=== PATIENT | male | born 1970 | race Caucasian/White ===

== ENCOUNTER 2024-03-09 11:30 | Inpatient (IN) | payer BC, SELFPAY ==
--- NOTE | ~2024-03-09 | MR_ITS ---
EXAMINATION: MR FOOT WITHOUT AND WITH CONTRAST, LEFT CLINICAL INFORMATION: Left foot erythema, pain, swelling. Evaluate for osteomyelitis. COMPARISON: Left foot radiographs dated 03/09/2024. TECHNIQUE: MRI of the left foot was performed before and after the intravenous administration of 8 mL Gadavist on a high-field scanner. FINDINGS: Soft tissue ulceration along the dorsal aspect of the midfoot at the level of the cuneiforms measuring approximately 2.0 x 1.6 cm. There is associated fluid signal extending deep into the region of the extensor digitorum tendon sheaths. Adjacent skin thickening and edema with postcontrast enhancement. Peripherally enhancing fluid signal measures up to 4.8 x 2.1 x 2.0 cm, likely indicating early abscess formation. Prominent adjacent soft tissue edema extends both proximally and distally beyond the imaged [id number]. No adjacent marrow edema or periosteal reaction to suggest adjacent osteomyelitis. There is complex cystic change with erosion and mild peripheral enhancement in the sinus tarsi with cystic change in both the talus and adjacent calcaneus. Mild associated marrow edema. Findings likely represent a chronic degenerative or inflammatory process and a superimposed acute infection is thought less likely due to the minimal adjacent marrow edema. Areas of full-thickness articular cartilage loss and subchondral cystic change at the anterior aspect of the tibial plafond. Diffuse talar articular cartilage thinning with areas of full-thickness loss and subchondral cystic change laterally. No unstable osteochondral fragment. Areas of full thickness loss and subchondral cystic change at the subtalar joints, as well as at the calcaneocuboid joint. No transverse tendon tear or tendon retraction. Posterior tibialis and peroneal tendons demonstrate small amount of fluid within the tendon sheath with mild enhancement, likely representing mild tenosynovitis. No evidence of acute ligament injury. Circumferential subcutaneous edema with mild enhancement. No additional fluid collection or abscess formation. MR/MR foot LT wo/w con IMPRESSION: 1. Soft tissue ulceration along the dorsal aspect of the midfoot at the level of the cuneiforms measuring up to 2.0 x 1.6 cm. Fluid signal extending deep to the extensor digitorum tendon sheath with adjacent skin thickening and enhancement, likely indicating early abscess formation. Prominent adjacent soft tissue edema extending both proximally and distally beyond the imaged [id number]. No adjacent marrow edema or periosteal reaction to suggest osteomyelitis. 2. Complex cystic change with erosion and mild peripheral enhancement in the sinus tarsi with cystic change in the talus and calcaneus. Findings likely represent a chronic degenerative or inflammatory process and a superimposed acute infection is thought less likely due to the minimal adjacent marrow edema. 3. 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 No unstable osteochondral fragment. 4. Mild posterior tibialis and peroneal tenosynovitis. 5. Circumferential subcutaneous edema with mild enhancement, likely representing cellulitis. No additional fluid collection or abscess formation.
--- NOTE | ~2024-03-09 | US_ITS ---
EXAMINATION: US VENOUS ULTRASOUND WITH DOPPLER LOWER EXTREMITY, LEFT CLINICAL INFORMATION: Left lower extremity swelling and redness COMPARISON: None available. TECHNIQUE: Ultrasound of the deep veins is performed from the hip to the calf with compression sonography and color and pulse Doppler assessment. Spectral analysis with color-flow imaging is performed. FINDINGS: There is normal venous compression and respiratory variation. The visualized common femoral vein, superficial femoral vein, profunda femoral vein, popliteal vein, and the trifurcation region shows no evidence of deep venous thrombosis. A benign-appearing enlarged lymph node measuring 4.1 cm in length is seen in the left inguinal area. This is likely reactive in origin. US/US venous duplex LE LT IMPRESSION: No DVT demonstrated in the left lower extremity.
--- NOTE | ~2024-03-09 | XR_ITS ---
EXAMINATION: XR FOOT, LEFT CLINICAL INFORMATION: swelling, pain, retained needle? COMPARISON: None available. TECHNIQUE: AP, lateral, and oblique views of the left foot. FINDINGS: No radiopaque foreign body. No evidence of retained needle. Large bone erosions present of the talus at the dorsum of the bone and the talar neck at the subtalar joint. Erosions also of the anterior calcaneus at the subtalar joint. No soft tissue calcification. Further evaluation with MRI would be helpful. There is a spur at the anterior tibia at the ankle joint which can suggest impingement. XR/XR foot LT min 3V IMPRESSION: 1. No radiopaque foreign body. No evidence of retained needle. 2. Large bone erosions of the talus at the subtalar joint and the anterior calcaneus at the subtalar joint. Further evaluation with MRI would be helpful.
[2024-03-09 12:44] VITALS: BP 150/79; PULSE 99; RESP 16; TEMP 37.2; O2SAT 97; BMI 26.4
--- NOTE | 2024-03-09 12:46 | ED.EXTPRO ---
HPI - Extremity Problem General Chief complaint: General Medical Stated complaint: Infected L foot Time Seen by Provider: 03/09/24 18:57 Source: patient Mode of arrival: ambulatory Limitations: no limitations History of Present Illness HPI Narrative: 53 yo male with history of HTN on atenolol, chronic back pain previously on oral opiates not on IV heroin for the last 10 years who presents to the ER for evaluation of a red, swollen, hot left foot and lower leg that has been worsening for the last 3 days. He states it started as a small reddened area on the foot and has progressed to his entire foot and lower leg. Barely able to walk on it now. He admits to injecting drugs in his feet, last was about 2 weeks ago. He is not diabetic. No history of cellulitis or infection from injecting in the past. Started getting chills and subjective fevers today. MD Complaint: extremity pain and extremity swelling Onset (ago): day(s) (3) Pain Consistency: constant Location: left and lower extremity Severity scale (1-10): 10 Quality: stabbing and aching Radiation: proximal Relieving factors: immobilization and elevation Exacerbating factors: range of motion, weight bearing and palpation Associated symptoms: fever, myalgias and arthralgias Context: other (IVDA) Related Data Home Medications ?Medication ?Instructions ?Recorded ?Confirmed atenolol 50 mg tablet 100 mg PO BEDTIME 03/09/24 03/09/24 Allergies Allergy/AdvReac Type Severity Reaction Status Date / Time No Known Allergies Allergy Verified 03/09/24 12:49 Review of Systems Review of Systems: Yes all other systems are reviewed and are negative [facility] Past Medical History Medical History (Updated 03/09/24 @ 20:33 by VESNA Patterson) IV drug user Essential hypertension Social History Social History Advance Directives: No Advance Directives Information Provided: Yes Physical Exam Vital Signs: Vital Signs: Last Vital Signs Temp 99.6 F 03/09/24 20:18 Pulse 103 H 03/09/24 20:18 Resp 16 03/09/24 20:18 BP 158/84 H 03/09/24 20:18 Pulse Ox 97 03/09/24 20:18 O2 Del Method Room Air 03/09/24 20:18 BMI result Body Mass Index 26.4 Appearance: Alert. Oriented X3. No acute distress. Head: normocephalic, atraumatic. Eyes: Pupils equal, round and reactive to light. ENT: Pharynx normal. poor dentition. No tonsillar swelling or exudate. Neck: Normal inspection. Neck supple. CVS: Normal heart rate and rhythm. Pulses normal. Respiratory: No respiratory distress. Breath sounds normal. Abdomen: Soft and nontender. +BS x4 Skin: Skin warm and dry. Normal skin color. Normal skin turgor. No rashes. Extremities: left foot with severe pitting edema, tenderness, warmth. punctate area of black, necrotic tissue on the top of the proximal foot which progressed to 2cm and is now multiple blackened areas upon re-evaluation. unable to palpate DP/PD pulse. skin blanches. taught edema. able to move all digits. erythema and warmth extend to the lower leg, see photos. Neuro/psych: Oriented X 3. No motor deficit. No sensory deficit. CN II-XII intact. Normal speech and cognition. Course Course Course Narrative: This is a Rapid Medical Examination (RME) performed by David Cartagena PA-C in triage. Full HPI, ROS, assessment and treatment plan per primary provider in the Main ED. 53 y/o male with history of HTN, active smoker, active IV heroin user who presents to the ER for evaluation of worsening left foot pain, redness and swelling that started 3 days ago after injecting heroin into the foot. no history of DM. on exam foot, ankle and lower leg are erythematous, warm, swollen with possible retained needle. patient counseled on severity of infection and need for inpatient level of care. importance of staying in the hospital expressed w/ concern for possible bacteremia. Plan: labs, cultures, imaging, ADMIT Medications Administered Generic Name Dose Route Start Last Admin Trade Name Freq PRN Reason Stop Dose Admin Vancomycin HCl 2,000 mg in 500 mls @ 250 mls/hr 03/09/24 18:56 03/09/24 20:32 Vancomycin/Ns IV 03/09/24 20:55 250 mls/hr ONCE ONE Administration Discontinued Medications Generic Name Dose Route Start Last Admin Trade Name Freq PRN Reason Stop Dose Admin Hydromorphone HCl 2 mg 03/09/24 19:05 03/09/24 19:45 Hydromorphone Hcl 2 Mg/Ml Vial IVPUSH 03/09/24 19:06 2 mg ONCE ONE Administration Protocol Piperacillin Sod/Tazobactam 50 mls @ 100 mls/hr 03/09/24 18:56 03/09/24 19:46 Sod 3.375 gm/ Sodium Chloride IV 03/09/24 19:25 100 mls/hr ONCE ONE Administration Sodium Chloride 1,000 mls @ 999 mls/hr 03/09/24 19:00 03/09/24 19:44 Ns IV 03/09/24 20:00 999 mls/hr .Q1H1M MIR Administration Medical Decision Making Medical Decision Making [facility] Narrative: 53-year-old male with history of HTN and active intravenous drug use presents to the ER for evaluation of left foot pain, swelling, redness that has been worsening for the last 3 days. He injected in the area 2 weeks ago. No other injury. Unable to ambulate on the leg with the pain. Subjective fevers today. On arrival to the ER patient has mild tachycardia, heart rate 99, temp 99 degrees. His foot is significantly swollen, erythematous, tender. Punctate area of blackened tissue on the proximal foot. Labs revealing for leukocytosis, white blood cell count 12.9. CRP is almost 14. Ultrasound does not show any evidence of blood clot. X-ray shows extensive bony erosions, question possible osteomyelitis, although he reports the redness and wound have only been present for 3 days. blackened area on his foot has worsened significantly in the last 6 hours, now open and draining foul smelling liquid. IV vanco, zosyn ordered along w/ pain control, IVF. patient will require admission for further evaluation and treatment. patient agreeable with plan Differential Diagnosis Differential Diagnoses: The differential diagnosis associated with the presentation includes Cellulitis, abscess, osteomyelitis, DVT, necrotizing wound, retained foreign body from injecting drugs Admission/Observation Consideration of admission/observation: Escalation of care including admission/observation considered Consult Healthcare Provider Management of the patient was discussed with: Hospitalist Dr. Sorto accepts admission Lab Data [facility] Lab Attestation statement: I reviewed the patient's lab results. leukocytosis, anemia, significantly elevated CRP 03/09/24 15:49 03/09/24 15:49 Labs: Lab Results 03/09/24 03/09/24 Range/Units 15:49 19:51 WBC 12.9 H (4.8-10.8) X10*3/uL RBC 4.40 L (4.60-5.80) X10*6/uL Hgb 12.5 L (14.0-18.0) g/dl Hct 36.9 L (42.0-52.0) % MCV 83.9 (80.0-98.0) fL MCH 28.4 (27.0-33.0) pg MCHC 33.9 (31.0-36.0) g/dl RDW 12.9 (11.0-16.0) % Plt Count 263 (160-400) X10*3/uL MPV 9.5 (9.4-12.4) fL Immature Gran % (Auto) 0.6 H (0.0-0.4) % Neut % (Auto) 83.3 H (45-73) % Lymph % (Auto) 9.6 L (20-40) % [place] % (Auto) 5.9 (2-11) % Eos % (Auto) 0.4 (0-4) % Baso % (Auto) 0.2 (0-2) % Lymph # (Auto) 1.2 (1.2-4.9) X10*3/uL [place] # (Auto) 0.8 (0.1-1.2) X10*3/uL Eos # (Auto) 0.1 (0.0-0.4) X10*3/uL Baso # (Auto) 0.0 (0.0-0.2) X10*3/uL Abs Immat Gran (auto) 0.08 H (0.00-0.03) X10*3/uL Absolute Neuts (auto) 10.7 H (2.0-8.3) x10*3/uL Absolute Nucleated RBC 0.000 (0.0-0.012) X10*3/uL Nucleated RBC % (auto) 0.0 (0.0-0.2) /100WBC ESR 75 H (0-15) MM/HR Sodium 135 (135-145) mmol/L Potassium 3.8 (3.3-5.1) mmol/L Chloride 100 (96-108) mmol/L Carbon Dioxide 24 (22-29) mmol/L Anion Gap 15 (12-20) BUN 8 L (9-16) mg/dL Creatinine 0.82 (0.5-1.4) mg/dL Estim Creat Clear Calc 104.1 Estimated GFR > 60 Random Glucose 105 (60-115) mg/dL Lactic Acid 0.9 (0.5-2.0) mmol/L Calcium 9.4 (8.4-10.2) mg/dL Magnesium 1.6 (1.6-2.6) mg/dL Total Bilirubin 0.7 (0.0-1.0) mg/dL Direct Bilirubin 0.3 (0.0-0.5) mg/dL AST 10 (5-37) U/L ALT 10 (0-40) U/L Alkaline Phosphatase 78 (39-117) U/L Total Creatine Kinase 57 (38-174) U/L C-Reactive Protein 13.93 H (< or = 0.50) mg/dL B-Natriuretic Peptide 80 (<100) pg/mL Total Protein 8.4 H (6.5-8.0) g/dL Albumin 4.0 (3.5-5.0) g/dL Urine Color Yellow Urine Appearance Clear Urine pH 5.5 (5.0-9.0) Ur Specific [place] 1.020 (1.005-1.025) Urine Protein 30 (1+) H (Neg-Trace) mg/dL Urine Glucose (UA) Negative (Negative) mg/dL Urine Ketones Negative (Negative) mg/dL Urine Blood Negative (Negative) Urine Nitrite Negative (Negative) Ur Leukocyte Esterase Negative (Negative) Urine RBC 0-2 (0-2) /HPF Urine WBC 0-5 (0-5) /HPF Ur Squamous Epith Cells 0-2 (0-2) /HPF Urine Bacteria None Seen (None Seen) Hyaline Casts 0-2 (0-2) /LPF Urine Opiates Screen POSITIVE H (Not Detect) Ur Buprenorphine Scrn Not Detected (Not Detect) ng/mL Ur Oxycodone Screen Not Detected (Not Detect) ng/mL Urine Methadone Screen Not Detected (Not Detect) ng/mL Urine Fentanyl Screen POSITIVE H (Not Detect) Ur Barbiturates Screen Not Detected (Not Detect) Ur Phencyclidine Scrn Not Detected (Not Detect) Ur Amphetamines Screen Not Detected (Not Detect) U Benzodiazepines Scrn Not Detected (Not Detect) Urine Cocaine Screen POSITIVE H (Not Detect) U Marijuana (THC) Screen Not Detected (Not Detect) Independent Interpretation I performed an independent interpretation of an: Plain X-Ray and Ultrasound Interpretation: Bony erosions, no acute fracture No DVT apprecaited on U/S Radiology Impression Discussion of test interpretation with radiology: I have reviewed the radiologist's reading. Radiologist Impression: EXAMINATION: XR FOOT, LEFT CLINICAL INFORMATION: swelling, pain, retained needle? COMPARISON: None available. TECHNIQUE: AP, lateral, and oblique views of the left foot. FINDINGS: No radiopaque foreign body. No evidence of retained needle. Large bone erosions present of the talus at the dorsum of the bone and the talar neck at the subtalar joint. Erosions also of the anterior calcaneus at the subtalar joint. No soft tissue calcification. Further evaluation with MRI would be helpful. There is a spur at the anterior tibia at the ankle joint which can suggest impingement. XR/XR foot LT min 3V IMPRESSION: 1. No radiopaque foreign body. No evidence of retained needle. 2. Large bone erosions of the talus at the subtalar joint and the anterior calcaneus at the subtalar joint. Further evaluation with MRI would be helpful. EXAMINATION: US VENOUS ULTRASOUND WITH DOPPLER LOWER EXTREMITY, LEFT CLINICAL INFORMATION: Left lower extremity swelling and redness COMPARISON: None available. TECHNIQUE: Ultrasound of the deep veins is performed from the hip to the calf with compression sonography and color and pulse Doppler assessment. Spectral analysis with color-flow imaging is performed. FINDINGS: There is normal venous compression and respiratory variation. The visualized common femoral vein, superficial femoral vein, profunda femoral vein, popliteal vein, and the trifurcation region shows no evidence of deep venous thrombosis. A benign-appearing enlarged lymph node measuring 4.1 cm in length is seen in the left inguinal area. This is likely reactive in origin. US/US venous duplex LE LT IMPRESSION: No DVT demonstrated in the left lower extremity. Tests considered The following testing was considered but not selected: Considered CT scan of the lower leg with contrast to evaluate for possible underlying abscess versus additional bony lesions versus osteomyelitis Prescription Management I considered prescription management with: Pain Medication and Antibiotic Chronic Conditions Patient?s care impacted by: Hypertension and Other (IVDA) Social Determinants Patient?s care significantly limited by Social Determinants of Health including: Problems related to primary support group and Other Social Determinant of Health Critical Care Time Critical Care Time Critical Care Time: Yes Total Critical Care Time: 49 Attestation: I have personally provided critical care time exclusive of time spent on separately billable procedures. Time includes review of lab data, radiology results, discussion with consultants, and monitoring for potential decompensation. Intervention performed as documented. Discharge Plan Discharge Clinical Impression: Cellulitis, Sepsis Patient Disposition: Admitted As Inpatient Print Language: Serbian
--- NOTE | 2024-03-09 13:37 | PC.NURSE ---
no answer [id number] - returned to waiting room at [phone]
[2024-03-09 15:56] LABS: MANUAL DIFF FLAG NO
[2024-03-09 16:05] LABS: Basophils Percent Auto 0.2 % (0-2); Eosinophils Absolute Auto 0.1 X10*3/uL (0.0-0.4); Eosinophils Percent Auto 0.4 % (0-4); Hematocrit 36.9 % (42.0-52.0); Hemoglobin 12.5 g/dl (14.0-18.0); Imm Gran Abs Auto 0.08 X10*3/uL (0.00-0.03); Imm Gran Pct Auto 0.6 % (0.0-0.4); Lymphocytes Absolute Auto 1.2 X10*3/uL (1.2-4.9); Lymphocytes Percent Auto 9.6 % (20-40); Mean Corpuscular HGB Conc 33.9 g/dl (31.0-36.0); Mean Corpuscular Hemoglobin 28.4 pg (27.0-33.0); Mean Corpuscular Volume 83.9 fL (80.0-98.0); Mean Platelet Volume 9.5 fL (9.4-12.4); Monocytes Absolute Auto 0.8 X10*3/uL (0.1-1.2); Monocytes Percent Auto 5.9 % (2-11); Neutrophils Absolute Auto 10.7 x10*3/uL (2.0-8.3); Neutrophils Percent Auto 83.3 % (45-73); Platelet Count 263 X10*3/uL (160-400); Red Cell Distribution Width 12.9 % (11.0-16.0); White Blood Count 12.9 X10*3/uL (4.8-10.8)
[2024-03-09 16:18] LABS: Lactic Acid 0.9 mmol/L (0.5-2.0)
[2024-03-09 16:22] LABS: Alanine Aminotransferase 10 U/L (0-40); Alkaline Phosphatase 78 U/L (39-117); Anion Gap 15 (12-20); Aspartate Amino Transferase 10 U/L (5-37); Bilirubin Direct 0.3 mg/dL (0.0-0.5); Bilirubin Total 0.7 mg/dL (0.0-1.0); Blood Urea Nitrogen 8 mg/dL (9-16); C Reactive Protein 13.93 mg/dL (< or = 0.50); Calcium 9.4 mg/dL (8.4-10.2); Carbon Dioxide 24 mmol/L (22-29); Chloride 100 mmol/L (96-108); Creatinine Clr Calc Pharmacy 104.1; Estimated Glomerular Filt Rate > 60; Glucose Random 105 mg/dL (60-115); Magnesium 1.6 mg/dL (1.6-2.6); Potassium 3.8 mmol/L (3.3-5.1); Sodium 135 mmol/L (135-145); Total Protein 8.4 g/dL (6.5-8.0)
[2024-03-09 16:29] LABS: B Type Natriuretic Peptide 80 pg/mL (<100)
[2024-03-09 16:37] LABS: Erythrocyte Sedimentation Rate 75 MM/HR (0-15)
[2024-03-09] MEDS: 0.9 % Sodium Chloride 1,000 ML 999 ML IV (19:44)
[2024-03-09] MEDS: HYDROmorphone HCl 2 MG/ML VIAL IVPUSH (19:45)
[2024-03-09] MEDS: Piperacillin Sodium/Tazobactam 3.375 GM in 0.9 % Sodium Chloride 50 ML IV (19:46)
[2024-03-09 19:49] VITALS: BP 158/84; PULSE 103; RESP 16; TEMP 37.6; O2SAT 97
[2024-03-09 19:59] LABS: Appearance Urine Clear; Color Urine Yellow; Glucose Urine UA Negative (Negative); Leukocyte Esterase Urine Negative (Negative); Nitrite Urine Negative (Negative); PH 5.5 (5.0-9.0); UMIC TRIGGER UACC YES; Urine Blood Negative (Negative); Urine Ketones Negative (Negative); Urine Protein 30 (1+) mg/dL (Neg-Trace)
--- NOTE | 2024-03-09 19:59 | P.HPHOSP_ITS ---
History of Present Illness Date of Service: 03/09/24 Chief Complaint: Foot infection This is a 53-year-old male with pertinent history of IV drug use disorder, essential hypertension on beta-hailee who presents to the emergency department for concerns of foot infection. Patient does admit injecting IV heroin into his left lower extremity. He last used 2 weeks ago. He noticed 3 days prior to presentation that his left lower extremity was red, warm and swollen. The symptoms have progressed over the next 48-72 hours. Patient is complaining of increasing redness, swelling and pain over the left lower extremity. Denies history of skin infections in the past. No fever, chills, nausea, vomiting, chest discomfort, palpitations, shortness of breath, abdominal pain, changes in urinary or bowel habits. Has difficulty ambulating due to pain. No drainage from the left lower extremity In the emergency department, patient was found to be septic and initiated on empiric IV antibiotics. Review of Systems 2 Constitutional: Constitutional: Reports no additional constitutional complaints Cardiovascular: Cardiovascular: Reports no additional cardiovascular complaints Gastrointestinal: Gastrointestinal: Reports no additional gastrointestinal complaints Genitourinary: Genitourinary: Reports no additional male genitourinary complaints Musculoskeletal: Musculoskeletal: Reports arthralgias and Reports joint swelling [facility] Medical History (Updated 03/09/24 @ 20:26 by Ana Sorto MD) IV drug user Essential hypertension Pertinent family history: No family history of early CAD Social History Advance Directives: No Advance Directives Information Provided: Yes Meds Allergies Allergy/AdvReac Type Severity Reaction Status Date / Time No Known Allergies Allergy Verified 03/09/24 12:49 Active Medications: Current Medications Vancomycin HCl (Vancomycin/Ns) 2,000 mg in 500 mls @ 250 mls/hr IV ONCE ONE Stop: 03/09/24 20:55 Sodium Chloride (Ns) 1,000 mls @ 999 mls/hr IV .Q1H1M MIR Stop: 03/09/24 20:00 Last Admin: 03/09/24 19:44 Dose: 999 mls/hr Home Medications ?Medication ?Instructions ?Recorded ?Confirmed ?Last Taken ?Type atenolol 50 mg tablet 100 mg PO BEDTIME 03/09/24 03/09/24 03/08/24 History Physical Exam 2 Vital Signs and Narrative: Vital Signs: Last Vital Signs Temp 99.6 F 03/09/24 19:49 Pulse 103 H 03/09/24 19:49 Resp 16 03/09/24 19:49 BP 158/84 H 03/09/24 19:49 Pulse Ox 97 03/09/24 19:49 O2 Del Method Room Air 03/09/24 19:49 BMI result Body Mass Index 26.4 Middle-aged male lying in bed in no distress Neck supple, no JVD Regular rate and rhythm, S1-S2 heard Regular breath sounds bilaterally, no wheezing or crackles appreciated Abdomen soft nontender, no guarding, no rigidity Patient is awake, alert and oriented to self, place, time and person ; no focal motor deficit Extremity: Left lower extremity with erythema, warmth, swelling and tenderness No pedal edema Results Labs 03/09/24 15:49 03/09/24 15:49 Labs: Laboratory Results - last 24 hr 03/09/24 15:49 MCV 83.9 MCH 28.4 MCHC 33.9 RDW 12.9 Plt Count 263 MPV 9.5 Immature Gran % (Auto) 0.6 H Neut % (Auto) 83.3 H Lymph % (Auto) 9.6 L [place] % (Auto) 5.9 Eos % (Auto) 0.4 Baso % (Auto) 0.2 Lymph # (Auto) 1.2 [place] # (Auto) 0.8 Eos # (Auto) 0.1 Baso # (Auto) 0.0 Abs Immat Gran (auto) 0.08 H Absolute Neuts (auto) 10.7 H Absolute Nucleated RBC 0.000 Nucleated RBC % (auto) 0.0 ESR 75 H Anion Gap 15 Estim Creat Clear Calc 104.1 Estimated GFR > 60 Random Glucose 105 Lactic Acid 0.9 Calcium 9.4 Magnesium 1.6 Total Bilirubin 0.7 Direct Bilirubin 0.3 AST 10 ALT 10 Alkaline Phosphatase 78 Total Creatine Kinase 57 C-Reactive Protein 13.93 H B-Natriuretic Peptide 80 Total Protein 8.4 H Albumin 4.0 Imaging Radiologist's Impressions: Impressions Foot X-Ray 03/09/24 13:00 IMPRESSION: 1. No radiopaque foreign body. No evidence of retained needle. 2. Large bone erosions of the talus at the subtalar joint and the anterior calcaneus at the subtalar joint. Further evaluation with MRI would be helpful. Venous Duplex 05/07/24 13:25 IMPRESSION: No DVT demonstrated in the left lower extremity. Assessment and Plan (1) Cellulitis: Qualifiers: Laterality: left Site of cellulitis: extremity Site of cellulitis of extremity: lower extremity Qualified Code(s): L03.116 - Cellulitis of left lower limb Status: Acute Plan This is a 53-year-old male with pertinent history of IV drug use disorder, essential hypertension on beta-hailee who presents to the emergency department for concerns of foot infection. #. Sepsis due to Acute cellulitis of left lower extremity: Resuscitated with IV crystalloids. Initiating empiric IV antibiotics. Lactic acid and blood culture obtained. X-ray with bone erosions of the talus and calcaneus at subtalar joint. Obtaining MRI to further delineate the anatomy #. IV drug use disorder: UDS positive for opiates, fentanyl and cocaine. COWS q shift. Consulting Addiction Team #. Essential hypertension: On atenolol DVT prophylaxis: Lovenox Full code Admit as inpatient and will require two night minimum hospital stay for IV antibiotics (as above), which is not possible in a lesser acute setting. Quality Stroke Does the patient have a stroke diagnosis?: No VTE Prior VTE?: No VTE Risk Level:: Medical - moderate - high VTE Device Contraindication: Treatment Not Indicated VTE Drug Contraindication: N/A - Med Ordered
[2024-03-09 20:05] LABS: Bacteria Urine None Seen (None Seen); Hyaline Casts Urine 0-2 /LPF (0-2); RBC Urine 0-2 /HPF (0-2); Squamous Epithelial Cell Urine 0-2 /HPF (0-2); WBC Urine 0-5 /HPF (0-5)
[2024-03-09 20:14] LABS: Amphetamine Screen Urine Not Detected (Not Detect); Barbiturates, Urine Not Detected (Not Detect); Benzodiazepines Screen Urine Not Detected (Not Detect); Buprenorphine Scr Not Detected (Not Detect); Cannabinoid Screen Urine Not Detected (Not Detect); Cocaine Screen Urine POSITIVE (Not Detect); Fentanyl, urine POSITIVE (Not Detect); Methadone Screen, Urine Not Detected (Not Detect); Opiate Screen Urine POSITIVE (Not Detect); Oxycodone Screen Urine Not Detected (Not Detect); Phencyclidine Screen Urine Not Detected (Not Detect)
[2024-03-09 20:18] VITALS: BP 158/84; PULSE 103; RESP 16; TEMP 37.6; O2SAT 97
--- NOTE | 2024-03-09 20:21 | PHA.MEDREC ---
Pharmacy Consult ? Medication Reconciliation Pharmacy has completed the medication reconciliation. Patient reports taking atenolol 100 mg at home. Unique Kimbrough, josD
[2024-03-09] MEDS: vancomycin/NS 2,000 MG/500 ML PLAST..BAG 250 MG IV (20:32)
[2024-03-09] MEDS: atenoloL 100 MG TABLET PO (20:35)
[2024-03-09] MEDS: Morphine Sulfate Immed Release 15 MG TABLET PO (20:35)
[2024-03-09] MEDS: Enoxaparin Sodium 40 MG/0.4 ML SYRINGE SUBCUT (20:36)
[2024-03-09] MEDS: Acetaminophen 325 MG TABLET 650 MG PO (20:36)
--- NOTE | 2024-03-09 20:39 | PHA.PROG ---
Admission Date/Time: Indication:Sepsis Weight in k.2 kg Adjusted body weight in K.9 kg [place] body weight in K.7 kg Obesity Dosing Indication % IBW: 114% Serum Creatinine - Last 168 Hours 03/09/24 15:49 Creatinine 0.82 Estimated CrCl and GFR - Last 168 Hours 03/09/24 15:49 Estim Creat Clear Calc 104.1 Estimated GFR > 60 Vancomycin Loading Dose: 2000 mg Current Vancomycin Dosing Regimen: 1250 mg Q12H Date and Time for next Vancomycin Level to be drawn: 03/11 @ 0700 Pharmacist Comments on Vancomycin Plan: Patient received an adequate load dose in the ER 03/09 @ 2030 Maintenance dose vancomycin 1250 mg Q12H is scheduled to start 03/10 @ 0900. Predict AUC 553 with a trough of 17 Level will be drawn prior to 4th dose Pharmacy will monitor renal function daily Unique Kimbrough, Demarco Vancomycin dosing will take advantage of [employer] as a clinical decision support tool that uses Bayesian modeling to calculate individual patient's pharmacokinetic parameters and forecast the patient's drug concentration time course with the target goal AUC 24 range of 400 - 600 mg/L/hr.
[2024-03-09 23:30] VITALS: BP 127/76; PULSE 74; RESP 14; TEMP 36; O2SAT 97
--- NOTE | 2024-03-09 23:50 | PC.NURSE ---
this rn assumed care of pt, pt resting in stretcher in resendiz, no acute distress noted.
[2024-03-10] MEDS: Morphine Sulfate Immed Release 15 MG TABLET PO ×3 (00:56→11:27)
--- NOTE | 2024-03-10 01:05 | PC.NURSE ---
pt reporting 10/10 left foot pain at this time, pt medicated per jan, tolerated well with water.
--- NOTE | 2024-03-10 01:22 | PC.NURSE ---
pt at this time stating i am going to leave, you don't care about my pain. pt educated on time that morphine takes to work, aware.
[2024-03-10] MEDS: Piperacillin Sodium/Tazobactam 4.5 GM in 0.9 % Sodium Chloride 100 ML IV ×3 (02:29→15:03)
[2024-03-10] MEDS: Morphine Sulfate 4 MG/ML CARTRIDGE IVPUSH (02:29)
--- NOTE | 2024-03-10 02:41 | PC.NURSE ---
this rn medicated pt per jan for 10/10 pain. pt dressing on left foot noted to have come off, this RN redressed with dry dressing.
[2024-03-10 04:43] VITALS: BP 114/59; PULSE 68; RESP 18; TEMP 36.1; O2SAT 94
[2024-03-10 05:47] LABS: MANUAL DIFF FLAG NO
[2024-03-10 05:51] LABS: Basophils Percent Auto 0.2 % (0-2); Eosinophils Absolute Auto 0.2 X10*3/uL (0.0-0.4); Eosinophils Percent Auto 1.8 % (0-4); Hematocrit 34.2 % (42.0-52.0); Hemoglobin 11.2 g/dl (14.0-18.0); Imm Gran Abs Auto 0.03 X10*3/uL (0.00-0.03); Imm Gran Pct Auto 0.3 % (0.0-0.4); Lymphocytes Absolute Auto 1.5 X10*3/uL (1.2-4.9); Mean Corpuscular HGB Conc 32.7 g/dl (31.0-36.0); Mean Corpuscular Hemoglobin 27.9 pg (27.0-33.0); Mean Corpuscular Volume 85.1 fL (80.0-98.0); Mean Platelet Volume 9.7 fL (9.4-12.4); Monocytes Absolute Auto 0.5 X10*3/uL (0.1-1.2); Monocytes Percent Auto 4.9 % (2-11); Neutrophils Absolute Auto 7.6 x10*3/uL (2.0-8.3); Neutrophils Percent Auto 77.8 % (45-73); Platelet Count 256 X10*3/uL (160-400); Red Blood Count 4.02 X10*6/uL (4.60-5.80); Red Cell Distribution Width 12.9 % (11.0-16.0); White Blood Count 9.7 X10*3/uL (4.8-10.8)
[2024-03-10 06:05] LABS: Anion Gap 12 (12-20); Blood Urea Nitrogen 7 mg/dL (9-16); Calcium 8.6 mg/dL (8.4-10.2); Carbon Dioxide 24 mmol/L (22-29); Chloride 105 mmol/L (96-108); Creatinine Clr Calc Pharmacy 115.4; Estimated Glomerular Filt Rate > 60; Glucose Random 92 mg/dL (60-115); Potassium 3.4 mmol/L (3.3-5.1); Sodium 138 mmol/L (135-145)
--- NOTE | 2024-03-10 06:25 | PC.NURSE ---
pt allowed to sleep at this time, respirations even and unlabored.
[2024-03-10 07:53] VITALS: BP 120/66; PULSE 73; TEMP 36.8; O2SAT 97
[2024-03-10] MEDS: vancomycin HCL 1,250 MG in 0.9 % Sodium Chloride 250 ML 166.67 MG IV (08:48)
--- NOTE | 2024-03-10 09:29 | HE.PHANOTE ---
Re: Vanco Renal function improving. Next trough is 5/ at 0700. Dose of 1250mg is approproate.
[2024-03-10] MEDS: Morphine Sulfate 2 MG/ML CARTRIDGE IVPUSH (10:01)
[2024-03-10] MEDS: 0.9 % Sodium Chloride Flush 3 ML SYRINGE IVFLUSH (10:05)
[2024-03-10] MEDS: gadobutroL 10 ML VIAL IVPUSH (12:56)
--- NOTE | 2024-03-10 13:45 | HO.PM.IMPN ---
Subjective Subjective Date of Service: 03/10/24 Interval History: f/u on cellulitis of the leg, he is complaning of pain in the foot, iv morphine added to oral morphine Physical Exam Vital Signs: Vital Signs: Last Vital Signs Temp 98.2 F 03/10/24 07:53 Pulse 73 03/10/24 07:53 Resp 18 03/10/24 04:43 BP 120/66 03/10/24 07:53 Pulse Ox 97 03/10/24 07:53 O2 Del Method Room Air 03/10/24 07:53 BMI result Body Mass Index 26.4 Const: Other: General: AO X 3, no acute distress Resp: CTA bilateral CVS: S1,S2,RRR GI: +BS, NT, no distention Skin: Neuro: motor grossly intact Psych: appropriate affect Objective Data Active Medications Acetaminophen (Acetaminophen 325 Mg Tablet) 650 mg PO Q6H PRN PRN Reason: Pain, Mild (Pain Scale 1-3) Last Admin: 03/09/24 20:36 Dose: 650 mg Documented By: SAMANTHA Atenolol (Atenolol 100 Mg Tablet) 100 mg PO BEDTIME [facility]; Protocol Last Admin: 03/09/24 20:35 Dose: 100 mg Documented By: SAMANTHA Enoxaparin Sodium (Enoxaparin Sodium 40 Mg/0.4 Ml Syringe) 40 mg SUBCUT Q24H [facility] Last Admin: 03/09/24 20:36 Dose: 40 mg Documented By: SAMANTHA Piperacillin Sod/Tazobactam (Sod 4.5 gm/ Sodium Chloride) 100 mls @ 200 mls/hr IV Q6H [facility] Last Infusion: 03/10/24 10:41 Dose: Infused Documented By: MAT Vancomycin HCl 1,250 mg/ (Sodium Chloride) 250 mls @ 166.667 mls/hr IV Q12H [facility] Last Infusion: 03/10/24 10:41 Dose: Infused Documented By: MAT Melatonin (Melatonin 3 Mg Tablet) 6 mg PO BEDTIME PRN PRN Reason: Insomnia Morphine Sulfate (Morphine Sulfate Immed Release 15 Mg Tablet) 15 mg PO Q4H PRN PRN Reason: Pain, Severe (Pain Scale 7-10) Last Admin: 03/10/24 11:27 Dose: 15 mg Documented By: HERMILA Morphine Sulfate (Morphine Sulfate 2 Mg/Ml Cartridge) 2 mg IVPUSH Q6H PRN; Protocol PRN Reason: Pain, Severe (Pain Scale 7-10) Last Admin: 03/10/24 10:01 Dose: 2 mg Documented By: HERMILA Ondansetron HCl (Ondansetron Hcl 4 Mg/2 Ml Vial) 4 mg IVPUSH Q8H PRN PRN Reason: Nausea and Vomiting Pharmacy Consult (Consult Rx Vancomycin Dosing) 1 each MISCELLANE DAILY PRN PRN Reason: Consult order Sodium Chloride (0.9 % Sodium Chloride Flush 3 Ml Syringe) 3 ml IVFLUSH QSHIFT [facility] Last Admin: 03/10/24 10:05 Dose: 3 ml Documented By: DEE Labs 03/10/24 05:12 03/10/24 05:12 Labs: Laboratory Results - last 24 hr 03/09/24 03/09/24 03/10/24 15:49 19:51 05:12 MCV 83.9 85.1 MCH 28.4 27.9 MCHC 33.9 32.7 RDW 12.9 12.9 Plt Count 263 256 MPV 9.5 9.7 Immature Gran % (Auto) 0.6 H 0.3 Neut % (Auto) 83.3 H 77.8 H Lymph % (Auto) 9.6 L 15.0 L [place] % (Auto) 5.9 4.9 Eos % (Auto) 0.4 1.8 Baso % (Auto) 0.2 0.2 Lymph # (Auto) 1.2 1.5 [place] # (Auto) 0.8 0.5 Eos # (Auto) 0.1 0.2 Baso # (Auto) 0.0 0.0 Abs Immat Gran (auto) 0.08 H 0.03 Absolute Neuts (auto) 10.7 H 7.6 Absolute Nucleated RBC 0.000 0.000 Nucleated RBC % (auto) 0.0 0.0 ESR 75 H Anion Gap 15 12 Estim Creat Clear Calc 104.1 115.4 Estimated GFR > 60 > 60 Random Glucose 105 92 Lactic Acid 0.9 Calcium 9.4 8.6 D Magnesium 1.6 Total Bilirubin 0.7 Direct Bilirubin 0.3 AST 10 ALT 10 Alkaline Phosphatase 78 Total Creatine Kinase 57 C-Reactive Protein 13.93 H B-Natriuretic Peptide 80 Total Protein 8.4 H Albumin 4.0 Urine Color Yellow Urine Appearance Clear Urine pH 5.5 Ur Specific [place] 1.020 Urine Protein 30 (1+) H Urine Glucose (UA) Negative Urine Ketones Negative Urine Blood Negative Urine Nitrite Negative Ur Leukocyte Esterase Negative Urine RBC 0-2 Urine WBC 0-5 Ur Squamous Epith Cells 0-2 Urine Bacteria None Seen Hyaline Casts 0-2 Urine Opiates Screen POSITIVE H Ur Buprenorphine Scrn Not Detected Ur Oxycodone Screen Not Detected Urine Methadone Screen Not Detected Urine Fentanyl Screen POSITIVE H Ur Barbiturates Screen Not Detected Ur Phencyclidine Scrn Not Detected Ur Amphetamines Screen Not Detected U Benzodiazepines Scrn Not Detected Urine Cocaine Screen POSITIVE H U Marijuana (THC) Screen Not Detected Microbiology Microbiology Results: Microbiology 03/09/24 19:00 Gram Stain - Final Foot Left Routine Culture - Preliminary Culture too young to evaluate. Assessment and Plan (1) Sepsis: Status: Acute (2) IV drug user: Status: Acute (3) Essential hypertension: Status: Acute (4) Cellulitis: Status: Acute Plan a 53-year-old male with pertinent history of IV drug use disorder, essential hypertension on beta-hailee who presents to the emergency department for concerns of foot infection. Sepsis due to Acute cellulitis of left lower extremity, sepsis resolved. Cultures pending. xray show Large bone erosions of the talus at the subtalar joint and the anterior calcaneus at the subtalar joint. MRI pending. Continue Vanco and Zosyn. Morphine for pain. ID consult IV drug use disorder: UDS positive for opiates, fentanyl and cocaine. COWS q shift. Consulting Addiction Team, clonidine for withdrawal, Essential hypertension: On atenolol DVT prophylaxis: Lovenox Full code Admit as inpatient and will require two night minimum hospital stay for IV antibiotics (as above), which is not possible in a lesser acute setting. Quality Stroke Does the patient have a stroke diagnosis?: No VTE Prior VTE?: No VTE Risk Level:: Medical - moderate - high VTE Device Contraindication: Treatment Not Indicated VTE Drug Contraindication: N/A - Med Ordered
--- NOTE | 2024-03-10 14:08 | MHC.RECOVRN ---
Met with pt in [id number] to follow up. Pt reports uncontrolled foot pain, denies withdrawal symptoms. Pt reports desire to dc if pain is not managed. Nathaly Leggett APRN, aware.
--- NOTE | 2024-03-10 14:12 | MHC.CM.PN ---
pt lives with had no servies prior to admission he has a ride home declined hcp
[2024-03-10] MEDS: Nicotine 21 MG PATCH.TD24 TRANSDERMA (15:03)
--- NOTE | 2024-03-10 15:45 | PC.NURSE ---
Patient transferred to [facility] from main ED, assisted to get settled in bed. Asked patient if he needed flood/fluids patient angry stating no, I want the pain medication due at 3:30. Patient with no scheduled pain medication at 3:30pm but able to have prn po 15mg of morphine. PRN morphine and clonadine pulled from Pyxis. The RN told patient that he was due for po morphine, patient became agitated stating 'No I already told them this it doesn't work, it only works when it goes through the IV. Patient reminded that IV push morphine was PRN every 6 hours, patient still agitated stating that doesn't work either, I need a morphine drip now, I already told them this. Patient then stood up from bed, ripped IV with abt running out of left AC. Declined for pressure dressing to be applied. Picked up all personal belongings and stated he was leaving. Security called and message sent to provider. upon security [facility] came to [facility] to speak with patient however patient did not want to wait and had had left overflow. Charge nurse aware
--- NOTE | 2024-03-10 17:37 | PM.DS ---
DS: Providers Provider Date of Service: 03/10/24 Date of admission: 03/09/24 19:58 Primary care physician: Fernanda Bullock NP Consults: 03/09/24 20:04 Addiction Medicine Routine Consulting Provider: Addiction Covering Reason for consultation: heroin use disorder DS: Diagnosis Discharge Diagnosis (1) Sepsis: Status: Acute (2) IV drug user: Status: Acute (3) Essential hypertension: Status: Acute (4) Cellulitis: Status: Acute DS: Summary Hospital Course Hospital Course: Chief Complaint: Foot infection This is a 53-year-old male with pertinent history of IV drug use disorder, essential hypertension on beta-hailee who presents to the emergency department for concerns of foot infection. Patient does admit injecting IV heroin into his left lower extremity. He last used 2 weeks ago. He noticed 3 days prior to presentation that his left lower extremity was red, warm and swollen. The symptoms have progressed over the next 48-72 hours. Patient is complaining of increasing redness, swelling and pain over the left lower extremity. Denies history of skin infections in the past. No fever, chills, nausea, vomiting, chest discomfort, palpitations, shortness of breath, abdominal pain, changes in urinary or bowel habits. Has difficulty ambulating due to pain. No drainage from the left lower extremity Hospital course: Patient was admitted and being treated with IV antibiotics, I was informed to come and talk to the patient as he ripped out his IV and by the time I reached there in less than 5 minutes, I was told he ran out. Final diagnoses: Sepsis cellulitis of the foot, rule out acute osteomylitis Time Attestation Discharge Coordination Time (in mins): 25 Quality: Safe Use of Opioids Does Pt have an Active Cancer Diagnosis on the Problem List?: No Quality: Stroke Does the patient have a stroke diagnosis?: No Physical Exam Vital Signs: Vital Signs: Last Vital Signs Temp 98.2 F 03/10/24 07:53 Pulse 73 03/10/24 07:53 Resp 18 03/10/24 04:43 BP 120/66 03/10/24 07:53 Pulse Ox 97 03/10/24 07:53 O2 Del Method Room Air 03/10/24 07:53 BMI result Body Mass Index 26.4 DS: Data Data Completed and Pending Labs on day of discharge: Laboratory Results - last 24 hr 03/09/24 03/10/24 19:51 05:12 WBC 9.7 RBC 4.02 L Hgb 11.2 L Hct 34.2 L MCV 85.1 MCH 27.9 MCHC 32.7 RDW 12.9 Plt Count 256 MPV 9.7 Immature Gran % (Auto) 0.3 Neut % (Auto) 77.8 H Lymph % (Auto) 15.0 L [place] % (Auto) 4.9 Eos % (Auto) 1.8 Baso % (Auto) 0.2 Lymph # (Auto) 1.5 [place] # (Auto) 0.5 Eos # (Auto) 0.2 Baso # (Auto) 0.0 Abs Immat Gran (auto) 0.03 Absolute Neuts (auto) 7.6 Absolute Nucleated RBC 0.000 Nucleated RBC % (auto) 0.0 Sodium 138 Potassium 3.4 Chloride 105 Carbon Dioxide 24 Anion Gap 12 BUN 7 L Creatinine 0.74 Estim Creat Clear Calc 115.4 Estimated GFR > 60 Random Glucose 92 Calcium 8.6 D Urine Color Yellow Urine Appearance Clear Urine pH 5.5 Ur Specific [place] 1.020 Urine Protein 30 (1+) H Urine Glucose (UA) Negative Urine Ketones Negative Urine Blood Negative Urine Nitrite Negative Ur Leukocyte Esterase Negative Urine RBC 0-2 Urine WBC 0-5 Ur Squamous Epith Cells 0-2 Urine Bacteria None Seen Hyaline Casts 0-2 Urine Opiates Screen POSITIVE H Ur Buprenorphine Scrn Not Detected Ur Oxycodone Screen Not Detected Urine Methadone Screen Not Detected Urine Fentanyl Screen POSITIVE H Ur Barbiturates Screen Not Detected Ur Phencyclidine Scrn Not Detected Ur Amphetamines Screen Not Detected U Benzodiazepines Scrn Not Detected Urine Cocaine Screen POSITIVE H U Marijuana (THC) Screen Not Detected Preliminary micro results at discharge 03/09/24 19:00 Routine Culture - Preliminary Foot Left Culture too young to evaluate. Discharge Plan Discharge Anticipated Discharge Date/Time: 03/10/24 17:35 Patient Disposition: Left Against Medical Advice Discharge Diagnosis: Sepsis, Cellulitis of the foot, rule out acute osteomylitis Referrals: Fernanda Bullock NP [Primary Care Provider] - 1 Week Discharge Medications: No Action atenolol 50 mg tablet 100 mg PO BEDTIME Discharge Orders: Discharge Order (Routine); Ordered 03/10/24 Ordered By: Alphonse Palomino Diet: Advance to usual diet Print Language: Greenlandic Care Plan Goals: resolution of infection Health Concerns: sepsis, cellulitis of the foot, bony erosion concern for osteomylitis Plan of Treatment: Left against before I could see the patient and advise him Assessment: see above
== END 2024-03-10 18:59 | disposition left against medical advice (07) | DRG 720 ==
LOC: HO.ED 20:06 → HO.EDOVER 21:00
PROVIDERS: Physician Assistant; Admitting Provider Student in an Organized Health Care Education/Training Program; Emergency Provider Emergency Medicine; PCP Nurse Practitioner Family; Visit Provider Internal Medicine
DX: A41.9 Sepsis, unspecified organism (principal); M86.172 Other acute osteomyelitis, left ankle and foot; L03.116 Cellulitis of left lower limb; I10 Essential (primary) hypertension; F11.90 Opioid use, unspecified, uncomplicated; Z79.899 Other long term (current) drug therapy
CPT/HCPCS: 36415; 73630; 73720; 80048; 80076; 80307; 81001; 81003; 82550; 83605; 83735; 83880; 85025; 85652; 86140; 87040; 87070; 87205; 93971; 99285; A9585; J1170; J1650; J2270; J2543; J3370; J3371

== ENCOUNTER → 2024-03-09 19:57 | Outpatient (BNV) | payer BC, SELFPAY | PROVIDERS: Emergency Provider Emergency Medicine; PCP Nurse Practitioner Family; Visit Provider Student in an Organized Health Care Education/Training Program | DX: A41.9 Sepsis, unspecified organism (principal); F19.90 Other psychoactive substance use, unspecified, uncomplicated; I10 Essential (primary) hypertension; Z53.29 Procedure and treatment not carried out because of patient's decision for other reasons; L03.116 Cellulitis of left lower limb | CPT/HCPCS: 99222; 99238 ==

== ENCOUNTER 2024-10-20 13:22 | Outpatient (RCR) | payer BC, SELFPAY | END 2024-11-17 16:00 | disposition home or self-care (01) | LOC: HO.WCC 13:22 | PROVIDERS: PCP Physician Assistant; Visit Provider Surgery | DX: S81.801A Unspecified open wound, right lower leg, initial encounter (principal); I10 Essential (primary) hypertension; F17.210 Nicotine dependence, cigarettes, uncomplicated; G62.9 Polyneuropathy, unspecified; X58.XXXA Exposure to other specified factors, initial encounter; Y93.9 Activity, unspecified; Y92.9 Unspecified place or not applicable; Y99.9 Unspecified external cause status; Z79.899 Other long term (current) drug therapy | CPT/HCPCS: 11042 ==

== ENCOUNTER 2024-11-01 08:27 | Emergency (ER) | payer BC, SELFPAY ==
[2024-11-01] VITALS (14 sets, daily range): BP systolic 102–137; BP diastolic 62–90; PULSE 64–109; RESP 11–20; TEMP -17.7–37.2; O2SAT 99; BMI 25.1
--- NOTE | ~2024-11-01 | US_ITS ---
EXAMINATION: Ultrasound extremity nonvascular/left thigh. CLINICAL INDICATION: Left thigh abscess/cellulitis. History of IV drug use COMPARISON: None. TECHNIQUE: Ultrasound imaging to the left anterior and medial thighs performed. FINDINGS: There is a complex hypoechoic to isoechoic collection with echogenic mobile debris in the left anteromedial thigh suggestive of abscess. It is mildly hypervascular with abscess measuring 2.4 x 1.5 x 2.5 cm. There is thrombosed varicose vein running through the abscess. US/US extremity nonvascular vail IMPRESSION: Findings suggestive of abscess in the left anteromedial thigh where patient complains of pain. There is a thrombosed varicose vein running through the abscess and should be taken into consideration prior to drainage or aspiration. Electronically signed by: Jayjay Gamboa MD 11/01/2024 12:18 PM [facility]
--- NOTE | 2024-11-01 09:10 | PC.NURSE ---
pt a&ox3, pt states he is an active IVDU states he uses heroin but states he ends up with it tainted with xylazine, pt has healing wounds all over his legs. lt thigh area is circular black area with red around it. pt states his pain is 8/10. last use of heroin was last night, pt stated he is not here to have an extensive workup or to be admitted, he is looking for PO antibiotics only. Pt does not want help for his active addiction at this time.
--- NOTE | 2024-11-01 09:28 | ED.SKABFB ---
HPI - Skin/Abscess/Foreign Bdy General Chief complaint: Skin/Abscess/Foreign Body Stated complaint: Cyst on L Leg Time Seen by Provider: 11/01/24 09:11 Source: patient and family (son) Mode of arrival: ambulatory Limitations: no limitations History of Present Illness ED Provider: TIGIST MEHTA PA-C HPI narrative: 53 year old male with pmhx significant for intravenous heroin use and HTN presents to the ED today for evaluation of redness/swelling to his left thigh which began two days ago. He does admit to injecting heroin, last used last night, however did not inject into this site. He is concerned his heroin is laced with zylasine. He reports noticing a red bump to the inner aspect of his thigh yesterday. He then woke up this morning with the area enlarged with area of black tissue in the center, draining bloody fluid. Denies difficulty ambulating or pain to his left knee/ hip. Denies fever, chills, headache. He was initially declining detox however tells me that he was open to speaking with our addiction medicine team regarding outpatient resources. Related Data Home Medications ?Medication ?Instructions ?Recorded ?Confirmed atenolol 50 mg tablet 100 mg PO BEDTIME 03/09/24 03/09/24 Previous Rx's ?Medication ?Instructions ?Recorded cephalexin 500 mg capsule 500 mg PO Q6H 7 days #28 caps 11/01/24 doxycycline monohydrate 100 mg 100 mg PO BID 7 days #14 tabs 11/01/24 tablet Allergies Allergy/AdvReac Type Severity Reaction Status Date / Time bupropion [From Wellbutrin] Allergy Difficulty Verified 11/01/24 08:55 Breathing Review of Systems Review of Systems: Constitutional: No fever, chills, fatigue, night sweats, weight changes ENT/Mouth: No ear pain, hearing loss, nasal congestion, sinus pain, rhinorrhea, sore throat Eyes: No eye pain, swelling, redness, vision changes, discharge Cardio: No chest pain, palpitations, SAUCEDO, orthopnea, peripheral edema Pulm: No SOB, cough, sputum, wheezing, dyspnea, hemoptysis GI: No nausea, vomiting, hematemesis, abdominal pain, diarrhea, constipation, hematochezia, melena : No irregular bleeding, dysuria, frequency, urgency, hesitancy, hematuria, flank pain, urinary flow changes, urinary incontinence or retention MSK: No back pain, neck pain, joint pain, myalgias Skin: No lesions, rashes, +abscess to L thigh Neuro: No weakness, numbness, paresthesias, LOC, dizziness, headache Psych: No anxiety/panic, depression, SI/HI, AH/VH All other systems reviewed and are negative. [facility] Past Medical History Attestation statement: The following information was validated with the patient. Source: old records reviewed and nursing notes reviewed Medical History IV drug user Essential hypertension Social History Social History Alcohol intake: current Alcohol intake frequency: a few times a week Alcohol type: hard liquor Patient Tobacco Use Status: Never used Tobacco Smoked in Last 30 Days: Yes Use of substances other than those prescribed or required for medical reasons: Yes Substance Use Type: Crack/Cocaine, Heroin and Other Advance Directives: No Advance Directives Information Provided: Yes service: No Physical Exam Vital Signs: Vital Signs: Last Vital Signs Temp 98.4 F 11/01/24 08:54 Pulse 66 11/01/24 13:09 Resp 20 11/01/24 08:54 BP 132/74 11/01/24 13:09 Pulse Ox 99 11/01/24 08:54 O2 Del Method Room Air 11/01/24 08:54 BMI result Body Mass Index 25.1 hypertensive and tachycardic General: Slightly diaphoretic however in no acute distress Skin: +see photo of left thigh below. 11 cm x 10 cm area of erythema and induration noted to medial aspect of left thigh with central necrosis. Intermittently draining serosanguineous fluid. Tender to palpation. Warm. No streaking. Multiple lesions noted to bilateral upper and lower extremities consistent with skin picking. Multiple track wills. Head: Normocephalic, atraumatic. EENT: Hearing is intact b/l. Conjunctiva clear. PERRLA. EOM intact. Moist mucous membranes.? Neck: Supple without LAD. FROM. Trachea midline.? Cardiac: Chest wall symmetric. RRR Lungs: Normal respiratory effort without accessory muscle use. CTA bilaterally Back: No midline spinous or paraspinal tenderness. No step off deformity. Ext: +see photo above Neuro: AOx3. Normal speech. 2+ dp/pt pulse intact. Ambulating with steady gait. Psych: Appropriate mood and affect. Responds appropriately to questions. Course Course Course Narrative: 1055 -- I received critical lactic of 2.8. He does not have a white count or left shift. He has normocytic anemia, chronic when compared to priors. H&H around baseline and above transfusion threshold. Chemistry does not demonstrate acute electrolyte abnormality requiring intervention. No SHANNA. Liver function at baseline. CRP elevated to 7.16. Concern for sepsis at this time. > given elevated lactic acid, tachycardia, diaphoresis, and suspected infection - patient meets sepsis criteria. Patient agreeable to a dose of IV antibiotics. Zosyn and vanco ordered. 1 L of fluids ordered. Morphine given for pain control. > US at bedside 1431 -- ultrasound of left thigh showing complex hypoechoic to isoechoic collection with echogenic mobile debris within the left anteromedial thigh suggestive of abscess. It was mildly hypervascular with abscess measuring 2.4 x 1.5 x 2.5 cm. There is thrombosed varicose vein running through the abscess. > I discussed findings with general surgeon, Dr. Sheffield who is recommending admission to medicine for treatment with IV antibiotics. No surgical intervention warranted at this time. > I discussed disposition with patient. He was adamant on being discharged home with oral antibiotics. He does not wish to stay/be admitted to the hospital for treatment. I did discuss the severity of the situation with patient and informed patient that leaving the ED today can result in/ not limited to worsening infection, sepsis, disability and even . He verbalizes understanding and would like to sign out against medical advice. He was amenable to a dose of IV antibiotics. Zosyn infusion completed. He has a about 30 minutes left of his vanco infusion however would like to leave before this is completed. He also received 1 L of IV fluids. vitals have remained stable. The area of cellulitis to left thigh was marked with skin pen. Gram stain/ culture sent to lab. Anita and keflex sent to pharmacy for treatment. Patient was educated on return precautions and encouraged to return to the ED at any time. > Sherly damon from addiction med also met with patient regarding detox. Patient ultimately decided that he would like to follow up with the [facility] outpatient as a walk-in. Information provided. Patient has been provided with take-home Narcan. Medications Administered Discontinued Medications Generic Name Dose Route Start Last Admin Trade Name Samira PRN Reason Stop Dose Admin Sodium Chloride 2,313.33 mls @ 2,313.33 mls/hr 11/01/24 10:52 11/01/24 13:08 Ns 30 ml/kg infuse over 1 hr (2313.33 ml) 11/01/24 11:51 Infused IV Infusion .Q1H STA Piperacillin Sod/Tazobactam 50 mls @ 100 mls/hr 11/01/24 10:52 11/01/24 12:20 Sod 3.375 gm/ Sodium Chloride IV 11/01/24 11:21 Infused ONCE ONE Infusion Vancomycin HCl 2,000 mg in 500 mls @ 250 mls/hr 11/01/24 10:52 11/01/24 12:21 Vancomycin/Ns IV 11/01/24 12:51 250 mls/hr ONCE ONE Administration Morphine Sulfate 2 mg 11/01/24 11:19 11/01/24 11:23 Morphine Sulfate 2 Mg/Ml [place] IVPUSH 11/01/24 11:20 2 mg ONCE ONE Administration Protocol Naloxone HCl 8 mg 11/01/24 11:53 11/01/24 13:07 Naloxone Hcl Nasal Take Home 4 Mg [place] NOSTRILALT 11/01/24 11:54 8 mg ONCE ONE Administration Medical Decision Making Medical Decision Making [facility] Narrative: 53 year old male with pmhx significant for intravenous heroin use and HTN presents to the ED today for evaluation of area of redness/swelling to his left thigh which began two days ago. Patient initially hypertensive and tachycardic. He is midly diaphoretic, otherwise well appearing. Refer to physical exam portion of note for findings. Differential diagnosis includes cellulitis, abscess, osteomyelitis, IV drug use, polysubstance abuse, zylasine wound, sepsis Plan for labs, lactic, BC, ultrasound, re-evaluation, pain control Differential Diagnosis Differential Diagnoses: The differential diagnosis associated with the presentation includes as above. Admission/Observation Consideration of admission/observation: Escalation of care including admission/observation considered Admission offered to patient, declining at this time. Consult Healthcare Provider Management of the patient was discussed with: Vitreo Retinal Surgeon (Dr. Sheffield (general surgery)) Lab Data [facility] Lab Attestation statement: I reviewed the patient's lab results. as above. 11/01/24 10:06 11/01/24 10:06 Labs: Lab Results 11/01/24 Range/Units 10:06 WBC 9.4 (4.8-10.8) X10*3/uL RBC 4.53 L (4.60-5.80) X10*6/uL Hgb 13.2 L (14.0-18.0) g/dl Hct 38.7 L (42.0-52.0) % MCV 85.4 (80.0-98.0) fL MCH 29.1 (27.0-33.0) pg MCHC 34.1 (31.0-36.0) g/dl RDW 12.5 (11.0-16.0) % Plt Count 277 (160-400) X10*3/uL MPV 10.0 (9.4-12.4) fL Immature Gran % (Auto) 0.5 H (0.0-0.4) % Neut % (Auto) 74.0 H (45-73) % Lymph % (Auto) 17.9 L (20-40) % [place] % (Auto) 6.4 (2-11) % Eos % (Auto) 1.1 (0-4) % Baso % (Auto) 0.1 (0-2) % Lymph # (Auto) 1.7 (1.2-4.9) X10*3/uL [place] # (Auto) 0.6 (0.1-1.2) X10*3/uL Eos # (Auto) 0.1 (0.0-0.4) X10*3/uL Baso # (Auto) 0.0 (0.0-0.2) X10*3/uL Abs Immat Gran (auto) 0.05 H (0.00-0.03) X10*3/uL Absolute Neuts (auto) 7.0 (2.0-8.3) x10*3/uL Absolute Nucleated RBC 0.000 (0.0-0.012) X10*3/uL Nucleated RBC % (auto) 0.0 (0.0-0.2) /100WBC ESR 74 H (0-15) MM/HR Sodium 137 (135-145) mmol/L Potassium 4.2 D (3.3-5.1) mmol/L Chloride 104 (96-108) mmol/L Carbon Dioxide 22 (22-29) mmol/L Anion Gap 15 (12-20) BUN 9 (9-16) mg/dL Creatinine 0.82 (0.5-1.4) mg/dL Estim Creat Clear Calc 104.1 Estimated GFR > 60 Random Glucose 97 (60-115) mg/dL Lactic Acid 2.8 H* (0.5-2.0) mmol/L Calcium 9.1 (8.4-10.2) mg/dL Total Bilirubin 0.5 (0.0-1.0) mg/dL AST 24 (5-37) U/L ALT 19 (0-40) U/L Alkaline Phosphatase 87 (39-117) U/L C-Reactive Protein 7.16 H (< or = 0.50) mg/dL Total Protein 7.9 (6.5-8.0) g/dL Albumin 3.8 (3.5-5.0) g/dL Independent Interpretation I performed an independent interpretation of an: Ultrasound Interpretation: US LLE showing complex abscess to left thigh Radiology Impression Discussion of test interpretation with radiology: I have reviewed the radiologist's reading. Radiologist Impression: Ordering Physician: Tigist Mehta Date of Service: 11/01/24 Procedure(s): US extremity nonvascular vail Accession Number(s): [id number] cc: Sadi Beyer MD; Tigist Mehta~ EXAMINATION: Ultrasound extremity nonvascular/left thigh. CLINICAL INDICATION: Left thigh abscess/cellulitis. History of IV drug use COMPARISON: None. TECHNIQUE: Ultrasound imaging to the left anterior and medial thighs performed. FINDINGS: There is a complex hypoechoic to isoechoic collection with echogenic mobile debris in the left anteromedial thigh suggestive of abscess. It is mildly hypervascular with abscess measuring 2.4 x 1.5 x 2.5 cm. There is thrombosed varicose vein running through the abscess. US/US extremity nonvascular vail IMPRESSION: Findings suggestive of abscess in the left anteromedial thigh where patient complains of pain. There is a thrombosed varicose vein running through the abscess and should be taken into consideration prior to drainage or aspiration. Electronically signed by: Jayjay Gamboa MD 11/01/2024 12:18 PM [facility] Independent Historian Clinical information obtained from an independent historian. History obtained from or confirmed by: Other (son) External Record Review External record reviewed: Inpatient record Prescription Management I considered prescription management with: Pain Medication and Antibiotic (keflex, doxycycline) Chronic Conditions Patient?s care impacted by: Hypertension and Other (IVDU) Social Determinants Patient?s care significantly limited by Social Determinants of Health including: Inadequate housing, Alcoholism and drug addiction in family and Other Social Determinant of Health Critical Care Time Critical Care Time Critical Care Time: Yes Total Critical Care Time: 35 Attestation: Critical care time in the amount of 35 minutes has been provided to the patient in terms of direct patient care, frequent reevaluation on IV morphine, consultation with addiction medicine and general surgery, review and interpretation of medical data and results, and management of potentially life-threatening conditions. This is all outside of any medical procedures. Discharge Plan Discharge Clinical Impression: Abscess, Sepsis, Heroin abuse Patient Disposition: Left Against Medical Advice Instructions: Abscess (ED) Additional Instructions: You were evaluated in the ED today for an abscess to your left thigh. The ultrasound shows a complex abscess. You received morphine for pain control and a dose of IV antibiotics. Our recommendation was admission to the hospital for intravenous antibiotics. You were choosing to sign out against medical advice at this time. Please feel free to return to the ED at any time for further work up/ treatment. I recommend you take 600mg ibuprofen every 6 hours or Tylenol 650mg every 6 hours as needed for pain. If needed, you can alternate these medications so that you take one medication every 3 hours. For example, at noon take ibuprofen, then at 3pm take Tylenol, then at 6pm take ibuprofen. Return with new or worsening symptoms including increasing redness, specifically extending outside the pen wills, red line up your leg, fever, chills, etc. In the case of an emergency call 911. You also met with Shelry from our addiction medicine team today. You have plans to follow up as a walk-in to our [facility]. We have provided you with take-home narcan. [address] [id number] Prescriptions: New cephalexin 500 mg capsule 500 mg PO Q6H 7 Days Qty: 28 0RF doxycycline monohydrate 100 mg tablet 100 mg PO BID 7 Days Qty: 14 0RF No Action atenolol 50 mg tablet 100 mg PO BEDTIME Referrals: Sadi Beyer MD [Primary Care Provider] - Stand Alone Forms: Against Medical Advice Print Language: Hungarian
--- NOTE | 2024-11-01 09:42 | PC.NURSE ---
pt now agreeable to labs being drawn and to speak with the care team. he is aware to speak with the provider if he begins to have withdrawal symptoms so we can medicate him to help.
[2024-11-01 10:16] LABS: MANUAL DIFF FLAG NO
[2024-11-01 10:19] LABS: Basophils Percent Auto 0.1 % (0-2); Eosinophils Absolute Auto 0.1 X10*3/uL (0.0-0.4); Eosinophils Percent Auto 1.1 % (0-4); Hematocrit 38.7 % (42.0-52.0); Hemoglobin 13.2 g/dl (14.0-18.0); Imm Gran Abs Auto 0.05 X10*3/uL (0.00-0.03); Imm Gran Pct Auto 0.5 % (0.0-0.4); Lymphocytes Absolute Auto 1.7 X10*3/uL (1.2-4.9); Lymphocytes Percent Auto 17.9 % (20-40); Mean Corpuscular HGB Conc 34.1 g/dl (31.0-36.0); Mean Corpuscular Hemoglobin 29.1 pg (27.0-33.0); Mean Corpuscular Volume 85.4 fL (80.0-98.0); Monocytes Absolute Auto 0.6 X10*3/uL (0.1-1.2); Monocytes Percent Auto 6.4 % (2-11); Platelet Count 277 X10*3/uL (160-400); Red Blood Count 4.53 X10*6/uL (4.60-5.80); Red Cell Distribution Width 12.5 % (11.0-16.0); White Blood Count 9.4 X10*3/uL (4.8-10.8)
[2024-11-01 10:39] LABS: Alanine Aminotransferase 19 U/L (0-40); Albumin Level 3.8 g/dL (3.5-5.0); Alkaline Phosphatase 87 U/L (39-117); Anion Gap 15 (12-20); Aspartate Amino Transferase 24 U/L (5-37); Bilirubin Total 0.5 mg/dL (0.0-1.0); Blood Urea Nitrogen 9 mg/dL (9-16); Calcium 9.1 mg/dL (8.4-10.2); Carbon Dioxide 22 mmol/L (22-29); Chloride 104 mmol/L (96-108); Creatinine Clr Calc Pharmacy 104.1; Estimated Glomerular Filt Rate > 60; Glucose Random 97 mg/dL (60-115); Potassium 4.2 mmol/L (3.3-5.1); Sodium 137 mmol/L (135-145); Total Protein 7.9 g/dL (6.5-8.0)
[2024-11-01 10:40] LABS: C Reactive Protein 7.16 mg/dL (< or = 0.50)
--- NOTE | 2024-11-01 10:42 | PC.NURSE ---
this nurse thought the patient was having an US performed, security came into [facility] and stated that the patient was in the waiting room. pt states he was outside looking for his wallet that he dropped.
[2024-11-01 10:49] LABS: Lactic Acid 2.8 mmol/L (0.5-2.0)
--- NOTE | 2024-11-01 11:05 | PC.NURSE ---
[facility] 4 hard to get access IV due current drug use.
[2024-11-01 11:08] LABS: Erythrocyte Sedimentation Rate 74 MM/HR (0-15)
[2024-11-01] MEDS: Piperacillin Sodium/Tazobactam 3.375 GM in 0.9 % Sodium Chloride 50 ML IV (11:15)
[2024-11-01] MEDS: 0.9 % Sodium Chloride 2,313.33 ML 2313.33 ML IV (11:15)
[2024-11-01] MEDS: Morphine Sulfate 2 MG/ML CARTRIDGE IVPUSH (11:23)
--- NOTE | 2024-11-01 11:25 | PC.NURSE ---
pt difficult stick d/t ivdu, 22g inserted to rt hand area, ivf running per order, abx running per order, pt medicated for 8-9/10 lt leg pain. agricultural research director applied, plan of care ongoing
--- NOTE | 2024-11-01 12:11 | PC.NURSE ---
22 G IV placed in right wrist.
[2024-11-01 12:15] LABS: Reflex Lactate? Lactic Acid Added
[2024-11-01] MEDS: vancomycin/NS 2,000 MG/500 ML PLAST..BAG 250 MG IV (12:21)
--- NOTE | 2024-11-01 12:28 | PC.NURSE ---
IV fluids on patient still going
[2024-11-01] MEDS: Naloxone HCl Nasal TAKE HOME 4 MG SPRAY 8 MG NOSTRILALT (13:07)
--- NOTE | 2024-11-01 13:10 | MHC.EDTECH ---
Repeat lactic not needed per VESNA Escoto.
--- NOTE | 2024-11-01 14:13 | PC.NURSE ---
pt does not wish to wait for antibiotics to finish patient wants to leave.
--- NOTE | 2024-11-01 14:14 | PC.NURSE ---
PT has 37 mins left of Vancomycin left, pt would like to sign ama papers and go.
== END 2024-11-01 14:16 | disposition left against medical advice (07) ==
PROVIDERS: Physician Assistant Medical; Emergency Provider Emergency Medicine; PCP Internal Medicine Nephrology
DX: A41.9 Sepsis, unspecified organism (principal); L02.416 Cutaneous abscess of left lower limb; F11.10 Opioid abuse, uncomplicated; R22.40 Localized swelling, mass and lump, unspecified lower limb; I10 Essential (primary) hypertension; R00.0 Tachycardia, unspecified; Z53.29 Procedure and treatment not carried out because of patient's decision for other reasons; Z59.10 Inadequate housing, unspecified; Z63.72 Alcoholism and drug addiction in family
CPT/HCPCS: 36415; 76882; 80053; 83605; 85025; 85652; 86140; 87040; 87070; 87205; 96361; 96365; 96375; 99285; J2270; J2543; J3370; S9485

== ENCOUNTER → 2024-11-01 09:30 | Outpatient (BNV) | payer BC, SELFPAY | PROVIDERS: Emergency Provider Emergency Medicine; PCP Internal Medicine Nephrology; Visit Provider Radiology Diagnostic Radiology | DX: L02.416 Cutaneous abscess of left lower limb (principal) | CPT/HCPCS: 76882 ==

== ENCOUNTER → 2024-11-04 13:18 | Outpatient (BNVA) | payer BC, SELFPAY | PROVIDERS: PCP Internal Medicine Nephrology ==

== ENCOUNTER 2024-11-08 13:02 | Outpatient (AMB) | payer BC, SELFPAY ==
--- NOTE | 2024-11-08 13:29 | A.OFFVISCC_ITS ---
Intake Visit Reasons: Intake Allergies bupropion [From Wellbutrin] Allergy (Verified 11/08/24 14:59) Difficulty Breathing HPI HPI Intake: Details: Patient presents for intake and treatment of OUD and AUD Patient had been seen earlier this week by real estate administrator He states that he is using fentanyl and cocaine daily --approx a bundle daily Denies any history of overdose Reports history of MOUD with methadone and states his dose got up to 170mg --he did not find it helpful as he continue to use opiates 2 recent admissions to [facility] both of which he left in less than 24 hours He also reports daily alcohol use drinking a pint of vodka daily --last drink last night Denies any history of seizures or any other withdrawal sx Does endorse GI upset--dyspepsia Reports one admission for [facility] level of care in the [place] family history of addiction sister from overdose 3 years ago He states that he wants to start buprenorphine this evening as he is out of money. discussed challenges with this due to recent fentanyl use and risk of precipitated withdrawal Reviewed strategic for starting suboxone --patient does not feel able to commit to any Discussed admission to [facility] level of care to address withdrawal and start MOUD Patient then stated that he has aliens that follow him everywhere. States they have been following him for years, and it is bothersome He denies any auditory hallucinations and states that the aliens or aircraft that carries aliens follows him outside. He did not appear to be in any distress. No concern for patient in terms of risk to self or others secondary to this delusion. At end of visit patient showed this senior writer wound on his foot---ankle and foot appearing swollen. He is reporting pain. Rpeorts that he left ED becuase he was afraid of withdrawal sx. Advised that is he reported withdrawal sx to providers they would be addressed Review of Systems Const Reports as per HPI, Reports body aches, Reports chills, Reports difficulty sleeping, Reports lethargy and Reports malaise Psych Reports anxiety, Reports depression and Reports anhedonia Physical Exam Const General: cooperative, comfortable and anxious Nutritional Appearance: average body habitus Orientation/consciousness: patient oriented x3 Limitations: no limitations Neuro General: patient oriented x3 Psych Appearance: grossly normal and disheveled Speech and movement: Normal speech and movement present Affect: Anxious affect present Attitude: cooperative Thought process: Normal thought process present and Circumstantial thought process present Thought content: Normal thought content present (aside from alien delusion ) Insight: Fair insight present (Psych) Judgement: Fair judgement present (Psych) Results AMB 14 Panel Urine Drug Screen Urine Marijuana (THC) Negative Last Edit by Tonie Ayon RN on 11/08/24 13: 52 Urine Cocaine Positive Last Edit by Tonie Ayon RN on 11/08/24 13:52 Urine Morphine Positive Last Edit by Tonie Ayon RN on 11/08/24 13:52 Urine Methamphetamine Negative Last Edit by Tonie Ayon RN on 11/08/24 13: 52 Urine Amphetamine Negative Last Edit by Tonie Ayon RN on 11/08/24 13:52 Urine Benzodiazepine Positive Last Edit by Tonie Ayon RN on 11/08/24 13:5 2 Urine Barbiturates Negative Last Edit by Tonie Ayon RN on 11/08/24 13:52 Urine Methadone Negative Last Edit by Tonie Ayon RN on 11/08/24 13:52 Urine Buprenorphine Negative Last Edit by Tonie Ayon RN on 11/08/24 13:52 Urine Tricyclic Antidepressant Negative Last Edit by Tnoie Ayon RN on 11/08/24 13:52 Urine MDMA Negative Last Edit by Tonie Ayon RN on 11/08/24 13:52 Urine Oxycodone Negative Last Edit by Tonie Ayon RN on 11/08/24 13:52 Urine Phencyclidine Negative Last Edit by Tonie Ayon RN on 11/08/24 13:52 Urine Propoxyphene Negative Last Edit by Tonie Ayon RN on 11/08/24 13:52 Results Reviewed Results Reviewed: Laboratory Last Values POC Urine Buprenorphine Negative 11/08/24 13:19 POC Urine Morphine Positive 11/08/24 13:19 POC Urine Oxycodone Negative 11/08/24 13:19 POC Urine Methadone Negative 11/08/24 13:19 POC Urine Propoxyphene Negative 11/08/24 13:19 POC Urine Barbiturates Negative 11/08/24 13:19 POC U Tricyclic Antidpr Negative 11/08/24 13:19 POC Urine PCP Negative 11/08/24 13:19 POC Ur Amphetamines Negative 11/08/24 13:19 POC Ur Methamphetamine Negative 11/08/24 13:19 POC Urine MDMA Negative 11/08/24 13:19 POC Ur Benzodiazepine Positive 11/08/24 13:19 POC Urine Cocaine Positive 11/08/24 13:19 POC Ur Marijuana (THC) Negative 11/08/24 13:19 Assessment & Plan Assessment & Plan (1) Opioid use disorder, severe, dependence: Code(s): F11.20 - Opioid dependence, uncomplicated Category: Medical Plan: * patient considering ATS admission or presenting to ED for re-eval of his foot * risk reduction and overdose prevention discussion * agreeable to real estate administrator following up in the next day or two (2) Alcohol use disorder, severe, dependence: Code(s): F10.20 - Alcohol dependence, uncomplicated Category: Medical Plan: * risk reduction discussion [facility] Medical History (Updated 11/11/24 @ 15:46 by Nathaly Leggett CNP) Abscess of skin and subcutaneous tissue IV drug user Essential hypertension Social History Alcohol intake: current Alcohol intake frequency: a few times a week Alcohol type: hard liquor Patient Tobacco Use Status: Never used Tobacco Substance Use Type: Crack/Cocaine, Heroin and Other service: No
--- NOTE | 2024-11-08 15:28 | AM.OFFVISNUR ---
Intake Visit Reasons: Intake Allergies bupropion [From Wellbutrin] Allergy (Verified 11/08/24 14:59) Difficulty Breathing Results AMB 14 Panel Urine Drug Screen Urine Marijuana (THC) Negative Last Edit by Tonie Ayon RN on 11/08/24 13:52 Urine Cocaine Positive Last Edit by Tonie Ayon RN on 11/08/24 13:52 Urine Morphine Positive Last Edit by Tonie Ayon RN on 11/08/24 13:52 Urine Methamphetamine Negative Last Edit by Tonie Ayon RN on 11/08/24 13:52 Urine Amphetamine Negative Last Edit by Tonie Ayon RN on 11/08/24 13:52 Urine Benzodiazepine Positive Last Edit by Tonie Ayon RN on 11/08/24 13:52 Urine Barbiturates Negative Last Edit by Tonie Ayon RN on 11/08/24 13:52 Urine Methadone Negative Last Edit by Tonie Ayon RN on 11/08/24 13:52 Urine Buprenorphine Negative Last Edit by Tonie Ayon RN on 11/08/24 13:52 Urine Tricyclic Antidepressant Negative Last Edit by Tonie Ayon RN on 11/08/24 13:52 Urine MDMA Negative Last Edit by Tonie Ayon RN on 11/08/24 13:52 Urine Oxycodone Negative Last Edit by Tonie Ayon RN on 11/08/24 13:52 Urine Phencyclidine Negative Last Edit by Tonie Ayon RN on 11/08/24 13:52 Urine Propoxyphene Negative Last Edit by Tonie Ayon RN on 11/08/24 13:52 Assessment & Plan Assessment & Plan (1) IV drug user: Code(s): F19.90 - Other psychoactive substance use, unspecified, uncomplicated Category: Social Hx
== END 2024-11-08 14:10 | disposition home or self-care (01) ==
PROVIDERS: PCP Internal Medicine Nephrology; Visit Provider Nurse Practitioner Psychiatric/Mental Health
DX: F11.20 Opioid dependence, uncomplicated (principal); F10.20 Alcohol dependence, uncomplicated
CPT/HCPCS: 99204

== ENCOUNTER → 2024-11-08 13:02 | Outpatient (BNVA) | payer BC, SELFPAY | PROVIDERS: PCP Internal Medicine Nephrology; Visit Provider Nurse Practitioner Psychiatric/Mental Health ==

== ENCOUNTER 2024-11-08 14:36 | Emergency (ER) | payer BC, SELFPAY ==
[2024-11-08 14:58] VITALS: BP 109/74; PULSE 70; RESP 20; TEMP 36.4; O2SAT 97; BMI 25.1
--- NOTE | 2024-11-08 15:08 | ED_ITS ---
HPI - General Adult General Chief complaint: Skin/Abscess/Foreign Body Stated complaint: Ulcer Time Seen by Provider: 11/08/24 17:23 Source: patient, RN notes reviewed and old records reviewed Mode of arrival: ambulatory Limitations: no limitations History of Present Illness ED Provider: Jeremias HUA narrative: 53-year-old male presents for evaluation of an at process to his right mccoy. The patient was seen here last week for a similar abscess to his left thigh. It was apparently recommended that he be admitted to the hospital but he declined. He was discharged with doxycycline and cephalexin. He reports that he is using his medications as prescribed He reports that he continues to use IV drugs. He reports he plans on going to detox tomorrow at [facility]. He denies any fevers or chills He reports over last couple of days he has noticed a small bump to his right mccoy that is red and painful which prompted him to return to the ER. He is currently taking cephalexin and doxycycline Related Data Home Medications ?Medication ?Instructions ?Recorded ?Confirmed atenolol 50 mg tablet 100 mg PO BEDTIME 03/09/24 03/09/24 Previous Rx's ?Medication ?Instructions ?Recorded cephalexin 500 mg capsule 500 mg PO Q6H 7 days #28 caps 11/01/24 doxycycline monohydrate 100 mg 100 mg PO BID 7 days #14 tabs 11/01/24 tablet morphine 15 mg immediate release 15 mg PO Q4-6H PRN pain (scale 11/02/24 tablet score 4-6) #5 tabs cephalexin 500 mg capsule 500 mg PO QID #28 caps 11/08/24 doxycycline hyclate 100 mg tablet 100 mg PO BID #14 tabs 11/08/24 Allergies Allergy/AdvReac Type Severity Reaction Status Date / Time bupropion [From Wellbutrin] Allergy Difficulty Verified 11/08/24 14:59 Breathing Review of Systems 2 Constitutional: Constitutional: Denies body ache(s), Denies chills and Denies fever(s) Eyes: Eyes: Denies exophthalmos ENT: Denies sore throat Cardiovascular: Cardiovascular: Denies chest pain and Denies dyspnea Respiratory: Respiratory: Denies cough and Denies dyspnea Integumentary/Breasts: Skin/Breast: Reports lesions and Reports erythema Psychiatric: Psychiatric: Denies anxiety [facility] Past Medical History Medical History (Updated 11/08/24 @ 18:16 by Carlos Mcdowell) Abscess of skin and subcutaneous tissue IV drug user Essential hypertension Social History Social History Alcohol intake: current Alcohol intake frequency: a few times a week Alcohol type: hard liquor Patient Tobacco Use Status: Never used Tobacco Substance Use Type: Crack/Cocaine, Heroin and Other service: No Physical Exam ED Vital Signs: Vital Signs - 24 hr 11/08/24 14:58 11/08/24 18:18 11/08/24 18:26 Temperature 97.5 F 98.0 F 98.0 F Pulse Rate 70 63 63 Respiratory Rate 20 20 20 Blood Pressure 109/74 130/77 130/77 Pulse Oximetry 97 97 97 Oxygen Delivery Method Room Air Room Air Room Air BMI result Body Mass Index 25.1 Const General: healthy appearing, comfortable, no acute distress, alert and awake Nutritional Appearance: well nourished Orientation/consciousness: patient oriented x3 HENMT Head: Yes normocephalic and Yes atraumatic Eyes Eyelids: Yes eyelids normal Conjunctivae: conjunctivae normal Sclerae: sclerae normal Corneas: corneas normal Pupils: Equal, round and reactive pupils present EOM: EOMs intact bilaterally Neck Neck: Yes full ROM Resp Effort & Inspection: normal respiratory effort, able to speak in complete sentences and not labored Cardio Rate: regular rate Rhythm: regular rhythm Skin Other: Patient has a 2 x 2 cm area of induration, erythema to the right lateral mccoy approximately at the mid point of the tibia. There were no open wounds or drainage General skin exam: elasticity normal Neuro General: patient oriented x3 Cranial nerves: Yes Equal, round and reactive pupils present and Yes Bilaterally intact EOM present Cognition (Neuro): normal cognition Extrem Other: Moving all extremities well without any obvious deformities Course Course Course Narrative: RmE: 53 yold male on antibitoics for recurrent abscess presents to the ED for new abscess on right leg and for evaluation for left thigh abscess. Patient was pus to be admitted for IV antibiotics last visit but refused. Repeat labs ordered. Medications Administered Discontinued Medications Generic Name Dose Route Start Last Admin Trade Name Freq PRN Reason Stop Dose Admin Lidocaine/Epinephrine 10 ml 11/08/24 17:34 11/08/24 17:55 Lidocaine Hcl 1%/Epi 1:100,000 10 Ml Vial INFILTRATI 11/08/24 17:35 10 ml ONCE ONE Administration Medical Decision Making Medical Decision Making [facility] Narrative: 53-year-old male presents for evaluation of a wound to his right lower leg. He continues to use IV drugs. The patient's vitals are within normal limits, he is afebrile, normotensive. He has no leukocytosis, no evidence of sepsis. I did review the patient's chart from last week on 11/01/2024. He did have an ultrasound of his left thigh which showed an abscess with concern of thrombosed vein running through the abscess. I did discuss with Dr. Sheffield, surgery who was present in the ER and evaluated the patient bedside. He was able to probe the wound to the left thigh and did not feel it needed admission or incision and drainage at this time. Please see I and D procedure for the right mccoy abscess. I will add a week of antibiotics to both the cephalexin and doxycycline for a total of 2 weeks of antibiotics. The patient will be given outpatient surgery follow-up Differential Diagnosis Differential Diagnoses: The differential diagnosis associated with the presentation includes Abscess Cellulitis Ulcer Sepsis less likely Admission/Observation Consideration of admission/observation: Escalation of care including admission/observation considered Discussed with general surgery who did not feel the patient required any further inpatient management of his left thigh abscess Lab Data [facility] Lab Attestation statement: I reviewed the patient's lab results. As above 11/08/24 15:34 11/08/24 15:34 Labs: Lab Results 11/08/24 Range/Units 15:34 WBC 8.6 (4.8-10.8) X10*3/uL RBC 4.66 (4.60-5.80) X10*6/uL Hgb 13.5 L (14.0-18.0) g/dl Hct 40.0 L (42.0-52.0) % MCV 85.8 (80.0-98.0) fL MCH 29.0 (27.0-33.0) pg MCHC 33.8 (31.0-36.0) g/dl RDW 12.6 (11.0-16.0) % Plt Count 330 (160-400) X10*3/uL MPV 9.3 L (9.4-12.4) fL Immature Gran % (Auto) 0.3 (0.0-0.4) % Neut % (Auto) 70.1 (45-73) % Lymph % (Auto) 21.2 (20-40) % [place] % (Auto) 6.5 (2-11) % Eos % (Auto) 1.7 (0-4) % Baso % (Auto) 0.2 (0-2) % Lymph # (Auto) 1.8 (1.2-4.9) X10*3/uL [place] # (Auto) 0.6 (0.1-1.2) X10*3/uL Eos # (Auto) 0.2 (0.0-0.4) X10*3/uL Baso # (Auto) 0.0 (0.0-0.2) X10*3/uL Abs Immat Gran (auto) 0.03 (0.00-0.03) X10*3/uL Absolute Neuts (auto) 6.1 (2.0-8.3) x10*3/uL Absolute Nucleated RBC 0.000 (0.0-0.012) X10*3/uL Nucleated RBC % (auto) 0.0 (0.0-0.2) /100WBC ESR 76 H (0-15) MM/HR Sodium 138 (135-145) mmol/L Potassium 4.4 (3.3-5.1) mmol/L Chloride 104 (96-108) mmol/L Carbon Dioxide 26 (22-29) mmol/L Anion Gap 12 (12-20) BUN 11 (9-16) mg/dL Creatinine 0.92 (0.5-1.4) mg/dL Estim Creat Clear Calc 92.8 Estimated GFR > 60 Random Glucose 97 (60-115) mg/dL Calcium 9.8 D (8.4-10.2) mg/dL Total Bilirubin 0.5 (0.0-1.0) mg/dL AST 22 (5-37) U/L ALT 24 (0-40) U/L Alkaline Phosphatase 89 (39-117) U/L C-Reactive Protein 2.59 H (< or = 0.50) mg/dL Total Protein 9.0 H (6.5-8.0) g/dL Albumin 4.3 (3.5-5.0) g/dL Discharge Plan Discharge Clinical Impression: Abscess of right leg Patient Disposition: Home, Self-Care Instructions: Incision and Drainage (ED) Additional Instructions: You should apply warm compresses to the affected area on your right lower leg as well as your left thigh Take the antibiotics as prescribed I prescribed an additional week I recommend that you follow-up with outpatient detox as discussed Return for new or worsening symptoms You may follow-up with general surgery for the left thigh wound if it does not heal well Prescriptions: New cephalexin 500 mg capsule 500 mg PO QID Qty: 28 0RF doxycycline hyclate 100 mg tablet 100 mg PO BID Qty: 14 0RF No Action atenolol 50 mg tablet 100 mg PO BEDTIME cephalexin 500 mg capsule 500 mg PO Q6H 7 Days Qty: 28 0RF doxycycline monohydrate 100 mg tablet 100 mg PO BID 7 Days Qty: 14 0RF morphine 15 mg tablet 15 mg PO Q4-6H PRN (Reason: pain (scale score 4-6)) Qty: 5 0RF Rx Instructions: Partial Fill upon patient request. Referrals: Ronal Sheffield MD [Physician] - (left thigh abscess) Interventions: ED Discharge Assessment Last Done: 11/08/24 18:26 Discharge Date/Time: 11/08/24 18:28 Print Language: [place]
[2024-11-08 15:38] LABS: MANUAL DIFF FLAG NO
[2024-11-08 15:40] LABS: Basophils Percent Auto 0.2 % (0-2); Eosinophils Absolute Auto 0.2 X10*3/uL (0.0-0.4); Eosinophils Percent Auto 1.7 % (0-4); Hemoglobin 13.5 g/dl (14.0-18.0); Imm Gran Abs Auto 0.03 X10*3/uL (0.00-0.03); Imm Gran Pct Auto 0.3 % (0.0-0.4); Lymphocytes Absolute Auto 1.8 X10*3/uL (1.2-4.9); Lymphocytes Percent Auto 21.2 % (20-40); Mean Corpuscular HGB Conc 33.8 g/dl (31.0-36.0); Mean Corpuscular Volume 85.8 fL (80.0-98.0); Mean Platelet Volume 9.3 fL (9.4-12.4); Monocytes Absolute Auto 0.6 X10*3/uL (0.1-1.2); Monocytes Percent Auto 6.5 % (2-11); Neutrophils Absolute Auto 6.1 x10*3/uL (2.0-8.3); Neutrophils Percent Auto 70.1 % (45-73); Platelet Count 330 X10*3/uL (160-400); Red Blood Count 4.66 X10*6/uL (4.60-5.80); Red Cell Distribution Width 12.6 % (11.0-16.0); White Blood Count 8.6 X10*3/uL (4.8-10.8)
[2024-11-08 16:02] LABS: Alanine Aminotransferase 24 U/L (0-40); Albumin Level 4.3 g/dL (3.5-5.0); Anion Gap 12 (12-20); Aspartate Amino Transferase 22 U/L (5-37); Bilirubin Total 0.5 mg/dL (0.0-1.0); Blood Urea Nitrogen 11 mg/dL (9-16); C Reactive Protein 2.59 mg/dL (< or = 0.50); Calcium 9.8 mg/dL (8.4-10.2); Carbon Dioxide 26 mmol/L (22-29); Chloride 104 mmol/L (96-108); Creatinine Clr Calc Pharmacy 92.8; Estimated Glomerular Filt Rate > 60; Glucose Random 97 mg/dL (60-115); Potassium 4.4 mmol/L (3.3-5.1); Sodium 138 mmol/L (135-145)
[2024-11-08 16:04] LABS: Alkaline Phosphatase 89 U/L (39-117)
[2024-11-08 16:44] LABS: Erythrocyte Sedimentation Rate 76 MM/HR (0-15)
--- NOTE | 2024-11-08 17:35 | P.CONGS_ITS ---
History of Present Illness Consult details Consult date: 11/08/24 Narrative: 53-year-old male referred for abscess of the left thigh and right lower leg. He was actually here in the ER last 11/01/2024 for similar problems. He had some cellulitis on a thigh abscess at that time on the left. However, he had refused admission for IV antibiotics. The area of the abscess in the anterior left thigh eventually opened up and started draining. He decided to come again to the ER today to have this checked. He also has another area in the right lower leg anteriorly which has a similar swelling. He admits to doing IV drugs but denies using these 2 areas for IV access. Review of Systems 2 Constitutional: Constitutional: Denies chills and Denies fever(s) Respiratory: Respiratory: Reports no additional respiratory complaints Gastrointestinal: Gastrointestinal: Denies abdominal pain Genitourinary: Genitourinary: Denies difficulty urinating Integumentary/Breasts: Comments: Has had multiple small areas of induration and redness PMFSH Past Medical History Medical History (Updated 11/08/24 @ 17:39 by Ronal Sheffield MD) Abscess of skin and subcutaneous tissue IV drug user Essential hypertension Social History Social History Alcohol intake: current Alcohol intake frequency: a few times a week Alcohol type: hard liquor Patient Tobacco Use Status: Never used Tobacco Substance Use Type: Crack/Cocaine, Heroin and Other Advance Directives: No Advance Directives Information Provided: No service: No Meds Allergies Allergy/AdvReac Type Severity Reaction Status Date / Time bupropion [From Wellbutrin] Allergy Difficulty Verified 11/08/24 14:59 Breathing Home Medications ?Medication ?Instructions ?Recorded ?Confirmed ?Last Taken ?Type atenolol 50 mg tablet 100 mg PO BEDTIME 03/09/24 03/09/24 03/08/24 History Physical Exam 2 Vital Signs: Vital Signs: Last Vital Signs Temp 97.5 F 11/08/24 14:58 Pulse 70 11/08/24 14:58 Resp 20 11/08/24 14:58 BP 109/74 11/08/24 14:58 Pulse Ox 97 11/08/24 14:58 O2 Del Method Room Air 11/08/24 14:58 BMI result Body Mass Index 25.1 Const: General: comfortable and no acute distress Resp: Effort & Inspection: normal respiratory effort Cardio: Rate: regular rate Extrem: Other: Left anterior thigh with note of an open wound covered by dried pus, measuring what 1.3 cm in diameter, with surrounding redness of the skin Right lower leg anteriorly is note of a small area of induration about 2 cm in diameter, with what seems to be some central fluctuance, no cellulitis Results Labs 11/08/24 15:34 11/08/24 15:34 Labs: Abnormal lab results 11/08/24 Range/Units 15:34 Hgb 13.5 L (14.0-18.0) g/dl Hct 40.0 L (42.0-52.0) % MPV 9.3 L (9.4-12.4) fL ESR 76 H (0-15) MM/HR C-Reactive Protein 2.59 H (< or = 0.50) mg/dL Total Protein 9.0 H (6.5-8.0) g/dL Short CBC 11/08/24 Range/Units 15:34 WBC 8.6 (4.8-10.8) X10*3/uL Hgb 13.5 L (14.0-18.0) g/dl Hct 40.0 L (42.0-52.0) % Plt Count 330 (160-400) X10*3/uL BMP 11/08/24 15:34 Sodium 138 Potassium 4.4 Chloride 104 Carbon Dioxide 26 BUN 11 Creatinine 0.92 Calcium 9.8 D Liver Function 11/08/24 Range/Units 15:34 Total Bilirubin 0.5 (0.0-1.0) mg/dL AST 22 (5-37) U/L ALT 24 (0-40) U/L Alkaline Phosphatase 89 (39-117) U/L Albumin 4.3 (3.5-5.0) g/dL All other labs normal. Assessment and Plan (1) Abscess of skin and subcutaneous tissue: Status: Acute The area of the previous abscess on the anterior thigh he has already drained spontaneously. This is covered with dried pus and nonviable tissue. I bluntly debrided this using Q-tips. There was note of good granulation tissue of the subcutaneous fat underneath. I removed all the nonviable tissue as well as dried pus. I applied dry dressings He is to do daily dressing changes on this He has another area of what appears to be a skin abscess on the right lower leg anteriorly. This should easily be treated with an I and D via a small incision. I discussed the above with the emergency room staff. Procedures Date of Service Date of Service: 11/08/24
[2024-11-08] MEDS: Lidocaine HCl 1%/Epi 1:100,000 10 ML VIAL INFILTRATI (17:55)
[2024-11-08 18:18] VITALS: BP 130/77; PULSE 63; RESP 20; TEMP 36.7; O2SAT 97
[2024-11-08 18:26] VITALS: BP 130/77; PULSE 63; RESP 20; TEMP 36.7; O2SAT 97
== END 2024-11-08 18:28 | disposition home or self-care (01) ==
PROVIDERS: Physician Assistant; Emergency Provider Emergency Medicine; PCP Internal Medicine Nephrology
DX: L02.415 Cutaneous abscess of right lower limb (principal)
CPT/HCPCS: 10060; 36415; 80053; 85025; 85652; 86140; 99283; 99284; J2004

== ENCOUNTER → 2024-11-08 15:24 | Outpatient (BNV) | payer BC, SELFPAY | PROVIDERS: PCP Internal Medicine Nephrology; Visit Provider Surgery | DX: L02.91 Cutaneous abscess, unspecified (principal) | CPT/HCPCS: 99283 ==

== ENCOUNTER 2025-01-28 12:37 | Outpatient (REF) | payer BC, SELFPAY ==
[2025-01-28 16:14] LABS: MANUAL DIFF FLAG NO
[2025-01-28 16:19] LABS: Basophils Absolute Auto 0.1 X10*3/uL (0.0-0.2); Basophils Percent Auto 0.7 % (0-2); Eosinophils Absolute Auto 0.3 X10*3/uL (0.0-0.4); Eosinophils Percent Auto 3.2 % (0-4); Hematocrit 47.4 % (42.0-52.0); Hemoglobin 15.8 g/dl (14.0-18.0); Imm Gran Abs Auto 0.04 X10*3/uL (0.00-0.03); Imm Gran Pct Auto 0.4 % (0.0-0.4); Lymphocytes Absolute Auto 3.9 X10*3/uL (1.2-4.9); Lymphocytes Percent Auto 37.2 % (20-40); Mean Corpuscular HGB Conc 33.3 g/dl (31.0-36.0); Mean Corpuscular Hemoglobin 28.9 pg (27.0-33.0); Mean Corpuscular Volume 86.7 fL (80.0-98.0); Mean Platelet Volume 10.3 fL (9.4-12.4); Monocytes Absolute Auto 0.5 X10*3/uL (0.1-1.2); Monocytes Percent Auto 4.6 % (2-11); Neutrophils Absolute Auto 5.7 x10*3/uL (2.0-8.3); Neutrophils Percent Auto 53.9 % (45-73); Platelet Count 302 X10*3/uL (160-400); Red Blood Count 5.47 X10*6/uL (4.60-5.80); Red Cell Distribution Width 15.9 % (11.0-16.0); White Blood Count 10.5 X10*3/uL (4.8-10.8)
[2025-01-28 17:22] LABS: Alanine Aminotransferase 29 U/L (0-40); Albumin Level 4.4 g/dL (3.5-5.0); Anion Gap 13 (12-20); Aspartate Amino Transferase 32 U/L (5-37); Bilirubin Total 0.2 mg/dL (0.0-1.0); Blood Urea Nitrogen 24 mg/dL (9-16); Calcium 9.9 mg/dL (8.4-10.2); Carbon Dioxide 26 mmol/L (22-29); Chloride 103 mmol/L (96-108); Estimated Glomerular Filt Rate > 60; Glucose Random 105 mg/dL (60-115); Sodium 138 mmol/L (135-145); Total Protein 8.5 g/dL (6.5-8.0)
[2025-01-28 17:50] LABS: Alkaline Phosphatase 76 U/L (39-117)
[2025-01-29 03:45] LABS: HBc Num1 0.17 S/CO (0.00-0.79); HBsAGNum1 0.32 S/CO (0.00-0.99); HIV AB/AG Nonreactive (Nonreactive); HIV Num 1 0.07 S/CO (0.00-0.99); Hepatitis B Core Antibody Nonreactive (Nonreactive); Hepatitis B Surface Antigen Negative (Negative); ~Hepatitis B Surface Antibody NONREACTIVE (Nonreactive); ~Hepatitis C Antibody Nonreactive (Nonreactive)
[2025-01-30 12:33] LABS: RPR Rapid Plasma Reagin NON-REACTIVE (NON-REACTIVE)
[2025-01-31 19:29] LABS: TS Negative Control Passed; TS Panel A 0; TS Panel B 0; TS Positive Control Passed; TSpotTB Negative (Negative)
[2025-02-02 08:04] LABS: Hepatitis A Antibody IgG REACTIVE (Nonreactive); ~Hepatitis A Antibody IgG 12.16 S/CO (0.00-0.99)
== END 2025-01-28 12:38 | disposition home or self-care (01) ==
LOC: HO.HHCL 12:37
PROVIDERS: Visit Provider Emergency Medicine
DX: F11.20 Opioid dependence, uncomplicated (principal)
CPT/HCPCS: 36415; 80053; 85025; 86481; 86592; 86704; 86706; 86708; 86803; 87340; 87389

== ENCOUNTER 2025-04-08 11:59 | Emergency (ER) | payer BC, SELFPAY ==
--- NOTE | 2025-04-08 | ECG_ITS ---
Test Reason : cp Blood Pressure : */* mmHG Vent. Rate : 76 BPM Atrial Rate : 76 BPM P-R Int : 130 ms QRS Dur : 88 ms QT Int : 400 ms P-R-T Axes : 33 0 32 degrees QTcB Int : 450 ms Normal sinus rhythm Cannot rule out Inferior infarct , age undetermined ; Abnormal ECG No previous ECGs available Referred By: Generic ED Physician Electronically Signed By: FRANCIS CONCEPCION
--- NOTE | 2025-04-08 12:23 | ED.GENADULT ---
HPI - General Adult General Chief complaint: Chest Pain Stated complaint: Chest pain, high BP Related Data Home Medications ?Medication ?Instructions ?Recorded ?Confirmed atenolol 50 mg tablet 100 mg PO BEDTIME 03/09/24 03/09/24 Previous Rx's ?Medication ?Instructions ?Recorded cephalexin 500 mg capsule 500 mg PO Q6H 7 days #28 caps 11/01/24 doxycycline monohydrate 100 mg 100 mg PO BID 7 days #14 tabs 11/01/24 tablet morphine 15 mg immediate release 15 mg PO Q4-6H PRN pain (scale 11/02/24 tablet score 4-6) #5 tabs cephalexin 500 mg capsule 500 mg PO QID #28 caps 11/08/24 doxycycline hyclate 100 mg tablet 100 mg PO BID #14 tabs 11/08/24 Allergies Allergy/AdvReac Type Severity Reaction Status Date / Time bupropion [From Wellbutrin] Allergy Difficulty Verified 04/08/25 12:26 Breathing PMFSH Past Medical History Medical History (Updated 04/08/25 @ 14:41 by VESNA Arrington) Abscess of skin and subcutaneous tissue IV drug user Essential hypertension Social History Social History Alcohol intake: current Alcohol intake frequency: a few times a week Alcohol type: hard liquor Patient Tobacco Use Status: Never used Tobacco Substance Use Type: Crack/Cocaine, Heroin and Other Advance Directives: No Advance Directives Information Provided: No Do you have a plan to hurt others: No Plan service: No Physical Exam ED Vital Signs: Vital Signs - 24 hr 04/08/25 12:24 Temperature 96.8 F Pulse Rate 71 Respiratory Rate 18 Blood Pressure 144/103 H Pulse Oximetry 97 Oxygen Delivery Method Room Air BMI result Body Mass Index 28.7 Course Course Course Narrative: 04/08/25 1224 VESNA Arrington This is a Rapid Medical Examination (RME) performed by Frantz Mehta PA-C in triage. Full HPI, ROS, assessment and treatment plan per primary provider in the Main ED. Hx: 54 yo M here for eval of elevated BP (160/110) while at suboxone clinic this morning. reports assoc chest discomfort described as a numbness x1week. reports heart rate is off the charts . repors cocaine use, last smoked this morning. no heroin use since 11/2024 (injecting). reports compliance w/ bp meds. took this before arrival today. received suboxone dose today. PE/vitals: hypertensive 144/103. otherwise well appearing. Plan: labs, ekg Reevaluation(s) Reevaluation #1: Patient left the emergency department before myself or any of the other clinicians could review or explain physical exam findings, test results, need or lack there of for additional testing, treatment options, or a treatment plan. Discharge Plan Discharge Clinical Impression: Chest pain Patient Disposition: Left W/O Completing Treatment Prescriptions: No Action atenolol 50 mg tablet 100 mg PO BEDTIME cephalexin 500 mg capsule 500 mg PO Q6H 7 Days Qty: 28 0RF doxycycline monohydrate 100 mg tablet 100 mg PO BID 7 Days Qty: 14 0RF morphine 15 mg tablet 15 mg PO Q4-6H PRN (Reason: pain (scale score 4-6)) Qty: 5 0RF Rx Instructions: Partial Fill upon patient request. cephalexin 500 mg capsule 500 mg PO QID Qty: 28 0RF doxycycline hyclate 100 mg tablet 100 mg PO BID Qty: 14 0RF Discharge Date/Time: 04/08/25 14:41 Print Language: [place]
[2025-04-08 12:24] VITALS: BP 144/103; PULSE 71; RESP 18; TEMP 36; O2SAT 97; BMI 28.7
--- OUTSIDE RECORDS SUMMARY | 2025-04-08 13:44 | XMS_ITS | Encounter Summary ---
Author Organization [facility] [employer] Address [address] [place] [address] Care Team Providers Care Insurance Law Specialist Name Role Phone Unavailable Primary Care Provider Unavailabl e Reason for Visit * Reason Onset Date Comments Med Refill 04/04/2025 Encounter Details Date Type Department Care Team (Late Contact Info) Description 04/04/2025 Refill [facility] [address] [place] [phone] Noemi Osborn RN Uncomplicated opioid dependence (CMS/HCC) Social History Tobacco Use Types Packs/Day Years Used Date Smoking Tobacco: Every Day Cigarettes Smokeless Tobacco: Never Alcohol Use Standard Drinks/Week Comments Yes 5 (1 standard drink = 0.6 oz pur e alcohol) Alcohol Answer Date Recorded How often do you have a drink containing alcohol ? 4 01/28/2025 How many drinks containing a lcohol do you have on a typical day when you are drinking? 3 01/28/2025 How often do you have six or more drinks on one occasion? 3 01/28/2025 Depression Answer Date Recorded Patient Health Questionnaire-9 Score 19 01/28/2025 Patient Health Questionnaire-9 Score 19 01/28/2025 Last PHQ-9: Questionnaire Data Not on file 0 01/28/2025 Depression Answer Date Recorded Patient Health Questionnaire-2 Score 6 01/28/2025 Sex and Gender Information Value Date Recorded Sex Assigned at Male 12/29/2024 10:10 AM EST Legal Sex Male 8:55 AM EST Gender Identity Male 12/29/2024 10:10 AM EST Sexual Orientation Straight 12/29/2024 10 :12 AM EST documented as of this encounter Plan of Treatment Upcoming Encounters Date Type Department Care Team (Late Contact Info) Description 04/15/2025 10:15 AM EDT Office Visit [facility] [address] [place], [place] [phone] Rashawn Weiss MD [address] [place] [phone] 05/12/2025 9:30 AM EDT Office Visit [facility] [address] [place] [phone] Pradip Wilson MD [address] [place] [address] documented as of this encounter Goals Goal Patient Goal Type Associated Problems Recent Progress Patient-Stated? Author Reduce use of crystal meth General Improving( 10:29 AM EDT) Yes Noemi Osborn, RN Go to [facility] for tinnitus. General On track( 1:05 PM EDT) Yes Noemi Osborn, RN Note: 03/11 Still hasn't gone to see about tinnitus. 04/01 Has an appointment for 04/12 to start looking into tinnitus. Increase coping skills to promote long-term recovery and improve ability to perform daily activities General On track( 10:55 AM EDT) No Noemi Osborn, RN Note: He missed his last appt with [facility], and said he is making a new appt today. documented as of this encounter Visit Diagnoses Diagnosis Uncomplicated opioid dependence (CMS/HCC) documented in this encounter Additional Health Concerns Assessment Noted Time PHQ-9 Depression Total Score: 19 025 2:58 PM EDT documented as of this encounter
== END 2025-04-08 14:41 | disposition left against medical advice (07) ==
PROVIDERS: Emergency Provider Emergency Medicine
DX: R07.89 Other chest pain (principal); I10 Essential (primary) hypertension; Z79.899 Other long term (current) drug therapy
CPT/HCPCS: 93005; 99283

== ENCOUNTER → 2025-04-08 12:07 | Outpatient (BNV) | payer BC, SELFPAY | PROVIDERS: Emergency Provider Emergency Medicine; Visit Provider Internal Medicine | DX: R94.31 Abnormal electrocardiogram [ECG] [EKG] (principal); R07.9 Chest pain, unspecified | CPT/HCPCS: 93010 ==

== ENCOUNTER 2025-04-25 05:01 | Emergency (ER) | payer BC, SELFPAY ==
--- NOTE | ~2025-04-25 | CT_ITS ---
CLINICAL HISTORY: Increased dizziness CT head without contrast Comparison: None provided Findings: No intra-axial mass, midline shift, hydrocephalus, or acute hemorrhage. No significant atrophy-like change or white matter disease. Mild mucosal thickening is seen in bilateral frontal sinuses, bilateral ethmoid air cells, and bilateral maxillary sinuses. The orbits are unremarkable. No skull fracture. IMPRESSION: 1. No acute intracranial findings. This document has been electronically signed by: Jesse Campbell on 04/25/2025 06:18:14
[2025-04-25 05:04] VITALS: BP 155/98; PULSE 64; RESP 18; TEMP 36.8; O2SAT 97; BMI 29.0
[2025-04-25 05:37] LABS: Basophils Absolute Auto 0.1 X10*3/uL (0.0-0.2); Basophils Percent Auto 0.7 % (0-2); Eosinophils Absolute Auto 0.2 X10*3/uL (0.0-0.4); Eosinophils Percent Auto 2.7 % (0-4); Imm Gran Abs Auto 0.02 X10*3/uL (0.00-0.03); Imm Gran Pct Auto 0.2 % (0.0-0.4); Lymphocytes Absolute Auto 3.4 X10*3/uL (1.2-4.9); Lymphocytes Percent Auto 41.2 % (20-40); MANUAL DIFF FLAG NO; Mean Corpuscular Hemoglobin 31.9 pg (27.0-33.0); Mean Corpuscular Volume 91.1 fL (80.0-98.0); Mean Platelet Volume 9.2 fL (9.4-12.4); Monocytes Absolute Auto 0.5 X10*3/uL (0.1-1.2); Monocytes Percent Auto 5.9 % (2-11); Neutrophils Percent Auto 49.3 % (45-73); Platelet Count 243 X10*3/uL (160-400); Red Blood Count 4.39 X10*6/uL (4.60-5.80); Red Cell Distribution Width 15.3 % (11.0-16.0); White Blood Count 8.2 X10*3/uL (4.8-10.8)
[2025-04-25 05:51] LABS: Alanine Aminotransferase 44 U/L (0-40); Albumin Level 4.7 g/dL (3.5-5.0); Alkaline Phosphatase 65 U/L (39-117); Anion Gap 13 (12-20); Aspartate Amino Transferase 73 U/L (5-37); Bilirubin Total 0.3 mg/dL (0.0-1.0); Blood Urea Nitrogen 16 mg/dL (9-16); Calcium 9.4 mg/dL (8.4-10.2); Carbon Dioxide 29 mmol/L (22-29); Chloride 99 mmol/L (96-108); Creatinine Clr Calc Pharmacy 59.7; Estimated Glomerular Filt Rate 47; Glucose Random 87 mg/dL (60-115); Sodium 137 mmol/L (135-145); Total Protein 7.6 g/dL (6.5-8.0)
[2025-04-25 06:51] LABS: B Type Natriuretic Peptide 13 pg/mL (<100)
--- NOTE | 2025-04-25 06:54 | ED.DIZZY ---
HPI - Dizziness General Chief Complaint: Dizziness Stated Complaint: head ringing Time Seen by Provider: 04/25/25 05:16 Source: patient Mode of arrival: ambulatory Limitations: no limitations History of Present Illness ED Provider: HPI Narrative: Patient with tinnitus in both ears for last several months noticed vertiginous feeling off and on for last few days getting worse lately has not seen any PCP for this no head injury no other motor weakness no ataxia Related Data Home Medications ?Medication ?Instructions ?Recorded ?Confirmed atenolol 50 mg tablet 100 mg PO BEDTIME 03/09/24 03/09/24 Previous Rx's ?Medication ?Instructions ?Recorded cephalexin 500 mg capsule 500 mg PO Q6H 7 days #28 caps 11/01/24 doxycycline monohydrate 100 mg 100 mg PO BID 7 days #14 tabs 11/01/24 tablet morphine 15 mg immediate release 15 mg PO Q4-6H PRN pain (scale 11/02/24 tablet score 4-6) #5 tabs cephalexin 500 mg capsule 500 mg PO QID #28 caps 11/08/24 doxycycline hyclate 100 mg tablet 100 mg PO BID #14 tabs 11/08/24 hydrochlorothiazide 25 mg tablet 25 mg PO QAM #30 tabs 04/25/25 meclizine 25 mg tablet 25 mg PO TID PRN dizziness #20 tabs 04/25/25 Allergies Allergy/AdvReac Type Severity Reaction Status Date / Time bupropion (From Wellbutrin) Allergy Difficulty Verified 04/25/25 05:06 Breathing Review of Systems Review of Systems: Yes all other systems are reviewed and are negative [facility] Past Medical History Medical History Abscess of skin and subcutaneous tissue IV drug user Essential hypertension Social History Social History Alcohol intake: current Alcohol intake frequency: a few times a week Alcohol type: hard liquor Patient Tobacco Use Status: Never used Tobacco Substance Use Type: Crack/Cocaine, Heroin and Other Advance Directives: No Advance Directives Information Provided: No Do you have a plan to hurt others: No Plan service: No Physical Exam Vital Signs: Vital Signs: Last Vital Signs Temp 97.9 F 04/25/25 07:23 Pulse 58 04/25/25 07:23 Resp 16 04/25/25 07:23 BP 142/83 H 04/25/25 07:23 Pulse Ox 96 04/25/25 07:23 O2 Del Method Room Air 04/25/25 07:23 BMI result Body Mass Index 29.0 Appearance: Alert. Oriented X3. No acute distress. Eyes: PERRLA, No Nystagmus ENT: Pharynx normal. Oral Mucosa moist Neck: Normal inspection. Neck supple. CVS: Normal heart rate and rhythm. Pulses normal. Respiratory: No respiratory distress. Equal air entry bilateral, no wheezing/rales/rhonchi Abdomen: Soft and nontender. Bowel sounds are present, no mass palpable, no CVA tenderness Skin: Skin warm and dry. Normal skin color. Normal skin turgor. Extremities: No lower extremity edema. No calf tenderness Neuro: Oriented X 3. No motor deficit. No sensory deficit.No cerebellar signs , cranial nerves II-XII intact Medications Administered Discontinued Medications Generic Name Dose Route Start Last Admin Trade Name Freq PRN Reason Stop Dose Admin Furosemide 20 mg 04/25/25 06:56 04/25/25 07:00 Furosemide 20 Mg Tablet PO 04/25/25 06:57 20 mg ONCE ONE Administration Protocol Meclizine HCl 25 mg 04/25/25 06:09 04/25/25 07:00 Meclizine Hcl 25 Mg Tablet PO 04/25/25 06:10 25 mg ONCE ONE Administration Medical Decision Making Medical Decision Making [facility] Narrative: Patient clinically with the benign positional vertigo head CT was negative no signs of central involvement no cerebellar signs will discharge patient home on meclizine patient ambulatory in the ED Differential Diagnosis Differential Diagnoses: The differential diagnosis associated with the presentation includes CVA/BPPV Lab Data [facility] Lab Attestation statement: I reviewed the patient's lab results. 04/25/25 05:32 04/25/25 05:32 Labs: Lab Results 04/25/25 Range/Units 05:32 WBC 8.2 (4.8-10.8) X10*3/uL RBC 4.39 L (4.60-5.80) X10*6/uL Hgb 14.0 (14.0-18.0) g/dl Hct 40.0 L (42.0-52.0) % MCV 91.1 (80.0-98.0) fL MCH 31.9 (27.0-33.0) pg MCHC 35.0 (31.0-36.0) g/dl RDW 15.3 (11.0-16.0) % Plt Count 243 (160-400) X10*3/uL MPV 9.2 L (9.4-12.4) fL Immature Gran % (Auto) 0.2 (0.0-0.4) % Neut % (Auto) 49.3 (45-73) % Lymph % (Auto) 41.2 H (20-40) % Morgan % (Auto) 5.9 (2-11) % Eos % (Auto) 2.7 (0-4) % Baso % (Auto) 0.7 (0-2) % Lymph # (Auto) 3.4 (1.2-4.9) X10*3/uL Morgan # (Auto) 0.5 (0.1-1.2) X10*3/uL Eos # (Auto) 0.2 (0.0-0.4) X10*3/uL Baso # (Auto) 0.1 (0.0-0.2) X10*3/uL Abs Immat Gran (auto) 0.02 (0.00-0.03) X10*3/uL Absolute Neuts (auto) 4.0 (2.0-8.3) x10*3/uL Absolute Nucleated RBC 0.000 (0.0-0.012) X10*3/uL Nucleated RBC % (auto) 0.0 (0.0-0.2) /100WBC Sodium 137 (135-145) mmol/L Potassium 4.0 (3.3-5.1) mmol/L Chloride 99 (96-108) mmol/L Carbon Dioxide 29 (22-29) mmol/L Anion Gap 13 (12-20) BUN 16 (9-16) mg/dL Creatinine 1.56 H (0.5-1.4) mg/dL Estim Creat Clear Calc 59.7 Estimated GFR 47 Random Glucose 87 (60-115) mg/dL Calcium 9.4 (8.4-10.2) mg/dL Total Bilirubin 0.3 (0.0-1.0) mg/dL AST 73 H (5-37) U/L ALT 44 H (0-40) U/L Alkaline Phosphatase 65 (39-117) U/L B-Natriuretic Peptide 13 (<100) pg/mL Total Protein 7.6 (6.5-8.0) g/dL Albumin 4.7 (3.5-5.0) g/dL Radiology Impression Discussion of test interpretation with radiology: I have reviewed the radiologist's reading. Radiologist Impression: No acute Discharge Plan Discharge Clinical Impression: Benign paroxysmal positional vertigo, Leg edema Patient Disposition: Home, Self-Care Instructions: Benign Paroxysmal Positional Vertigo (ED), Edema (ED) Additional Instructions: Care and cautions as advised Drink plenty of fluids Meclizine 1 tablet 3 times a day as needed for dizziness Water pill as prescribed Prescriptions: New hydrochlorothiazide 25 mg tablet 25 mg PO QAM Qty: 30 0RF meclizine 25 mg tablet 25 mg PO TID PRN (Reason: dizziness) Qty: 20 0RF No Action atenolol 50 mg tablet 100 mg PO BEDTIME cephalexin 500 mg capsule 500 mg PO Q6H 7 Days Qty: 28 0RF doxycycline monohydrate 100 mg tablet 100 mg PO BID 7 Days Qty: 14 0RF morphine 15 mg tablet 15 mg PO Q4-6H PRN (Reason: pain (scale score 4-6)) Qty: 5 0RF Rx Instructions: Partial Fill upon patient request. cephalexin 500 mg capsule 500 mg PO QID Qty: 28 0RF doxycycline hyclate 100 mg tablet 100 mg PO BID Qty: 14 0RF Interventions: ED Discharge Assessment Last Done: 04/25/25 07:23 Discharge Date/Time: 04/25/25 07:24 Print Language: Kyrgyz
[2025-04-25 07:00] VITALS: BP 140/90
[2025-04-25] MEDS: Furosemide 20 MG TABLET PO (07:00)
[2025-04-25] MEDS: Meclizine HCl 25 MG TABLET PO (07:00)
[2025-04-25 07:04] VITALS: BP 142/83; PULSE 58; RESP 16; TEMP 36.6; O2SAT 96
[2025-04-25 07:23] VITALS: BP 142/83; PULSE 58; RESP 16; TEMP 36.6; O2SAT 96
== END 2025-04-25 07:24 | disposition home or self-care (01) ==
PROVIDERS: Emergency Provider Internal Medicine
DX: H81.13 Benign paroxysmal vertigo, bilateral (principal); H93.13 Tinnitus, bilateral; R60.0 Localized edema; Z79.899 Other long term (current) drug therapy
CPT/HCPCS: 36415; 70450; 80053; 83880; 85025; 99283; 99284

== ENCOUNTER → 2025-04-25 05:14 | Outpatient (BNV) | payer BC, SELFPAY | PROVIDERS: Emergency Provider Internal Medicine; Visit Provider Radiology Vascular & Interventional Radiology | DX: R42 Dizziness and giddiness (principal) | CPT/HCPCS: 70450 ==

== ENCOUNTER 2025-05-11 11:52 | Emergency (ER) | payer BC, SELFPAY ==
--- NOTE | ~2025-05-11 | XR_ITS ---
EXAMINATION: XR CHEST 2 VIEWS HISTORY: CP COMPARISON: There are no prior studies available for comparison. FINDINGS: PA and lateral views of the chest are submitted. The lungs are expanded and clear. There is no pleural effusion, pneumothorax, or pulmonary vascular congestion. The heart is normal in size. The bones are intact. XR/XR chest 2V IMPRESSION: Clear lungs. Electronically signed by: Jim Benton MD 05/11/2025 12:52 PM EDT
--- NOTE | ~2025-05-11 | CT_ITS ---
EXAMINATION: CT HEAD WITHOUT IV CONTRAST HISTORY: tinnitus 1 month. TECHNIQUE: Unenhanced helical CT of the head was performed per standard departmental protocol. Coronal and sagittal reformats of the head were also evaluated. One or more of the following techniques was used for dose reduction: Automated exposure control, adjustment of the mA and/or kV according to patient size, use of iterative reconstruction technique. DLP: 733 mGy-cm COMPARISON: Comparison is made with the prior examination dated 04/25/2025. FINDINGS: BRAIN: The brain parenchyma is unremarkable. There is normal phoenix/white differentiation. The ventricular system is normal in size and configuration. There is no mass effect or midline shift. No intra- or extra-axial fluid collections are identified. SINUSES: There is partial opacification of the ethmoid air cells. There is mild mucosal thickening in the bilateral maxillary sinuses. The mastoid air cells and middle ear cavities are well pneumatized. ORBITS: The visualized orbits are unremarkable. BONES/SOFT TISSUES: The extracranial soft tissues are unremarkable. The calvarium is intact. No suspicious lytic or sclerotic lesions. CT/CT head/brain wo IV con IMPRESSION: No acute intracranial abnormality. Electronically signed by: Jim Benton MD 05/11/2025 03:27 PM EDT
--- NOTE | 2025-05-11 11:52 | ECG_ITS ---
Test Reason : chest pain Blood Pressure : */* mmHG Vent. Rate : 75 BPM Atrial Rate : 75 BPM P-R Int : 130 ms QRS Dur : 90 ms QT Int : 344 ms P-R-T Axes : 50 -13 7 degrees QTcB Int : 384 ms Normal sinus rhythm Inferior infarct (cited on or before 08-Apr-2025) Abnormal ECG When compared with ECG of 08-Apr-2025 12:07, Nonspecific T wave abnormality now evident in Lateral leads QT has shortened Referred By: Generic ED Physician Electronically Signed By: Eulalio Degroot
[2025-05-11 12:14] VITALS: BP 105/84; PULSE 76; RESP 18; TEMP 37; O2SAT 95; BMI 29.0
--- NOTE | 2025-05-11 12:14 | ED.GENADULT ---
HPI - General Adult General Chief complaint: Chest Pain Stated complaint: Chest pain Time Seen by Provider: 05/11/25 13:50 Source: patient, RN notes reviewed and old records reviewed Mode of arrival: ambulatory Limitations: no limitations History of Present Illness ED Provider: Lon [facility] narrative: Patient is a 54-year-old male with history of HTN, IV drug use, opioid use disorder on suboxone, alcohol use disorder, smoker presenting to the emergency department with complaint of brief episodes of chest pain for the past few months. States that he gets a quick zapping sensation to his chest which lasts approximately 30 seconds. Also complains of a ringing which he describes as inside my head, then it ends in his ears. Complains of bilateral lower extremity edema, was started on HCTZ for this. Admits to cocaine use yesterday. complaint: chest pain Onset (ago): month(s) Related Data Home Medications ?Medication ?Instructions ?Recorded ?Confirmed atenolol 50 mg tablet 100 mg PO BEDTIME 03/09/24 03/09/24 Previous Rx's ?Medication ?Instructions ?Recorded cephalexin 500 mg capsule 500 mg PO Q6H 7 days #28 caps 11/01/24 doxycycline monohydrate 100 mg 100 mg PO BID 7 days #14 tabs 11/01/24 tablet morphine 15 mg immediate release 15 mg PO Q4-6H PRN pain (scale 11/02/24 tablet score 4-6) #5 tabs cephalexin 500 mg capsule 500 mg PO QID #28 caps 11/08/24 doxycycline hyclate 100 mg tablet 100 mg PO BID #14 tabs 11/08/24 hydrochlorothiazide 25 mg tablet 25 mg PO QAM #30 tabs 04/25/25 meclizine 25 mg tablet 25 mg PO TID PRN dizziness #20 tabs 04/25/25 Allergies Allergy/AdvReac Type Severity Reaction Status Date / Time bupropion (From Wellbutrin) Allergy Difficulty Verified 05/11/25 12:19 Breathing Review of Systems Review of Systems: As per HPI Yes all other systems are reviewed and are negative Constitutional: Constitutional: Reports as per HPI Neurologic: Denies Abnormal speech present [facility] Past Medical History Medical History Abscess of skin and subcutaneous tissue IV drug user Essential hypertension Social History Social History Alcohol intake: current Alcohol intake frequency: a few times a week Alcohol type: hard liquor Patient Tobacco Use Status: Never used Tobacco Smoked in Last 30 Days: Yes Use of substances other than those prescribed or required for medical reasons: Yes Substance Use Type: Crack/Cocaine Substance Use Frequency: Chronic Longstanding Last Used Substance: Days (ago) Any prior treatment program specific to substance use: Yes (recovering heroin addict x 8 mos) Advance Directives: No Advance Directives Information Provided: Yes service: No Physical Exam ED Vital Signs: Vital Signs - 24 hr 05/11/25 12:14 05/11/25 13:38 05/11/25 14:50 Temperature 98.6 F 97.8 F 98.5 F Pulse Rate 76 67 70 Respiratory Rate 18 18 10 L Blood Pressure 105/84 104/82 117/56 L Pulse Oximetry 95 99 Oxygen Delivery Method Room Air Room Air 05/11/25 16:36 Temperature 99.2 F Pulse Rate 62 Respiratory Rate 10 L Blood Pressure 130/92 H Pulse Oximetry 95 Oxygen Delivery Method Room Air BMI result Body Mass Index 29.0 Vital signs have been reviewed and appear to be correct. Blood pressure normal. Heart rate normal. Respiratory rate normal. Temperature normal. Oxygen saturation normal. Const General: cooperative, healthy appearing and no acute distress Orientation/consciousness: oriented to person, oriented to place, oriented to time and patient oriented x3 Limitations: no limitations HENMT Head: Yes normocephalic and Yes atraumatic Ears: external ears normal General nose exam: Normal external nose present Face and sinus: Yes face symmetric Mouth: oropharynx normal and moist mucous membranes Throat: Yes uvula midline Eyes Pupils: Equal, round and reactive pupils present Neck Neck: Yes normal visual inspection, Yes no meningeal signs and Yes supple Resp Effort & Inspection: normal respiratory effort and able to speak in complete sentences Auscultation: clear to auscultation bilaterally Cardio Rate: regular rate Rhythm: regular rhythm Heart sounds: S1 normal heart sound present and S2 normal heart sound present GI Palpation (GI): Soft to palpation and nontender Auscultation: normoactive bowel sounds General: Yes no CVA tenderness Back/Spine/Pelvis Back: no CVA tenderness Skin General skin exam: elasticity normal and turgor normal Neuro General: oriented to person, oriented to place, oriented to time, patient oriented x3, gait normal, tone normal, moves all extremities, Normal light touch and pain sensation, no meningeal signs, no focal motor deficits, CN's II-XI intact bilaterally and deep tendon reflexes 2+ bilaterally Cranial nerves: Yes Equal, round and reactive pupils present Cognition (Neuro): normal cognition Speech: No Abnormal speech present Motor exam (neuro): 5/5 motor strength present throughout, Normal motor muscle tone present throughout and Motor abnormalities not present Extrem General: Yes full ROM, Yes no pedal edema and Yes no calf tenderness Psych Mental Status: mental status grossly normal Affect: normal affect Thought process: Normal thought process present NIH Stroke Scale Internal: Initial- Upon Arrival Time: 14:42 Level of Consciousness: Alert Level of Consciousness Questions: Answers both questions correctly Level of Consciousness Commands: Performs both tasks correctly Best Gaze: Normal Visual: No visual loss Facial Palsy: Normal Motor Arm (Right): No drift Motor Arm (Left): No drift Motor Leg (Right): No drift Motor Leg (Left): No drift Limb Ataxia: Absent Sensory: Normal Best Language: No aphasia Dysarthia: Normal Extinction and Inattention: No abnormality Score: 0 Course Course Course Narrative: This is an RME: Additional HPI, ROS, PE not included below will be deferred to primary provider. RME assessment and note performed by: Neha Connelly PA-C This is a [id number]-male, with a hx of HTN, anxiety, depression, hx of IVDA on suboxone, who presents to the ER with complaints of intermittent midsternal/left sided chest pain x several weeks. Reporting ringing in BL ears x 1 month. Hx of cocaine use yesterday. Also reporting increased swelling to his BL legs. Plan: Labs, EKG, CXR Medications Administered Discontinued Medications Generic Name Dose Route Start Last Admin Trade Name Freq PRN Reason Stop Dose Admin Sodium Chloride 1,000 mls @ 999 mls/hr 05/11/25 14:30 05/11/25 15:16 Ns IV 05/11/25 15:30 999 mls/hr .Q1H1M MIR Administration Medical Decision Making Medical Decision Making MDM Narrative: Patient is a 54-year-old male with history of HTN, IV drug use, opioid use disorder on suboxone, alcohol use disorder, smoker presenting to the emergency department with complaint of brief episodes of chest pain for the past few months. On exam patient is awake, A+Ox3, VS WNL, afebrile, normal neurological exam without focal deficits, physical exam findings as above. Given reported symptoms and physical exam findings, initial differential includes but is not limited to cardiac arrhythmia, electrolyte abnormality, musculoskeletal pain, viral illness. Unlikely ACS, PTX, PNA. Unlikely ICH/malignancy/mass. Labs notable for no leukocytosis, no anemia, mildly elevated BUN and creatinine, elevated CK, troponin negative. Chest x-ray is without evidence of pneumonia or pneumothorax. CT head is without evidence of ICH, mass. My interpretation is in agreement with the radiologist's interpretation. Patient given IV fluids in the ED. Pedal edema minimal. Patient requesting discharge prior to full liter of fluids and recheck of CK. States he will hydrate orally. Patient is tolerating PO without difficulty, I am comfortable with this plan. Strict return precautions discussed at bedside. Patient verbalized understanding of and agreement plan. Differential Diagnosis Differential Diagnoses: The differential diagnosis associated with the presentation includes As per [facility] Admission/Observation Consideration of admission/observation: Escalation of care including admission/observation considered Patient would have been admitted to the hospital had his clinical presentation warranted hospital admission. Lab Data [facility] Lab Attestation statement: I reviewed the patient's lab results. As per [facility] 05/11/25 12:56 05/11/25 12:56 Labs: Lab Results 05/11/25 05/11/25 Range/Units 12:55 12:56 WBC 8.3 (4.8-10.8) X10*3/uL RBC 4.45 L (4.60-5.80) X10*6/uL Hgb 14.6 (14.0-18.0) g/dl Hct 40.8 L (42.0-52.0) % MCV 91.7 (80.0-98.0) fL MCH 32.8 (27.0-33.0) pg MCHC 35.8 (31.0-36.0) g/dl RDW 14.1 (11.0-16.0) % Plt Count 233 (160-400) X10*3/uL MPV 9.3 L (9.4-12.4) fL Immature Gran % (Auto) 0.5 H (0.0-0.4) % Neut % (Auto) 56.9 (45-73) % Lymph % (Auto) 33.9 (20-40) % Jay % (Auto) 5.4 (2-11) % Eos % (Auto) 2.8 (0-4) % Baso % (Auto) 0.5 (0-2) % Lymph # (Auto) 2.8 (1.2-4.9) X10*3/uL Jay # (Auto) 0.5 (0.1-1.2) X10*3/uL Eos # (Auto) 0.2 (0.0-0.4) X10*3/uL Baso # (Auto) 0.0 (0.0-0.2) X10*3/uL Abs Immat Gran (auto) 0.04 H (0.00-0.03) X10*3/uL Absolute Neuts (auto) 4.7 (2.0-8.3) x10*3/uL Absolute Nucleated RBC 0.000 (0.0-0.012) X10*3/uL Nucleated RBC % (auto) 0.0 (0.0-0.2) /100WBC Sodium 137 (135-145) mmol/L Potassium 3.8 (3.3-5.1) mmol/L Chloride 96 (96-108) mmol/L Carbon Dioxide 30 H (22-29) mmol/L Anion Gap 15 (12-20) BUN 17 H (9-16) mg/dL Creatinine 1.41 H (0.5-1.4) mg/dL Estim Creat Clear Calc 66.1 Estimated GFR 52 Random Glucose 89 (60-115) mg/dL Calcium 9.7 (8.4-10.2) mg/dL Magnesium 2.0 (1.6-2.6) mg/dL Total Bilirubin 0.4 (0.0-1.0) mg/dL Direct Bilirubin 0.1 (0.0-0.5) mg/dL AST 59 H (5-37) U/L ALT 29 (0-40) U/L Alkaline Phosphatase 66 (39-117) U/L Total Creatine Kinase 1018 H (38-174) U/L Troponin I High Sens < 2.7 (<3.5-35.0) ng/L B-Natriuretic Peptide < 10 (<100) pg/mL Total Protein 8.2 H (6.5-8.0) g/dL Albumin 5.0 (3.5-5.0) g/dL Lipase 24 (8-78) U/L Influenza Type A (PCR) NEGATIVE (Negative) Influenza Type B (PCR) NEGATIVE (Negative) RSV RNA Qual (PCR) NEGATIVE (Negative) SARS-CoV-2 RNA (RT-PCR) NEGATIVE (Negative) Independent Interpretation I performed an independent interpretation of an: EKG (Normal sinus rhythm, rate 75 beats per minute, normal VT interval and QTC), Plain X-Ray and CT Scan Interpretation: Chest x-ray is without evidence of pneumonia or pneumothorax. CT head is without evidence of ICH, mass. Radiology Impression Discussion of test interpretation with radiology: I have reviewed the radiologist's reading. Radiologist Impression: XR/XR chest 2V IMPRESSION: Clear lungs. CT/CT head/brain wo IV con IMPRESSION: No acute intracranial abnormality. External Record Review External record reviewed: Inpatient record, Office record and Outpatient record Discharge Plan Discharge Clinical Impression: Atypical chest pain Rhabdomyolysis Qualifiers: Rhabdomyolysis type: non-traumatic Qualified Code(s): M62.82 - Rhabdomyolysis Patient Disposition: Home, Self-Care Instructions: Chest Pain (DC), Rhabdomyolysis (ED) Additional Instructions: You were evaluated in the emergency department today for chest pain. Your evaluation has shown no signs of medical conditions requiring emergent intervention at this time, however we recommend that you follow-up with your primary care physician or your integrity analyst for further testing as an outpatient. Please schedule an appointment for follow-up with your primary care physician as soon as possible. Return to the emergency department if you experience worsening or uncontrolled chest pain, shortness of breath, lightheadedness, feeling faint, loss of consciousness, nausea, vomiting, or any other concerning symptoms. Prescriptions: No Action atenolol 50 mg tablet 100 mg PO BEDTIME cephalexin 500 mg capsule 500 mg PO Q6H 7 Days Qty: 28 0RF doxycycline monohydrate 100 mg tablet 100 mg PO BID 7 Days Qty: 14 0RF morphine 15 mg tablet 15 mg PO Q4-6H PRN (Reason: pain (scale score 4-6)) Qty: 5 0RF Rx Instructions: Partial Fill upon patient request. hydrochlorothiazide 25 mg tablet 25 mg PO QAM Qty: 30 0RF meclizine 25 mg tablet 25 mg PO TID PRN (Reason: dizziness) Qty: 20 0RF cephalexin 500 mg capsule 500 mg PO QID Qty: 28 0RF doxycycline hyclate 100 mg tablet 100 mg PO BID Qty: 14 0RF Print Language: Montserratian
[2025-05-11 13:00] LABS: MANUAL DIFF FLAG NO
[2025-05-11 13:01] LABS: Hematocrit 40.8 % (42.0-52.0); Hemoglobin 14.6 g/dl (14.0-18.0); Imm Gran Abs Auto 0.04 X10*3/uL (0.00-0.03); Imm Gran Pct Auto 0.5 % (0.0-0.4); Lymphocytes Absolute Auto 2.8 X10*3/uL (1.2-4.9); Mean Corpuscular HGB Conc 35.8 g/dl (31.0-36.0); Mean Corpuscular Hemoglobin 32.8 pg (27.0-33.0); Mean Corpuscular Volume 91.7 fL (80.0-98.0); NRBC Abs Auto 0.000 X10*3/uL (0.0-0.012); NRBC Pct Auto 0.0 /100WBC (0.0-0.2); Platelet Count 233 X10*3/uL (160-400); Red Blood Count 4.45 X10*6/uL (4.60-5.80); White Blood Count 8.3 X10*3/uL (4.8-10.8)
[2025-05-11 13:18] LABS: Albumin Level 5.0 g/dL (3.5-5.0); Alkaline Phosphatase 66 U/L (39-117); Anion Gap 15 (12-20); Aspartate Amino Transferase 59 U/L (5-37); Blood Urea Nitrogen 17 mg/dL (9-16); Calcium 9.7 mg/dL (8.4-10.2); Carbon Dioxide 30 mmol/L (22-29); Chloride 96 mmol/L (96-108); Creatinine Clr Calc Pharmacy 66.1; Estimated Glomerular Filt Rate 52; Lipase 24 U/L (8-78); Magnesium 2.0 mg/dL (1.6-2.6); Potassium 3.8 mmol/L (3.3-5.1); Sodium 137 mmol/L (135-145); Total Protein 8.2 g/dL (6.5-8.0)
[2025-05-11 13:23] LABS: B Type Natriuretic Peptide < 10 pg/mL (<100)
[2025-05-11 13:25] LABS: Troponin-I High Sensitivity < 2.7 ng/L (<3.5-35.0)
[2025-05-11 13:32] LABS: Alanine Aminotransferase 29 U/L (0-40)
[2025-05-11 13:37] LABS: Resp Syncy Virus RNA Qual PCR NEGATIVE (Negative); SARS COV2 PCR INHOUSE NEGATIVE (Negative)
[2025-05-11 13:38] VITALS: BP 104/82; PULSE 64; PULSE 67; RESP 18; TEMP 36.6
--- OUTSIDE RECORDS SUMMARY | 2025-05-11 14:25 | XMS_ITS | Encounter Summary ---
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 Name Role Phone Unavailable Primary Care Provider Unavailabl e Reason for Visit * Reason Onset Date Comments Med Refill 04/15/2025 Encounter Details Date Type Department Care Team (Late Contact Info) Description 04/15/2025 Refill [facility] [address] [place] [phone] Noemi Osborn, RN Social History Tobacco Use Types Packs/Day Years [...] Encounters Date Type Department Care Team (Late st Contact Info) Description 05/12/2025 9:30 AM EDT Office Visit [facility] [address] [place] [phone] Pradip Wilson MD [address] [place] [address] 05/13/2025 9:15 AM EDT Clinical Support [address] [address] Noemi Osborn, NAJMA 05/20/2025 10:15 AM EDT Clinical Support [address] [address] Noemi Osborn, RN documented as of this encounter Goals Goal Patient Goal Type Associated Problems Recent Progress Patient-Stated? Author Reduce use of crystal meth General Improving( 10:29 AM EDT) Yes Noemi Osborn, NAJMA Go to [facility] for tinnitus. General On track( 1:05 PM EDT) Yes Noemi Osborn, NAJMA Note: 03/11 Still hasn't gone to see about tinnitus. 04/01 Has an appointment for 04/12 to start looking into tinnitus. Increase coping skills to promote long-term recovery and improve ability to perform daily activities General On track( 025 10:55 AM EDT) No Noemi Osborn, NAJMA Note: He missed his last appt with Dot, and said he is making a new appt today. documented as of this encounter Visit Diagnoses Not on filedocumented in this encounter Additional Health Concerns Assessment Noted Time PHQ-9 Depression Total Score: 19 025 2:58 PM EDT documented as of this encounter
[2025-05-11 14:50] VITALS: BP 117/56; PULSE 70; RESP 10; TEMP 36.9; O2SAT 99
[2025-05-11 16:36] VITALS: BP 130/92; PULSE 62; RESP 10; TEMP 37.3; O2SAT 95
[2025-05-11 17:28] VITALS: BP 130/92; PULSE 62; RESP 10; TEMP 37.3; O2SAT 95
== END 2025-05-11 17:29 | disposition home or self-care (01) ==
PROVIDERS: Physician Assistant Medical; Emergency Provider Emergency Medicine
DX: R07.89 Other chest pain (principal); M62.82 Rhabdomyolysis; R60.0 Localized edema; F14.90 Cocaine use, unspecified, uncomplicated; F11.90 Opioid use, unspecified, uncomplicated; Z03.818 Encounter for observation for suspected exposure to other biological agents ruled out; Z79.899 Other long term (current) drug therapy
CPT/HCPCS: 70450; 71046; 80048; 80076; 82550; 83690; 83735; 83880; 84484; 85025; 87637; 93005; 96360; 96361; 99285

== ENCOUNTER → 2025-05-11 11:52 | Outpatient (BNV) | payer BC, SELFPAY | PROVIDERS: Emergency Provider Emergency Medicine; Visit Provider Internal Medicine Cardiovascular Disease | DX: I25.2 Old myocardial infarction (principal) | CPT/HCPCS: 93010 ==

== ENCOUNTER → 2025-05-11 12:17 | Outpatient (BNV) | payer BC, SELFPAY | PROVIDERS: Emergency Provider Emergency Medicine; Visit Provider Radiology Diagnostic Radiology | DX: H93.19 Tinnitus, unspecified ear (principal); R07.9 Chest pain, unspecified | CPT/HCPCS: 70450; 71046 ==

== ENCOUNTER 2025-05-22 07:00 | Emergency (ER) | payer BC, SELFPAY ==
[2025-05-22 07:12] VITALS: BP 139/91; PULSE 92; RESP 16; TEMP 36.7; O2SAT 97; BMI 29.5
--- NOTE | 2025-05-22 07:35 | PC.NURSE ---
patient continues to deny si/hi. states that he has to get the car to his . patient states that he does not feel at risk and was primarily here for his headache and the tinnitus and did not think he would have to change or be here for long. explained the process to speak with care team. spoke with provider/charge, comfortable with this patient to leave. patient is not erratic and alert and oriented, ambulating with steady gait
== END 2025-05-22 07:58 | disposition left against medical advice (07) ==
LOC: HO.ED 07:55
PROVIDERS: Emergency Provider Emergency Medicine
DX: R51.9 Headache, unspecified (principal)
CPT/HCPCS: 99281; 99283

== ENCOUNTER 2025-06-07 10:57 | Outpatient (REF) | payer BC, SELFPAY ==
--- OUTSIDE RECORDS SUMMARY | 2025-06-07 11:44 | XMS_ITS | Encounter Summary ---
Author Organization [employer] Address [address] [facility] 7t [place] [address] Care Team Providers Care Contracts Director Name Role Phone Pradip Wilson MD Primary Care Provide r Reason for Visit * Reason Onset Date Comments Med Refill 04/15/2025 Encounter Details Date Type Department Care Team (Late Contact Info) Description 04/15/2025 Refill [facility] [address] [place] [phone] Noemi Osborn RN Social History Tobacco Use Types Packs/Day [...] Care Team (Late st Contact Info) Description 06/10/2025 9:15 AM EDT Office Visit [address] [address] Rashawn Weiss MD [facility] [place] [address] 06/17/2025 10:45 AM EDT Clinical Support [address] [address] Noemi Osborn, NAJMA 07/12/2025 10:30 AM EDT Office [facility] [place] [address] Pradip Wilson MD K[place], [place] [phone] documented as of this encounter Goals Goal Patient Goal Type Associated Problems Recent Progress Patient-Stated? Author Reduce use of crystal meth General Improving( 10:29 AM EDT) Yes Noemi Osborn, RN Go to [facility] for tinnitus. General On track( 11:27 AM EDT) Yes Noemi Osborn, RN Note: 03/11 Still hasn't gone to see about tinnitus. 04/01 Has an appointment for 04/12 to start looking into tinnitus. 06/03 He is still troubled by his condition, which he said is worsening. There have been no provided answers. Increase coping skills to promote long-term recovery [...] PM EDT documented as of this encounter Care Teams Contracts Director Relationship Specialty Start Date End Date Pradip Wilson MD [address] [place] [phone] PCP - General Internal Medicine 05/12/25 documented as of this encounter
--- OUTSIDE RECORDS SUMMARY | 2025-06-07 11:44 | XMS_ITS | Clinical Summary ---
Author Organization [address] Address [address] [place] [phone] Phone Care Team Providers Care Loss Prevention Lead Name Role Phone Unavailable Primary Care Provider Unavailabl e Encounters Date Type Department Care Team Description 05/28/2025 Lab Requisition [facility] - Main Lab [address] [facility] [place] [address] Roel Valero Other manager long term care (current) drug therapy from Last 3 Months Social History Tobacco Use Types Packs/Day Years Used Date Smoking Tobacco: Never Assessed Sex and Gender Information Value Date Recorded Sex Assigned at Not on file Legal Sex Male 4:19 AM EST Gender Identity Not on file Sexual Orientation Not on file Plan of Treatment Health Maintenance Due Date Last Done Comments DTaP,Tdap,and Td Vaccines (1 - Tdap) 1989 Hepatitis B Vaccines (1 of 3 - 19+ 3-dose series) 1989 Pneumococcal Vaccine: 50+ Ye ars (1 of 1 - PCV) 2020 Zoster Vaccines (1 of 2) 2020 COVID-19 Vaccine (1 - 2023-2 5 season) 2024 Depression Screening 11/03/2024 Colorectal Cancer Screening: Colonoscopy 05/28/2025 HIV Screening 05/28/2025 Hepatitis C Screening 05/28/2025 Social Influencers of Health Screening 05/28/2025 Influenza Vaccine (#1) 2025 Cholesterol Screening (Lipid Panel) 05/28/2030 05/28/2025 HIB Vaccines Aged Out No longer eligi ble based on patient's age to complete this topic HPV Vaccines Aged Out No longer eligi ble based on patient's age to complete this topic Hepatitis A Vaccines Aged Out No long er eligible based on patient's age to complete this topic IPV Vaccines Aged Out No longer eligi ble based on patient's age to complete this topic MMR Vaccines Aged Out No longer eligi ble based on patient's age to complete this topic Meningococcal ACWY Vaccine Aged Out N o longer eligible based on patient's age to complete this topic Meningococcal B Vaccine Aged Out No l onger eligible based on patient's age to complete this topic RSV Immunization Patients Un nithya 20 months Aged Out No longer eligible b ased on patient's age to complete this topic Varicella Vaccines Aged Out No longer eligible based on patient's age to complete this topic Procedures Procedure Name Priority Date/Time Associated Diagnosis Comments LIPID PANEL WITH REFLEX TO DIRECT LDL Routine 05/28/2025 7:00 AM EDT Other manager long term care (current) drug therapy GLUCOSE, RANDOM Routine 05/28/2025 7:00 AM EDT Other manager long term care (current) drug therapy HEMOGLOBIN A1C Routine 05/28/2025 7:00 AM EDT Other manager long term care (current) drug therapy from Last 3 Months Results * (ABNORMAL) Lipid panel with reflex to direct LDL (05/28/2025 7:00 AM EDT) Cholesterol 322(H) 0 - 200 mg/dL LAB CHEMISTRY METHOD 05/28/2025 11:33 AM [facility] Triglycerides 342(H) 0 - 150 mg/dL LAB CHEMISTRY METHOD 05/28/2025 11:33 AM [facility] LAB HDL 46 >=40 mg/dL LAB CHEMISTRY METHOD 05/28/2025 11:33 AM [facility] LDL Calculated 208(H) 0 - 100 mg/dL LAB CHEMISTRY METHOD 05/28/2025 11:33 AM [facility] LAB VLDL Cholesterol Win 68.4 mg/dL LAB CHEMISTRY METHOD 05/28/2025 11:33 AM [facility] LAB Non HDL Chol. (LDL+VLDL) 276(H) <145 mg/dL LAB CHEMISTRY METHOD 05/28/2025 11:33 AM [facility] LAB Chol/HDL Ratio 7.0(H) 0.0 - 4.4 LAB CHEMISTRY METHOD 05/28/2025 11:33 AM EDT [facility] LAB Blood Venous blood specimen / Unknown Venipuncture / Unknown 05/28/2025 7:00 AM EDT 05/28/2025 10:36 AM EDT Roel Valero LAB BLOOD ORDERABLES Final Resu lt Performing Organization Address [facility]/ZIP Co de Phone Number [facility] [address] [place] [address], [place] [phone] * Hemoglobin A1c (05/28/2025 7:00 AM EDT) Hemoglobin A1C 5.8 <6.5 % LAB CHEMISTRY METHOD 05/29/2025 12:33 PM EDT [facility] Mean Bld Glu Estim. 120 mg/dL LAB CHEMISTRY METHOD 05/29/2025 12:33 PM EDT [facility] Blood Venous blood specimen / Unknown Venipuncture / Unknown 05/28/2025 7:00 AM EDT 05/28/2025 10:36 AM EDT Roel Valero LAB BLOOD ORDERABLES Final Resu lt Performing Organization Address [facility]/ZIP Co de Phone Number [facility] [address] [place] [address], [place] [phone] * Glucose, random (05/28/2025 7:00 AM EDT) Glucose 95 70 - 100 mg/dL LAB CHEMISTRY METHOD 05/28/2025 11:33 AM EDT [facility] Blood Venous blood specimen / Unknown Venipuncture / Unknown 05/28/2025 7:00 AM EDT 05/28/2025 10:36 AM EDT Roel Valero LAB BLOOD ORDERABLES Final Resu lt [facility] ([facility] [address] [place] [address], from Last 3 Months
[2025-06-07 13:16] LABS: Appearance Urine Turbid; Glucose Urine UA Negative (Negative); PH 5.0 (5.0-9.0); Specific Gravity - Urine 1.025 (1.005-1.025)
[2025-06-07 13:28] LABS: MANUAL DIFF FLAG NO
[2025-06-07 13:32] LABS: MANUAL DIFF FLAG NO
[2025-06-07 13:48] LABS: Hematocrit 39.5 % (42.0-52.0); Hemoglobin 13.6 g/dl (14.0-18.0); Imm Gran Abs Auto 0.03 X10*3/uL (0.00-0.03); Imm Gran Pct Auto 0.4 % (0.0-0.4); Lymphocytes Absolute Auto 1.8 X10*3/uL (1.2-4.9); Mean Corpuscular HGB Conc 34.4 g/dl (31.0-36.0); Mean Corpuscular Hemoglobin 32.9 pg (27.0-33.0); Mean Corpuscular Volume 95.4 fL (80.0-98.0); NRBC Abs Auto 0.000 X10*3/uL (0.0-0.012); NRBC Pct Auto 0.0 /100WBC (0.0-0.2); Platelet Count 228 X10*3/uL (160-400); Red Blood Count 4.14 X10*6/uL (4.60-5.80); White Blood Count 7.0 X10*3/uL (4.8-10.8)
[2025-06-07 13:52] LABS: Hematocrit 39.3 % (42.0-52.0); Hemoglobin 13.5 g/dl (14.0-18.0); Imm Gran Abs Auto 0.02 X10*3/uL (0.00-0.03); Imm Gran Pct Auto 0.3 % (0.0-0.4); Lymphocytes Absolute Auto 1.9 X10*3/uL (1.2-4.9); Mean Corpuscular HGB Conc 34.4 g/dl (31.0-36.0); Mean Corpuscular Hemoglobin 32.5 pg (27.0-33.0); Mean Corpuscular Volume 94.5 fL (80.0-98.0); NRBC Abs Auto 0.000 X10*3/uL (0.0-0.012); NRBC Pct Auto 0.0 /100WBC (0.0-0.2); Platelet Count 223 X10*3/uL (160-400); Red Blood Count 4.16 X10*6/uL (4.60-5.80); White Blood Count 7.0 X10*3/uL (4.8-10.8)
[2025-06-07 14:08] LABS: Anion Gap 15 (12-20); Blood Urea Nitrogen 17 mg/dL (9-16); Calcium 9.2 mg/dL (8.4-10.2); Carbon Dioxide 24 mmol/L (22-29); Chloride 104 mmol/L (96-108); Cholesterol 279 mg/dL (<200); Estimated Glomerular Filt Rate 52; HDL Cholesterol 44 mg/dL (>40); Potassium 4.0 mmol/L (3.3-5.1); Sodium 139 mmol/L (135-145); Triglycerides 224 mg/dL (<150)
[2025-06-07 14:25] LABS: Vitamin B12 283 pg/mL (200-900)
[2025-06-07 14:27] LABS: HBS Num1 12.34 mIU/mL (0-7.99); HBc Num1 0.09 S/CO (0.00-0.79); HBsAGNum1 0.41 S/CO (0.00-0.99); HIV Num 1 0.08 S/CO (0.00-0.99); Hepatitis B Surface Antigen Negative (Negative); ~HepC Num1 0.15 S/CO (0.00-0.79); ~Hepatitis B Surface Antibody REACTIVE (Nonreactive); ~Hepatitis C Antibody Nonreactive (Nonreactive)
[2025-06-07 14:38] LABS: Folate 10.2 ng/mL (> or = 4.0); Vitamin B12 229 pg/mL (200-900)
[2025-06-07 15:21] LABS: Free T4 (Free Thyroxine) < 0.42 ng/dL (0.71-1.85)
[2025-06-08 23:48] LABS: Proteinase 3 PR3 Antibodies <1.0 AI
[2025-06-11 13:13] LABS: Anti Nuclear Antibody Pattern Nuclear, Nucleolar; Anti Nuclear Antibody Screen POSITIVE (NEGATIVE); Anti Nuclear Antibody Titer 1:320 titer
== END 2025-06-07 10:58 | disposition home or self-care (01) ==
LOC: HO.HHCL 10:57
PROVIDERS: Nurse Practitioner Primary Care; PCP Internal Medicine; Visit Provider Internal Medicine
DX: Z00.00 Encounter for general adult medical examination without abnormal findings (principal); Z11.59 Encounter for screening for other viral diseases; Z11.4 Encounter for screening for human immunodeficiency virus [HIV]; Z11.3 Encounter for screening for infections with a predominantly sexual mode of transmission; I10 Essential (primary) hypertension; L30.9 Dermatitis, unspecified; L98.9 Disorder of the skin and subcutaneous tissue, unspecified; H91.3 Deaf nonspeaking, not elsewhere classified; R20.0 Anesthesia of skin; R20.2 Paresthesia of skin; R51.9 Headache, unspecified; Z12.5 Encounter for screening for malignant neoplasm of prostate
CPT/HCPCS: 36415; 80048; 80061; 81001; 82607; 82746; 84153; 84439; 84443; 85025; 85652; 86021; 86038; 86039; 86140; 86160; 86431; 86592; 86704; 86706; 86803; 87340; 87389

== ENCOUNTER 2025-06-13 11:48 | Outpatient (REF) | payer BC, SELFPAY ==
--- OUTSIDE RECORDS SUMMARY | 2025-06-13 12:18 | XMS_ITS | Encounter Summary ---
Author Organization [employer] Address [address] [facility] 7t [place] [address] Care Team Providers Care Bias Machine Operator Helper Name Role Phone Pradip Wilson MD Primary Care Provide r Reason for Visit * Reason Onset Date Comments Med Refill 04/15/2025 Encounter Details Date Type Department Care Team (Late Contact Info) Description 04/15/2025 Refill [facility] [address] [place] [phone] Noemi Osborn RN Social History Tobacco Use [...] Care Team (Late st Contact Info) Description 06/17/2025 10:45 AM EDT Clinical Support [facility] [place] [address] Noemi Osborn RN 06/24/2025 9:45 AM EDT Clinical Support [facility] [place] [address] Noemi Osborn RN 07/12/2025 10:30 AM EDT Office Visit [facility] [place] [address] [place] [address] documented as of this encounter Goals Goal Patient Goal Type Associated Problems Recent Progress Patient-Stated? Author Reduce use of crystal meth General Improving( 10:29 AM EDT) Yes Noemi Osborn RN Go to [facility] for tinnitus. General On track( 11:27 AM EDT) Yes Noemi Osborn, NAJMA Note: 03/11 [...] track( 025 10:55 AM EDT) No Noemi Osborn RN Note: He missed his last appt with Dot, and said he is making a new appt today. documented as of this encounter Visit Diagnoses Not on filedocumented in this encounter Additional Health Concerns Assessment Noted Time PHQ-9 Depression Total Score: 19 025 2:58 PM EDT documented as of this encounter Care Teams Bias Machine Operator Helper Relationship Specialty Start Date End [place] [address] PCP - General Internal Medicine 05/12/25 documented as of this encounter
--- OUTSIDE RECORDS SUMMARY | 2025-06-13 12:18 | XMS_ITS | Clinical Summary ---
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) drug therapy from Last 3 Months [...] LDL Routine 05/28/2025 7:00 AM EDT Other ferry terminal agent (current) drug therapy GLUCOSE, RANDOM Routine 05/28/2025 7:00 AM EDT Other nursing home (current) drug therapy HEMOGLOBIN A1C Routine 05/28/2025 7:00 AM EDT Other nursing home (current) drug therapy from Last 3 Months Results * (ABNORMAL) Lipid panel with reflex to direct LDL (05/28/2025 7:00 AM EDT) Cholesterol 322(H) 0 - 200 mg/dL LAB CHEMISTRY METHOD 05/28/2025 11:33 AM [facility] Triglycerides 342(H) 0 - 150 mg/dL LAB CHEMISTRY METHOD 05/28/2025 11:33 AM [facility] LAB HDL 46 >=40 mg/dL LAB CHEMISTRY METHOD 05/28/2025 11:33 AM [facility] LDL Calculated 208(H) 0 - 100 mg/dL LAB CHEMISTRY METHOD 05/28/2025 11:33 AM [facility] LAB VLDL Cholesterol Win 68.4 mg/dL LAB CHEMISTRY METHOD 05/28/2025 11:33 AM [facility] LAB Non HDL Chol. (LDL+VLDL) 276(H) <145 mg/dL LAB CHEMISTRY METHOD 05/28/2025 11:33 AM [facility] LAB Chol/HDL Ratio 7.0(H) 0.0 - 4.4 LAB CHEMISTRY METHOD 05/28/2025 11:33 AM EDT [facility] Blood Venous blood specimen / Unknown Venipuncture / Unknown 05/28/2025 7:00 AM EDT 05/28/2025 10:36 AM EDT Roel Valero LAB BLOOD ORDERABLES Final Resu lt Performing Organization Address [facility]/ZIP Co de Phone Number [facility] [address] [place] [address], [place] [phone] * Hemoglobin A1c (05/28/2025 7:00 AM EDT) Hemoglobin A1C 5.8 <6.5 % LAB CHEMISTRY METHOD 05/29/2025 12:33 PM EDT [facility] Mean Bld Glu Estim. 120 mg/dL LAB CHEMISTRY METHOD 05/29/2025 12:33 PM EDT [facility] Blood Venous blood specimen / Unknown Venipuncture / Unknown 05/28/2025 7:00 AM EDT 05/28/2025 10:36 AM EDT Roel Valero LAB BLOOD ORDERABLES Final Resu lt Performing Organization Address [facility]/ZIP Co de Phone Number [facility] [address] [place] [address], [place] [phone] * Glucose, random (05/28/2025 7:00 AM EDT) Glucose 95 70 - 100 mg/dL LAB CHEMISTRY METHOD 05/28/2025 11:33 AM EDT [facility] Blood Venous blood specimen / Unknown Venipuncture / Unknown 05/28/2025 7:00 AM EDT 05/28/2025 10:36 AM EDT Roel Valero LAB BLOOD ORDERABLES Final Resu lt [facility] ([facility]) [facility] [address] [place] [address], from Last 3 Months
[2025-06-13 14:49] LABS: Free T4 (Free Thyroxine) < 0.42 ng/dL (0.71-1.85)
[2025-06-19 23:43] LABS: Cryoglobulin, Qual Negative (Negative)
== END 2025-06-13 11:49 | disposition home or self-care (01) ==
LOC: HO.LAB 11:48
PROVIDERS: PCP Internal Medicine; Visit Provider Internal Medicine
DX: E03.9 Hypothyroidism, unspecified (principal); L30.9 Dermatitis, unspecified; R51.9 Headache, unspecified
CPT/HCPCS: 36415; 82595; 84439; 84443; 86140; 86376

== ENCOUNTER 2025-06-23 06:45 | Emergency (ER) | payer BC, SELFPAY ==
--- NOTE | ~2025-06-23 | XR_ITS ---
EXAMINATIONS: 1. XR FOOT, LEFT 2. XR ANKLE 1-2 VIEWS LEFT CLINICAL INFORMATION: pain COMPARISON: None available. TECHNIQUE: AP, lateral, and oblique views of the left foot. AP, lateral, and mortise views of the left ankle. FINDINGS: Normal alignment. Mild degenerative changes at the ankle joint. No acute fracture. No destructive bone lesions. Ankle mortise is maintained. No radiopaque foreign body. XR/XR foot LT 2V IMPRESSION: Left foot: Mild degenerative changes at the ankle joint. Left ankle: Mild degenerative changes at the ankle joint. Electronically signed by: Lopez Pedraza MD 06/23/2025 08:36 AM EDT
--- NOTE | ~2025-06-23 | XR_ITS ---
EXAMINATIONS: 1. XR FOOT, LEFT 2. XR ANKLE 1-2 VIEWS LEFT CLINICAL INFORMATION: pain COMPARISON: None available. TECHNIQUE: AP, lateral, and oblique views of the left foot. AP, lateral, and mortise views of the left ankle. FINDINGS: Normal alignment. Mild degenerative changes at the ankle joint. No acute fracture. No destructive bone lesions. Ankle mortise is maintained. No radiopaque foreign body. XR/XR ankle LT 2V IMPRESSION: Left foot: Mild degenerative changes at the ankle joint. Left ankle: Mild degenerative changes at the ankle joint. Electronically signed by: Lopez Pedraza MD 06/23/2025 08:36 AM EDT
[2025-06-23 06:59] VITALS: BP 139/74; PULSE 73; RESP 18; TEMP 36.5; O2SAT 98; BMI 30.3
--- OUTSIDE RECORDS SUMMARY | 2025-06-23 07:27 | XMS_ITS | Clinical Summary ---
Author Organization [address] Address [address] [place] [phone] Phone Care Team Providers Care Customer Relations Consultant Name Role Phone Unavailable Primary Care Provider Unavailabl e Encounters Date Type Department Care Team Description 05/28/2025 Lab Requisition [facility] - Main Lab [address] [facility] [place] [address] Roel Valero Other long term care administrator (current) drug therapy from Last 3 Months [...] LDL Routine 05/28/2025 7:00 AM EDT Other long term care administrator (current) drug therapy GLUCOSE, RANDOM Routine 05/28/2025 7:00 AM EDT Other intermediate (current) drug therapy HEMOGLOBIN A1C Routine 05/28/2025 7:00 AM EDT Other intermediate (current) drug therapy from Last 3 Months Results * (ABNORMAL) Lipid panel with reflex to direct LDL (05/28/2025 7:00 AM EDT) Cholesterol 322(H) 0 - 200 mg/dL LAB CHEMISTRY METHOD 05/28/2025 11:33 AM [facility] LAB Triglycerides 342(H) 0 - 150 mg/dL LAB CHEMISTRY METHOD 05/28/2025 11:33 AM [facility] LAB HDL 46 >=40 mg/dL LAB CHEMISTRY METHOD 05/28/2025 11:33 AM [facility] LAB LDL Calculated 208(H) 0 - 100 mg/dL LAB CHEMISTRY METHOD 05/28/2025 11:33 AM [facility] LAB VLDL Cholesterol Win 68.4 mg/dL LAB CHEMISTRY METHOD 05/28/2025 11:33 AM [facility] LAB Non HDL Chol. (LDL+VLDL) 276(H) <145 mg/dL LAB CHEMISTRY METHOD 05/28/2025 11:33 AM [facility] LAB Chol/HDL Ratio 7.0(H) 0.0 - 4.4 LAB CHEMISTRY METHOD 05/28/2025 11:33 AM EDT [facility] Blood Venous blood specimen / Unknown Venipuncture / Unknown 05/28/2025 7:00 AM EDT 05/28/2025 10:36 AM EDT Roel Valero LAB BLOOD ORDERABLES Final Resu lt Performing Organization Address [facility]/ZIP Co de Phone Number [facility] [address] [place] [address], [place] [phone] * Hemoglobin A1c (05/28/2025 7:00 AM EDT) Hemoglobin A1C 5.8 <6.5 % LAB CHEMISTRY METHOD 05/29/2025 12:33 PM EDT [facility] Mean Bld Glu Estim. 120 mg/dL LAB CHEMISTRY METHOD 05/29/2025 12:33 PM EDT [facility] Blood Venous blood specimen / Unknown Venipuncture / Unknown 05/28/2025 7:00 AM EDT 05/28/2025 10:36 AM EDT Roel Valero LAB BLOOD ORDERABLES Final Resu lt Performing Organization Address [facility]/ZIP Co de Phone Number [facility] [address] [place] [address], [place] [phone] * Glucose, random (05/28/2025 7:00 AM EDT) Glucose 95 70 - 100 mg/dL LAB CHEMISTRY METHOD 05/28/2025 11:33 AM EDT [facility] Blood Venous blood specimen / Unknown Venipuncture / Unknown 05/28/2025 7:00 AM EDT 05/28/2025 10:36 AM EDT Roel Valero LAB BLOOD ORDERABLES Final Resu lt [facility] ([facility]) [facility] [address] [place] [address], from Last 3 Months
--- OUTSIDE RECORDS SUMMARY | 2025-06-23 07:27 | XMS_ITS | Encounter Summary ---
Author Organization [employer] Address [address] [facility] 7t [place] [address] Care Team Providers Care Chief Librarian Work With Blind Name Role Phone Pradip Wilson MD Primary Care Provide r Reason for Visit * Reason Comments Med Refill Encounter Details Date Type Department Care Team (Late st Contact Info) Description 06/19/2025 Refill [facility] [address] [place], [place] [phone] Rashawn Weiss MD [address] [place], [place] [phone] Major depressive disorder with psychotic features (CMS/HCC) Social History Tobacco Use Types Packs/Day Years Used Date Smoking Tobacco: Every Day Cigarettes Passive Smoke Exposure: Current Smokeless Tobacco: Never Alcohol Use Standard Drinks/Week [...] Answer Date Recorded Patient Health Questionnaire-9 Score 17 06/07/2025 Patient Health Questionnaire-9 Score 17 06/07/2025 Last PHQ-9: Questionnaire Data Not on file 0 06/07/2025 Housing Stability Answer Date Recorded What is your housing situation today? I have megan tejada 05/12/[address] you li ve. Do you have problems with any of the following? None of the above 05/12/2025 Food Insecurity Answer Date Recorded Within the past 12 months, y ou worried that your food would run out before you got money to buy more: Never True 05/12/2025 Within the past 12 months,th e food you bought just didn't last and you didn't have enough money to get more: Never True 08/2025 Transportation Answer Date Recorded In the past 12 months, has l ack of transportation kept you from medical appts, meetings, work or from getting things needed for daily living? No 05/12/2025 Utilities Answer Date Recorded In the past 12 months, has t he electric, gas, oil or water company threatened to shut off services in your home? No 05/12/2025 Depression Answer Date Recorded Patient Health Questionnaire-2 Score 3 06/07/2025 Internet Access Answer Date Recorded Internet Access Q1 Yes 05/12/2025 Internet Access Q2 Not on file 05/12/2025 Sex and Gender Information Value Date Recorded Sex Assigned at Male 12/29/2024 10:10 AM EST Legal Sex Male 8:55 AM EST Gender Identity Male 12/29/2024 10:10 AM EST Sexual Orientation Straight 12/29/2024 10 :12 AM EST documented as of this encounter Plan of Treatment Upcoming Encounters Date Type Department Care Team (Late st Contact Info) Description 06/24/2025 9:45 AM EDT Clinical Support [facility] [address] [place] [phone] Noemi Osborn RN 07/12/2025 10:30 AM EDT Office Visit [facility] [address] [place] [phone] Pradip Wilson MD [address] [place] [phone] documented as of this encounter Goals Goal Patient Goal Type Associated Problems Recent Progress Patient-Stated? Author Reduce use of crystal meth General No change(2024 2:51 PM EDT) Yes Noemi Osborn, RN Go to [facility] for tinnitus. General On track( 11:27 AM [...] perform daily activities General On track( 025 2:51 PM EDT) Noemi Calvin, RN Note: He missed his last appt with Dot, and said he is making a new appt today. 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
--- NOTE | 2025-06-23 07:55 | ED.GENADULT ---
HPI - General Adult General Chief complaint: General Medical Stated complaint: left foot swollen Time Seen by Provider: 06/23/25 07:18 Source: patient Mode of arrival: ambulatory Limitations: no limitations History of Present Illness ED Provider: DR. Singleton HPI narrative: A 54-year-old male with pertinent history of IV drug use disorder, essential hypertension came in for evaluation of left foot/left ankle pain x1 day. No fever, no chills, no trauma to the ankle or the foot, no shortness of breath, no orthopnea, no PND. No history of arthritis or gout however patient is scheduled by his PCP to see your farm hand for high inflammatory markers. Related Data Home Medications ?Medication ?Instructions ?Recorded ?Confirmed atenolol 50 mg tablet 100 mg PO BEDTIME 03/09/24 03/09/24 Previous Rx's ?Medication ?Instructions ?Recorded cephalexin 500 mg capsule 500 mg PO Q6H 7 days #28 caps 11/01/24 doxycycline monohydrate 100 mg 100 mg PO BID 7 days #14 tabs 11/01/24 tablet morphine 15 mg immediate release 15 mg PO Q4-6H PRN pain (scale 11/02/24 tablet score 4-6) #5 tabs cephalexin 500 mg capsule 500 mg PO QID #28 caps 11/08/24 doxycycline hyclate 100 mg tablet 100 mg PO BID #14 tabs 11/08/24 hydrochlorothiazide 25 mg tablet 25 mg PO QAM #30 tabs 04/25/25 meclizine 25 mg tablet 25 mg PO TID PRN dizziness #20 tabs 04/25/25 doxycycline hyclate 100 mg tablet 100 mg PO BID #14 tabs 06/23/25 prednisone 20 mg tablet 20 mg PO BID #10 tabs 06/23/25 Allergies Allergy/AdvReac Type Severity Reaction Status Date / Time bupropion (From Wellbutrin) Allergy Difficulty Verified 06/23/25 06:59 Breathing Review of Systems Review of Systems: All other systems are reviewed and are negative Constitutional: Reports as per HPI and Reports no additional constitutional complaints Eyes: Reports as per HPI and Reports no additional eye complaints Reports system reviewed and no additional complaints, except as documented Cardiovascular: Reports as per HPI and Reports no additional cardiovascular complaints Respiratory: Reports as per HPI and Reports no additional respiratory complaints Gastrointestinal: Reports as per HPI and Reports no additional gastrointestinal complaints Genitourinary: Reports no additional female genitourinary complaints Musculoskeletal: Reports no additional musculoskeletal complaints Skin/Breast: Reports system reviewed and no additional complaints, except as docu Psychiatric: Reports no additional psychiatric complaints Endocrine: Reports no additional endocrine complaints Hematologic/Lymphatic: Reports no additional hematologic/lymphatic complaints Allergic/Immunologic: Reports no additional allergic/immunologic complaints Reports system reviewed and no additional complaints, except as documented and Reports Abnormal speech present [facility] Past Medical History Medical History Abscess of skin and subcutaneous tissue IV drug user Essential hypertension Social History Social History Alcohol intake: current Alcohol intake frequency: a few times a week Alcohol type: hard liquor Patient Tobacco Use Status: Never used Tobacco Substance Use Type: Crack/Cocaine Advance Directives: No Advance Directives Information Provided: Yes Do you have a plan to hurt others: No Plan service: No Physical Exam ED Vital Signs: Vital Signs - 24 hr 06/23/25 06:59 06/23/25 08:31 Temperature 97.7 F Pulse Rate 73 56 Respiratory Rate 18 18 Blood Pressure 139/74 131/83 Pulse Oximetry 98 95 Oxygen Delivery Method Room Air Room Air BMI result Body Mass Index 30.3 Vital signs have been reviewed and appear to be correct. Blood pressure elevated. Heart rate normal. Respiratory rate normal. Temperature normal. Oxygen saturation normal. Appearance: Alert. Oriented X3. No acute distress. Head: Normal external exam. Normocephalic. Atraumatic. No Weaver signs noted. No raccoon eyes noted Eyes: PERRLA. EOMI. Conjunctiva and sclera normal. Eyelids normal. ENT: TM's Normal. Pharynx normal. Uvula midline. Moist mucous membranes. No trismus noted. No drooling noted. No muffled voice noted. Neck: Normal inspection. Neck supple. FROM. No adenopathy. Thyroid Normal. No meningeal signs. No neck mass noted. CVS: Normal heart rate and rhythm. Heart sound normal. No murmurs noted. Pulses normal throughout. Respiratory: No respiratory distress. Painless inspiration. Breath sounds normal. No wheezes/rales/rhonchi noted. Chest nontender. No accessory muscle usage noted or decreased air movement noted. Abdomen: Soft and nontender. Bowel sounds normal in all 4 quadrants. No distention noted. No organomegaly noted. No visible injury noted. Back: No CVA tenderness. Full range of motion noted. Skin: Skin warm and dry. Normal skin color. Normal skin turgor. No rashes/lesions/lacerations noted. Extremities: Left foot/ankle: +1 swelling to the left foot and left ankle, no focal tenderness, no deformity, mild tenderness, but low hot, no abscess or fluctuation. Neuro: Oriented X 3. Cranial nerve exam: II-XII are grossly intact No motor deficit. No sensory deficit. Reflexes normal. Course Reevaluation(s) Reevaluation #1: 54-year-old male came in with left foot pain and swelling,? Cellulitis, gout. Given patient's history of IV drug abuse will start the patient on doxycycline and the prednisone for possible early cellulitis vs. arthritis. Time: 12:07 Medications Administered Discontinued Medications Generic Name Dose Route Start Last Admin Trade Name Freq PRN Reason Stop Dose Admin Doxycycline Monohydrate 100 mg 06/23/25 08:10 06/23/25 08:34 Doxycycline Monohydrate 100 Mg Capsule PO 06/23/25 08:11 100 mg ONCE ONE Administration Ibuprofen 600 mg 06/23/25 07:36 06/23/25 07:46 Ibuprofen 600 Mg Tablet PO 06/23/25 07:37 600 mg ONCE ONE Administration Prednisone 60 mg 06/23/25 07:36 06/23/25 07:46 Prednisone 20 Mg Tablet PO 06/23/25 07:37 60 mg ONCE ONE Administration Medical Decision Making Differential Diagnosis Differential Diagnoses: The differential diagnosis associated with the presentation includes (Foot fracture, ankle fracture, cellulitis, gout, arthritis.) Admission/Observation Consideration of admission/observation: Escalation of care including admission/observation considered Lab Data MDM Lab Attestation statement: I reviewed the patient's lab results. 06/23/25 08:01 Labs: Lab Results 06/23/25 Range/Units 08:01 WBC 6.2 (4.8-10.8) X10*3/uL RBC 3.73 L (4.60-5.80) X10*6/uL Hgb 12.3 L (14.0-18.0) g/dl Hct 34.7 L (42.0-52.0) % MCV 93.0 (80.0-98.0) fL MCH 33.0 (27.0-33.0) pg MCHC 35.4 (31.0-36.0) g/dl RDW 12.8 (11.0-16.0) % Plt Count 220 (160-400) X10*3/uL MPV 9.4 (9.4-12.4) fL Immature Gran % (Auto) 0.3 (0.0-0.4) % Neut % (Auto) 51.9 (45-73) % Lymph % (Auto) 39.4 (20-40) % Bracken % (Auto) 5.9 (2-11) % Eos % (Auto) 2.2 (0-4) % Baso % (Auto) 0.3 (0-2) % Lymph # (Auto) 2.5 (1.2-4.9) X10*3/uL Bracken # (Auto) 0.4 (0.1-1.2) X10*3/uL Eos # (Auto) 0.1 (0.0-0.4) X10*3/uL Baso # (Auto) 0.0 (0.0-0.2) X10*3/uL Abs Immat Gran (auto) 0.02 (0.00-0.03) X10*3/uL Absolute Neuts (auto) 3.2 (2.0-8.3) x10*3/uL Absolute Nucleated RBC 0.000 (0.0-0.012) X10*3/uL Nucleated RBC % (auto) 0.0 (0.0-0.2) /100WBC ESR 32 H (0-15) MM/HR C-Reactive Protein 1.88 H (< or = 0.50) mg/dL Independent Interpretation I performed an independent interpretation of an: Plain X-Ray (Left ankle/foot:Left foot: Mild degenerative changes at the ankle joint. Left ankle: Mild degenerative changes at the ankle joint. ) Radiology Impression Discussion of test interpretation with radiology: I have reviewed the radiologist's reading. Discharge Plan Discharge Clinical Impression: Cellulitis Qualifiers: Site of cellulitis: extremity Site of cellulitis of extremity: lower extremity Laterality: left Qualified Code(s): L03.116 - Cellulitis of left lower limb Patient Disposition: Home, Self-Care Instructions: Cellulitis (ED), Arthritis (ED) Prescriptions: New prednisone 20 mg tablet 20 mg PO BID Qty: 10 0RF doxycycline hyclate 100 mg tablet 100 mg PO BID Qty: 14 0RF No Action atenolol 50 mg tablet 100 mg PO BEDTIME cephalexin 500 mg capsule 500 mg PO Q6H 7 Days Qty: 28 0RF doxycycline monohydrate 100 mg tablet 100 mg PO BID 7 Days Qty: 14 0RF morphine 15 mg tablet 15 mg PO Q4-6H PRN (Reason: pain (scale score 4-6)) Qty: 5 0RF Rx Instructions: Partial Fill upon patient request. hydrochlorothiazide 25 mg tablet 25 mg PO QAM Qty: 30 0RF meclizine 25 mg tablet 25 mg PO TID PRN (Reason: dizziness) Qty: 20 0RF cephalexin 500 mg capsule 500 mg PO QID Qty: 28 0RF doxycycline hyclate 100 mg tablet 100 mg PO BID Qty: 14 0RF Referrals: Pradip Maurice MD [Primary Care Provider, Medical] Print Language: [place] Island[place]
[2025-06-23 08:04] LABS: MANUAL DIFF FLAG NO
[2025-06-23 08:07] LABS: Hematocrit 34.7 % (42.0-52.0); Hemoglobin 12.3 g/dl (14.0-18.0); Imm Gran Abs Auto 0.02 X10*3/uL (0.00-0.03); Imm Gran Pct Auto 0.3 % (0.0-0.4); Lymphocytes Absolute Auto 2.5 X10*3/uL (1.2-4.9); Mean Corpuscular HGB Conc 35.4 g/dl (31.0-36.0); Mean Corpuscular Hemoglobin 33.0 pg (27.0-33.0); Mean Corpuscular Volume 93.0 fL (80.0-98.0); NRBC Abs Auto 0.000 X10*3/uL (0.0-0.012); NRBC Pct Auto 0.0 /100WBC (0.0-0.2); Platelet Count 220 X10*3/uL (160-400); Red Blood Count 3.73 X10*6/uL (4.60-5.80); White Blood Count 6.2 X10*3/uL (4.8-10.8)
[2025-06-23 08:31] VITALS: BP 131/83; PULSE 56; RESP 18; O2SAT 95
[2025-06-23 12:27] VITALS: BP 131/83; PULSE 56; RESP 18; TEMP 36.5; O2SAT 95
== END 2025-06-23 12:27 | disposition home or self-care (01) ==
PROVIDERS: Emergency Provider Emergency Medicine; PCP Internal Medicine
DX: M79.89 Other specified soft tissue disorders (principal); L03.116 Cellulitis of left lower limb; I10 Essential (primary) hypertension; Z79.899 Other long term (current) drug therapy
CPT/HCPCS: 36415; 73600; 73620; 85025; 85652; 86140; 99283; 99284

== ENCOUNTER → 2025-06-23 07:36 | Outpatient (BNV) | payer BC, SELFPAY | PROVIDERS: Emergency Provider Emergency Medicine; PCP Internal Medicine; Visit Provider Radiology Body Imaging | DX: M25.572 Pain in left ankle and joints of left foot (principal); M79.672 Pain in left foot | CPT/HCPCS: 73600; 73620 ==

== ENCOUNTER 2025-07-12 11:12 | Outpatient (REF) | payer BC, SELFPAY ==
--- OUTSIDE RECORDS SUMMARY | 2025-07-08 10:30 | XMS_ITS | Encounter Summary ---
Author Organization [employer] Address [address] [place] [address] Care Team Providers Care Bottom Steep Tender Name Role Phone Pradip Wilson MD Primary Care Provide r Reason for Visit * Reason Comments OBAT F/U Encounter Details Date Type Department Care Team (Latest Contact Info) Description 07/08/2025 10:30 AM EDT Office Visit [facility] [address], [place] [phone] Rashawn Weiss MD [address] [place] [address] Uncomplicated opioid dependence (CMS/HCC) (Primary Dx); Alcohol use disorder; Cocaine use; Tobacco use Social History Tobacco Use Types Packs/Day Years [...] AM EST documented as of this encounter Progress Notes * Rashawn Weiss MD - 07/08/2025 10:30 AM EDT Mendoza comes in for f/u for OUD and AUD and CUD. 07/01/25: Mendoza reports an unintentional overdose 2 days ago. Used heroin for the first time since November. Heused because of the continued, persist, loud ringing in his ears. He used to get a break and some sleep. He was at home with his some & . They administered multiple Narcan before EMS arrived.More Narcan was administered by EMS. Chest compression, ? CPR. Told he was out for 7 minutes. This was the first time he overdosed. Happy he was arrived. No thoughts of self harm Recently, started seeing a psych prescriber. Was referred to [facility]. Since it would take so long to be seen by ENT there, he was [place] [facility]. States he has not been seen by ENT. He did have hearing tests and said he has hearing loss. Alcohol and cocaine the same. Declines FEN test strips. As above. Unintentional overdose. Reviewed. Safe use reviewed. Dispensed # 4 narcans. Declines FEN strips-aware that anything he buys of the street can contain some or be all FEN. I told him I would inform his PCP, Dr. Webber, which I did. He is scheduled to see Lawanda Pop on 07/12. F/U with me in one week. Alcohol use disorder He did not tolerate topiramate. Review further on f/u. Cocaine use He did not tolerate topiramate. Review further on f/u. Tobacco use Review @ future visit. Today 07/08/25 BUP, CECILY, THC Doing about the same. Ringing/ear noise still constant. Cocaine daily, does not want to retry topirimate. He is ready to start slowly cutting back. Drinking ~ 1/5th of alcohol daily. No opioid cravings. Has had no thoughts of self harm. Objective Physical Exam Constitutional: Appearance: Normal appearance. Neurological: Mental Status: He is alert and oriented to person, place, and time. Psychiatric: Mood and Affect: Mood normal. Behavior: Behavior normal. Thought Content: Thought content normal. Assessment/Plan Uncomplicated opioid dependence (CMS/HCC) BUP, CECILY, THC Doing about the same. Ringing/ear noise still constant. Cocaine daily, does not want to retry topirimate. He is ready to start slowly cutting back. Drinking ~ 1/5th of alcohol daily. No opioid cravings. Has had no thoughts of self harm. As above. Remains abstinent from opioids. No real change in alcohol or cocaine use. Both affected by ongoing tinnitus States he is ready to start cutting down drinking and cocaine use. Did not tolerate topiramate. Dr. Webber, PCP, next week. F/U 2 weeks. Alcohol use disorder As above. If available, review trial of acamprosate. Cocaine use Safe use reviewed. Tobacco use Review @ future visit. Diagnoses and all orders for this visit: Uncomplicated opioid dependence (CMS/HCC) Alcohol use disorder Cocaine use Tobacco use This information has been disclosed to you from records protected by federal confidentiality rules(42 CFR Part 2). The federal rules prohibit you from making any further disclosure of information in this record that identifies a patient as having or having had a substance use disorder either directly, by reference to publicly available information, or through verification of such identificationby another person unless further disclosure is expressly permitted by the written consent of the individual whose information is being disclosed or as otherwise permitted by (see 2.3.1). The federal rules restrict any use of the information to investigate or prosecute with regard to a crime any patient with a substance use disorder, except as provided at 2.12??(5) and 2.65. documented in this encounter Plan of Treatment Upcoming Encounters Date Type Department Care Team (Late st Contact Info) Description 07/22/2025 10:15 AM EDT Clinical Support [address] [phone] Noemi Osborn RN documented as of this encounter Goals Goal Patient Goal Type Associated Problems Recent Progress Patient-Stated? Author Reduce use of crystal meth General On track( 025 11:34 AM EDT) Yes Noemi Osbron RN Note: Has not tested positive for a while. Go to [facility] for tinnitus. General On track( 11:27 AM [...] to perform daily activities General On track( 2:51 PM EDT) No Noemi Osborn, RN Note: He missed his last appt with Dot, and said he is making a new appt today. documented as of this encounter Procedures Procedure Name Priority Date/Time Associated Diagnosis Comments POCT DIVYA-14 URINE DRUG SCREEN Routine 07/08/2025 10:39 AM EDT Uncomplicated opioid dependence (CMS/HCC) documented in this encounter Results * (ABNORMAL) POCT DIVYA-14 Urine Drug Screen (07/08/2025 10:39 AM EDT) THC Positive(A) Negative Cocaine Screen, Urine Positive(A) Negative Opiate Screen, Urine Negative Negative Methamphetamine Screen Urine Negative Negative Amphetamine Screen, Urine Negative Negative Benzodiazepines Screen, Urine Negative Negative Barbiturate Screen, Urine Negative Negative Methadone Screen, Urine Negative Negative Buprenophine Screen, Urine Positive(A) Negative TCA, Urine Negative Negative MDMA Urine Negative Negative ng/mL Oxycodone Screen, Urine Negative Negative Phencyclidine (PCP), Urine Negative Negative Fentanyl, Urine Negative Negative Urine Urine specimen obtained by clean catch procedure / Unknown 07/08/2025 10:39 AM EDT Rashawn Weiss MD POINT OF CARE TEST ENTER/EDIT ORDERABLES Final Result documented in this encounter Visit Diagnoses Diagnosis Uncomplicated opioid dependence (CMS/HCC)- Primary Alcohol use disorder Cocaine use Tobacco use documented in this encounter Additional Health Concerns Assessment Noted Time PHQ-9 Depression Total Score: 17 11:54 AM EDT documented as of this encounter Care Teams Bottom Steep Tender Relationship Specialty Start Date End Date Pradip Wilson MD [address] [place] [id number] PCP - General Internal Medicine 05/12/25 documented as of this encounter
--- OUTSIDE RECORDS SUMMARY | 2025-07-12 10:30 | XMS_ITS | Encounter Summary ---
Author Organization [employer] Address [address] [facility] [facility] [address] [place] [address] Care Team Providers Care Pattern Carrier Name Role Phone Pradip Wilson MD Primary Care Provide r Reason for Visit * Reason Comments Annual Exam Encounter Details Date Type Department Care Team ([facility] st Contact Info) Description 07/12/2025 10:30 AM EDT Office Visit [facility] [address] [place], [place] [phone] Pradip Wilson MD [address] [place], [place] [phone] Hypothyroidism, unspecified type (Primary Dx); Anemia, unspecified type; Preventative health care; Tinnitus of both ears; Dermatitis of lower extremity; Positive NILDA (antinuclear antibody); Major depressive disorder with psychotic features (CMS/HCC); History of lumbar fusion Social History Tobacco Use Types Packs/Day Years [...] your housing situation today? I have megan sing 05/12/[address] you li [...] AM EST documented as of this encounter Last Filed Vital Signs Vital Sign Reading Time Taken Comments Blood Pressure 120/76 07/12/2025 10:57 AM EDT Pulse 71 07/12/2025 10:57 AM EDT Temperature 37.2 C (98.9 F) 07/12/2025 10:57 AM EDT Respiratory Rate 20 07/12/2025 10:57 AM EDT Oxygen Saturation 92% 07/12/2025 10:57 AM EDT Inhaled Oxygen Concentration - - Weight 96 kg (211 lb 9.6 oz) 07/12/2025 10:57 AM EDT Height 175.3 cm (5' 9 ) 07/12/2025 10:57 AM EDT Body Mass Index 31.25 07/12/2025 10:57 AM EDT documented in this encounter Miscellaneous Notes * Assessment & Plan Note - Pardip Riggs MD - 07/12/2025 11:10 AM EDT Associated Problem(s): History of lumbar fusion Surg hx: fusion L5-S1, L elbow cubital tunnel repair, nose operation at 17yo, L foot operation for infection/I&D a few years ago * Assessment & Plan Note - Pradip Riggs MD - 07/12/2025 11:02 AM EDT Associated Problem(s): Major depressive disorder with psychotic features (CMS/HCC) Patient with a recent inpatient psychiatric hospitalization at [facility] from 05/27/25 to 06/02/25. He stated that the admission was due to worsening auditory hallucinations, insomnia, and persistent depressive symptoms. He attributed these symptoms, in part, to ongoing bilateral ringing in his ears, which he has experienced for several months and believes is caused by aliens entering his body. During his inpatient stay, he was prescribed Olanzapine 10 mg, which he reported as helpful; however, he stated that he was not provided with a prescription refill upon discharge. At this time, Mendoza denies suicidal ideation, homicidal ideation, or self-harming behaviors. He repo rted being connected with [facility] and has a scheduled intake appointment on 06/08/25 at 3:00 PM. * Assessment & Plan Note - Pradip Riggs MD - 07/12/2025 10:55 AM EDT Associated Problem(s): Positive NILDA (antinuclear antibody) NILDA obtained as part of a vasculitis work up. It was Positive with a nucleolar pattern Pt referred to Rheumatology. Appointment pending. * Assessment & Plan Note - Pradip Riggs MD - 07/12/2025 10:52 AM EDT Associated Problem(s): Dermatitis of lower extremity Patient here for a follow up, He was seen here back in April noticed to have multiple punched out/atrophic circular depressions that he says did not start as open wounds, unclear etiology. Multiple other scabs lesions on legs but no livedo reticularis, petechiae concerning for thrombocytopenia, severe venous stasis derm. Pulses p alpable 1+ bilateral LE. Previous visit labs for vasculitis were checked and he was referred to Derm for biopsy. NILDA was positive , Rheumatology appointment pending , and Dermatology appointment pending Denies injecting into legs. * Assessment & Plan Note - Pradip Riggs MD - 07/12/2025 10:50 AM EDT Associated Problem(s): Tinnitus of both ears Patient here for a follow up Previously seen as new patient with c/o ringing in his head that won't go away. Not sure if it's inhis head or his ears. Driving him crazy. It's there 26/05. Started >1 mo ago. Non-pulsating. Patient says he had hearing test and was told he had significant hearing loss but he's not sure if that's new. The noise in his ears is constant, non-pulsatile, . Occasional dizziness. no head injury, mo tor weakness, no difficulty w/ walking or speech, no vision changes. Of note patient had a CT head without contrast 04/25/25 No intra-axial mass, midline shift, hydrocephalus, or acute hemorrhage. No significant atrophy-like change or white matter disease. Mild mucosal thickening is seen in bilateral frontal sinuses, bilateral ethmoid air cells, and bilateral maxillary sinuses. The orbits are unremarkable. No skull fracture. IMPRESSION: 1. No acute intracranial findings. Previously seen by one of our providers who ordered some labs it appears pt did not have it done Audiology report requested Previous visit patient was referred for ENT evaluation [facility] requested patient be seen by ENT first * Assessment & Plan Note - Pradip Riggs MD - 07/12/2025 10:48 AM EDT Associated Problem(s): Preventative health care PSA 06/07/2025: Normal Colonoscopy: referred Gastroenterology Pending appointment on 09/06/25 @ 11:10 AM [facility] * Assessment & Plan Note - Pradip Riggs MD - 07/12/2025 10:47 AM EDT Associated Problem(s): Anemia Unclear etiology Plan: B12, folate, Iron studies, ferritin * Assessment & Plan Note - Pradip Riggs MD - 07/12/2025 10:44 AM EDT Associated Problem(s): Hypothyroidism Newly diagnosed Lab Results Component Value Date TSH >100.00 (H) 06/13/2025 Pt started on Levothyroxine Will order Thyroid US Recheck TSH Endocrinology consult documented in this encounter Plan of Treatment Upcoming Encounters Date Type Department Care Team (Late st Contact Info) Description 07/22/2025 10:15 AM EDT Clinical Support [address] [phone] Noemi Osborn, RN documented as of this encounter Goals Goal Patient Goal Type Associated Problems Recent Progress Patient-Stated? Author Reduce use of crystal meth General On track( 025 11:34 AM EDT) Yes Noemi Osborn, RN Note: Has not tested positive for a while. Go to [facility] for tinnitus. General On track( 025 11:27 AM EDT) Yes Noemi Osborn, RN [...] as of this encounter Visit Diagnoses Diagnosis Hypothyroidism, unspecified type- Primary Anemia, unspecified type Preventative health care Routine general medical examination at a health care facility Tinnitus of both ears Unspecified tinnitus Dermatitis of lower extremity Positive NILDA (antinuclear antibody) Other and unspecified nonspecific immunological findings Major depressive disorder with psychotic features (CMS/HCC) History of lumbar fusion documented in this encounter Additional Health Concerns Assessment Noted Time PHQ-9 Depression Total Score: 17 025 11:54 AM EDT documented as of this encounter Care Teams Pattern Carrier Relationship Specialty Start Date End Date Pradip Wilson MD [address] [place] [address] PCP - General Internal Medicine 05/12/25 documented as of this encounter
--- OUTSIDE RECORDS SUMMARY | 2025-07-12 13:34 | XMS_ITS | Encounter Summary ---
Author Organization [employer] Address 75 [facility] 7t [place] [address] Care Team Providers Care Fire Protection Inspector Name Role Phone Pradip Wilson MD Primary Care Provide r Reason for Visit * Reason Onset Date Comments Med Refill 06/24/2025 Encounter Details Date Type Department Care Team (Late st Contact Info) Description 06/24/2025 Refill [facility] [address] [place] [address] Noemi Osborn RN Uncomplicated opioid dependence (CMS/HCC) [...] AM EST documented as of this encounter Miscellaneous Notes * Telephone Encounter - Rashawn Weiss MD - 07/01/2025 12:53 PM EDT Dose change documented in this encounter Plan of Treatment Upcoming Encounters Date Type Department Care Team (Late st Contact Info) Description 07/22/2025 10:15 AM EDT Clinical Support [address] [address] Noemi Osborn, RN documented as of this encounter Goals Goal Patient Goal Type Associated Problems Recent Progress Patient-Stated? Author Reduce use of crystal meth General On track( 11:34 AM EDT) Yes Noemi Osborn, RN Note: Has not tested positive for a while. Go to [facility] for tinnitus. General On track( 11:27 [...] documented as of this encounter Care Teams Fire Protection Inspector Relationship Specialty Start Date End Date Pradip Wilson MD [address] [place] [address] PCP - General Internal Medicine 05/12/25 documented as of this encounter
--- OUTSIDE RECORDS SUMMARY | 2025-07-12 13:34 | XMS_ITS | Encounter Summary ---
Author Organization [employer] Address [address] [place] [address] 7 [place] [address] Care Team Providers Care Peoplesoft Analyst Name Role Phone Pradip Wilson MD Primary Care Provide r Reason for Visit * Reason Onset Date Comments Hospital Follow-up 05/31/2025 Encounter Details Date Type Department Care Team ([facility] st Contact Info) Description 05/31/2025 Telephone [facility] [address] [place], [place] [phone] Pradip Wilson MD [address] [place] [address] Hospital Follow-up Social History Tobacco Use Types Packs/Day Years [...] Questionnaire Data Not on file 0 01/28/2025 Housing Stability Answer Date Recorded What is [...] Recorded Patient Health Questionnaire-2 Score 6 01/28/2025 Internet Access Answer Date Recorded Internet Access [...] encounter Miscellaneous Notes * Telephone Encounter - Ray Avelar - 05/31/2025 1:16 PM EDT Tc from pt requesting a HDF appt. Hospital: [facility] Date of admission: 05/27 Discharge date: 06/01 Diagnosed: Severe mood disorders with psychotic features *Send message to [facility] Care Coordinators Contact pt at [phone] documented in this encounter Plan of Treatment Upcoming Encounters Date Type Department Care Team (Late st Contact Info) Description 07/22/2025 10:15 AM EDT Clinical Support [facility] [address] [place] [address] Noemi Osborn, RN documented as of this encounter Goals Goal Patient Goal Type Associated Problems Recent Progress Patient-Stated? Author Reduce use of crystal meth General On track( 025 11:34 AM EDT) Yes Noemi Osborn, RN Note: Has not tested positive for a while. Go to [facility] for tinnitus. General On track( 11:27 [...] General On track( 025 2:51 PM EDT) No Noemi Osborn, RN Note: He missed his last appt with Dot, and said he is making a new appt today. documented as of this encounter Visit Diagnoses Not on filedocumented in this encounter Additional Health Concerns Assessment Noted Time PHQ-9 Depression Total Score: 19 025 2:58 PM EDT documented as of this encounter Care Teams Peoplesoft Analyst Relationship Specialty Start Date End Date Pradip Wilson MD [address] [place] [address] PCP - General Internal Medicine 05/12/25 documented as of this encounter
--- OUTSIDE RECORDS SUMMARY | 2025-07-12 13:34 | XMS_ITS | Encounter Summary ---
Author Organization [employer] Address [address] [facility] [address] 7t [place] [address] Care Team Providers Care Petroleum Inspector Supervisor Name Role Phone Pradip Wilson MD Primary Care Provide r Reason for Visit * Reason Comments Med Refill Encounter Details Date Type Department Care Team ([facility] st Contact Info) Description 07/05/2025 Refill [facility] 230 [place], [place] [phone] Nelia Patel, JUDY [address] [place] [address] Seasonal allergic rhinitis, unspecified trigger Social History Tobacco Use Types Packs/Day Years [...] Description 07/22/2025 10:15 AM EDT Clinical Support [address] [address] Noemi Osborn, RN documented as of this encounter Goals Goal Patient Goal Type Associated Problems Recent Progress Patient-Stated? Author Reduce use of crystal meth General On track( 11:34 AM EDT) Yes Noemi Osborn, RN Note: Has not tested positive for a while. Go to [facility] for tinnitus. General On track( 11:27 AM [...] On track( 025 2:51 PM EDT) Noemi Calvin RN Note: He missed his last appt with Dot, and said he is making a new appt today. documented as of this encounter Visit Diagnoses Diagnosis Seasonal allergic rhinitis, unspecified trigger documented in this encounter Additional Health Concerns Assessment Noted Time PHQ-9 Depression Total Score: 17 025 11:54 AM EDT documented as of this encounter Care Teams Petroleum Inspector Supervisor Relationship Specialty Start Date End Date Pradip Wilson MD [address] [place] [address] PCP - General Internal Medicine 05/12/25 documented as of this encounter
--- OUTSIDE RECORDS SUMMARY | 2025-07-12 13:34 | XMS_ITS | Clinical Summary ---
Author Organization [address] Address [address] [place] [phone] Phone Care Team Providers Care Pheresis Nurse Name Role Phone Unavailable Primary Care Provider Unavailabl e Encounters Date Type Department Care Team Description 05/28/2025 Lab Requisition [facility] - Main Lab [address] [facility] [place] [address] Roel Valero Other fpc (current) drug therapy from Last 3 Months [...] 2020 Zoster Vaccines (1 of 2) 2020 Depression Screening 11/03/2024 Colorectal Cancer Screening: Colonoscopy 05/28/2025 HIV Screening 05/28/2025 Hepatitis C Screening 05/28/2025 Social Influencers of Health Screening 05/28/2025 COVID-19 Vaccine (1 - 2023-2 5 season) 2025 Influenza Vaccine (#1) 2025 Cholesterol Screening (Lipid [...] LDL Routine 05/28/2025 7:00 AM EDT Other termite exterminator (current) drug therapy GLUCOSE, RANDOM Routine 05/28/2025 7:00 AM EDT Other termite exterminator (current) drug therapy HEMOGLOBIN A1C Routine 05/28/2025 7:00 AM EDT Other fpc (current) drug therapy from Last 3 Months Results * (ABNORMAL) Lipid panel with reflex to direct LDL (05/28/2025 7:00 AM EDT) Cholesterol 322(H) 0 - 200 mg/dL LAB CHEMISTRY METHOD 05/28/2025 11:33 AM [facility] Triglycerides 342(H) 0 - 150 mg/dL LAB CHEMISTRY METHOD 05/28/2025 11:33 AM [facility] HDL 46 >=40 mg/dL LAB CHEMISTRY METHOD 05/28/2025 11:33 AM [facility] LDL Calculated 208(H) 0 - 100 mg/dL LAB CHEMISTRY METHOD 05/28/2025 11:33 AM [facility] VLDL Cholesterol Win 68.4 mg/dL LAB CHEMISTRY METHOD 05/28/2025 11:33 AM [facility] Non HDL Chol. (LDL+VLDL) 276(H) <145 mg/dL LAB CHEMISTRY METHOD 05/28/2025 11:33 AM [facility] Chol/HDL Ratio 7.0(H) 0.0 - 4.4 LAB CHEMISTRY METHOD 05/28/2025 11:33 AM EDT [facility] Blood Venous blood specimen / Unknown Venipuncture / Unknown 05/28/2025 7:00 AM EDT 05/28/2025 10:36 AM EDT Roel Valero LAB BLOOD ORDERABLES Final Resu lt Performing Organization Address [facility]/ZIP Co de Phone Number [facility] [address] [place] [address], [place] [phone] * Hemoglobin A1c (05/28/2025 7:00 AM EDT) Hemoglobin A1C 5.8 <6.5 % LAB CHEMISTRY METHOD 05/29/2025 12:33 PM EDT [facility] Mean Bld Glu Estim. 120 mg/dL LAB CHEMISTRY METHOD 05/29/2025 12:33 PM EDT [facility] Blood Venous blood specimen / Unknown Venipuncture / Unknown 05/28/2025 7:00 AM EDT 05/28/2025 10:36 AM EDT Roel Valero LAB BLOOD ORDERABLES Final Resu lt Performing Organization Address [facility]/ZIP Co de Phone Number [facility] [address] [place] [address], [place] [phone] * Glucose, random (05/28/2025 7:00 AM EDT) Glucose 95 70 - 100 mg/dL LAB CHEMISTRY METHOD 05/28/2025 11:33 AM EDT [facility] Blood Venous blood specimen / Unknown Venipuncture / Unknown 05/28/2025 7:00 AM EDT 05/28/2025 10:36 AM EDT Roel Valero LAB BLOOD ORDERABLES Final Resu lt [facility] [address] [place] [address], from Last 3 Months
--- OUTSIDE RECORDS SUMMARY | 2025-07-12 13:34 | XMS_ITS | Encounter Summary ---
Author Organization [employer] Address 75 [facility] 7t [place] [address] Care Team Providers Care Statistics Teacher Name Role Phone Pradip Wilson MD Primary Care Provide r Reason for Visit * Reason Onset Date Comments Med Refill 05/23/2025 Encounter Details Date Type Department Care Team (Late st Contact Info) Description 05/23/2025 Refill [facility] [address] [place] [address] Noemi Osborn RN Uncomplicated opioid dependence (CMS/HCC) [...] Description 07/22/2025 10:15 [place] [address] Noemi Osborn, RN documented as of this encounter Goals Goal Patient Goal Type Associated Problems Recent Progress Patient-Stated? Author Reduce use of crystal meth General On track( 11:34 AM EDT) Yes Noemi Osborn, RN Note: Has not tested positive for a while. Go to [facility] for tinnitus. General On track( 11:27 AM [...] activities General On track( 2:51 PM EDT) Noemi Calvin, RN Note: He missed his last appt with Dot, and said he is making a new appt today. documented as of this encounter Visit Diagnoses Diagnosis Uncomplicated opioid dependence (CMS/HCC) documented in this encounter Additional Health Concerns Assessment Noted Time PHQ-9 Depression Total Score: 19 01/28/ 025 2:58 PM EDT documented as of this encounter Care Teams Statistics Teacher Relationship Specialty Start Date End Date Pradip Wilson MD [address] [place] [address] PCP - General Internal Medicine 05/12/25 documented as of this encounter
--- OUTSIDE RECORDS SUMMARY | 2025-07-12 13:34 | XMS_ITS | Encounter Summary ---
Author Organization [employer] Address [address] [facility] 7t [place] [address] Care Team Providers Care Trim Installer Name Role Phone Pradip Wilson MD Primary Care Provide r Reason for Visit * Reason Onset Date Comments Med Refill 05/27/2025 Encounter Details Date Type Department Care Team (Late st Contact Info) Description 05/27/2025 Refill [facility] [address] [place] [address] Noemi Osborn, RN Social History Tobacco Use [...] Description 07/22/2025 10:15 AM EDT Clinical Support [facility] [address] [place] [address] Noemi Osborn, RN documented as of this encounter Goals Goal Patient Goal Type Associated Problems Recent Progress Patient-Stated? Author Reduce use of crystal meth General On track( 11:34 AM EDT) Yes Noemi Osborn, RN Note: Has not tested positive for a while. Go to [facility] for tinnitus. General On track( 11:27 [...] documented as of this encounter Care Teams Trim Installer Relationship Specialty Start Date End Date Pradip Wilson MD [address] [place] [address] PCP - General Internal Medicine 05/12/25 documented as of this encounter
--- OUTSIDE RECORDS SUMMARY | 2025-07-12 13:34 | XMS_ITS | Encounter Summary ---
Author Organization [employer] Address [address] [place] [address] 7 [place] [address] Care Team Providers Care Management And Budget Analyst Name Role Phone Pradip Wilson MD Primary Care Provide r Reason for Visit * Reason Onset Date Comments Med Refill 04/15/2025 Encounter Details Date Type Department Care Team (Late st Contact Info) Description 04/15/2025 Refill [facility] [address] [place] [address] Noemi Osborn RN Social History Tobacco Use [...] Description 07/22/2025 10:15 AM EDT Clinical Support [facility] [address] [place] [address] Noemi Osborn, NAJMA documented as of this encounter Goals Goal [...] documented as of this encounter Care Teams Management And Budget Analyst Relationship Specialty Start Date End Date Pradip Wilson MD [address] [place] [address] PCP - General Internal Medicine 05/12/25 documented as of this encounter
--- OUTSIDE RECORDS SUMMARY | 2025-07-12 13:34 | XMS_ITS | Encounter Summary ---
Author Organization [facility] Address [address] [place] [address] Care Team Providers Care Try Out Person Name Role Phone Unavailable Primary Care Provider Unavailabl e Encounter Details Date Type Department Care Team (Late st Contact Info) Description 05/28/2025 Lab Requisition [facility] [address] [place] [address] Roel Valero [address] [place] [phone] Other nursing home (current) drug therapy Social History Tobacco Use Types Packs/Day Years Used Date Smoking Tobacco: Never Assessed Sex and Gender Information Value Date Recorded Sex Assigned at Not on file Legal Sex Male 4:19 AM EST Gender Identity Not on file Sexual Orientation Not on file documented as of this encounter Plan of Treatment Not on file documented as of this encounter Procedures Procedure Name Priority Date/Time Associated Diagnosis Comments LIPID PANEL WITH REFLEX TO DIRECT LDL Routine 05/28/2025 7:00 AM EDT Other nursing home (current) drug therapy HEMOGLOBIN A1C Routine 05/28/2025 7:00 AM EDT Other nursing home (current) drug therapy GLUCOSE, RANDOM Routine 05/28/2025 7:00 AM EDT Other moth exterminator (current) drug therapy documented in this encounter Results * (ABNORMAL) Lipid panel with reflex to direct LDL (05/28/2025 7:00 AM EDT) Cholesterol 322(H) 0 - 200 mg/dL LAB CHEMISTRY METHOD 05/28/2025 11:33 AM EDT [facility] Triglycerides 342(H) 0 - 150 mg/dL LAB CHEMISTRY METHOD 05/28/2025 11:33 AM EDT [facility] HDL 46 >=40 mg/dL LAB CHEMISTRY METHOD 05/28/2025 11:33 AM EDT [facility] LDL Calculated 208(H) 0 - 100 mg/dL LAB CHEMISTRY METHOD 05/28/2025 11:33 AM EDT [facility] VLDL Cholesterol Win 68.4 mg/dL LAB CHEMISTRY METHOD 05/28/2025 11:33 AM EDT [facility] Non HDL Chol. (LDL+VLDL) 276(H) <145 mg/dL LAB CHEMISTRY METHOD 05/28/2025 11:33 AM EDT [facility] Chol/HDL Ratio 7.0(H) 0.0 - 4.4 LAB CHEMISTRY METHOD 05/28/2025 11:33 AM EDT [facility] Blood Venous blood specimen / Unknown Venipuncture / Unknown 05/28/2025 7:00 AM EDT 05/28/2025 10:36 AM EDT Roel Valero LAB BLOOD ORDERABLES Final Resu lt [facility] [address] [place] [address], [place] [phone] * Glucose, random (05/28/2025 7:00 AM EDT) Glucose 95 70 - 100 mg/dL LAB CHEMISTRY METHOD 05/28/2025 11:33 AM EDT [facility] Blood Venous blood specimen / Unknown Venipuncture / Unknown 05/28/2025 7:00 AM EDT 05/28/2025 10:36 AM EDT Roel Valero LAB BLOOD ORDERABLES Final Resu lt [facility] [address] [place] [address], [place] [phone] * Hemoglobin A1c (05/28/2025 7:00 AM EDT) Hemoglobin A1C 5.8 <6.5 % LAB CHEMISTRY METHOD 05/29/2025 12:33 PM EDT [facility] Mean Bld Glu Estim. 120 mg/dL LAB CHEMISTRY METHOD 05/29/2025 12:33 PM EDT [facility] Blood Venous blood specimen / Unknown Venipuncture / Unknown 05/28/2025 7:00 AM EDT 05/28/2025 10:36 AM EDT us Roel Valero LAB BLOOD ORDERABLES Final Resu lt [facility] [address] [place] [address], documented in this encounter Visit Diagnoses Diagnosis Other moth exterminator (current) drug therapy documented in this encounter
--- OUTSIDE RECORDS SUMMARY | 2025-07-12 13:34 | XMS_ITS | Encounter Summary ---
Author Organization [employer] Address [address] [place] [address] 7 [place] [address] Care Team Providers Care Terrazzo Mechanic Name Role Phone Pradip Wilson MD Primary Care Provide r Reason for Referral * Consultation (Urgent) - Authorized Specialty Diagnoses / Procedures Referred By Contac t Referred To Contact Rheumatology Diagnoses Positive NILDA (antinuclear antibody) Pradip Wilson MD [address] [place] [address] Phone: tel: fax: [facility] [place] Rheumatology [address] Phone: tel: fax: Referral ID Status Reason Start Date Expiration Date Visits Requested Visits Authorized [id number] Authorized Specialty Services Required 07/07/2025 07/07/2026 1 1 Scheduling Instructions Please refer to a different Rheumatology office . Pt's requesting other than [facility] Encounter Details Date Type Department Care Team (Late st Contact Info) Description 07/07/2025 Orders Only [facility] [address] [place], [place] [phone] Pradip Wilson MD [address] [place], [place] [phone] Positive NILDA (antinuclear antibody) (Primary Dx) Social History Tobacco Use Types Packs/Day Years [...] Description 07/22/2025 10:15 AM EDT Clinical Support [address] [address] Noemi Osborn, RN Scheduled Referrals Name Type Priority Associated Diagnoses Order Schedule Referral to Rheumatology Outpatient Referral Urgent Positive NILDA (antinuclear antibody) Expected: 07/07/2025 (Approximate), Expires: 07/07/2026 documented as of this encounter Goals Goal Patient Goal Type Associated Problems Recent Progress Patient-Stated? Author Reduce use of crystal meth General On track( 11:34 AM EDT) Yes Noemi Osborn, RN Note: Has not tested positive for a while. Go to [facility] for tinnitus. General On track( 11:27 [...] as of this encounter Visit Diagnoses Diagnosis Positive NILDA (antinuclear antibody)- Primary Other and unspecified nonspecific immunological findings documented in this encounter Additional Health Concerns Assessment Noted Time PHQ-9 Depression Total Score: 17 11:54 AM EDT documented as of this encounter Care Teams Terrazzo Mechanic Relationship Specialty Start Date End Date Pradip Wilson MD [address] [place] [address] PCP - General Internal Medicine 05/12/25 documented as of this encounter
--- OUTSIDE RECORDS SUMMARY | 2025-07-12 13:35 | XMS_ITS | Encounter Summary ---
Author Organization [employer] Address [address] [facility] [address] 7[address] [place] [address] Care Team Providers Care Boilermaker Apprentice Name Role Phone Pradip Wilson MD Primary Care Provide r Encounter Details Date Type Department Care Team (Latest Contact Info) Description 07/12/2025 Travel Social History Tobacco Use Types Packs/Day Years [...] Description 07/22/2025 10:15 AM EDT Clinical Support [address] [address] Noemi Osborn, NAJMA documented as of this encounter Goals Goal Patient Goal Type Associated Problems Recent Progress Patient-Stated? Author Reduce use of crystal meth General On track( 11:34 AM EDT) Yes Noemi Osborn, NAJMA Note: Has not tested positive for a while. Go to [facility] for tinnitus. General On track( 11:27 AM [...] documented as of this encounter Care Teams Boilermaker Apprentice Relationship Specialty Start Date End Date Pradip Wilson MD [address] [place] [address] PCP - General Internal Medicine 05/12/25 documented as of this encounter
--- OUTSIDE RECORDS SUMMARY | 2025-07-12 13:35 | XMS_ITS | Encounter Summary ---
Author Organization [employer] Address 75 [facility] 7 [place] [address] Care Team Providers Care Financial Sales Associate Name Role Phone Pradip Wilson MD Primary Care Provide r Reason for Visit * Reason Onset Date Comments chart prep 07/11/2025 Encounter Details Date Type Department Care Team ([facility] st Contact Info) Description 07/11/2025 Telephone [facility] [address] [place], [place] [phone] Pradip Wilson MD [address] [place] [address] chart prep Social History Tobacco Use Types Packs/Day Years [...] encounter Miscellaneous Notes * Telephone Encounter - Ingrid Freeman MA - 07/11/2025 9:21 AM EDT Chart Prep Labs: done Images: done Screenings: Colonoscopy Vaccines due: Covid Due, PCV20 Due, Flu Due, and Shingles in pharmacy Due Referrals: Gastroenterology Pending appointment on 09/06/25 @ 11:10 AM [facility] , Rheumatology appointment pending , and Dermatology appointment pending Overdue care gaps: None documented in this encounter Plan of Treatment Upcoming Encounters Date Type Department Care Team (Late st Contact Info) Description 07/22/2025 10:15 AM EDT Clinical Support [facility] [address] [place] [address] Noemi Osborn, RN documented as of this encounter Goals Goal Patient Goal Type Associated Problems Recent Progress Patient-Stated? Author Reduce use of crystal meth General On track( 025 11:34 AM EDT) Yes Noemi Osborn, RN Note: Has not tested positive for a while. Go to [facility] for tinnitus. General On track( 11:27 [...] documented as of this encounter Care Teams Financial Sales Associate Relationship Specialty Start Date End Date Pradip Wilson MD [address] [place] [address] PCP - General Internal Medicine 05/12/25 documented as of this encounter
--- OUTSIDE RECORDS SUMMARY | 2025-07-12 13:35 | XMS_ITS | Encounter Summary ---
Author Organization [employer] Address [address] [place] [address] 7 [place] [address] Care Team Providers Care Recruiter Coordinator Name Role Phone Pradip Wilson MD Primary Care Provide r Reason for Visit * Reason Onset Date Comments Med Refill 03/18/2025 Encounter Details Date Type Department Care Team (Late st Contact Info) Description 03/18/2025 Refill [facility] [address] [place] [address] Noemi Osborn RN Social History Tobacco Use [...] Description 07/22/2025 10:15 AM EDT Clinical Support [facility] [address] [place] [address] Noemi Osborn, NAJMA documented as of this encounter Goals Goal Patient Goal Type Associated Problems Recent Progress Patient-Stated? Author Reduce use of crystal meth General On track( 11:34 AM EDT) Yes Noemi Osborn, RN Note: Has not tested positive for a while. Go to [facility] for tinnitus. General On track( [...] documented as of this encounter Care Teams Recruiter Coordinator Relationship Specialty Start Date End Date Pradip Wilson MD [address] [place] [address] PCP - General Internal Medicine 05/12/25 documented as of this encounter
--- OUTSIDE RECORDS SUMMARY | 2025-07-12 13:35 | XMS_ITS | Encounter Summary ---
Author Organization [employer] Address [address] [place] [address] Care Team Providers Care Gyroscopic Instrument Tester Name Role Phone Pradip Wilson MD Primary Care Provide r Encounter Details Date Type Department Care Team (Late st Contact Info) Description 06/08/2025 Orders Only [facility] [address] [place] [address] Sandoval Dobson, KavitaD Social History Tobacco Use Types Packs/Day Years [...] Description 07/22/2025 10:15 AM EDT Clinical Support [address] [address] Noemi Osborn, RN documented as of this encounter Goals Goal Patient Goal Type Associated Problems Recent Progress Patient-Stated? Author Reduce use of crystal meth General On track( 11:34 AM EDT) Yes Noemi Osborn, RN Note: Has not tested positive for a while. Go to [facility] for tinnitus. General On track( 11:27 [...] documented as of this encounter Care Teams Gyroscopic Instrument Tester Relationship Specialty Start Date End Date Pradip Wilson MD [address] [place] [address] PCP - General Internal Medicine 05/12/25 documented as of this encounter
--- OUTSIDE RECORDS SUMMARY | 2025-07-12 13:35 | XMS_ITS | Encounter Summary ---
Author Organization [employer] Address [address] [place] [address] Care Team Providers Care Auto Haulaway Driver Name Role Phone Pradip Wilson MD Primary Care Provide r Encounter Details Date Type Department Care Team (Latest Contact Info) Description 07/08/2025 Travel Social History Tobacco Use Types Packs/Day [...] Description 07/22/2025 10:15 AM EDT Clinical Support [address] [address] Noemi Osborn, NAJMA documented as of this encounter Goals Goal Patient Goal Type Associated Problems Recent Progress Patient-Stated? Author Reduce use of crystal meth General On track( 11:34 AM EDT) Yes Noemi Osborn, NAJMA Note: Has not tested positive for a while. Go to [facility] for tinnitus. General On track( 11:27 AM [...] documented as of this encounter Care Teams Auto Haulaway Driver Relationship Specialty Start Date End Date Pradip Wilson MD [address] [place] [address] PCP - General Internal Medicine 05/12/25 documented as of this encounter
--- OUTSIDE RECORDS SUMMARY | 2025-07-12 13:35 | XMS_ITS | Encounter Summary ---
Author Organization [employer] Address [address] [place] [address] [address] [place] [address] Care Team Providers Care Cable Splicer Name Role Phone Pradip Wilson MD Primary Care Provide r Reason for Visit * Reason Onset Date Comments Med Refill 03/18/2025 Encounter Details Date Type Department Care Team (Late st Contact Info) Description 03/18/2025 Refill [facility] [address] [place] [address] Noemi Osborn RN Social History Tobacco Use [...] 10:15 AM EDT Clinical Support [facility] [address] [place] [address] Noemi Osborn, NAJMA documented as of this encounter Goals Goal Patient Goal Type Associated Problems Recent Progress Patient-Stated? Author Reduce use of crystal meth General On track( 11:34 AM EDT) Yes Noemi Osborn, RN Note: Has not tested positive for a while. Go to [facility] for tinnitus. General On track( 11:27 [...] documented as of this encounter Care Teams Cable Splicer Relationship Specialty Start Date End Date Pradip Wilson MD [address] [place] [address] PCP - General Internal Medicine 05/12/25 documented as of this encounter
--- OUTSIDE RECORDS SUMMARY | 2025-07-12 13:35 | XMS_ITS | Clinical Summary ---
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 nicotine (Nicoderm CQ) 21 MG/24HR patch Place 1 patch on the skin 1 (one) time each day at the same time. 30 patch 025 Active nicotine (Nicoderm CQ) 21 MG/24HR patchIndications: Tobacco use Place 1 patch on the skin 1 (one) time each day at the same time. 42 patch 025 Active cloNIDine (Catapres) 0.1 MG tabletIndications :Severe anxiety Take 1 tablet (0.1 mg) by mouth if needed in the morning and at bedtime (Anxiety). 60 tablet 1 025 Active atenolol (Tenormin) 50 MG tablet Take 2 tablets by mouth Once per day. 025 Active hydroCHLOROthiazi de (HYDRODiuril) 25 MG tablet Take 25 mg by mouth in the morning. 025 Active meclizine (Antivert) 25 MG tablet Take 1 tablet by mouth every 8 (eight) hours if needed for dizziness. 025 Active topiramate (Topamax) 25 MG tablet All PO. 1 tablet qHS x 1 week, then 2 tablets qHS for 1 week, the 1 tablet q a.m. and 2 q HS x 1 week, then 2 tablets PO BID x 1 week. 70 tablet 025 Active levothyroxine (Synthroid) 25 MCG tabletIndications :Primary hypothyroidism Take 1 tablet (25 mcg) by mouth before breakfast. 30 tablet 3 025 2025 Active hydrOXYzine pamoate (Vistaril) 50 MG capsule TAKE 1 CAPSULE BY MOUTH EVERY 4 HOURS NEEDED FOR MODERATE TO SEVERE ANXIETY Active OLANZapine (ZyPREXA) 10 MG tablet TAKE 1 TABLET BY MOUTH AT BEDTIME AVH/PARANOIA 025 Active escitalopram (Lexapro) 5 MG tabletIndications :Major depressive disorder with psychotic features (CMS/HCC) TAKE 1 TABLET BY MOUTH EVERY MORNING 30 tablet 1 Active Buprenorphine HCl-Naloxone HCl (Suboxone) 8-2 MG SL filmIndications:U ncomplicated opioid dependence (CMS/HCC) Place 1 Film under the tongue 3 times daily for 7 days. Do not start before July 08, 2025. 21 Film 025 2024 Active fluticasone (Flonase) 50 MCG/ACT nasal sprayIndications: Seasonal allergic rhinitis, unspecified trigger INSTILL 1 TO 2 SPRAYS INTO EACH NOSTRIL EVERY DAY NEEDED FOR ALLERGIES. SHAKE SHAHEEN, PRIME BEFORE FIRST USE, CLEAN TIP AND RECAP AFTER USE. 16 g 025 Active Buprenorphine HCl-Naloxone HCl (Suboxone) 8-2 MG SL filmIndications:U ncomplicated opioid dependence (CMS/HCC) Place 1 Film under the tongue 3 times daily for 14 days. 42 Film 025 2024 Active escitalopram (Lexapro) 5 MG tabletIndications :Major depressive disorder with psychotic features (CMS/HCC) Take 1 tablet (5 mg) by mouth in the morning. 30 tablet 1 025 2024 Discontinued fluticasone (Flonase) 50 MCG/ACT nasal sprayIndications: Seasonal allergic rhinitis, unspecified trigger Administer 1-2 sprays into each nostril Once daily as needed for rhinitis or allergies. Shake gently. Before first use, prime pump. After use, clean tip and replace cap. 16 g 025 2024 Discontinued buprenorphine-nal oxone (Suboxone) 8-2 MG SL tabletIndications :Uncomplicated opioid dependence (CMS/HCC) Place 1 tablet under the tongue 2 times daily for 7 days. 14 tablet 025 2024 Discontinued(R eorder (will not trigger notification to Pharmacy)) buprenorphine-nal oxone (Suboxone) 2-0.5 MG SL tabletIndications :Uncomplicated opioid dependence (CMS/HCC) Place 1 tablet under the tongue 2 times daily for 7 days. 14 tablet 025 2024 Discontinued(R eorder (will not trigger notification to Pharmacy)) buprenorphine-nal oxone (Suboxone) 8-2 MG SL tabletIndications :Uncomplicated opioid dependence (CMS/HCC) Place 1 tablet under the tongue 2 times daily for 7 days. 14 tablet 025 2024 Discontinued(R eorder (will not trigger notification to Pharmacy)) buprenorphine-nal oxone (Suboxone) 2-0.5 MG SL tabletIndications :Uncomplicated opioid dependence (CMS/HCC) Place 1 tablet under the tongue 2 times daily for 7 days. 14 tablet 025 2024 Discontinued(R eorder (will not trigger notification to Pharmacy)) buprenorphine-nal oxone (Suboxone) 8-2 MG SL tabletIndications :Uncomplicated opioid dependence (CMS/HCC) Place 1 tablet under the tongue 2 times daily for 7 days. Do not start before June 24, 2025. 14 tablet 025 2024 Discontinued(D ose adjustment) buprenorphine-nal oxone (Suboxone) 2-0.5 MG SL tabletIndications :Uncomplicated opioid dependence (CMS/HCC) Place 1 tablet under the tongue 2 times daily for 7 days. Do not start before June 24, 2025. 14 tablet 025 2024 Discontinued(D ose adjustment) Buprenorphine HCl-Naloxone HCl (Suboxone) 8-2 MG SL filmIndications:U ncomplicated opioid dependence (CMS/HCC) Place 1 Film under the tongue 3 times daily for 7 days. 21 Film 025 2024 Discontinued(R eorder (will not trigger notification to Pharmacy)) Buprenorphine HCl-Naloxone HCl (Suboxone) 8-2 MG SL filmIndications:U ncomplicated opioid dependence (CMS/HCC) Place 1 Film under the tongue 3 times daily for 7 days. 21 Film 025 2024 Discontinued(D uplicate order (will not trigger notification to Pharmacy)) Active Problems Problem Noted Date Diagnosed Date Hypothyroidism 07/12/2025 Assessment & Plan (07/12/2025 10:44 AM EDT): Newly diagnosed Lab Results Component Value Date TSH >100.00 (H) 06/13/2025 Pt started on Levothyroxine Will order Thyroid US Recheck TSH Endocrinology consult Anemia 07/12/2025 Assessment & Plan (07/12/2025 10:47 AM EDT): Unclear etiology Plan: B12, folate, Iron studies, ferritin Positive NILDA (antinuclear antibody) 07/12/2025 Assessment & Plan (07/12/2025 10:55 AM EDT): NILDA obtained as part of a vasculitis work up. It was Positive with a nucleolar pattern Pt referred to Rheumatology. Appointment pending. Cocaine use 05/20/2025 Dermatitis of lower extremity 05/12/2025 Assessment & Plan (07/12/2025 10:52 AM EDT): Patient here for a follow up, He was seen here back in April noticed to have multiple punched out/atrophic circular depressions that he says did not start as open wounds, unclear etiology. Multiple other scabs lesions on legs but no livedo reticularis, petechiae concerning for thrombocytopenia, severe venous stasis derm. Pulses palpable 1+ bilateral LE. Previous visit labs for vasculitis were checked and he was referred to Derm for biopsy. NILDA was positive , Rheumatology appointment pending , and Dermatology appointment pending Denies injecting into legs. Assessment & Plan (05/12/2025 9:52 AM EDT): Patient here for a follow up, He was seen here back in April noticed to have multiple punched out/atrophic circular depressions that he says did not start as open wounds, unclear etiology. Multiple other scabs lesions on legs but no livedo reticularis, petechiae concerning for thrombocytopenia, severe venous stasis derm. Pulses palpable 1+ bilateral LE. Plan: Will check labs for vasculitis. Derm referral for biopsy, HIV testing. One similar but more irregular lesion on L forearm he says he thinks is old injury from injecting at that site. Denies injecting into legs. Preventative health care 05/12/2025 Assessment & Plan (07/12/2025 10:51 AM EDT): PSA 06/07/2025: Normal Colonoscopy: referred Gastroenterology Pending appointment on 09/06/25 @ 11:10 AM [facility] Assessment & Plan (05/12/2025 10:06 AM EDT): PSA ordered Colonoscopy: referred Cigarette nicotine dependence without complicati on 05/07/2025 Overview (05/07/2025): Update after visit: Pt had LDCT via [employer] program done on 09/22/24 printed from [facility]. Results sent to scan by [facility]. Essential hypertension 05/07/2025 Overview (05/07/2025): Atenolol 50mg and hctz 25mg daily, did not take one of these today. encouraged pt to take both together, as directed, write down BP for new PCP visit to review. Assessment & Plan (05/12/2025 9:41 AM EDT): Patient here for a PLUNKET NURSE visit Hx of HTN Currently on: Atenolol 50 mg po daily and hydrochlorothiazide 25 mg po daily Lab Results Component Value Date NA 138 01/28/2025 K 4.0 01/28/2025 CL 103 01/28/2025 BUN 24 (H) 01/28/2025 CREATININE 1.05 01/28/2025 BP today: Controlled Plan: Continue current regimen Tinnitus of both ears 05/07/2025 Assessment & Plan (07/12/2025 10:50 AM EDT): Patient here for a follow up Previously seen as new patient with c/o ringing in his head that won't go away. Not sure if it's in his head or his ears. Driving him crazy. It's there 26/05. Started >1 mo ago. Non-pulsating. Patient says he had hearing test and was told he had significant hearing loss but he's not sure if that's new. The noise in his ears is constant, non-pulsatile, . Occasional dizziness. no head injury, motor weakness, no difficulty w/ walking or speech, [...] requested patient be seen by ENT first Assessment & Plan (05/12/2025 9:48 AM EDT): Patient with c/o ringing in his head that won't go away. Not sure if it's in his head or his ears. Driving him crazy. It's there 26/05. Started >1 mo ago. Non- pulsating. Patient says he had hearing test and was told he had significant hearing loss but he's not sure if that's new. The noise in his ears is constant, non-pulsatile, . Occasional dizziness. no head injury, motor weakness, no difficulty w/ walking or speech, no vision changes. Of note patient had a CT head without contrast 04/25/25 Findings: No intra-axial mass, midline shift, hydrocephalus, or [...] not have it done Audiology report requested Plan: ENT and Neurology evaluation Alcohol use disorder 01/28/2025 Major depressive disorder with psychotic feature s 01/28/2025 Assessment & Plan (07/12/2025 11:02 AM EDT): Patient with a recent inpatient psychiatric hospitalization at [facility] from 05/27/25 to 06/02/25. He stated that [...] prescription refill upon discharge. At this time, Esteban denies suicidal ideation, homicidal ideation, or self-harming behaviors. He reported being connected with [facility] and has a scheduled intake appointment on 06/08/25 at 3:00 PM. Severe anxiety 01/28/2025 Opioid dependence 12/29/2024 Assessment & Plan (02/01/2025 8:16 AM EDT): PROGRESS NOTE: ID: Esteban is a 54 y.o. White straight-identified cis-male with previous documented hx of Opioid Use Disorder No previous hx of MH dx or sx No previous hx of MH services who presents for Depression, Substance Use Disorder, Anxiety, and PTSD (Post-Traumatic Stress Disorder) During [facility] Consult Esteban presenting with depressed mood, irritable mood, loss of interests/pleasure , changes in sleep difficulty falling asleep and difficulty staying asleep , psychomotor retardation, fatigue/loss of energy, worthlessness, difficulty concentrating, excessive worry/anxiety, difficulty controlling worry, anxiety/worry associated to restlessness and/or feeling keyed-up/On edge , easily fatigued , difficulty concentrating and/or mind going blank , irritability, muscle tension , and sleep disturbance difficulty falling asleep and difficulty staying asleep , Fear , and sense of dread , Altered sensory perception, Unusual thoughts, Trouble processing and with decision making, Difficulty with social interactions, and Other: delusion , and unsuccessful attempt/s to cut down/stop use, cravings and urges to use, recurrent use resulting in failure to fulfill major obligations at work/home/school , continued use, even when it causes interpersonal problems, giving up/reducing important social, occupational, or recreational activities because of use, continued use even when hazardous or dangerous , continued use despite physical or psychological problem (potentially related or made worse by use) , withdrawal sxs , in regard to Alcohol, Opioids, and Tobacco; for a period of 18+ mo, for most or all symptoms in the context of estrange relationship with sibling and mother after been sectioned. Loss employment on 09/2024, financial instability, active addiction. PLAN: (check all that apply) Behavioral Health Integration Plan Internal Follow up with [facility], Cold handoff internal psychiatric provider Patient Self Plan Comply with medication , Patient to engage in OP BH therapy , and Patient to reach out to CB as needed Assessment & Plan (12/29/2024 12:35 PM EST): - stage of change: action - early remission from OUD - Utox review: pos methamphetamine / amphetamine, pos bup, pos tca (prescribed) - Overdose risk: decreased tolerance (just out of section 35); mixed use - Continue current recovery support - Continue current recovery effort - Reviewed harm reduction and overdose prevention Tobacco use 12/29/2024 Assessment & Plan (05/12/2025 9:43 AM EDT): Smoker Smokes 1 PPD, started at 15yo, used to smoke 2 PPD until mid 30's, Had Low dose CT 09/22/2025, 1 year follow up recommended Assessment & Plan (12/29/2024 12:38 PM EST): - precontemplative stage of change History of lumbar fusion 12/29/2024 Assessment & Plan (07/12/2025 11:10 AM EDT): Surg hx: fusion L5-S1, L elbow cubital tunnel repair, nose operation at 17yo, L foot operation for infection/I&D a few years ago Assessment & Plan (05/12/2025 9:43 AM EDT): Surg hx: fusion L5-S1, L elbow cubital tunnel repair, nose operation at 17yo, L foot operation for infection/I&D a few years ago Encounters * This document contains information received from the source organization and may not represent a complete record from that organization. Date Type Department Care Team Description 07/12/2025 10:30 AM EDT Office Visit [facility] [address] [place] [phone] Pradip Wilson MD Hypothyroidism, unspecified type (Primary Dx); Anemia, unspecified type; Preventative health care; Tinnitus of both ears; Dermatitis of lower extremity; Positive NILDA (antinuclear antibody); Major depressive disorder with psychotic features (CMS/HCC); History of lumbar fusion 07/12/2025 Travel 07/11/2025 Telephone [facility] [address] [place] [id number] Pradip Wilson MD chart prep 07/08/2025 10:30 AM EDT Office Visit [address] [address] Rashawn Weiss MD Uncomplicated opioid dependence (CMS/HCC) (Primary Dx); Alcohol use disorder; Cocaine use; Tobacco use 07/08/2025 Travel 07/07/2025 Orders Only [facility] [address] [place] [phone] Pradip Wilson MD Positive NILDA (antinuclear antibody) (Primary Dx) 07/05/2025 Refill [facility] [address] [place] [address] Nelia Patel ANP Seasonal allergic rhinitis, unspecified trigger 07/05/2025 Patient Outreach [address] [address] Pradip Wilson MD Pre-visit Planning ([facility] screening was completed on 05/12/2025) 07/05/2025 Refill [facility] [address] [place] [phone] Noemi Osborn RN Uncomplicated opioid dependence (CMS/HCC) 07/01/2025 10:00 AM EDT Office Visit [address] [address] Rashawn Weiss MD Uncomplicated opioid dependence (CMS/HCC) (Primary Dx); Alcohol use disorder; Cocaine use; Tobacco use 07/01/2025 Travel 06/29/2025 Telephone [facility] [place] [address] Pradip Wilson MD Referral 06/24/2025 9:45 AM EDT Clinical Support [facility] [place] [address] Noemi Osborn RN Uncomplicated opioid dependence (CMS/HCC) (Primary Dx) 06/24/2025 Refill [facility] [address] [facility] [place] [address] Noemi Osborn RN Uncomplicated opioid dependence (CMS/HCC) 06/24/2025 Travel 06/23/2025 Orders Only GENERIC EXTERNAL DATA DEPARTMENT Provider, Generic External Data 06/20/2025 Results Follow-Up [facility] [place] [address] Nelia Patel, ANP Vitamin B12, RPR (Monitor) with Reflex to Titer, Basic Metabolic Panel, Additional followed-up results: 3 06/19/2025 Refill [facility] [place] [address] Rashawn Weiss MD Major depressive disorder with psychotic features (CMS/HCC) 06/17/2025 10:45 AM EDT Clinical Support [facility] [place] [address] Noemi Osborn RN Uncomplicated opioid dependence (CMS/HCC) 06/17/2025 Refill [facility] [place] [address] Noemi Osborn RN Uncomplicated opioid dependence (CMS/HCC) 06/17/2025 Refill [facility] [address] Noemi Osborn RN Uncomplicated opioid dependence (CMS/HCC) 06/17/2025 Travel 06/13/2025 Orders Only [facility] [place] [place] [address] Pradip Wilson MD 06/13/2025 Telephone [facility] [address] Katrina Oh, NAJMA OBAT Communication 06/10/2025 9:15 AM EDT Office Visit [facility] [place] [address] Rashawn Weiss MD Uncomplicated opioid dependence (CMS/HCC) (Primary Dx); Alcohol use disorder; Cocaine use; Tobacco use 06/10/2025 Refill [facility] [place] [address] Gwen Aj, NAJMA Uncomplicated opioid dependence (CMS/HCC) 06/10/2025 Travel 06/08/2025 Orders Only [facility] [place] [address] Sandoval Dobson, PharmD 06/08/2025 Results Follow-Up [facility] [place] [address] Pradip Wilson MD Lipid Panel, Standard, TSH with Reflex to Free T4, Vitamin B12/Folate, Serum Panel, Additional followed-up results: 14 06/08/2025 Orders Only [facility] [place] [address] Pradip Wilson MD Primary hypothyroidism (Primary Dx) 06/08/2025 Patient Outreach [facility] [place] [address] Pradip Wilson MD Transition Of Care (Tcm) (HDF unscheduled LVM ) 06/07/2025 Telephone [facility] [place] [address] Gwen Aj RN 06/03/2025 10:00 AM EDT Clinical Support [facility] [place] [place] [address] Noemi Osborn, NAJMA Uncomplicated opioid dependence (CMS/HCC) (Primary Dx) 06/03/2025 Travel 05/31/2025 Patient Outreach [facility] [place] [address] Pradip Wilson MD Transition Of Care (Tcm) (HDF unscheduled LVM ) 05/31/2025 Telephone [facility] [place] [address] Pradip Wilson MD Hospital Follow-up 05/27/2025 10:00 AM EDT Office Visit [facility] [address] [facility] [place] [address] Rashawn Weiss MD Uncomplicated opioid dependence (CMS/HCC) (Primary Dx); Alcohol use disorder; Cocaine use 05/27/2025 Refill [facility] [address] [facility] [place] [address] Noemi Osborn RN 05/27/2025 Refill [facility] [address] [facility] [place] [address] Noemi Osborn RN Uncomplicated opioid dependence (CMS/HCC) 05/27/2025 Travel 05/23/2025 Refill [facility] [address] [facility] [place] [address] Noemi Osborn RN Uncomplicated opioid dependence ([facility]/HCC) 05/20/2025 10:15 AM EDT Office Visit [facility] [address] [facility] [place] [address] Rashawn Weiss MD Uncomplicated opioid dependence (CMS/HCC) (Primary Dx); Tobacco use; Alcohol use disorder; Cocaine use 05/20/2025 Travel 05/18/2025 Telephone [facility] [place] [address] Pradip Wilson MD Referral 05/13/2025 9:15 AM EDT Clinical Support [facility] [place] [address] Gwen Aj RN Uncomplicated opioid dependence ([facility]/HCC) (Primary Dx) 05/13/2025 Travel 05/13/2025 Telephone [facility] [address] [facility] [place] [address] Pradip Wilson MD 05/12/2025 9:30 AM EDT Office Visit [facility] [place] [address] Pradip Wilson MD Essential hypertension (Primary Dx); Tobacco use; History of lumbar fusion; Tinnitus of both ears; Dermatitis of lower extremity; Major depressive disorder with psychotic features (CMS/HCC); Severe anxiety; Preventative health care 05/12/2025 Refill [facility] [address] [place] [address] Gwen Aj RN Uncomplicated opioid dependence (CMS/HCC) 05/12/2025 Travel 05/11/2025 Telephone [facility] [address] [place] [phone] Blanca Abreu MA chart prep 05/03/2025 Patient Outreach [facility] [address] [place] [address] Pradip Wilson MD Pre-visit Planning ([facility] unable to reach [facility] ) 05/02/2025 1:20 PM EDT Office Visit [facility] [address] [place] [address] Nelia Patel ANP Tinnitus of both ears (Primary Dx); Skin lesion of right leg; Numbness and tingling of both feet; Pain of scalp; Seasonal allergic rhinitis, unspecified trigger; Cigarette nicotine dependence without complication; Essential hypertension 05/02/2025 Telephone [facility] [address] [place] [address] Oumou Riggs MA Record Request 05/02/2025 Travel 04/29/2025 11:00 AM EDT Office Visit [facility] [address] [place] [phone] Rashawn Weiss MD Uncomplicated opioid dependence ([facility]/HCC) (Primary Dx); Alcohol use disorder; Tobacco use; Cocaine use; Major depressive disorder with psychotic features (CMS/HCC); Severe anxiety 04/29/2025 Refill [facility] [address] [place] [phone] Gwen Aj RN Uncomplicated opioid dependence (CMS/HCC) 04/29/2025 Travel 04/28/2025 Refill [facility] [address] [place] [phone] Gwen Aj RN Uncomplicated opioid dependence (CMS/HCC); Severe anxiety 04/22/2025 10:15 AM EDT Office Visit [facility] [address] [place] [address] Rashawn Weiss MD Uncomplicated opioid dependence (CMS/HCC) (Primary Dx); Alcohol use disorder; Cocaine use; Tobacco use 04/22/2025 Telephone [facility] [address] [place] [address] Sofia Christensen RN 04/22/2025 Travel 04/15/2025 Refill [facility] [address] [place] [address] Noemi Osborn, NAJMA 04/15/2025 Refill [facility] [address] [place] [address] Noemi Osborn, NAJMA Uncomplicated opioid dependence (CMS/HCC) from Last 3 Months Immunizations Immunization Administration Dates Next Due HepB-CpG 02/04/2025 Influenza injectable quadrivalent preservative f ree 08/12/2017 Influenza, seasonal, injectable, preservative fr ee 09/01/2014 Moderna Covid-19 Vaccine 12+ 04/03/2021 Novel [id number], nasal 09/13/2009 Pneumococcal, Unspecified 01/19/2015 TD (adult), 2 Lf tetanus tox oid, preservative free, adsorbed 09/09/2024 Td (adult), unspecified 08/15/2003 Tdap 05/25/2013 Social History Tobacco Use Types Packs/Day Years Used Date Smoking Tobacco: Every Day Cigarettes Passive Smoke Exposure: Current Smokeless Tobacco: Never Tobacco Cessation:Ready to Q uit: Not Asked; Counseling Given: Not Answered Alcohol Use Standard Drinks/Week Comments Yes 5 [...] Orientation Straight 12/29/2024 10 :12 AM EST Last Filed Vital Signs Vital Sign Reading [...] Mass Index 31.25 07/12/2025 10:57 AM EDT Plan of Treatment Upcoming Encounters Date Type Department Care Team (Late st Contact Info) Description 07/22/2025 10:15 AM EDT Clinical Support [facility] [address] [place] [address] Noemi Osborn, RN Health Maintenance Due Date Last Done Comments CT Colonography 1970 Colonoscopy 1970 Colorectal Cancer Screening 1970 FIT DNA/Cologuard 1970 FIT 1970 FOBT 1970 Sigmoidoscopy 1970 Pneumococcal Vaccine: 50+ Years (1 of 2 - PCV) 1989 01/19/2015 Zoster Vaccines (1 of 2) 2020 COVID-19 Vaccine (4 - 2024-2 6 season) 2025 04/03/2021, 03/07/2021, 02/14/2021 Influenza Vaccine (#1) 2025 7, 09/01/2014, 09/13/2009 Depression Monitoring 12/08/2025 06/07/2025 , 06/07/2025 Alcohol/Substance Use Screening 01/28/2026 01/28/2025 Disability Screening 05/12/2026 05/12/2025 SDOH Screening 05/12/2026 05/12/2025 Tobacco Screening 07/12/2026 07/12/2025 Lipid Panel 06/07/2030 06/07/2025 DTaP/Tdap/Td Vaccines (3 - T d or Tdap) 09/09/2034 09/09/2024, 05/25/2013, 08/15/2003 RSV Patients and Patients Aged 60 years or older (1 - 1-dose 75+ series) 2045 Hepatitis B Vaccines Discontinued 02/04/2025 HIV Screening Completed 06/07/2025, 01/28/2025 Hepatitis C Screening Completed 06/07/2025 , 01/28/2025 HIB Vaccines Aged Out No longer eligi [...] patient's age to complete this topic Meningococcal Vaccine Aged Out No abimael magdy eligible based on patient's age to complete this topic RSV under 20 months Aged Out No longe r eligible based on patient's age to complete this topic Rotavirus Vaccines Aged Out No longer eligible based on patient's age to complete this topic Goals Goal Patient Goal Type Associated Problems Recent Progress Patient-Stated? Author Reduce use of crystal meth General On track( 11:34 AM EDT) Yes Noemi Osborn, RN Note: Has not tested positive for a while. Go to [facility] for tinnitus. General On track( 11:27 AM [...] he is making a new appt today. Procedures Procedure Name Priority Date/Time Associated Diagnosis Comments POCT DIVYA-14 URINE DRUG SCREEN Routine 07/08/2025 10:39 AM EDT Uncomplicated opioid dependence (CMS/HCC) POCT DIVYA-14 URINE DRUG SCREEN Routine 06/24/2025 10:40 AM EDT Uncomplicated opioid dependence (CMS/HCC) XR ANKLE 2 VIEWS LEFT Routine 06/23/2025 8:05 AM EDT SED RATE BY MODIFIED WESTERGREN Routine 06/23/2025 8:01 AM EDT C-REACTIVE PROTEIN Routine 06/23/2025 8: 01 AM EDT CBC WITH AUTO DIFFERENTIAL Routine 06/23/2025 8:01 AM EDT XR FOOT 1-2 VIEWS LEFT Routine 06/23/2025 7:08 AM EDT T4, FREE Routine 06/13/2025 12:08 PM EDT TSH W/REFLEX TO FT4 Routine 06/13/2025 1 2:08 PM EDT Primary hypothyroidism THYROID PEROXIDASE ANTIBODIES Routine 06/13/2025 12:08 PM EDT Primary hypothyroidism CRYOGLOBULIN (% CRYOCRIT), SERUM Routine 06/13/2025 12:08 PM EDT Dermatitis of lower extremity C-REACTIVE PROTEIN Routine 06/13/2025 12 :08 PM EDT Pain of scalp POCT DIVYA-14 URINE DRUG SCREEN Routine 06/10/2025 9:18 AM EDT Uncomplicated opioid dependence (CMS/HCC) T4, FREE Routine 06/07/2025 11:07 AM EDT PSA, SCREEN Routine 06/07/2025 11:07 AM EDT Preventative health care HEPATITIS C AB W/REFL TO HCV RNA, QN, PCR Routine 06/07/2025 11:07 AM EDT Dermatitis of lower extremity HEPATITIS B CORE AB TOTAL Routine 06/07/2025 11:07 AM EDT Dermatitis of lower extremity HEPATITIS B SURFACE ANTIBODY, QUALITATIVE Routine 06/07/2025 11:07 AM EDT Dermatitis of lower extremity HEPATITIS B SURFACE ANTIGEN, EIA Routine 06/07/2025 11:07 AM EDT Dermatitis of lower extremity RHEUMATOID FACTOR Routine 06/07/2025 11: 07 AM EDT Dermatitis of lower extremity COMPLEMENT COMPONENT C3C Routine 06/07/2025 11:07 AM EDT Dermatitis of lower extremity COMPLEMENT COMPONENT C4C Routine 06/07/2025 11:07 AM EDT Dermatitis of lower extremity NILDA SCREEN, IFA, W/REFL TITER AND PATTERN Routine 06/07/2025 11:07 AM EDT Dermatitis of lower extremity URINALYSIS, COMPLETE, WITH REFLEX TO CULTURE Routine 06/07/2025 11:07 AM EDT Dermatitis of lower extremity SED RATE BY MODIFIED WESTERGREN Routine 06/07/2025 11:07 AM EDT Dermatitis of lower extremity HIV 1/2 ANTIGEN/ANTIBODY, FOURTH GENERATION W/RFL Routine 06/07/2025 11:07 AM EDT Dermatitis of lower extremity CBC WITH AUTO DIFFERENTIAL Routine 06/07/2025 11:07 AM EDT Dermatitis of lower extremity C-REACTIVE PROTEIN Routine 06/07/2025 11 :07 AM EDT Dermatitis of lower extremity RPR (MONITOR) W/REFL TITER Routine 06/07/2025 11:07 AM EDT Tinnitus of both ears VITAMIN B12/FOLATE, SERUM PANEL Routine 06/07/2025 11:07 AM EDT Tinnitus of both ears TSH W/REFLEX TO FT4 Routine 06/07/2025 1 1:07 AM EDT Tinnitus of both ears LIPID PANEL, STANDARD Routine 06/07/2025 11:07 AM EDT Essential hypertension ANCA VASCULITIDES Routine 06/07/2025 11: 07 AM EDT Skin lesion of right leg CBC WITH AUTO DIFFERENTIAL Routine 06/07/2025 11:07 AM EDT Pain of scalp BASIC METABOLIC PANEL Routine 06/07/2025 11:07 AM EDT Numbness and tingling of both feet RPR (MONITOR) W/REFL TITER Routine 06/07/2025 11:07 AM EDT Numbness and tingling of both feet VITAMIN B12 Routine 06/07/2025 11:07 AM EDT Numbness and tingling of both feet POCT DIVYA-14 URINE DRUG SCREEN Routine 06/03/2025 10:34 AM EDT Uncomplicated opioid dependence (CMS/HCC) POCT DIVYA-14 URINE DRUG SCREEN Routine 05/27/2025 10:08 AM EDT Uncomplicated opioid dependence (CMS/HCC) POCT DIVYA-14 URINE DRUG SCREEN Routine 05/20/2025 10:36 AM EDT Uncomplicated opioid dependence (CMS/HCC) POCT DIVYA-14 URINE DRUG SCREEN Routine 05/13/2025 10:14 AM EDT Uncomplicated opioid dependence (CMS/HCC) POCT DIVYA-14 URINE DRUG SCREEN Routine 04/29/2025 10:33 AM EDT Uncomplicated opioid dependence (CMS/HCC) POCT DIVYA-14 URINE DRUG SCREEN Routine 04/22/2025 10:31 AM EDT Uncomplicated opioid dependence (CMS/HCC) from Last 3 Months Results * (ABNORMAL) POCT DIVYA-14 Urine Drug Screen (07/08/2025 10:39 AM EDT) Only the most recent of9 resultswithin the time period is included. THC Positive(A) Negative Cocaine Screen, Urine Positive(A) [...] procedure / Unknown 07/08/2025 10:39 AM EDT us Rashawn Weiss MD POINT OF CARE TEST ENTER/EDIT ORDERABLES Final Result * XR Ankle 2 Views Left (06/23/2025 8:05 AM EDT) Anatomical Region Laterality Modality Lower Extremities, Ankle Left Radiogr aphic Imaging 06/23/2025 8:05 AM EDT Narrative 06/23/2025 8:38 AM EDT [address] [address] XRay Report Signed Patient: Esteban Chiu MR#: [id number] 428 : 1970 Acct:[id number] Age/Sex: 54 / M ADM Date: 06/23/25 Loc: HO.ED Attending Dr: Ordering Physician: James Singleton MD Date of Service: 06/23/25 Procedure(s): XR ankle LT 2V Accession Number(s): [id number] cc: James Singleton MD; Pradip Maurice MD EXAMINATIONS: 1. XR FOOT, LEFT 2. XR ANKLE 1-2 VIEWS LEFT CLINICAL INFORMATION: pain COMPARISON: None available. TECHNIQUE: AP, lateral, and oblique views of the left foot. AP, lateral, and mortise views of the left ankle. FINDINGS: Normal alignment. Mild degenerative changes at the ankle joint. No acute fracture. No destructive bone lesions. Ankle mortise is maintained. No radiopaque foreign body. XR/XR ankle LT 2V IMPRESSION: Left foot: Mild degenerative changes at the ankle joint. Left ankle: Mild degenerative changes at the ankle joint. Electronically signed by: Lopez Pedraza MD 06/23/2025 08:36 AM EDT Dictated By: Lopez Pedraza MD Signed By: <Electronically signed by Lopez Pedraza MD in OV> 06/23/25835 DD/ 08 TD/TT: 06/23/25 08 Family Psychologist: Procedure Note Donotuseinterpreter, Image - 06/23/[address] [address] XRay Report Signed Patient: Esteban Chiu [facility]#: [id number] 428 : 1970Acct:[id number] Age/Sex: 54 / MADM Date: 06/23/25 Loc: HO.ED Attending Dr: Ordering Physician: James Singleton MD Date of Service: 06/23/25 Procedure(s): XR ankle LT 2V Accession Number(s): [id number] cc: James Singleton MD; Pradip Muarice MD EXAMINATIONS: 1. XR FOOT, LEFT 2. XR ANKLE 1-2 VIEWS LEFT CLINICAL INFORMATION: pain COMPARISON: None available. TECHNIQUE: AP, lateral, and oblique views of the left foot. AP, lateral, and mortise views of the left ankle. FINDINGS: Normal alignment. Mild degenerative changes at the ankle joint. No acute fracture. No destructive bone lesions. Ankle mortise is maintained. No radiopaque foreign body. XR/XR ankle LT 2V IMPRESSION: Left foot: Mild degenerative changes at the ankle joint. Left ankle: Mild degenerative changes at the ankle joint. Electronically signed by: Lopez Pedraza MD 06/23/2025 08:36 AM EDT Dictated By: Lopez Pedraza MD Signed By: <Electronically signed by Lopez Pedraza MD in OV> 06/23/25 0836 DD/ 0805 TD/TT: 06/23/25 0815 Family Psychologist: [facility] External Provider IMG XR PROCEDURES Final Result * (ABNORMAL) CBC auto differential (06/23/2025 8:01 AM EDT) Only the most recent of3 resultswithin the time period is included. White Blood Count 6.2 4.8 - 10.8 X10*3/uL [facility] Red Blood Count 3.73(L) 4.60 - 5.80 X10*6/uL [facility] Hemoglobin 12.3(L) 14.0 - 18.0 g/dl [facility] Hematocrit 34.7(L) 42.0 - 52.0 % [facility] Mean Corpuscular Volume 93.0 80.0 - 98.0 fL [facility] Mean Corpuscular Hemoglobin 33.0 27.0 - 33.0 pg [facility] Mean Corpuscular HGB Conc 35.4 31.0 - 36.0 g/dl [facility] Red Cell Distribution Width 12.8 11.0 - 16.0 % [facility] Platelet Count 220 160 - 400 X10*3/uL [facility] Mean Platelet Volume 9.4 9.4 - 12.4 fL [facility] Neutrophils Percent Auto 51.9 45 - 73 % [facility] Imm Gran Pct Auto 0.3 0.0 - 0.4 % [facility] Lymphocytes Percent Auto 39.4 20 - 40 % [facility] Monocytes Percent Auto 5.9 2 - 11 % [facility] Eosinophils Percent Auto 2.2 0 - 4 % [facility] Basophils Percent Auto 0.3 0 - 2 % [facility] NRBC Pct Auto 0.0 0.0 - 0.2 /100WBC [facility] Neutrophils Absolute Auto 3.2 2.0 - 8.3 x10*3/uL [facility] Imm Gran Abs Auto 0.02 0.00 - 0.03 X10*3/uL [facility] Lymphocytes Absolute Auto 2.5 1.2 - 4.9 X10*3/uL [facility] Monocytes Absolute Auto 0.4 0.1 - 1.2 X10*3/uL [facility] Eosinophils Absolute Auto 0.1 0.0 - 0.4 X10*3/uL [facility] Basophils Absolute Auto 0.0 0.0 - 0.2 X10*3/uL [facility] NRBC Abs Auto 0.000 0.0 - 0.012 X10*3/uL [facility] 06/23/2025 8:01 AM EDT 06/23/2025 8:03 AM EDT us Generic External Data Provider LAB BLOOD ORDERAB LES Final Result Performing Organization Address City/State/[facility] Co de Phone Number [facility] [address] [place] [phone] * (ABNORMAL) Sed Rate by Modified Kobeergren (06/23/2025 8:01 AM EDT) Only the most recent of2 resultswithin the time period is included. Erythrocyte Sedimentation Rate 32(H) 0 - 15 MM/HR [facility] Comment:Patients with polycy themia and many hemoglobin abnormalitiesmay have depressed sed rates whereas patients with anemiamay have elevated sed rates. 06/23/2025 8:01 AM EDT 06/23/2025 8:03 AM EDT Generic External Data Provider LAB BLOOD ORDERAB LES Final Result Performing Organization Address [facility] Phone Number [facility] [address] [place] [phone] * (ABNORMAL) C-reactive Protein (06/23/2025 8:01 AM EDT) Only the most recent of3 resultswithin the time period is included. C Reactive Protein 1.88(H) < or = 0.50 mg/dL [facility] 06/23/2025 8:01 AM EDT 06/23/2025 8:03 AM EDT Generic External Data Provider LAB BLOOD ORDERAB LES Final Result Performing Organization Address [facility] de Phone Number [facility] [address] [place] [phone] * XR Foot 1-2 Views Left (06/23/2025 7:08 AM EDT) Anatomical Region Laterality Modality Lower Extremities, Foot Left Radiogra phic Imaging 06/23/2025 7:08 AM EDT Narrative 06/23/2025 8:38 AM EDT [address] [address] XRay Report Signed Patient: Esteban Chiu MR#: [id number] 428 : 1970 Acct:[id number] Age/Sex: 54 / M ADM Date: 06/23/25 Loc: HO.ED Attending Dr: Ordering Physician: James Singleton MD Date of Service: 06/23/25 Procedure(s): XR foot LT 2V Accession Number(s): [id number] cc: James Singleton MD; Pradip Maurice MD EXAMINATIONS: 1. XR FOOT, LEFT 2. XR ANKLE 1-2 VIEWS LEFT CLINICAL INFORMATION: pain COMPARISON: None available. TECHNIQUE: AP, lateral, and oblique views of the left foot. AP, lateral, and mortise views of the left ankle. FINDINGS: Normal alignment. Mild degenerative changes at the ankle joint. No acute fracture. No destructive bone lesions. Ankle mortise is maintained. No radiopaque foreign body. XR/XR foot LT 2V IMPRESSION: Left foot: Mild degenerative changes at the ankle joint. Left ankle: Mild degenerative changes at the ankle joint. Electronically signed by: Lopez Pedraza MD 06/23/2025 08:36 AM EDT RP Dictated By: Lopez Pedraza MD Signed By: <Electronically signed by Lopez Pedraza MD in OV> 06/23/25 0836 DD/ 0708 TD/TT: 06/23/25 0815 Family Psychologist: Procedure Note Donotuseinterpreter, Image - 06/23/[address] [address] XRay Report Signed Patient: Esteban Chiu MMR#: [id number] 428 : 1970Acct:[id number] Age/Sex: 54 / MADM Date: 06/23/25 Loc: .ED Attending Dr: Ordering Physician: James Singleton MD Date of Service: 06/23/25 Procedure(s): XR foot LT 2V Accession Number(s): [id number] cc: James Singleton MD; Pradip Maurice MD EXAMINATIONS: 1. XR FOOT, LEFT 2. XR ANKLE 1-2 VIEWS LEFT CLINICAL INFORMATION: pain COMPARISON: None available. TECHNIQUE: AP, lateral, and oblique views of the left foot. AP, lateral, and mortise views of the left ankle. FINDINGS: Normal alignment. Mild degenerative changes at the ankle joint. No acute fracture. No destructive bone lesions. Ankle mortise is maintained. No radiopaque foreign body. XR/XR foot LT 2V IMPRESSION: Left foot: Mild degenerative changes at the ankle joint. Left ankle: Mild degenerative changes at the ankle joint. Electronically signed by: Lopez Pedraza MD 06/23/2025 08:36 AM EDT RP Dictated By: Lopez Pedraza MD Signed By: <Electronically signed by Lopez Pedraza MD in OV> 06/23/25 0836 DD/ 0708 TD/TT: 06/23/25 0815 Family Psychologist: [facility] External Provider IMG XR PROCEDURES Final Result * (ABNORMAL) TSH with Reflex to Free T4 (06/13/2025 12:08 PM EDT) Only the most recent of2 resultswithin the time period is included. TSH reflex Free T4 >100.00(H) 0.32 - 4.0 uIU/mL [facility] Blood Venous blood specimen / Unknown 06/13/2025 12:08 PM EDT 06/13/2025 12:08 PM EDT Pradip Riggs MD LAB BLOOD ORDERABLES Final Result [facility] [address] [place] [phone] * (ABNORMAL) Thyroid Peroxidase Antibodies (06/13/2025 12:08 PM EDT) Thyroid Peroxidase Antibodies 664(A) <9 IU/mL [facility] Comment:THIS TEST WAS PERFOR MED AT:[facility] [address] [phone] NELSON MD Blood Venous blood specimen / Unknown 06/13/2025 12:08 PM EDT 06/13/2025 12:08 PM EDT Pradip Riggs MD LAB BLOOD ORDERABLES Final Result Performing Organization Address [facility]/ZIP Co de Phone Number [facility] [address] [place] [phone] * Cryoglobulin (% Cryocrit), Serum (06/13/2025 12:08 PM EDT) Cryoglobulin, Ql, Serum, Rflx Negative Negative [facility] Comment:The Cryocrit is prim arily intended for following apatient with previously defined and quantitatedcryoglobulins. The cryocrit may consist ofcryoglobulins, fibrins, complement, or mixtures ofthese.THIS TEST WAS PERFORMED AT:[facility] [place] [id number] W. MASON,MD,PHD % Cryocrit TNP [facility] Blood Venous blood specimen / Unknown 06/13/2025 12:08 PM EDT 06/13/2025 12:08 PM EDT Pradip Riggs MD LAB BLOOD ORDERABLES Final Result Performing Organization Address [facility] Co de Phone Number [facility] [address] [place] [phone] * (ABNORMAL) T4, Free (06/13/2025 12:08 PM EDT) Only the most recent of2 resultswithin the time period is included. Free T4 (Free Thyroxine) <0.42(L) 0.71 - 1.85 ng/dL [facility] 06/13/2025 12:0 8 PM EDT 06/13/2025 12:08 PM EDT Pradip Riggs MD LAB BLOOD ORDERABLES Final Result [facility] [address] [place] [phone] * ANCA Vasculitides (06/07/2025 11:07 AM EDT) Myeloperoxidase Antibody <1.0 [facility] Comment:Value Interpretation ----- <1.0 No Antibody Detected > or = 1.0 Antibody DetectedAutoantibodies to myeloperoxidase (MPO) are commonlyassociated with the following small-vesselvasculitides: microscopic polyangiitis,polyarteritis nodosa, Churg-Irena syndrome,necrotizing and crescentic glomerulonephritis andoccasionally granulomatosis with polyangiitis(GPA, Sanjuana's). The perinuclear IFA pattern,(p-ANCA) is based largely on autoantibody tomyeloperoxidase which serves as the primary antigen.These autoantibodies are present in active disease. Proteinase-3 Antibody <1.0 [facility] Comment:Value Interpretation ----- <1.0 No Antibody Detected > or = 1.0 Antibody DetectedAutoantibodies to proteinase-3 (ME-3) are accepted ascharacteristic for granulomatosis with polyangiitis(GPA, Sanjuana's), and are detectable in 95% of thehistologically proven cases. The cytoplasmic IFApattern, (c-ANCA), is based largely on autoantibody toPR-3 which serves as the primary antigen.These autoantibodies are present in active disease.THIS TEST WAS PERFORMED AT:[email or web address] [place] [id number] NELSON MD Blood 06/07/2025 11:0 7 AM EDT 06/07/2025 1:29 PM EDT us Nelia KIM LAB BLOOD ORDERABLES Final Resul t Performing Organization Address [facility] Co de Phone Number [facility] [address] [place] [phone] * PSA, Screen (06/07/2025 11:07 AM EDT) PSA, Total 0.19 <0.05 - 4.0 ng/mL [facility] Comment:PSA methodology: Anastasiia tenorio Aliotto i ChemiluminescentMicroparticle Immunoassay (CMIA) Blood Venous blood specimen / Unknown 06/07/2025 11:07 AM EDT 06/07/2025 1:29 PM EDT us Pradip Riggs MD LAB BLOOD ORDERABLES Final Result Performing Organization Address [facility] Co de Phone Number [facility] [address] [place] [phone] * Vitamin B12/Folate, Serum Panel (06/07/2025 11:07 AM EDT) Vitamin B12 229 200 - 900 pg/mL [facility] Comment:NORMAL 200-900 PG/ML INDETERMINATE 160-199 PG/ML DEFICIENT < 160 PG/ML Folate 10.2 > or = 4.0 ng/mL [facility] Comment:Reference Values:> o r = 4.0 ng/mL< 4.0 ng/mL suggests folate deficiency Methotrexate, aminopterin and folinic acid(leucovorin) are chemotherapeutic agents whose molecularstructures are similar to folate; therefore, the Architectfolate assay cannot be used for patients using these drugs. Blood Venous blood specimen / Unknown 06/07/2025 11:07 AM EDT 06/07/2025 1:29 PM EDT us Pradip Riggs MD LAB BLOOD ORDERABLES Final Result Performing Organization Address [facility] Co de Phone Number [facility] [address] [place] [phone] * Urinalysis, Complete, with Reflex to Culture (06/07/2025 11:07 AM EDT) Color Urine Yellow [facility] Appearance Urine Turbid [facility] PH 5.0 5.0 - 9.0 [facility] Glucose Urine UA Negative Negative mg/dL [facility] Urine Blood Negative Negative [facility] Specific [place] - Urine 1.025 1.005 - 1.025 [facility] Urine Protein Trace Neg-Trace mg/dL [facility] Urine Ketones Trace Negative mg/dL [facility] Nitrite Urine Negative Negative [facility] Leukocyte Esterase Urine Negative Negative [facility] RBC Urine 0-2 0 - 2 /HPF [facility] Urine WBC 0-5 0 - 5 /HPF [facility] Urine Squamous Epithelial Cell 0-2 0 - 2 /HPF [facility] CALCIUM OXALATE CRYSTAL, UR Present [facility] Urine Bacteria None Seen None Seen [facility] Hyaline Casts, Urine 0-2 0 - 2 /LPF [facility] Urine 06/07/2025 11:0 7 AM EDT 06/07/2025 1:04 PM EDT Narrative [facility] - 06/07/2025 1:52 PM EDT Urine, Clean Catch us Pradip Riggs MD LAB URINE ORDERABLES Final Result [facility] [address] [place] [phone] * Hepatitis C Antibody with Reflex to HCV, RNA, Quantitative, Real-Time PCR (06/07/2025 11:07 AM EDT) Hepatitis C Antibody Nonreactive Nonreactive [facility] Comment:Antibodies to HCV no t detected; does not exclude early acuteHCV infection. Blood Venous blood specimen / Unknown 06/07/2025 11:07 AM EDT 06/07/2025 1:29 PM EDT Pradip Riggs MD LAB BLOOD ORDERABLES Final Result Performing Organization Address [facility]/ZIP Co de Phone Number [facility] [address] [place] [phone] * Hepatitis B surface antigen, EIA (06/07/2025 11:07 AM EDT) Hepatitis B Surface Ag Negative Negative [facility] Blood Venous blood specimen / Unknown 06/07/2025 11:07 AM EDT 06/07/2025 1:29 PM EDT Pradip Riggs MD LAB BLOOD ORDERABLES Final Result Performing Organization Address [facility] Co de Phone Number [facility] [address] [place] [phone] * Hepatitis B Core Antibody, Total (06/07/2025 11:07 AM EDT) Hepatitis B Core Antibody Nonreactive Nonreactive [facility] Blood Venous blood specimen / Unknown 06/07/2025 11:07 AM EDT 06/07/2025 1:29 PM EDT Pradip Riggs MD LAB BLOOD ORDERABLES Final Result Performing Organization Address [facility] Co de Phone Number [facility] [address] [place] [phone] * RPR (Monitor) with Reflex to??Titer (06/07/2025 11:07 AM EDT) Only the most recent of2 resultswithin the time period is included. RPR (Monitor) w/Refl Titer NON-REACTI VE NON-REACT KAMINI [facility] Comment:THIS TEST WAS PERFOR MED AT:[email or web address] [place] [phone] NELSON MD Rapid Plasma Reagin Ab Titer TNP [facility] Blood Venous blood specimen / Unknown 06/07/2025 11:07 AM EDT 06/07/2025 1:29 PM EDT Pradip Riggs MD LAB BLOOD ORDERABLES Final Result Performing Organization Address [facility] Co de Phone Number [facility] [address] [place] [phone] * HIV-1/2 Antigen and Antibodies, Fourth Generation, with Reflexes (06/07/2025 11:07 AM EDT) HIV AB/AG Nonreactive Nonreactive [facility] Comment:HIV-1 p24 Ag and/or HIV-1/HIV-2 Ab not detected.A test result that is nonreactive does not exclude thepossibility of exposure to or infection with HIV-1 and/orHIV-2. Nonreactive results in this assay for individualswith prior exposure to HIV-1 and/or HIV-2 may be due toantigen and antibody levels that are below the limit ofdetection of this assay.The [employer] HIV Ag/Ab Combo assay result andsupplemental assay results should be interpreted inconjunction with the patient's clinical presentation,history and other laboratory results. If the results areinconsistent with clinical evidence, additional testing issuggested to confirm the result. Blood Venous blood specimen / Unknown 06/07/2025 11:07 AM EDT 06/07/2025 1:29 PM EDT Pradip Riggs MD LAB BLOOD ORDERABLES Final Result Performing Organization Address [facility]/ZIP Co de Phone Number [facility] [address] [place] [phone] [phone] * Hepatitis B Surface Antibody, Qualitative (06/07/2025 11:07 AM EDT) ~Hepatitis B Surface Antibody REACTIVE Nonreactive [facility] Comment:REACTIVE: > 11.99 mI U/mL Blood Venous blood specimen / Unknown 06/07/2025 11:07 AM EDT 06/07/2025 1:29 PM EDT Pradip Riggs MD LAB BLOOD ORDERABLES Final Result Performing Organization Address City/[facility]/ZIP Co de Phone Number [facility] [address] [place] [phone] * Rheumatoid Factor (06/07/2025 11:07 AM EDT) Rheumatoid Factor <13.0 <15.0 IU/mL [facility] Blood Venous blood specimen / Unknown 06/07/2025 11:07 AM EDT 06/07/2025 1:29 PM EDT Pradip Riggs MD LAB BLOOD ORDERABLES Final Result Performing Organization Address [facility] Co de Phone Number [facility] [address] [place] [phone] * Complement Component C3c (06/07/2025 11:07 AM EDT) Complement C3 148 82 - 185 mg/dL [facility] Comment:THIS TEST WAS PERFOR MED AT:[email or web address] [place] [phone] NELSON MD Blood Venous blood specimen / Unknown 06/07/2025 11:07 AM EDT 06/07/2025 1:13 PM EDT Pradip Riggs MD LAB BLOOD ORDERABLES Final Result Performing Organization Address [facility] Co de Phone Number [facility] [address] [place] [phone] * Complement Component C4c (06/07/2025 11:07 AM EDT) Complement C4 25 15 - 53 mg/dL [facility] Comment:THIS TEST WAS PERFOR MED AT:[email or web address] [place] [phone] NELSON MD Blood Venous blood specimen / Unknown 06/07/2025 11:07 AM EDT 06/07/2025 1:13 PM EDT Pradip Riggs MD LAB BLOOD ORDERABLES Final Result [facility] [address] [place] [address] [phone] * (ABNORMAL) NILDA Screen,IFA, with Reflex to Titer and Pattern (06/07/2025 11:07 AM EDT) Anti Nuclear Antibody Screen POSITIVE (A) NEGATIVE [facility] Comment:NILDA IFA is a first l ine screen for detecting thepresence of up to approximately 150 autoantibodies invarious autoimmune diseases. A positive NILDA IFA resultis suggestive of autoimmune disease and reflexes totiter and pattern. Further laboratory testing may beconsidered if clinically indicated.For additional information, please refer tohttp://education.[employer]/faq/LYO532(This link is being provided for informational/educational purposes only.) NILDA Titer 1:320(A) titer [facility] Comment:Reference Range <1:4 0 Negative 1:40-1:80 Low Antibody Level >1:80 Elevated Antibody Level NILDA Pattern Nuclear, Nucleola r(A) [facility] Comment:Nucleolar pattern is associated with systemic sclerosis(scleroderma), systemic sclerosis/polymyositis overlapand Sjogren's syndrome.AC-8,9,10: NucleolarInternational Consensus on NILDA Patterns(https://doi.org/10.1515/bhad-2526-3567) NILDA TITER 2 (REF LAB) 1:80(A) titer [facility] Comment:A low level NILDA tite r may be present in pre-clinicalautoimmune diseases and normal individuals. Reference Range <1:40 Negative 1:40-1:80 Low Antibody Level >1:80 Elevated Antibody Level NILDA Pattern 2 Nuclear, Speckled (A) [facility] Comment:Speckled pattern is associated with mixed connectivetissue disease (MCTD), systemic lupus erythematosus(SLE), Sjogren's syndrome, dermatomyositis, andsystemic sclerosis/polymyositis overlap.AC-2,4,5,29: SpeckledInternational Consensus on NILDA Patterns(https://doi.org/10.1515/hcpy-0893-0309)THIS TEST WAS PERFORMED AT:[email or web address] [place] [phone] NELSON MD NILDA TITER 3 TNP [facility] NILDA PATTERN 3 [facility] Blood Venous blood specimen / Unknown 06/07/2025 11:07 AM EDT 06/07/2025 1:29 PM EDT us Pradip Riggs MD LAB BLOOD ORDERABLES Final Result Performing Organization Address [facility]/ZIP Co de Phone Number [facility] [address] [place] [phone] * Vitamin B12 (06/07/2025 11:07 AM EDT) Pathologist [facility] Vitamin B12 283 200 - 900 pg/mL [facility] Comment:NORMAL 200-900 PG/ML INDETERMINATE 160-199 PG/ML DEFICIENT < 160 PG/ML Blood Venous blood specimen / Unknown 06/07/2025 11:07 AM EDT 06/07/2025 1:29 PM EDT us Nelia KIM LAB BLOOD ORDERABLES Final Resul t Performing Organization Address [facility]/ZIP Co de Phone Number [facility] [address] [place] [phone] * (ABNORMAL) Lipid Panel, Standard (06/07/2025 11:07 AM EDT) Triglycerides 224(H) <150 mg/dL [facility] Comment:Desirable Triglyceri de: less than 150 mg/dLBorderline High Triglyceride 150-199 mg/dLHigh Triglyceride: 200-499 mg/dLVery High Triglyceride: greater than or equal to 5OO mg/dL Cholesterol 279(H) <200 mg/dL [facility] Comment:Desirable Cholestero l: less than 200 mg/dLBorderline High Cholesterol: 200-239 mg/dLHigh Cholesterol: greater than 239 mg/dL LDL Cholesterol Calculated 191(H) <100 mg/dL [facility] Comment:Desirable LDL: less than 100 mg/dLNear Optimal/Above Optimal LDL: 110- 129 mg/dLBorderline High LDL: 130-159 mg/dLHigh LDL: 160-189 mg/dLVery High LDL: greater than or equal to 190 mg/dL HDL Cholesterol 44 >40 mg/dL [facility] Comment:Desirable HDL: great er than 40 mg/dL Note: This HDL assay may give artificially low results in patients with liver disease. Blood Venous blood specimen / Unknown 06/07/2025 11:07 AM EDT 06/07/2025 1:26 PM EDT us Pradip Riggs MD LAB BLOOD ORDERABLES Final Result [facility] [address] [place] [phone] [phone] * (ABNORMAL) Basic Metabolic Panel (06/07/2025 11:07 AM EDT) Sodium 139 135 - 145 mmol/L [facility] Potassium 4.0 3.3 - 5.1 mmol/L [facility] Chloride 104 96 - 108 mmol/L [facility] Carbon Dioxide 24 22 - 29 mmol/L [facility] Anion Gap 15 12 - 20 [facility] Urea Nitrogen (BUN) 17(H) 9 - 16 mg/dL [facility] Creatinine, Serum 1.43(H) 0.5 - 1.4 mg/dL [facility] Estimated Glomerular Filt Rate 52 [facility] Comment:Chronic Kidney Disea se: Estimated GFR < 60 mL/min/1.43q3Pvftqz Kidney Disease: Estimated GFR < 15 mL/min/1.73m2 Glucose 102 60 - 115 mg/dL [facility] Calcium 9.2 8.4 - 10.2 mg/dL [facility] Blood Venous blood specimen / Unknown 06/07/2025 11:07 AM EDT 06/07/2025 1:[address] [facility] LAB BLOOD ORDERABLES Final Resul t [facility] [address] [place] [phone] from Last 3 Months Insurance BCBS PPO Care Teams Machinist Mechanic Relationship Specialty Start Date End Date Pradip Wilson MD [address] [place] [phone] PCP - General Internal Medicine 05/12/25
[2025-07-12 15:13] LABS: Free T4 (Free Thyroxine) < 0.42 ng/dL (0.71-1.85)
[2025-07-13 12:44] LABS: Iron 78 mcg/dL (45-160); Percent Iron Saturation 24 % (15-50); Total Iron Binding Capacity 331 mcg/dL (228-428); Unsaturated Iron Binding 253 ug/dL
[2025-07-13 13:02] LABS: Ferritin 293 ng/mL (20-250)
== END 2025-07-12 11:13 | disposition home or self-care (01) ==
LOC: HO.HHCL 11:12
PROVIDERS: PCP Nurse Practitioner Primary Care; Visit Provider Nurse Practitioner Primary Care
DX: R20.0 Anesthesia of skin (principal); R20.2 Paresthesia of skin
CPT/HCPCS: 36415; 82728; 83540; 84439; 84443

== ENCOUNTER 2025-07-29 03:31 | Emergency (ER) | payer BC, SELFPAY ==
[2025-07-29 03:36] VITALS: BP 136/83; PULSE 82; RESP 20; TEMP 37; O2SAT 97; BMI 30.3
[2025-07-29 04:03] LABS: Hematocrit 36.2 % (42.0-52.0); Hemoglobin 12.7 g/dl (14.0-18.0); Imm Gran Abs Auto 0.05 X10*3/uL (0.00-0.03); Imm Gran Pct Auto 0.7 % (0.0-0.4); Lymphocytes Absolute Auto 2.5 X10*3/uL (1.2-4.9); MANUAL DIFF FLAG NO; Mean Corpuscular HGB Conc 35.1 g/dl (31.0-36.0); Mean Corpuscular Hemoglobin 32.2 pg (27.0-33.0); Mean Corpuscular Volume 91.6 fL (80.0-98.0); NRBC Abs Auto 0.000 X10*3/uL (0.0-0.012); NRBC Pct Auto 0.0 /100WBC (0.0-0.2); Platelet Count 269 X10*3/uL (160-400); Red Blood Count 3.95 X10*6/uL (4.60-5.80); White Blood Count 7.5 X10*3/uL (4.8-10.8)
--- NOTE | 2025-07-29 04:18 | ED_ITS ---
HPI - Skin/Abscess/Foreign Bdy General Chief complaint: Skin/Abscess/Foreign Body Stated complaint: foot inj/pain Time Seen by Provider: 07/29/25 04:10 Source: patient Mode of arrival: ambulatory Limitations: no limitations History of Present Illness ED Provider: Dr. Liz Ruiz HPI narrative: Patient comes to the emergency room complaining of pain and redness on the dorsum of the left foot for the last 2 days. Patient states that the redness in the dorsum of the foot has been spreading upwards. Denies fever chills. Patient states it is slightly tender. Denies history of gout. Patient denies any obvious injury. Related Data Home Medications ?Medication ?Instructions ?Recorded ?Confirmed atenolol 50 mg tablet 100 mg PO BEDTIME 03/09/24 0 03/09/24 Previous Rx's ?Medication ?Instructions ?Recorded cephalexin 500 mg capsule 500 mg PO Q6H 7 days #28 cap s 11/01/24 doxycycline monohydrate 100 mg 100 mg PO BID 7 days #1 4 tabs 11/01/24 tablet morphine 15 mg immediate release 15 mg PO Q4-6H PRN pa in (scale 11/02/24 tablet score 4-6) #5 tabs cephalexin 500 mg capsule 500 mg PO QID #28 caps 11/08 doxycycline hyclate 100 mg tablet 100 mg PO BID #14 ta bs 11/08/24 hydrochlorothiazide 25 mg tablet 25 mg PO QAM #30 tabs 04/25/25 meclizine 25 mg tablet 25 mg PO TID PRN dizziness # 20 tabs 04/25/25 doxycycline hyclate 100 mg tablet 100 mg PO BID #14 ta bs 06/23/25 prednisone 20 mg tablet 20 mg PO BID #10 tabs cephalexin 500 mg capsule 500 mg PO BID #14 caps 07/29 doxycycline hyclate 100 mg tablet 100 mg PO BID #14 ta bs 07/29/25 Allergies Allergy/AdvReac Type Severity Reaction Status Date / Time bupropion (From Wellbutrin) Allergy Difficulty Verified 07/29/25 03:37 Breathing Review of Systems 2 Review of Systems: Constitutional : No Weight loss, No Fever, No Chills, No Night Sweats, No Fatigue, No Malaise ENT/Mouth : No Hearing loss, No Ear Pain, No Nasal Congestion, No Sinus Pain, No Hoarseness, No sore throat, No Rhinorrhea, No Swallowing Difficulty Eyes: No Eye Pain, No Swelling, No Redness, No Foreign Body, No Discharge, No Vision Changes Cardiovascular : No Chest Pain, No SOB, No Dyspnea on Exertion, No Orthopnea, No Edema, No Palpitations Respiratory : No Cough, No Sputum, No Wheezing, No Smoke Exposure, No Dyspnea Gastrointestinal : No Nausea, No Vomiting, No Diarrhea, No Constipation, No abdominal Pain, No Hematochezia, No Melena Genitourinary : no irregular bleeding, No Dysuria, No Urinary Frequency, No Hematuria, No Urinary Incontinence, No Urgency, No Flank Pain, No Urinary Flow Changes, No Hesitancy Musculoskeletal : No joint pain, No Myalgias, No Joint Swelling Skin : Complaining of erythema warmth and tenderness to dorsum of the left foot Neuro : No Weakness, No Numbness, No Paresthesias, No Loss of Consciousness, No Dizziness, No Headache Psych : No Anxiety/Panic, No Depression, No SI/HI/AH/VH, No Social Issues, Heme/Lymph: No Bruising, No Bleeding,No Lymphadenopathy Endocrine : No Polyuria, No Polydipsia, No Temperature Intolerance PMFSH Past Medical History Medical History Abscess of skin and subcutaneous tissue IV drug user Essential hypertension Social History Social History Alcohol intake: current Alcohol intake frequency: 3 or more drinks per day Alcohol type: hard liquor Patient Tobacco Use Status: Never used Tobacco Smoked in Last 30 Days: Yes Use of substances other than those prescribed or required for medical reasons: No Substance Use Type: Crack/Cocaine service: No Physical Exam 2 Exam: Exam: Appearance: Alert. Oriented X3. No acute distress. Eyes: Pupils equal, round and reactive to light. ENT: Pharynx normal. Neck: Normal inspection. Neck supple. No lymph nodes noted. No crepitus CVS: Normal heart rate and rhythm. Pulses normal. Normal S1 and S2 Respiratory: No respiratory distress. Breath sounds normal. No Wheezing. No rales Abdomen: Soft and nontender. No rigidity. No distention. Skin: Skin warm and dry. Normal skin color. Normal skin turgor. On the dorsum of the left foot, there is erythema up to the midfoot. No ulcers Extremities: No lower extremity edema. No Lacerations. No Rash Neuro: Oriented X 3. No motor deficit. No sensory deficit. Moving all extremities. No slurred speech. CN 2 through 12 grossly intact Psych: calm, cooperative, normal affect Vital Signs: Vital Signs: Last Vital Signs Temp 98.6 F 07/29/25 03:36 Pulse 82 07/29/25 03:36 Resp 20 07/29/25 03:36 BP 136/83 07/29/25 03:36 Pulse Ox 97 07/29/25 03:36 O2 Del Method Room Air 07/29/25 03:36 BMI result Body Mass Index 30.3 Medical Decision Making Medical Decision Making [facility] Narrative: My interpretation of labs: Patient's hematology at baseline, normal white blood cell count, no abnormality in patient's chemistry, normal LFTs I discussed the physical exam with the patient, which is consistent with cellulitis. Patient was given the 1st dose of p.o. Keflex and doxycycline. It was discussed with the patient that if he has no improvement or if he has any worsening symptoms, he needs to return to emergency room Patient agrees with plan. Patient has no pain in the calf or leg. DVT is not suspected Differential Diagnosis Differential Diagnoses: The differential diagnosis associated with the presentation includes (Cellulitis, gout) Lab Data [facility] Lab Attestation statement: I reviewed the patient's lab results. 07/29/25 03:58 07/29/25 03:58 Labs: Lab Results 07/29/25 Range/Units 03:58 WBC 7.5 (4.8-10.8) X10*3/uL RBC 3.95 L (4.60-5.80) X10*6/uL Hgb 12.7 L (14.0-18.0) g/dl Hct 36.2 L (42.0-52.0) % MCV 91.6 (80.0-98.0) fL MCH 32.2 (27.0-33.0) pg MCHC 35.1 (31.0-36.0) g/dl RDW 12.4 (11.0-16.0) % Plt Count 269 (160-400) X10*3/uL MPV 9.0 L (9.4-12.4) fL Immature Gran % (Auto) 0.7 H (0.0-0.4) % Neut % (Auto) 55.6 (45-73) % Lymph % (Auto) 32.7 (20-40) % Hettinger % (Auto) 8.3 (2-11) % Eos % (Auto) 2.4 (0-4) % Baso % (Auto) 0.3 (0-2) % Lymph # (Auto) 2.5 (1.2-4.9) X10*3/uL Hettinger # (Auto) 0.6 (0.1-1.2) X10*3/uL Eos # (Auto) 0.2 (0.0-0.4) X10*3/uL Baso # (Auto) 0.0 (0.0-0.2) X10*3/uL Abs Immat Gran (auto) 0.05 H (0.00-0.03) X10*3/uL Absolute Neuts (auto) 4.2 (2.0-8.3) x10*3/uL Absolute Nucleated RBC 0.000 (0.0-0.012) X10*3/uL Nucleated RBC % (auto) 0.0 (0.0-0.2) /100WBC Discharge Plan Discharge Clinical Impression: Cellulitis Qualifiers: Site of cellulitis: extremity Site of cellulitis of extremity: lower extremity Laterality: left Qualified Code(s): L03.116 - Cellulitis of left lower limb Patient Disposition: Home, Self-Care Instructions: Cellulitis (ED) Additional Instructions: Please follow-up with your primary care physician tomorrow. If you have any worsening or new symptoms, please return to the emergency room or call 911 Prescriptions: New cephalexin 500 mg capsule 500 mg PO BID Qty: 14 0RF doxycycline hyclate 100 mg tablet 100 mg PO BID Qty: 14 0RF No Action atenolol 50 mg tablet 100 mg PO BEDTIME cephalexin 500 mg capsule 500 mg PO Q6H 7 Days Qty: 28 0RF doxycycline monohydrate 100 mg tablet 100 mg PO BID 7 Days Qty: 14 0RF morphine 15 mg tablet 15 mg PO Q4-6H PRN (Reason: pain (scale score 4-6)) Qty: 5 0RF Rx Instructions: Partial Fill upon patient request. hydrochlorothiazide 25 mg tablet 25 mg PO QAM Qty: 30 0RF meclizine 25 mg tablet 25 mg PO TID PRN (Reason: dizziness) Qty: 20 0RF prednisone 20 mg tablet 20 mg PO BID Qty: 10 0RF doxycycline hyclate 100 mg tablet 100 mg PO BID Qty: 14 0RF cephalexin 500 mg capsule 500 mg PO QID Qty: 28 0RF doxycycline hyclate 100 mg tablet 100 mg PO BID Qty: 14 0RF Print Language: Cape Verdean
[2025-07-29 04:19] LABS: Alanine Aminotransferase 17 U/L (0-40); Albumin Level 4.7 g/dL (3.5-5.0); Alkaline Phosphatase 88 U/L (39-117); Anion Gap 17 (12-20); Aspartate Amino Transferase 27 U/L (5-37); Blood Urea Nitrogen 15 mg/dL (9-16); Calcium 9.3 mg/dL (8.4-10.2); Carbon Dioxide 29 mmol/L (22-29); Chloride 101 mmol/L (96-108); Creatinine Clr Calc Pharmacy 70.9; Estimated Glomerular Filt Rate 56; Potassium 3.7 mmol/L (3.3-5.1); Sodium 143 mmol/L (135-145); Total Protein 7.8 g/dL (6.5-8.0)
[2025-07-29 04:30] VITALS: BP 130/79; PULSE 72; RESP 18; TEMP 36.8; O2SAT 95
[2025-07-29 04:36] VITALS: BP 130/79; PULSE 72; RESP 18; TEMP 36.8; O2SAT 95
--- OUTSIDE RECORDS SUMMARY | 2025-07-29 04:38 | XMS_ITS | Encounter Summary ---
Author Organization [employer] Address [address] [place] [address] [place] [address] Care Team Providers Care Big Data Engineer Name Role Phone Pradip Wilson MD Primary Care Provide r Reason for Visit * Reason Onset Date Comments MRI LUMBAR SPINE DENIED 07/26/2025 Encounter Details Date Type Department Care Team ([facility] st Contact Info) Description 07/26/2025 Telephone [employer] [address] [place] [address] Pradip Wilson MD [address] [place] [address] MRI LUMBAR SPINE DENIED Social History Tobacco Use Types Packs/Day Years [...] encounter Miscellaneous Notes * Telephone Encounter - Sabra Mccollum - 07/26/2025 4:07 PM EDT DENIED. Letter scanned in pts chart under media. documented in this encounter Plan of Treatment Upcoming Encounters Date Type Department Care Team (Late st Contact Info) Description 08/05/2025 10:15 AM EDT Office Visit [facility] [address] [place] [phone] Rashawn Weiss MD [address] [place] [phone] 08/30/2025 3:00 PM EDT Office Visit [facility] [address] [place] [phone] Pradip Wilson MD [address] [place] [phone] documented as of this encounter Goals Goal Patient Goal Type Associated Problems Recent Progress Patient-Stated? Author Reduce use of crystal meth General On track( 11:34 AM EDT) Yes Noemi Osborn, RN Note: Has not tested positive for a while. Go to [facility] for tinnitus. General On track( [...] to perform daily activities General On track( 1:10 PM EDT) No Noemi Osborn, RN Note: He missed his last appt with Dot, and said he is making a new appt today. documented as of this encounter Visit Diagnoses Not on filedocumented in this encounter Additional Health Concerns Assessment Noted Time PHQ-9 Depression Total Score: 17 11:54 AM EDT documented as of this encounter Care Teams Big Data Engineer Relationship Specialty Start Date End Date Pradip Wilson MD [address] [place] [phone] PCP - General Internal Medicine 05/12/25 documented as of this encounter
--- OUTSIDE RECORDS SUMMARY | 2025-07-29 04:38 | XMS_ITS | Encounter Summary ---
Author Organization [email or web address] Address [address] [facility] [address] [place] [address] Care Team Providers Care Learning Technologies Specialist Name Role Phone Pradip Wilson MD Primary Care Provide r Reason for Visit * Reason Onset Date Comments Med Refill 05/23/2025 Encounter Details Date Type Department Care Team (Late st Contact Info) Description 05/23/2025 Refill [facility] [address] [place] [address] Noemi Osborn RN Uncomplicated opioid dependence (CMS/HCC) [...] Description 08/05/2025 10:15 AM EDT Office Visit [facility] [address] [place] [phone] Rashawn Weiss MD [address] [place] [phone] 08/30/2025 3:00 PM EDT Office Visit [facility] [address] [place] [phone] Pradip Wilson MD [address] [place] [phone] documented as of this encounter Goals Goal Patient Goal Type Associated Problems Recent Progress Patient-Stated? Author Reduce use of crystal meth General On track( 11:34 AM EDT) Yes Noemi Osborn, RN Note: Has not tested positive for a while. Go to [facility] for tinnitus. General On track( 025 11:27 [...] perform daily activities General On track( 025 1:10 PM EDT) No Noemi Osborn, NAJMA Note: He missed his last appt with Dot, and said he is making a new appt today. documented as of this encounter Visit Diagnoses Diagnosis Uncomplicated opioid dependence (CMS/HCC) documented in this encounter Additional Health Concerns Assessment Noted Time PHQ-9 Depression Total Score: 19 025 2:58 PM EDT documented as of this encounter Care Teams Learning Technologies Specialist Relationship Specialty Start Date End Date Pradip Wilson MD [address] [place] [phone] PCP - General Internal Medicine 05/12/25 documented as of this encounter
--- OUTSIDE RECORDS SUMMARY | 2025-07-29 04:38 | XMS_ITS | Encounter Summary ---
Author Organization [employer] Address [address] [facility] [address] [address] [place] [address] Care Team Providers Care Crime Laboratory Analyst Name Role Phone Pradip Wilson MD Primary Care Provide r Encounter Details Date Type Department Care Team ([facility] st Contact Info) Description 07/25/2025 Telephone [facility] [address] [place] [address] Sofia Christensen, RN Social History Tobacco Use Types Packs/Day [...] encounter Miscellaneous Notes * Telephone Encounter - Sofia Christensen RN - 07/25/2025 2:39 PM EDT Noted. Pt has an follow up with PCP at the end of August and can discuss further about weight gainconcerns at the OV. Pt is to follow up with PCP as needed. * Telephone Encounter - Sofia Christensen RN - 07/25/2025 2:39 PM EDT ----- Message from Nurse Noemi Rodriguez sent at 07/22/2025 1:17 PM EDT ----- Koko, Just sending recent note as FYJamila regarding Mendoza's concern about his weight gain. There is an upcoming pcp appointment next month. documented in this encounter Plan of Treatment Upcoming Encounters Date Type Department Care Team (Late st Contact Info) Description 08/05/2025 10:15 AM EDT Office Visit [facility] [address] [place] [address] Rashawn Weiss MD [address] [place] [address] 08/30/2025 3:00 PM EDT Office Visit [facility] [address] [place] [phone] [place] [address] documented as of this encounter Goals Goal Patient Goal Type Associated Problems Recent Progress Patient-Stated? Author Reduce use of crystal meth General On track( 11:34 AM EDT) Yes Noemi Osborn, RN Note: Has not tested positive for a while. Go to [facility] for tinnitus. General On track( [...] documented as of this encounter Care Teams Crime Laboratory Analyst Relationship Specialty Start Date End Date [place] [address] PCP - General Internal Medicine 05/12/25 documented as of this encounter
--- OUTSIDE RECORDS SUMMARY | 2025-07-29 04:38 | XMS_ITS | Encounter Summary ---
Author Organization [employer] Address [address] [place] [address] 7 [place] [address] Care Team Providers Care Slot Service Specialist Name Role Phone Pradip Wilson MD Primary Care Provide r Reason for Visit * Reason Onset Date Comments Med Refill 04/15/2025 Encounter Details Date Type Department Care Team (Late st Contact Info) Description 04/15/2025 Refill [facility] [address] [place] [address] Noemi Osborn RN Social History Tobacco Use [...] Description 08/05/2025 10:15 AM EDT Office Visit [facility] [address] [facility] [place] [address] Rashawn Weiss MD [address] [facility] [place] [address] 08/30/2025 3:00 PM EDT Office Visit [facility] [address] [facility] [place] [address] Pradip Wilson MD [address] [facility] [place], [place] [phone] documented as of this encounter Goals Goal Patient Goal Type Associated Problems Recent Progress Patient-Stated? Author Reduce use of crystal meth General On track( 11:34 AM EDT) Yes Noemi Osborn, RN Note: Has not tested positive for a while. Go to [facility] for tinnitus. General On track( [...] Noted Time PHQ-9 Depression Total Score: 19 2:58 PM EDT documented as of this encounter Care Teams Slot Service Specialist Relationship Specialty Start Date End Date Pradip Wilson MD [facility] [place] [phone] PCP - General Internal Medicine 05/12/25 documented as of this encounter
--- OUTSIDE RECORDS SUMMARY | 2025-07-29 04:38 | XMS_ITS | Encounter Summary ---
Author Organization [employer] Address [address] [facility] 7t [place] [address] Care Team Providers Care Globe Tester Name Role Phone Pradip Wilson MD Primary Care Provide r Reason for Visit * Reason Onset Date Comments Med Refill 05/27/2025 Encounter Details Date Type Department Care Team (Late st Contact Info) Description 05/27/2025 Refill [facility] [address] [place] [address] Noemi Osborn, RN Social History Tobacco Use [...] Description 08/05/2025 10:15 AM EDT Office Visit [facility] [address] [place] [phone] Rashawn Weiss MD [address] [place] [phone] 08/30/2025 3:00 PM EDT Office Visit [address] [address] Pradip Wilson MD [address] [place] [phone] documented as of this encounter Goals Goal Patient Goal Type Associated Problems Recent Progress Patient-Stated? Author Reduce use of crystal meth General On track( 11:34 AM EDT) Yes Noemi Osborn, RN Note: Has not tested positive for a while. Go to [facility] for tinnitus. General On track( 11:27 [...] General On track( 025 1:10 PM EDT) Noemi Calvin, RN Note: He missed his last appt with [facility], and said he is making a new appt today. documented as of this encounter Visit Diagnoses Not on filedocumented in this encounter Additional Health Concerns Assessment Noted Time PHQ-9 Depression Total Score: 19 025 2:58 PM EDT documented as of this encounter Care Teams Globe Tester Relationship Specialty Start Date End Date Pradip Wilson MD [address] [place] [phone] PCP - General Internal Medicine 05/12/25 documented as of this encounter
--- OUTSIDE RECORDS SUMMARY | 2025-07-29 04:38 | XMS_ITS | Clinical Summary ---
Author Organization [address] Address [address] [place] [phone] Phone Care Team Providers Care Supervisor Shop Name Role Phone Unavailable Primary Care Provider Unavailabl e Encounters Date Type Department Care Team Description 05/28/2025 Lab Requisition [facility] [address] [facility] [place] [address] Roel Valero Other ocean transportation intermediary (current) drug therapy from Last 3 Months [...] 2025 Cholesterol Screening (Lipid Panel) 05/28/2030 05/28/2025 RSV Immunization Adult Patie nts (1 - 1-dose 75+ series) 2045 HIB Vaccines Aged Out No longer eligi [...] LDL Routine 05/28/2025 7:00 AM EDT Other ocean transportation intermediary (current) drug therapy GLUCOSE, RANDOM Routine 05/28/2025 7:00 AM EDT Other ocean transportation intermediary (current) drug therapy HEMOGLOBIN A1C Routine 05/28/2025 7:00 AM EDT Other ocean transportation intermediary (current) drug therapy from Last 3 Months Results * (ABNORMAL) Lipid panel with reflex to direct LDL (05/28/2025 7:00 AM EDT) Cholesterol 322(H) 0 - 200 mg/dL LAB CHEMISTRY METHOD 05/28/2025 11:33 AM [facility] Triglycerides 342(H) 0 - 150 mg/dL LAB CHEMISTRY METHOD 05/28/2025 11:33 AM [facility] HDL 46 >=40 mg/dL LAB CHEMISTRY METHOD 05/28/2025 11:33 AM [facility] LDL Calculated 208(H) 0 - 100 mg/dL LAB CHEMISTRY METHOD 05/28/2025 11:33 AM [facility] VLDL Cholesterol Win 68.4 mg/dL LAB CHEMISTRY METHOD 05/28/2025 11:33 AM [facility] Non HDL Chol. (LDL+VLDL) [...] ORDERABLES Final Resu lt Performing Organization Address City/[facility]/ZIP Co de Phone Number [facility] [address] [place] [address], [place] [phone] * Hemoglobin A1c (05/28/2025 7:00 AM EDT) [...] Resu lt [facility] [address] [place] [address], [place] [phone] * Glucose, random (05/28/2025 7:00 AM EDT) Glucose 95 70 - 100 mg/dL LAB CHEMISTRY METHOD 05/28/2025 11:33 AM EDT [facility] Blood Venous blood specimen / Unknown Venipuncture / Unknown 05/28/2025 7:00 AM EDT 05/28/2025 10:36 AM EDT us Roel Valero LAB BLOOD ORDERABLES Final Resu lt [facility] ([facility]) [facility] [address] [place] [address], from Last 3 Months
--- OUTSIDE RECORDS SUMMARY | 2025-07-29 04:38 | XMS_ITS | Encounter Summary ---
Author Organization [employer] Address [address] [facility] 7t [place] [address] Care Team Providers Care Nail Welter Name Role Phone Pradip Wilson MD Primary Care Provide r Reason for Visit * Reason Onset Date Comments Med Refill 06/24/2025 Encounter Details Date Type Department Care Team (Late st Contact Info) Description 06/24/2025 Refill [facility] [address] [place] [address] Noemi Osborn RN Uncomplicated opioid dependence (CMS/HCC) [...] Description 08/05/2025 10:15 AM EDT Office Visit [facility] [address] [place] [phone] Rashawn Weiss MD [address] [place] [phone] 08/30/2025 3:00 PM EDT Office Visit [facility] [address] [place] [phone] Pradip Wilson MD [address] [place] [phone] documented as of this encounter Goals Goal Patient Goal Type Associated Problems Recent Progress Patient-Stated? Author Reduce use of crystal meth General On track( 11:34 AM EDT) Yes Noemi Osborn, RN Note: Has not tested positive for a while. Go to [facility] for tinnitus. General On track( 11:27 [...] documented as of this encounter Care Teams Nail Welter Relationship Specialty Start Date End Date Pradip Wilson MD [address] [place] [phone] PCP - General Internal Medicine 05/12/25 documented as of this encounter
--- OUTSIDE RECORDS SUMMARY | 2025-07-29 04:38 | XMS_ITS | Encounter Summary ---
Author Organization [employer] Address [address] [place] [address] 7 [place] [address] Care Team Providers Care Principal Gifts Officer Name Role Phone Pradip Wilson MD Primary Care Provide r Reason for Visit * Reason Onset Date Comments Hospital Follow-up 05/31/2025 Encounter Details Date Type Department Care Team ([facility] st Contact Info) Description 05/31/2025 Telephone [facility] [address] [place], [place] [phone] Pradip Wilson MD [address] [place] [address] Hospital Follow-up Social History Tobacco Use Types [...] from pt requesting a HDF appt. Hospital: [facility] Date of admission: 05/27 Discharge date: 06/01 Diagnosed: Severe mood disorders with psychotic features *Send message to [facility] Coordinators Contact pt at [phone] documented in this encounter Plan of Treatment Upcoming Encounters Date Type Department Care Team (Late st Contact Info) Description 08/05/2025 10:15 AM EDT Office Visit [facility] [address] [place] [phone] Rashawn Weiss MD [address] [place] [phone] 08/30/2025 3:00 PM EDT Office Visit [facility] [address] [place] [phone] Pradip Wilson MD [address] [place] [address] documented as of this encounter Goals Goal [...] documented as of this encounter Care Teams Principal Gifts Officer Relationship Specialty Start Date End Date Pradip Wilson MD [address] [place] [address] PCP - General Internal Medicine 05/12/25 documented as of this encounter
--- OUTSIDE RECORDS SUMMARY | 2025-07-29 04:38 | XMS_ITS | Encounter Summary ---
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 HEMOGLOBIN A1C Routine 05/28/2025 7:00 AM EDT 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 GLUCOSE, RANDOM Routine 05/28/2025 7:00 AM EDT 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 Results * (ABNORMAL) Lipid panel with reflex to direct LDL (05/28/2025 7:00 AM EDT) Cholesterol 322(H) 0 - 200 mg/dL LAB CHEMISTRY METHOD 05/28/2025 11:33 AM EDT [facility] Triglycerides 342(H) 0 - 150 mg/dL LAB CHEMISTRY METHOD 05/28/2025 11:33 AM EDT [facility] HDL 46 >=40 mg/dL LAB CHEMISTRY METHOD 05/28/2025 11:33 AM EDT [facility] LDL Calculated 208(H) 0 - 100 mg/dL LAB CHEMISTRY METHOD 05/28/2025 11:33 AM EDT [facility] VLDL Cholesterol Win 68.4 mg/dL LAB CHEMISTRY METHOD 05/28/2025 11:33 AM EDT [facility] Non HDL Chol. (LDL+VLDL) 276(H) <145 mg/dL LAB CHEMISTRY METHOD 05/28/2025 11:33 AM EDT [facility] Chol/HDL Ratio 7.0(H) 0.0 - 4.4 LAB CHEMISTRY METHOD 05/28/2025 11:33 AM EDT [facility] Blood Venous blood specimen / Unknown Venipuncture / Unknown 05/28/2025 7:00 AM EDT 05/28/2025 10:36 AM EDT Roel Valero LAB BLOOD ORDERABLES Final Resu lt [facility] [address] [place] [address], [place] [phone] * Glucose, random (05/28/2025 7:00 AM EDT) Glucose 95 70 - 100 mg/dL LAB CHEMISTRY METHOD 05/28/2025 11:33 AM EDT [facility] Blood Venous blood specimen / Unknown Venipuncture / Unknown 05/28/2025 7:00 AM EDT 05/28/2025 10:36 AM EDT Roel Valero LAB BLOOD ORDERABLES Final Resu lt [facility] [address] [place] [address], [place] [phone] * Hemoglobin A1c (05/28/2025 7:00 AM EDT) [...] Valero LAB BLOOD ORDERABLES Final Resu lt [facility] [address] [place] [address], documented in this encounter Visit Diagnoses Diagnosis 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
--- OUTSIDE RECORDS SUMMARY | 2025-07-29 04:39 | XMS_ITS | Encounter Summary ---
Author Organization [employer] Address [address] [place] [address] 7 [place] [address] Care Team Providers Care Can Cleaner Name Role Phone Pradip Wilson MD Primary Care Provide r Reason for Visit * Reason Onset Date Comments Med Refill 03/18/2025 Encounter Details Date Type Department Care Team (Late st Contact Info) Description 03/18/2025 Refill [facility] [address] [place] [address] Noemi Osborn RN Social History Tobacco Use [...] Description 08/05/2025 10:15 AM EDT Office Visit [facility] [place] [address] Rashawn Weiss MD [facility] [place] [address] 08/30/2025 3:00 PM EDT Office Visit [facility] [place] [address] Pradip Wilson MD [address] [facility] [place], [place] [phone] documented as of this encounter Goals Goal Patient Goal Type Associated Problems Recent Progress Patient-Stated? Author Reduce use of crystal meth General On track( 11:34 AM EDT) Yes Noemi Osborn, RN Note: Has not tested positive for a while. Go to [facility] for tinnitus. General On track( 11:27 [...] documented as of this encounter Care Teams Can Cleaner Relationship Specialty Start Date End Date Pradip Wilson MD [facility] [place] [phone] PCP - General Internal Medicine 05/12/25 documented as of this encounter
--- OUTSIDE RECORDS SUMMARY | 2025-07-29 04:39 | XMS_ITS | Encounter Summary ---
Author Organization [employer] Address [address] [place] [address] 7 [place] [address] Care Team Providers Care Film Waxer Name Role Phone Pradip Wilson MD Primary Care Provide r Reason for Visit * Reason Onset Date Comments Med Refill 03/18/2025 Encounter Details Date Type Department Care Team (Late st Contact Info) Description 03/18/2025 Refill [facility] [address] [place] [address] Noemi Osborn RN Social History Tobacco Use [...] Description 08/05/2025 10:15 AM EDT Office Visit [facility] [address] Rashawn Weiss MD [facility] [place] [address] 08/30/2025 3:00 PM EDT Office Visit [facility] [place] [address] Pradip Wilson MD [address] [facility] [place], [place] [phone] documented as of this encounter Goals Goal Patient Goal Type Associated Problems Recent Progress Patient-Stated? Author Reduce use of crystal meth General On track( 11:34 AM EDT) Yes Noemi Osborn, RN Note: Has not tested positive for a while. Go to [facility] for tinnitus. General On track( [...] documented as of this encounter Care Teams Film Waxer Relationship Specialty Start Date End Date Pradip Wilson MD [facility] [address] [place] [phone] PCP - General Internal Medicine 05/12/25 documented as of this encounter
--- OUTSIDE RECORDS SUMMARY | 2025-07-29 04:39 | XMS_ITS | Clinical Summary ---
Author Organization [employer] Address [address] [facility] [address] [place] [address] Care Team Providers Care Slab Off Mill Tender Name Role Phone Pradip Wilson MD [...] x 1 week. 70 tablet 025 Active hydrOXYzine pamoate (Vistaril) 50 MG capsule TAKE 1 CAPSULE BY MOUTH EVERY 4 HOURS NEEDED FOR MODERATE TO SEVERE ANXIETY Active OLANZapine (ZyPREXA) 10 MG tablet TAKE 1 TABLET BY MOUTH AT BEDTIME [facility]/PARANOIA Active escitalopram (Lexapro) 5 MG tabletIndications :Major depressive disorder with psychotic features (CMS/HCC) TAKE 1 TABLET BY MOUTH EVERY MORNING 30 tablet 1 025 Active Buprenorphine HCl-Naloxone HCl (Suboxone) 8-2 MG SL filmIndications:U ncomplicated opioid dependence (CMS/HCC) Place 1 Film under the tongue 3 times daily for 7 days. Do not start before July 08, 2025. 21 Film Active fluticasone (Flonase) 50 MCG/ACT nasal sprayIndications: Seasonal allergic rhinitis, unspecified trigger INSTILL 1 TO 2 SPRAYS INTO EACH NOSTRIL EVERY DAY NEEDED FOR ALLERGIES. SHAKE GENTY, PRIME BEFORE FIRST USE, CLEAN TIP AND RECAP AFTER USE. 16 g 025 Active atorvastatin (Lipitor) 20 MG tabletIndications :Hyperlipidemia, unspecified hyperlipidemia type Take 1 tablet (20 mg) by mouth Once per day. 30 tablet 3 025 Active levothyroxine (Synthroid) 88 MCG tabletIndications :Hypothyroidism, unspecified type Take 1 tablet (88 mcg) by mouth before breakfast. 30 tablet 3 025 2025 Active cyanocobalamin (Vitamin B-12) 1000 MCG tabletIndications :Anemia, unspecified type Take 1 tablet (1,000 mcg) by mouth Once per day. 30 tablet 3 025 Active Buprenorphine HCl-Naloxone HCl (Suboxone) 8-2 MG SL filmIndications:U ncomplicated opioid dependence (CMS/HCC) Place 1 Film under the tongue 3 times daily for 14 days. Do not start before July 22, 2025. 42 Film 025 2024 Active triamcinolone (Kenalog) 0.1 % creamIndications: Venous stasis dermatitis,Xerosi s of skin Apply topically 2 times daily. Mix with Cerave 80 g 2 Active fluticasone (Flonase) 50 MCG/ACT nasal sprayIndications: Seasonal allergic rhinitis, unspecified trigger Administer 1-2 sprays into each nostril Once daily as needed for rhinitis or allergies. Shake gently. Before first use, prime pump. After use, clean tip and replace cap. 16 g 025 2024 Discontinued levothyroxine (Synthroid) 25 MCG tabletIndications :Primary hypothyroidism Take 1 tablet (25 mcg) by mouth before breakfast. 30 tablet 3 025 2024 Discontinued buprenorphine-nal oxone (Suboxone) 8-2 [...] order (will not trigger notification to Pharmacy)) Buprenorphine HCl-Naloxone HCl (Suboxone) 8-2 MG SL filmIndications:U ncomplicated opioid dependence (CMS/HCC) Place 1 Film under the tongue 3 times daily for 14 days. 42 Film 025 2024 Discontinued(R eorder (will not trigger notification to Pharmacy)) Active Problems Problem Noted Date Diagnosed Date Hypothyroidism 07/12/2025 Assessment & Plan (07/12/2025 4:07 PM EDT): As part of his work up for Tinnitus I ordered a TSH that was diagnostic of Hypothyroidism Lab Results Component Value Date TSH >100.00 (H) 06/13/2025 Pt started on Levothyroxine 25 mcg po daily TPOs Positive suggestive of Thyroiditis Repeat TSH was still 94 Plan: Increase Levothyroxine to 88 mcg po daily, Repeat TSH in 6 weeks, titrate dose up as needed Order Thyroid US, T3 free and Total, Thyroglobulin Ab Endocrinology consult Anemia 07/12/2025 Assessment & Plan (07/12/2025 4:05 PM EDT): As part of his work up for potential vasculitis Pt had a CBC that showed anemia Lab Results Component Value Date WBC 6.2 06/23/2025 HGB 12.3 (L) 06/23/2025 HCT 34.7 (L) 06/23/2025 MCV 93.0 06/23/2025 PLT 220 06/23/2025 Unclear etiology. Pt does have a Hf of AUD, will need to rule out GI losses, iron deficiency B12, Folate were ok, although B12 was borderline (low normal) Plan: Obtain MMA, Homocysteine, Iron studies, ferritin Pt has been referred to GI for EGD/Colonoscopy (no record of one) appointment scheduled for September Start Vit B12 1000 mcg po daily Pending f/u labs will decide further steps Positive NILDA (antinuclear antibody) 07/12/2025 Assessment & Plan (07/12/2025 10:55 AM EDT): NILDA obtained as part of a vasculitis work up. It was Positive with a nucleolar pattern Pt referred to Rheumatology. Appointment pending. Hyperlipidemia 07/12/2025 Assessment & Plan (07/12/2025 3:38 PM EDT): Lab Results Component Value Date TRIG 224 (H) 06/07/2025 CHOL 279 (H) 06/07/2025 LDLCHOLCAL 191 (H) 06/07/2025 HDL 44 06/07/2025 Pt with hyperlipidemia Currently not on any statin Plan: Start Atorvastatin 20 mg po qhs Chronic midline low back pain without sciatica 0 07/12/2025 Assessment & Plan (07/12/2025 3:45 PM EDT): Long standing hx of low back and right lower extremity pain. Hx of L4-S1 fusion years ago. Has persistent back and leg pain. Treated in the past with multiple courses of PT. There is a note from [facility] from 06/2018 stating he is not a candidate for additional surgery and at some point he was being consider for a spinal cord stimulator. Pt brought a piece of paper from his requesting an [facility] Plan: No recent MRI of lumbar spine. Will order and pending results will proceed with referral Cocaine use 05/20/2025 Dermatitis of lower extremity [...] Pending appointment on 09/06/25 @ 11:10 AM [facility] Assessment & Plan (05/12/2025 10:06 AM EDT): PSA ordered Colonoscopy: referred Cigarette nicotine dependence without complicati on 05/07/2025 Overview (05/07/2025): Update after visit: Pt had LDCT via [employer] program done on 09/22/24 printed from [facility]. Results sent to scan by [facility]. Essential hypertension 05/07/2025 Overview (05/07/2025): Atenolol 50mg and hctz 25mg daily, did not take one of these today. encouraged pt to take both together, as directed, write down BP for new PCP visit to review. 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 Patient describe it as not being sure if it's in his head or his ears. 24/. Described as Non-pulsating. Patient says he had hearing test and was told he had significant hearing loss but he's not sure if that's new. Reports occasional dizziness. Denies any head injury, motor weakness, no difficulty w/ walking or speech, no vision changes. Patient had a CT head without contrast on 04/25/25 that showed: No intra-axial mass, midline shift, hydrocephalus, or acute hemorrhage. No significant atrophy-like change or white matter disease. Mild mucosal thickening is seen in bilateral frontal sinuses, bilateral ethmoid air cells, and bilateral maxillary sinuses.The orbits are unremarkable. No skull fracture. Audiology report requested Previous visit patient was referred for ENT evaluation [facility] requested patient be seen by ENT first. ENT office requires patient calls to schedule his own appointment. Referral information given to patient. I also ordered an MRI of brain and IAC given his c/o tinnitus associated with dizziness Assessment & Plan (05/12/2025 9:48 AM EDT): [...] feature s 01/28/2025 Assessment & Plan (07/12/2025 3:43 PM EDT): Patient with a recent inpatient psychiatric hospitalization at [facility] from 05/27/25 to 06/02/25. Patient stated that the admission was due to worsening auditory hallucinations, insomnia, and persistent depressive symptoms. He attributed these symptoms, in part, to ongoing tinnitus in his ears, which he has experienced for several months and believes is caused by aliens entering his body. During his inpatient stay, he was prescribed Olanzapine 10 mg, which he reported as helpful. At this time, Esteban denies suicidal ideation, homicidal ideation, or self-harming behaviors. He reported being connected with [facility] and had a scheduled intake appointment on 06/08/25 at 3:00 PM. Unclear if he kept that appointment or not, will try and request records Severe anxiety 01/28/2025 Opioid dependence 12/29/2024 Assessment [...] , and Patient to reach out to [facility] as needed Assessment & Plan (12/29/2024 12:35 [...] organization. Date Type Department Care Team Description 07/26/2025 Telephone [facility] Information Management [address] [place] [phone] Pradip Wilson MD MRI LUMBAR SPINE DENIED 07/25/[address] [address] Sofia Christensen RN 07/22/2025 10:15 AM [place] [address] Noemi Osborn RN Uncomplicated opioid dependence ([facility]/HCC) 07/22/2025 10:00 AM EDT Office Visit [address] [address] Heather Cleveland MD Venous stasis dermatitis (Primary Dx); Xerosis of skin 07/22/2025 Travel 07/21/2025 [facility] Information [address] [address] Pradip Wilson MD MRI BRAIN DENIED 07/15/[address] [address] Noemi Osborn, NAJMA Uncomplicated opioid dependence (CMS/HCC) 07/14/[address] [address] Pradip Wilson MD 07/12/2025 10:30 AM EDT Office Visit [address] [address] Pradip Wilson MD Hypothyroidism, unspecified type (Primary Dx); Anemia, unspecified type; Tinnitus of both ears; Dermatitis of lower extremity; Positive NILDA (antinuclear antibody); Major depressive disorder with psychotic features (CMS/HCC); History of lumbar fusion; Preventative health care; Hyperlipidemia, unspecified hyperlipidemia type; Chronic midline low back pain without sciatica; Essential hypertension 07/12/2025 Telephone [facility] [address] [place] [address] Pradip Wilson MD Appointment Request 07/12/2025 Orders Only [facility] [address] [place] [address] Nelia Patel ANP 07/12/2025 Travel 07/11/2025 Telephone [facility] [address] [place] [address] Pradip Wilson MD chart prep 07/08/2025 10:30 AM EDT Office Visit [address] [address] Rashawn Weiss MD Uncomplicated opioid dependence (CMS/HCC) (Primary Dx); Alcohol use disorder; Cocaine use; Tobacco use 07/08/2025 Travel 07/07/[address] [address] Pradip Wilson MD Positive NILDA (antinuclear antibody) (Primary Dx) 07/05/2025 Refill [facility] [address] [place] [address] Nelia Patel ANP Seasonal allergic rhinitis, unspecified trigger 07/05/2025 Patient Outreach [facility] [address] [place] [phone] Pradip Wilson MD Pre-visit Planning ([facility] screening was completed on 05/12/2025) 07/05/2025 Refill [facility] [address] [place] [address] Noemi Osborn, NAJMA Uncomplicated opioid dependence (CMS/HCC) 07/01/2025 10:00 AM EDT Office Visit [address] [address] Rashawn Weiss MD Uncomplicated opioid dependence (CMS/HCC) (Primary Dx); Alcohol use disorder; Cocaine use; Tobacco use 07/01/2025 Travel 06/29/2025 Telephone [facility] [address] [place] [address] Pradip Wilson MD Referral 06/24/2025 9:45 AM EDT Clinical Support [address] [address] Noemi Osborn RN Uncomplicated opioid dependence (CMS/HCC) (Primary Dx) 06/24/[address] [address] Noemi Osborn RN Uncomplicated opioid dependence (CMS/HCC) 06/24/2025 Travel 06/23/2025 Orders Only GENERIC EXTERNAL DATA DEPARTMENT Provider, Generic External Data 06/20/2025 Results Follow-Up [address] [address] Amanda Nelia, ANP Vitamin B12, RPR (Monitor) with Reflex to Titer, Basic Metabolic Panel, Additional followed-up results: 4 06/19/[address] [address] Rashawn Weiss MD Major depressive disorder with psychotic features (CMS/HCC) 06/17/2025 10:45 AM EDT Clinical Support [address] [address] Noemi Osborn RN Uncomplicated opioid dependence (CMS/HCC) 06/17/[address] [address] Noemi Osborn RN Uncomplicated opioid dependence (CMS/HCC) 06/17/[address] [address] Noemi Osborn RN Uncomplicated opioid dependence (CMS/HCC) 06/17/2025 Travel 06/13/2025 Orders Only [facility] [address] [place] [address] Pradip Wilson MD 06/13/[address] [address] Katrina Oh RN [employer] Communication 06/10/2025 9:15 AM EDT Office Visit [address] [address] Rashawn Weiss MD Uncomplicated opioid dependence (CMS/HCC) (Primary Dx); Alcohol use disorder; Cocaine use; Tobacco use 06/10/2025 Refill [facility] [place] [address] Gwen Aj RN Uncomplicated opioid dependence (CMS/HCC) 06/10/2025 Travel 06/08/2025 Orders Only [facility] [place] [address] Sandoval Dobson, PharmD 06/08/2025 Results Follow-Up [address] [place] [address] Pradip Wilson MD Lipid Panel, Standard, TSH with Reflex to Free T4, Vitamin B12/Folate, Serum Panel, Additional followed-up results: 14 06/08/2025 Orders Only [place] [address] Pradip Wilson MD Primary hypothyroidism (Primary Dx) 06/08/2025 Patient Outreach [facility] [place] [address] Pradip Wilson MD Transition Of Care (Tcm) (HDF unscheduled LVM ) 06/07/2025 Telephone [facility] [place] [address] Gwen Aj RN 06/03/2025 10:00 AM EDT Clinical Support [facility] [place] [address] Noemi Osborn RN Uncomplicated opioid dependence ([facility]/HCC) (Primary Dx) 06/03/2025 Travel 05/31/2025 Patient Outreach [facility] [place] [address] Pradip Wilson MD Transition Of Care (Tcm) (HDF unscheduled LVM ) 05/31/2025 Telephone [facility] [place] [address] Pradip Wilson MD Hospital Follow-up 05/27/2025 10:00 AM EDT Office Visit [facility] [place] [address] Rashawn Weiss MD Uncomplicated opioid dependence ([facility]/HCC) (Primary Dx); Alcohol use disorder; Cocaine use 05/27/2025 Refill [facility] [address] [facility] [place] [address] Noeim Osborn RN 05/27/2025 Refill [facility] [address] [facility] [place] [address] Noemi Osborn RN Uncomplicated opioid dependence (CMS/HCC) 05/27/2025 Travel 05/23/2025 Refill [facility] [address] [facility] [place] [address] Noemi Osborn RN Uncomplicated opioid dependence ([facility]/HCC) 05/20/2025 10:15 AM EDT Office Visit [facility] [address] [facility] [place] [address] Rashawn Weiss MD Uncomplicated opioid dependence (CMS/HCC) (Primary Dx); Tobacco use; Alcohol use disorder; Cocaine use 05/20/2025 Travel 05/18/2025 Telephone [facility] [address] [facility] [place] [address] Pradip Wilson MD Referral 05/13/2025 9:15 AM EDT Clinical Support [facility] [place] [address] Gwen Aj RN Uncomplicated opioid dependence ([facility]/HCC) (Primary Dx) 05/13/2025 Travel 05/13/2025 Telephone [facility] [place] [address] Pradip Wilson MD 05/12/2025 9:30 AM EDT Office Visit [facility] [place] [address] Pradip Wilson MD Essential hypertension (Primary Dx); Tobacco use; History of lumbar fusion; Tinnitus of both ears; Dermatitis of lower extremity; Major depressive disorder with psychotic features (CMS/HCC); Severe anxiety; Preventative health care 05/12/2025 Refill [facility] [address] [facility] [place] [address] Gwen Aj RN Uncomplicated opioid dependence (CMS/HCC) 05/12/2025 Travel 05/11/2025 Telephone [facility] [address] [place] [address] Blanca Abreu MA chart prep 05/03/2025 Patient Outreach [facility] [address] [place] [address] Pradip Wilson MD Pre-visit Planning ([facility] unable to reach [facility] ) 05/02/2025 1:20 PM EDT Office Visit [facility] [address] [place] [address] Nelia Patel ANP Tinnitus of both ears (Primary Dx); Skin lesion of right leg; Numbness and tingling of both feet; Pain of scalp; Seasonal allergic rhinitis, unspecified trigger; Cigarette nicotine dependence without complication; Essential hypertension 05/02/[address] [address] Oumou Riggs [place] Record Request 05/02/2025 Travel 04/29/2025 11:00 AM EDT Office Visit [facility] [address] [place] [address] Rashawn Weiss MD Uncomplicated opioid dependence (CMS/HCC) (Primary Dx); Alcohol use disorder; Tobacco use; Cocaine use; Major depressive disorder with psychotic features (CMS/HCC); Severe anxiety 04/29/2025 Refill [facility] [address] [place] [address] Gwen Aj RN Uncomplicated opioid dependence (CMS/HCC) 04/29/2025 Travel 04/28/2025 Refill [facility] [address] [place] [address] Gwen Aj RN Uncomplicated opioid dependence (CMS/HCC); Severe anxiety from Last 3 Months Immunizations Immunization Administration Dates Next Due HepB-CpG 02/04/2025 Influenza injectable quadrivalent preservative f ree 08/12/2017 Influenza, seasonal, injectable, preservative fr ee 09/01/2014 Moderna Covid-19 Vaccine 12+ 04/03/2021 Novel [id number], nasal 09/13/2009 Pneumococcal, Unspecified 01/19/2015 TD (adult), [...] Sign Reading Time Taken Comments Blood Pressure 124/86 07/22/2025 10:21 AM EDT Pulse 85 07/22/2025 10:21 AM EDT Temperature 36.1 C (96.9 F) 07/22/2025 10:21 AM EDT Respiratory Rate 19 07/22/2025 10:21 AM EDT Oxygen Saturation 96% 07/22/2025 10:21 AM EDT Inhaled Oxygen Concentration - - Weight 93.7 kg (206 lb 9.6 oz) 07/22/2025 10:21 AM EDT Height 175.3 cm (5' 9 ) 07/22/2025 10:21 AM EDT Body Mass Index 30.51 07/22/2025 10:21 AM EDT Plan of Treatment Upcoming Encounters Date Type Department Care Team (Late st Contact Info) Description 08/05/2025 10:15 AM EDT Office Visit [facility] [address] [place] [address] Rashawn Weiss MD [address] [place] [phone] 08/30/2025 3:00 PM EDT Office Visit [facility] [address] [place] [address] Pradip Wilson MD [address] [place] [address] Health Maintenance Due Date Last Done Comments [...] , 06/07/2025 Alcohol/Substance Use Screening 01/28/2026 01/28/2025 SDOH Screening 05/12/2026 05/12/2025 Disability Screening 07/22/2026 07/22/2025 Tobacco Screening 07/22/2026 07/22/2025 Lipid Panel 06/07/2030 06/07/2025 DTaP/Tdap/Td Vaccines (3 [...] tested positive for a while. Go to [facility] for tinnitus. General On [...] Procedure Name Priority Date/Time Associated Diagnosis Comments METHYLMALONIC ACID Routine 07/13/2025 Anemia, unspecified type FERRITIN Routine 07/12/2025 11:19 AM EDT IRON AND TOTAL IRON BINDING CAPACITY Routine 07/12/2025 11:19 AM EDT T4, FREE Routine 07/12/2025 11:19 AM EDT TSH W/REFLEX TO FT4 Routine 07/12/2025 1 1:19 AM EDT Numbness and tingling of both feet POCT DIVYA-14 URINE DRUG SCREEN Routine 07/08/2025 [...] 10:33 AM EDT Uncomplicated opioid dependence (CMS/HCC) from Last 3 Months Results * Methylmalonic Acid (07/13/2025) Blood Venous blood specimen / Unknown us Pradip Riggs MD LAB BLOOD ORDERABLES Final Result [facility] [address] [place] [address] [phone] * (ABNORMAL) TSH W/Reflex to FT4 (07/12/2025 11:19 AM EDT) Only the most recent of3 resultswithin the time period is included. TSH reflex Free T4 94.94(H) 0.32 - 4.0 uIU/mL [facility] Blood Venous blood specimen / Unknown 07/12/2025 11:19 AM EDT 07/12/2025 1:04 PM EDT Nelia Patel ANP LAB BLOOD ORDERABLES Final Resul t Performing Organization Address [facility] de Phone Number [facility] [address] [place] [phone] * Iron And Total Iron Binding Capacity (07/12/2025 11:19 AM EDT) Iron 78 45 - 160 mcg/dL [facility] Total Iron Binding Capacity 331 228 - 428 mcg/dL [facility] Percent Iron Saturation 24 15 - 50 % [facility] Unsaturated Iron Binding 253 ug/dL [facility] 07/12/2025 11:1 9 AM EDT 07/12/2025 1:04 PM EDT Nelia Patel [facility] LAB BLOOD ORDERABLES Final Resul t Performing Organization Address [facility] Phone Number [facility] [address] [place] [phone] * (ABNORMAL) T4, Free (07/12/2025 11:19 AM EDT) Only the most recent of3 resultswithin the time period is included. Free T4 (Free Thyroxine) <0.42(L) 0.71 - 1.85 ng/dL [facility] 07/12/2025 11:1 9 AM EDT 07/12/2025 1:04 PM EDT Nelia Patle ANP LAB BLOOD ORDERABLES Final Resul t Performing Organization Address [facility] Phone Number [facility] [address] [place] [phone] * (ABNORMAL) Ferritin (07/12/2025 11:19 AM EDT) Ferritin 293(H) 20 - 250 ng/mL [facility] 07/12/2025 11:1 9 AM EDT 07/12/2025 1:04 PM EDT Nelia KIM LAB BLOOD ORDERABLES Final Resul t [facility] [address] [place] [phone] * (ABNORMAL) POCT DIVYA-14 Urine Drug Screen (07/08/2025 10:39 AM EDT) Only the most recent of8 resultswithin the time period is included. THC [...] AM EDT Narrative 06/23/2025 8:38 AM EDT [address] [address] XRay Report Signed Patient: Esteban Chiu MR#: [id number] : 1970 Acct:[id number] Age/Sex: 54 / M ADM Date: 06/23/25 Loc: .ED Attending Dr: Ordering Physician: James Singleton MD Date of Service: 06/23/25 Procedure(s): XR ankle LT 2V Accession Number(s): [id number] cc: James Singleton MD; Pradip Maurice MD [...] 06/23/25 0836 DD/ 0805 TD/TT: 06/23/25 0815 Medical Front Desk Specialist: Procedure Note Donotuseinterpreter, Image - 06/23/2025 [place] [address] XRay Report Signed Patient: Esteban Chiu [facility]#: [id number] : 1970Acct:[id number] Age/Sex: 54 / MADM Date: 06/23/25 Loc: .ED Attending Dr: Ordering Physician: James Singleton MD Date of Service: 06/23/25 Procedure(s): XR ankle LT 2V Accession Number(s): [id number] cc: James Singleton MD; Pradip Maurice MD [...] Pedraza MD in OV> 06/23/25 0836 DD/ 4 TD/TT: 06/23/25 0815 Medical Front Desk Specialist: [facility] External Provider IMG XR PROCEDURES Final Result * (ABNORMAL) CBC auto differential (06/23/2025 8:01 AM EDT) Only the most recent of3 resultswithin the time period is included. White Blood Count 6.2 4.8 - 10.8 X10*3/uL [facility] Red Blood Count 3.73(L) 4.60 - 5.80 X10*6/uL [facility] Hemoglobin 12.3(L) 14.0 - 18.0 g/dl [facility] Hematocrit 34.7(L) 42.0 - 52.0 % [facility] Mean Corpuscular Volume 93.0 80.0 - 98.0 fL [facility] Mean Corpuscular Hemoglobin 33.0 27.0 - 33.0 pg [facility] LABS Mean Corpuscular HGB Conc 35.4 31.0 - 36.0 g/dl [facility] Red Cell Distribution Width 12.8 11.0 - 16.0 % [facility] Platelet Count 220 160 - 400 X10*3/uL [facility] Mean Platelet Volume 9.4 9.4 - 12.4 fL [facility] Neutrophils Percent Auto 51.9 45 - 73 % [facility] Imm Gran Pct Auto 0.3 0.0 - 0.4 % [facility] Lymphocytes Percent Auto 39.4 20 - 40 % [facility] Monocytes Percent Auto 5.9 2 - 11 % [facility] Eosinophils Percent Auto 2.2 0 - 4 % [facility] Basophils Percent Auto 0.3 0 - 2 % [facility] NRBC Pct Auto 0.0 0.0 - 0.2 /100WBC [facility] Neutrophils Absolute Auto 3.2 2.0 - 8.3 x10*3/uL [facility] Imm Gran Abs Auto 0.02 0.00 - 0.03 X10*3/uL [facility] Lymphocytes Absolute Auto 2.5 1.2 - 4.9 X10*3/uL [facility] Monocytes Absolute Auto 0.4 0.1 - 1.2 X10*3/uL [facility] Eosinophils Absolute Auto 0.1 0.0 - 0.4 X10*3/uL [facility] Basophils Absolute Auto 0.0 0.0 - 0.2 X10*3/uL [facility] NRBC Abs Auto 0.000 0.0 - 0.012 X10*3/uL [facility] 06/23/2025 8:01 AM EDT 06/23/2025 8:03 AM EDT us Generic External Data Provider LAB BLOOD ORDERAB LES Final Result Performing Organization Address [facility] Co de Phone Number [facility] [address] [place] [phone] * (ABNORMAL) Sed Rate by Modified Clay (06/23/2025 8:01 AM EDT) Only the most recent of2 resultswithin the time period is included. Erythrocyte Sedimentation Rate 32(H) 0 - 15 MM/HR [facility] Comment:Patients with polycy themia and many hemoglobin abnormalitiesmay have depressed sed rates whereas patients with anemiamay have elevated sed rates. 06/23/2025 8:01 AM EDT 06/23/2025 8:03 AM EDT us Generic External Data Provider LAB BLOOD ORDERAB LES Final Result Performing Organization Address [facility]/ZIP Co de Phone Number [facility] [address] [place] [phone] * (ABNORMAL) C-reactive Protein (06/23/2025 8:01 AM EDT) Only the most recent of3 resultswithin the time period is included. C Reactive Protein 1.88(H) < or = 0.50 mg/dL [facility] 06/23/2025 8:01 AM EDT 06/23/2025 8:03 AM EDT us Generic External Data Provider LAB BLOOD ORDERAB LES Final Result Performing Organization Address City/State/[facility] Co de Phone Number [facility] [address] [place] [phone] * XR Foot 1-2 Views Left (06/23/2025 7:08 AM EDT) Anatomical Region Laterality Modality Lower Extremities, Foot Left Radiogra phic Imaging 06/23/2025 7:08 AM EDT Narrative 06/23/2025 8:38 AM EDT [address] [address] XRay Report Signed Patient: Esteban Chiu MR#: [id number] : 1970 Acct:[id number] Age/Sex: 54 / M ADM Date: 06/23/25 Loc: HO.ED Attending Dr: Ordering Physician: James Singleton MD Date of Service: 06/23/25 Procedure(s): XR foot LT 2V Accession Number(s): [id number] cc: James Singleton MD; Pradip Maurice MD [...] signed by Lopez Pedraza MD in OV> 06/23/2536 DD/ 0708 TD/TT: 06/23/25 0815 Medical Front Desk Specialist: Procedure Note Donotuseinterpreter, Image - 06/23/2025 [place] [address] XRay Report Signed Patient: Esteban Chiu MMR#: [id number] : 1970Acct:[id number] Age/Sex: 54 / MADM Date: 06/23/25 Loc: HO.ED Attending Dr: Ordering Physician: James Singleton MD Date of Service: 06/23/25 Procedure(s): XR foot LT 2V Accession Number(s): [id number] cc: James Singleton MD; Pradip Maurice MD [...] 06/23/25 0836 DD/ 0708 TD/TT: 06/23/25 0815 Medical Front Desk Specialist: [facility] External Provider IMG XR PROCEDURES Final Result * (ABNORMAL) Thyroid Peroxidase Antibodies (06/13/2025 12:08 PM EDT) Thyroid Peroxidase Antibodies 664(A) <9 IU/mL [facility] Comment:THIS TEST WAS PERFOR MED AT:[facility] [address] [phone] NELSON MD Blood Venous blood specimen / Unknown 06/13/2025 12:08 PM EDT 06/13/2025 12:08 PM EDT Pradip Riggs MD LAB BLOOD ORDERABLES Final Result Performing Organization Address [facility] Co de Phone Number [facility] [address] [place] [phone] * Cryoglobulin (% Cryocrit), Serum (06/13/2025 12:08 PM EDT) Cryoglobulin, Ql, Serum, Rflx Negative Negative [facility] Comment:The Cryocrit is prim arily intended for following apatient with previously defined and quantitatedcryoglobulins. The cryocrit may consist ofcryoglobulins, fibrins, complement, or mixtures ofthese.THIS TEST WAS PERFORMED AT:[facility] [place] [address]WSOMFJZMARIANNE DELUCA MD,PHD % Cryocrit TNP [facility] Blood Venous blood specimen / Unknown 06/13/2025 12:08 PM EDT 06/13/2025 12:08 PM EDT Pradip Riggs MD LAB BLOOD ORDERABLES Final Result Performing Organization Address [facility] Co de Phone Number [facility] [address] [place] [phone] * ANCA Vasculitides (06/07/2025 11:07 AM EDT) Myeloperoxidase Antibody <1.0 [facility] Comment:Value Interpretation ----- <1.0 No Antibody Detected > or = 1.0 Antibody DetectedAutoantibodies to myeloperoxidase (MPO) are commonlyassociated with the following small-vesselvasculitides: microscopic polyangiitis,polyarteritis nodosa, Churg-Irena syndrome,necrotizing and crescentic glomerulonephritis andoccasionally granulomatosis with polyangiitis(GPA, Sanjuana's). The perinuclear IFA pattern,(p-ANCA) is based largely on autoantibody tomyeloperoxidase which serves as the primary antigen.These autoantibodies are present in active disease. Proteinase-3 Antibody <1.0 [facility] Comment:Value Interpretation ----- <1.0 No Antibody Detected > or = 1.0 Antibody DetectedAutoantibodies to proteinase-3 (AZ-3) are accepted ascharacteristic for granulomatosis with polyangiitis(GPA, Sanjuana's), and are detectable in 95% of thehistologically proven cases. The cytoplasmic IFApattern, (c-ANCA), is based largely on autoantibody toPR-3 which serves as the primary antigen.These autoantibodies are present in active disease.THIS TEST WAS PERFORMED AT:[address] [place] [phone] NELSON MD Blood 06/07/2025 11:0 7 AM EDT 06/07/2025 1:29 PM EDT [facility] LAB BLOOD ORDERABLES Final Resul t [facility] [address] [place] [phone] * PSA, Screen (06/07/2025 11:07 AM EDT) PSA, Total 0.19 <0.05 - 4.0 ng/mL [facility] Comment:PSA methodology: Abb jona Alinity i ChemiluminescentMicroparticle Immunoassay (CMIA) Blood Venous blood specimen / Unknown 06/07/2025 11:07 AM EDT 06/07/2025 1:29 PM EDT Pradip Riggs MD LAB BLOOD ORDERABLES Final Result Performing Organization Address [facility]ZIP Co de Phone Number [facility] [address] [place] [phone] * Vitamin B12/Folate, Serum Panel (06/07/2025 11:07 AM EDT) Vitamin B12 229 200 - 900 pg/mL [facility] Comment:NORMAL 200-900 PG/ML INDETERMINATE 160-199 PG/ML DEFICIENT < 160 PG/ML Folate 10.2 > or = 4.0 ng/mL [facility] Comment:Reference Values:> o r = [...] BLOOD ORDERABLES Final Result Performing Organization Address [facility] Co de Phone Number [facility] [address] [place] [phone] * Urinalysis, Complete, with Reflex to Culture (06/07/2025 11:07 AM EDT) Color Urine Yellow [facility] Appearance Urine Turbid [facility] PH 5.0 5.0 - 9.0 [facility] Glucose Urine UA Negative Negative mg/dL [facility] Urine Blood Negative Negative [facility] Specific [place] - Urine 1.025 1.005 - 1.025 [facility] Urine Protein Trace Neg-Trace mg/dL [facility] Urine Ketones Trace Negative mg/dL [facility] Nitrite Urine Negative Negative [facility] Leukocyte Esterase Urine Negative Negative [facility] RBC Urine 0-2 0 - 2 /HPF [facility] Urine WBC 0-5 0 - 5 /HPF [facility] Urine Squamous Epithelial Cell 0-2 0 - 2 /HPF [facility] CALCIUM OXALATE CRYSTAL, UR Present [facility] Urine Bacteria None Seen None Seen [facility] Hyaline Casts, Urine 0-2 0 - 2 /LPF [facility] Urine 06/07/2025 11:0 7 AM EDT 06/07/2025 1:04 PM EDT Narrative [facility] - 06/07/2025 1:52 PM EDT Urine, Clean Catch Pradip Riggs MD LAB URINE ORDERABLES Final Result Performing Organization Address [facility]ZIP Co de Phone Number [facility] [address] [place] [phone] * Hepatitis C Antibody with Reflex to HCV, RNA, Quantitative, Real-Time PCR (06/07/2025 11:07 AM EDT) Hepatitis C Antibody Nonreactive Nonreactive [facility] Comment:Antibodies to HCV no t detected; does not exclude early acuteHCV infection. Blood Venous blood specimen / Unknown 06/07/2025 11:07 AM EDT 06/07/2025 1:29 PM EDT Pradip Riggs MD LAB BLOOD ORDERABLES Final Result Performing Organization Address [facility]ZIP Co de Phone Number [facility] [address] [place] [phone] * Hepatitis B surface antigen, EIA (06/07/2025 11:07 AM EDT) Pathologist [facility] Hepatitis B Surface Ag Negative Negative [facility] Blood Venous blood specimen / Unknown 06/07/2025 11:07 AM EDT 06/07/2025 1:29 PM EDT Pradip Riggs MD LAB BLOOD ORDERABLES Final Result Performing Organization Address [facility] Co de Phone Number [facility] [address] [place] [phone] * Hepatitis B Core Antibody, Total (06/07/2025 11:07 AM EDT) Pathologist [facility] Hepatitis B Core Antibody Nonreactive Nonreactive [facility] Blood Venous blood specimen / Unknown 06/07/2025 11:07 AM EDT 06/07/2025 1:29 PM EDT Pradip Riggs MD LAB BLOOD ORDERABLES Final Result Performing Organization Address [facility] Number [facility] [address] [place] [phone] * RPR (Monitor) with Reflex to??Titer (06/07/2025 11:07 AM EDT) Only the most recent of2 resultswithin the time period is included. Pathologist [facility] RPR (Monitor) w/Refl Titer NON-REACTI VE NON-REACT KAMINI [facility] Comment:THIS TEST WAS PERFOR MED AT:[address] [place] [phone] NELSON MD Rapid Plasma Reagin Ab Titer TNP [facility] Blood Venous blood specimen / Unknown 06/07/2025 11:07 AM EDT 06/07/2025 1:29 PM EDT Pradip Riggs MD LAB BLOOD ORDERABLES Final Result Performing Organization Address [facility] Co de Phone Number [facility] [address] [place] [phone] * HIV-1/2 Antigen and Antibodies, Fourth Generation, with Reflexes (06/07/2025 11:07 AM EDT) HIV AB/AG Nonreactive Nonreactive [facility] Comment:HIV-1 p24 Ag and/or HIV-1/HIV-2 Ab not detected.A test result that is nonreactive does not exclude thepossibility of exposure to or infection with HIV-1 and/orHIV-2. Nonreactive results in this assay for individualswith prior exposure to HIV-1 and/or HIV-2 may be due toantigen and antibody levels that are below the limit ofdetection of this assay.The [employer] HIV Ag/Ab Combo assay result andsupplemental assay results should be interpreted inconjunction with the patient's clinical presentation,history and other laboratory results. If the results areinconsistent with clinical evidence, additional testing issuggested to confirm the result. Blood Venous blood specimen / Unknown 06/07/2025 11:07 AM EDT 06/07/2025 1:29 PM EDT Pradip Riggs MD LAB BLOOD ORDERABLES Final Result Performing Organization Address [facility] de Phone Number [facility] [address] [place] [address] [phone] * Hepatitis B Surface Antibody, Qualitative (06/07/2025 11:07 AM EDT) ~Hepatitis B Surface Antibody REACTIVE Nonreactive [facility] Comment:REACTIVE: > 11.99 mI U/mL Blood Venous blood specimen / Unknown 06/07/2025 11:07 AM EDT 06/07/2025 1:29 PM EDT Pradip Riggs MD LAB BLOOD ORDERABLES Final Result Performing Organization Address [facility] Co de Phone Number [facility] [address] [place] [phone] * Rheumatoid Factor (06/07/2025 11:07 AM EDT) Rheumatoid Factor <13.0 <15.0 IU/mL [facility] Blood Venous blood specimen / Unknown 06/07/2025 11:07 AM EDT 06/07/2025 1:29 PM EDT Pradip Riggs MD LAB BLOOD ORDERABLES Final Result Performing Organization Address [facility]/ZIP Co de Phone Number [facility] [address] [place] [address] [phone] * Complement Component C3c (06/07/2025 11:07 AM EDT) Complement C3 148 82 - 185 mg/dL [facility] Comment:THIS TEST WAS PERFOR MED AT:[address] [place] [phone] NELSON MD Blood Venous blood specimen / Unknown 06/07/2025 11:07 AM EDT 06/07/2025 1:13 PM EDT Pradip Riggs MD LAB BLOOD ORDERABLES Final Result Performing Organization Address [facility]/ZIP Co de Phone Number [facility] [address] [place] [phone] * Complement Component C4c (06/07/2025 11:07 AM EDT) Complement C4 25 15 - 53 mg/dL [facility] Comment:THIS TEST WAS PERFOR MED AT:[address] [place] [phone] NELSON MD Blood Venous blood specimen / Unknown 06/07/2025 11:07 AM EDT 06/07/2025 1:13 PM EDT us Pradip Riggs MD LAB BLOOD ORDERABLES Final Result [facility] [address], [place] [phone] * (ABNORMAL) NILDA Screen,IFA, with Reflex to Titer and Pattern (06/07/2025 11:07 AM EDT) Anti Nuclear Antibody Screen POSITIVE (A) NEGATIVE [facility] Comment:NILDA IFA is a first l ine screen for detecting thepresence of up to approximately 150 autoantibodies invarious autoimmune diseases. A positive NILDA IFA resultis suggestive of autoimmune disease and reflexes totiter and pattern. Further laboratory testing may beconsidered if clinically indicated.For additional information, please refer tohttp://education.Evermind/faq/VXP646(This link is being provided for informational/educational purposes only.) NILDA Titer 1:320(A) titer [facility] Comment:Reference Range <1:4 0 Negative 1:40-1:80 Low Antibody Level >1:80 Elevated Antibody Level NILDA Pattern Nuclear, Nucleola r(A) [facility] Comment:Nucleolar pattern is associated with systemic sclerosis(scleroderma), systemic sclerosis/polymyositis overlapand Sjogren's syndrome.AC-8,9,10: NucleolarInternational Consensus on NILDA Patterns(https://doi.org/10.1515/uezd-6837-2650) NILDA TITER 2 (REF LAB) 1:80(A) titer [facility] Comment:A low level NILDA tite r may be present in pre-clinicalautoimmune diseases and normal individuals. Reference Range <1:40 Negative 1:40-1:80 Low Antibody Level >1:80 Elevated Antibody Level NILDA Pattern 2 Nuclear, Speckled (A) [facility] Comment:Speckled pattern is associated with mixed connectivetissue disease (MCTD), systemic lupus erythematosus(SLE), Sjogren's syndrome, dermatomyositis, andsystemic sclerosis/polymyositis overlap.AC-2,4,5,29: SpeckledInternational Consensus on NILDA Patterns(https://doi.org/10.1515/seot-4502-6449)THIS TEST WAS PERFORMED AT:[address] [place] [phone] NELSON MD NILDA TITER 3 [facility] NILDA PATTERN 3 [facility] Blood Venous blood specimen / Unknown 06/07/2025 11:07 AM EDT 06/07/2025 1:29 PM EDT us Pradip Riggs MD LAB BLOOD ORDERABLES Final Result Performing Organization Address [facility] Co de Phone Number [facility] [address] [place] [phone] * Vitamin B12 (06/07/2025 11:07 AM EDT) Vitamin B12 283 200 - 900 pg/mL [facility] Comment:NORMAL 200-900 PG/ML INDETERMINATE 160-199 PG/ML DEFICIENT < 160 PG/ML Blood Venous blood specimen / Unknown 06/07/2025 11:07 AM EDT 06/07/2025 1:29 PM EDT us Nelia KIM LAB BLOOD ORDERABLES Final Resul t Performing Organization Address [facility] Co de Phone Number [facility] [address] [place] [phone] * (ABNORMAL) Lipid Panel, Standard (06/07/2025 11:07 AM EDT) Triglycerides 224(H) <150 mg/dL [facility] Comment:Desirable Triglyceri de: less than 150 mg/dLBorderline High Triglyceride 150-199 mg/dLHigh Triglyceride: 200-499 mg/dLVery High Triglyceride: greater than or equal to 5OO mg/dL Cholesterol 279(H) <200 mg/dL [facility] Comment:Desirable Cholestero l: less than 200 mg/dLBorderline High Cholesterol: 200-239 mg/dLHigh Cholesterol: greater than 239 mg/dL LDL Cholesterol Calculated 191(H) <100 mg/dL [facility] Comment:Desirable LDL: less than 100 mg/dLNear Optimal/Above Optimal LDL: 110- 129 mg/dLBorderline High LDL: 130-159 mg/dLHigh LDL: 160-189 mg/dLVery High LDL: greater than or equal to 190 mg/dL HDL Cholesterol 44 >40 mg/dL [facility] Comment:Desirable HDL: great er than 40 mg/dL Note: This HDL assay may give artificially low results in patients with liver disease. Blood Venous blood specimen / Unknown 06/07/2025 11:07 AM EDT 06/07/2025 1:26 PM EDT us Pradip Riggs MD LAB BLOOD ORDERABLES Final Result [facility] [address] [place] [phone] * (ABNORMAL) Basic Metabolic Panel (06/07/2025 11:07 AM EDT) Sodium 139 135 - 145 mmol/L [facility] Potassium 4.0 3.3 - 5.1 mmol/L [facility] Chloride 104 96 - 108 mmol/L [facility] Carbon Dioxide 24 22 - 29 mmol/L [facility] Anion Gap 15 12 - 20 [facility] Urea Nitrogen (BUN) 17(H) 9 - 16 mg/dL [facility] Creatinine, Serum 1.43(H) 0.5 - 1.4 mg/dL [facility] Estimated Glomerular Filt Rate 52 [facility] Comment:Chronic Kidney Disea se: Estimated GFR < 60 mL/min/1.25d6Mswrwt Kidney Disease: Estimated GFR < 15 mL/min/1.73m2 Glucose 102 60 - 115 mg/dL [facility] Calcium 9.2 8.4 - 10.2 mg/dL [facility] Blood Venous blood specimen / Unknown 06/07/2025 11:07 AM EDT 06/07/2025 1:26 PM EDT us Nelia Patel ANP LAB BLOOD ORDERABLES Final Resul t [facility] [address] [place] [phone] from Last 3 Months Insurance BCBS PPO Care Teams Slab Off Mill Tender Relationship Specialty Start Date End Date Pradip Wilson MD [address] [place] [address] PCP - General Internal Medicine 05/12/25
--- OUTSIDE RECORDS SUMMARY | 2025-07-29 04:39 | XMS_ITS | Encounter Summary ---
Author Organization [employer] Address [address] [place] [address] Care Team Providers Care Outboard Motorboat Rigger Name Role Phone Pradip Wilson MD Primary Care Provide r Encounter Details Date Type Department Care Team (Late st Contact Info) Description 06/08/2025 Orders Only [facility] [address] [place] [phone] Sandoval Dobson, KavitaD Social History Tobacco Use [...] Description 08/05/2025 10:15 AM EDT Office Visit [facility] [address] [place] [phone] Rashawn Weiss MD [address] [place] [phone] 08/30/2025 3:00 PM EDT Office Visit [facility] [address] [place] [phone] Pradip Wilson MD [address] [place] [phone] documented as of this encounter Goals Goal Patient Goal Type Associated Problems Recent Progress Patient-Stated? Author Reduce use of crystal meth General On track( 11:34 AM EDT) Yes Noemi Osborn, NAJMA Note: Has not tested positive for a while. Go to [facility] for tinnitus. General On track( 11:27 AM EDT) Yes Noemi Osborn RN Note: 03/11 Still hasn't gone to [...] documented as of this encounter Care Teams Outboard Motorboat Rigger Relationship Specialty Start Date End Date Pradip Wilson MD [address] [place] [address] PCP - General Internal Medicine 05/12/25 documented as of this encounter
== END 2025-07-29 04:45 | disposition home or self-care (01) ==
PROVIDERS: Emergency Provider Emergency Medicine; PCP Internal Medicine
DX: L03.116 Cellulitis of left lower limb (principal); I10 Essential (primary) hypertension; Z79.899 Other long term (current) drug therapy
CPT/HCPCS: 36415; 80053; 85025; 99283; 99284

== ENCOUNTER 2025-09-02 11:12 | Outpatient (REF) | payer BC, SELFPAY ==
--- OUTSIDE RECORDS SUMMARY | 2025-08-30 15:00 | XMS_ITS | Encounter Summary ---
Author Organization [employer] Address [address] [facility] 7t [place] [address] Care Team Providers Care Collaborating Supervising Physician Name Role Phone Pradip Wilson MD Primary Care Provide r Encounter Details Date Type Department Care Team (Latest Contact Info) Description 08/30/2025 3:00 PM EDT Office Visit [facility] MEDICINE [address] [place] [address] [phone] Pradip Wilson MD [address] [place], [place] [phone] Chronic midline low back pain without sciatica (Primary Dx); Hyperlipidemia, unspecified hyperlipidemia type; Essential hypertension; Tinnitus of both ears; Hypothyroidism, unspecified type Social History Tobacco Use Types Packs/Day Years [...] Sign Reading Time Taken Comments Blood Pressure 126/84 08/30/2025 3:09 PM EDT Pulse 65 08/30/2025 3:09 PM EDT Temperature 36.3 C (97.3 F) 08/30/2025 3:09 PM EDT Respiratory Rate 20 08/30/2025 3:09 PM EDT Oxygen Saturation - - Inhaled Oxygen Concentration - - Weight 92 kg (202 lb 12.8 oz) 08/30/2025 3:09 PM EDT Height 175.3 cm (5' 9 ) 08/30/2025 3:09 PM EDT Body Mass Index 29.95 08/30/2025 3:09 PM EDT documented in this encounter Progress Notes * Pradip Riggs MD - 08/30/2025 3:00 PM EDT SUBJECTIVE Mendoza López is a 54 y.o. male who presents for No chief complaint on file.. HPI Review of Systems Constitutional: Negative for fever. HENT: Negative for sore throat. Respiratory: Negative for cough and shortness of breath. Cardiovascular: Negative for chest pain. Gastrointestinal: Negative for abdominal pain. Neurological: Negative for headaches. Allergies[1] OBJECTIVE Vitals: 08/30/25 1509 BP: 126/84 BP Location: Left arm Patient Position: Sitting BP Cuff Size: Large adult Pulse: 65 Resp: 20 Temp: 97.3 ??F (36.3 ??C) TempSrc: Temporal Weight: 202 lb 12.8 oz (92 kg) Height: 5' 9 (1.753 m) Physical Exam Vitals reviewed. Constitutional: Appearance: Normal appearance. HENT: Head: Normocephalic and atraumatic. Right Ear: External ear normal. Left Ear: External ear normal. Nose: Nose normal. Mouth/Throat: Mouth: Mucous membranes are moist. Eyes: Conjunctiva/sclera: Conjunctivae normal. Cardiovascular: Rate and Rhythm: Normal rate and regular rhythm. Pulmonary: Effort: Pulmonary effort is normal. Breath sounds: Normal breath sounds. Skin: General: Skin is warm. Neurological: Mental Status: He is alert. Mental status is at baseline. Assessment/Plan Problem List Items Addressed This Visit Hyperlipidemia Lab Results Component Value Date TRIG 224 (H) 06/07/2025 CHOL 279 (H) 06/07/2025 LDLCHOLCAL 191 (H) 06/07/2025 HDL 44 06/07/2025 Pt with hyperlipidemia Currently on: Atorvastatin 20 mg po at bedtime Will have repeat Lipid profile prior to next visit Relevant Orders Lipid Panel, Standard Essential hypertension Patient here for a follow up visit Currently on: Atenolol 50 mg po daily and hydrochlorothiazide 25 mg po daily Lab Results Component Value Date NA 143 07/29/2025 NA 139 06/07/2025 K 3.7 07/29/2025 K 4.0 06/07/2025 CL 101 07/29/2025 CL 104 06/07/2025 BUN 15 07/29/2025 BUN 17 (H) 06/07/2025 CREATININE 1.34 07/29/2025 CREATININE 1.43 (H) 06/07/2025 BP today: Controlled Plan: Continue current regimen Tinnitus of both ears Patient here for a follow up Previously seen as new patient with c/o ringing in his head that won't go away. Patient describe itas not being sure if it's in his head or his ears. 26/05. Described as Non-pulsating. Patient says he had [...] shift, hydrocephalus, or acute hemorrhage. No significant atrophy-likechange or white matter disease. Mild mucosal thickening is seen in bilateral frontal sinuses, bilateral ethmoid air cells, and bilateral maxillary sinuses.The orbits are unremarkable. No skull fracture. Audiology report requested Previous visit patient was referred for ENT evaluation [facility] requested patient be seen by ENT first. ENT office requires patient calls to schedule his own appointment. Referral information given to patient at last visit I also ordered an MRI of brain and IAC given his c/o tinnitus associated with dizziness. Unfortunately his insurance denied the request. Will await for him to see ENT. Pt tells me he has an appointment coming up. Hypothyroidism As part of his work up for Tinnitus I ordered a TSH that was diagnostic of Hypothyroidism Lab Results Component Value Date TSH 94.94 (H) 07/12/2025 TPOs Positive suggestive of Thyroiditis Most recent TSH was still 94 (prior to increase to 88 mcg ) Pt is on Levothyroxine 88 mcg po daily Plan: Repeat TSH now titrate dose up as needed Order Thyroid US, yet to be done Pt awaiting Endocrinology consult Relevant Orders TSH with Reflex to Free T4 Chronic midline low back pain without sciatica - Primary Long standing hx of low back and right lower extremity pain. Hx of L4-S1 fusion years ago. Has persistent back and leg pain. Treated in the past with multiple courses of PT. [facility] a [facility] stating he is not a candidate for additional surgery and at some point he was being consider for a spinal cord stimulator. Pt brought a piece of paper from his requesting an [facility] No recent MRI of lumbar spine. Insurance denied our request for an MRI of LS spine Plan: Pt would like to wait for a referral [place] [facility] [place] Future Appointments Date Time Provider Department Center 09/02/2025 10:00 AM Rashawn Weiss MD MEDICINE [facility] 09/16/2025 9:15 AM Rashawn Weiss MD MEDICINE [facility] [1] Allergies Allergen Reactions Bupropion documented in this encounter Miscellaneous Notes * Assessment & Plan Note - Pradip Riggs MD - 08/30/2025 3:17 PM EDT Associated Problem(s): Chronic midline low back pain without sciatica Long standing hx of low back and right lower extremity pain. Hx of L4-S1 fusion years ago. Has persistent back and leg pain. Treated in the past with multiple courses of PT. There is a note from [facility] 06/2018 stating he is not a candidate for additional surgery and at some point he was being consider for a spinal cord stimulator. Pt brought a piece of paper from his requesting an appointment for a second opinion [facility]. No recent MRI of lumbar spine. Insurance denied our request for an MRI of LS spine Plan: Pt would like to wait for a referral to [facility] [place] * Assessment & Plan Note - Pradip Riggs MD - 08/30/2025 3:16 PM EDT Associated Problem(s): Hypothyroidism As part of his work up for Tinnitus I ordered a TSH that was diagnostic of Hypothyroidism Lab Results Component Value Date TSH 94.94 (H) 07/12/2025 TPOs Positive suggestive of Thyroiditis Most recent TSH was still 94 (prior to increase to 88 mcg ) Pt is on Levothyroxine 88 mcg po daily Plan: Repeat TSH now titrate dose up as needed Order Thyroid US, yet to be done Pt awaiting Endocrinology consult * Assessment & Plan Note - Pradip Riggs MD - 08/30/2025 3:13 PM EDT Associated Problem(s): Tinnitus of both ears Patient here for a follow up Previously seen as new patient with c/o ringing in his head that won't go away. Patient describe itas not being sure if it's in his head or his ears. 26/05. Described as Non-pulsating. Patient says he had [...] shift, hydrocephalus, or acute hemorrhage. No significant atrophy-likechange or white matter disease. Mild mucosal thickening is seen in bilateral frontal sinuses, bilateral ethmoid air cells, and bilateral maxillary sinuses.The orbits are unremarkable. No skull fracture. Audiology report requested Previous visit patient was referred for ENT evaluation [facility] requested patient be seen by ENT first. ENT office requires patient calls to schedule his own appointment. Referral information given to patient at last visit I also ordered an MRI of brain and IAC given his c/o tinnitus associated with dizziness. Unfortunately his insurance denied the request. Will await for him to see ENT. Pt tells me he has an appointment coming up. * Assessment & Plan Note - Pradip Riggs MD - 08/30/2025 3:12 PM EDT Associated Problem(s): Essential hypertension Patient here for a follow up visit Currently on: Atenolol 50 mg po daily and hydrochlorothiazide 25 mg po daily Lab Results Component Value Date NA 143 07/29/2025 NA 139 06/07/2025 K 3.7 07/29/2025 K 4.0 06/07/2025 CL 101 07/29/2025 CL 104 06/07/2025 BUN 15 07/29/2025 BUN 17 (H) 06/07/2025 CREATININE 1.34 07/29/2025 CREATININE 1.43 (H) 06/07/2025 BP today: Controlled Plan: Continue current regimen * Assessment & Plan Note - Pradip Riggs MD - 08/30/2025 3:11 PM EDT Associated Problem(s): Hyperlipidemia Lab Results Component Value Date TRIG 224 (H) 06/07/2025 CHOL 279 (H) 06/07/2025 LDLCHOLCAL 191 (H) 06/07/2025 HDL 44 06/07/2025 Pt with hyperlipidemia Currently on: Atorvastatin 20 mg po at bedtime Will have repeat Lipid profile prior to next visit documented in this encounter Plan of Treatment Upcoming Encounters Date Type Department Care Team (Late st Contact Info) Description 09/23/2025 10:00 AM EST Clinical Support [facility] MEDICINE [address] [place] [phone] Noemi Osborn, RN 10/21/2025 9:15 AM EST Office Visit [facility] MEDICINE [address] [place] [phone] Rashawn Weiss MD [address] [place] [phone] Scheduled Orders Name Type Priority Associated Diagnoses Orde r Schedule Lipid Panel, Standard Lab Routine Hyperlipidemia, unspecified hyperlipidemia type Expected: 08/30/2025 (Approximate), Expires: 10/30/2025 TSH with Reflex to Free T4 Lab Routine Hypothyroidism, unspecified type Ordered: 08/30/2025 documented as of this encounter Goals Goal Patient Goal Type Associated Problems Recent Progress Patient-Stated? Author Reduce use of crystal meth General On track( 025 11:22 AM EDT) Yes Noemi Osborn, RN Note: Has not tested positive for a while. Go to [facility] for tinnitus. General On track( 025 [...] perform daily activities General On track( 025 11:22 AM EDT) No Noemi Osborn, RN Note: He missed his last appt with [facility], and said he is making a new appt today. documented as of this encounter Visit Diagnoses Diagnosis Chronic midline low back pain without sciatica- Primary Hyperlipidemia, unspecified hyperlipidemia type Essential hypertension Unspecified essential hypertension Tinnitus of both ears Unspecified tinnitus Hypothyroidism, unspecified type documented in this encounter Additional Health Concerns Assessment Noted Time PHQ-9 Depression Total Score: 17 025 11:54 AM EDT documented as of this encounter Care Teams Collaborating Supervising Physician Relationship Specialty Start Date End Date Pradip Wilson MD [address] [place] [phone] PCP - General Internal Medicine 05/12/25 documented as of this encounter
--- OUTSIDE RECORDS SUMMARY | 2025-09-02 10:00 | XMS_ITS | Encounter Summary ---
Author Organization [employer] Address [address] [facility] 7t [place] [address] Care Team Providers Care Picker Feeder Name Role Phone Pradip Wilson MD Primary Care Provide r Reason for Visit * Reason Comments OBAT Encounter Details Date Type Department Care Team ([facility] st Contact Info) Description 09/02/2025 10:00 AM EDT Office Visit [facility] MEDICINE [address] [place], [place] [phone] Rashawn Weiss MD [address] [place] [address] Opioid dependence on agonist therapy (CMS/HCC) ([facility]) (Primary Dx); Alcohol use disorder; Tobacco use; Cocaine use; Uncomplicated opioid dependence (CMS/HCC) (HCC) Social History Tobacco Use Types Packs/Day Years [...] Description 09/23/2025 10:00 AM EST Clinical Support [facility] MEDICINE [address] [place] [phone] Noemi Osborn, RN 10/21/2025 9:15 AM EST Office Visit [facility] MEDICINE [address] [place] [phone] Rashawn Weiss MD [address] [place] [phone] documented as of this encounter Goals Goal Patient Goal Type Associated Problems Recent Progress Patient-Stated? Author Reduce use of crystal meth General On track( 025 11:22 AM EDT) Yes Noemi Osborn, RN Note: Has not tested positive for a while. Go to [facility] for tinnitus. General On track( 025 [...] as of this encounter Visit Diagnoses Diagnosis Opioid dependence on agonist therapy (CMS/HCC) (HCC)- Primary Alcohol use disorder Tobacco use Cocaine use Uncomplicated opioid dependence (CMS/HCC) (HCC) documented in this encounter Additional Health Concerns Assessment Noted Time PHQ-9 Depression Total Score: 17 025 11:54 AM EDT documented as of this encounter Care Teams Picker Feeder Relationship Specialty Start Date End Date Pradip Wilson MD [address] [place] [phone] PCP - General Internal Medicine 05/12/25 documented as of this encounter
--- OUTSIDE RECORDS SUMMARY | 2025-09-02 12:45 | XMS_ITS | Encounter Summary ---
Author Organization [employer] Address [address] [facility] [address] 7[address] [place] [address] Care Team Providers Care Ui Ux Developer Name Role Phone Pradip Wilson MD Primary Care Provide r Encounter Details Date Type Department Care Team (Latest Contact Info) Description 09/02/2025 Travel Social History Tobacco Use Types Packs/Day [...] Description 09/23/2025 10:00 AM EST Clinical Support [facility] MEDICINE [address] [place] [phone] Noemi Osborn RN 10/21/2025 9:15 AM EST Office Visit [facility] MEDICINE [address] [place] [phone] Rashawn Weiss MD [address] [place] [phone] documented as of this encounter Goals Goal Patient Goal Type Associated Problems Recent Progress Patient-Stated? Author Reduce use of crystal meth General On track( 11:22 AM EDT) Yes Noemi Osborn, RN [...] General On track( 025 11:22 AM EDT) Noemi Calvin, RN Note: He missed his last appt with [facility], and said he is making a new appt today. documented as of this encounter Visit Diagnoses Not on filedocumented in this encounter Additional Health Concerns Assessment Noted Time PHQ-9 Depression Total Score: 17 025 11:54 AM EDT documented as of this encounter Care Teams Ui Ux Developer Relationship Specialty Start Date End Date Pradip Wilson MD [address] [place] [address] PCP - General Internal Medicine 05/12/25 documented as of this encounter
--- OUTSIDE RECORDS SUMMARY | 2025-09-02 12:45 | XMS_ITS | Encounter Summary ---
Author Organization [employer] Address [address] [place] [address] 7 [place] [address] Care Team Providers Care Band Sawmill Operator Name Role Phone Pradip Wilson MD Primary Care Provide r Reason for Visit * Reason Onset Date Comments Hospital Follow-up 05/31/2025 Encounter Details Date Type Department Care Team ([facility] st Contact Info) Description 05/31/2025 Telephone [facility] MEDICINE [address] [place], [place] [phone] Pradip Wilson MD [address] [place] [address] Hospital Follow-up Social History Tobacco Use Types [...] from pt requesting a HDF appt. Hospital: [facility] Date of admission: 05/27 Discharge date: 06/01 Diagnosed: Severe mood disorders with psychotic features *Send message to Sharon Clinical Care Coordinators Contact pt at [phone] documented in this encounter Plan of Treatment Upcoming Encounters Date Type Department Care Team (Late st Contact Info) Description 09/23/2025 10:00 AM EST Clinical Support [facility] MEDICINE [address] [place] [phone] Noemi Osborn RN 10/21/2025 9:15 AM EST Office Visit [facility] MEDICINE [address] [place] [phone] Rashawn Weiss MD [address] [place] [phone] documented as of this encounter Goals Goal Patient Goal Type Associated Problems Recent Progress Patient-Stated? Author Reduce use of crystal meth General On track( 11:22 AM EDT) Yes Noemi Osborn, RN Note: Has not tested positive for a while. Go to [facility] for tinnitus. General On track( 11:27 AM [...] to perform daily activities General On track( 11:22 AM EDT) No Noemi Osborn, RN Note: He missed his last appt with [facility], and said he is making a new appt today. documented as of this encounter Visit Diagnoses Not on filedocumented in this encounter Additional Health Concerns Assessment Noted Time PHQ-9 Depression Total Score: 19 025 2:58 PM EDT documented as of this encounter Care Teams Band Sawmill Operator Relationship Specialty Start Date End Date Pradip Wilson MD [address] [place] [phone] PCP - General Internal Medicine 05/12/25 documented as of this encounter
--- OUTSIDE RECORDS SUMMARY | 2025-09-02 12:45 | XMS_ITS | Encounter Summary ---
Author Organization [employer] Address [address] [place] [address] 7 [place] [address] Care Team Providers Care Rodding Anode Worker Name Role Phone Pradip Wilson MD Primary Care Provide r Reason for Visit * Reason Onset Date Comments Med Refill 08/05/2025 Encounter Details Date Type Department Care Team (Late st Contact Info) Description 08/05/2025 Refill [facility] MEDICINE [address] [place], [place] [phone] Pradip Wilson MD [address] [place] [address] Hyperlipidemia, unspecified hyperlipidemia type Social History Tobacco Use Types Packs/Day [...] t he electric, gas, oil or water [employer] threatened to shut off services in your [...] Description 09/23/2025 10:00 AM EST Clinical Support [facility] MEDICINE [address] [place] [phone] Noemi Osborn RN 10/21/2025 9:15 AM EST Office Visit [facility] MEDICINE [address] [place] [phone] Rashawn Weiss MD [address] [place] [phone] documented as of this encounter Goals Goal Patient Goal Type Associated Problems Recent Progress Patient-Stated? Author Reduce use of crystal meth General On track( 11:22 AM EDT) Yes Noemi Osborn, RN Note: Has not tested positive for a while. Go to [facility] for tinnitus. General On track( 11:27 [...] On track( 025 11:22 AM EDT) Noemi Calvin RN Note: He missed his last appt with [facility], and said he is making a new appt today. documented as of this encounter Visit Diagnoses Diagnosis Hyperlipidemia, unspecified hyperlipidemia type documented in this encounter Additional Health Concerns Assessment Noted Time PHQ-9 Depression Total Score: 17 025 11:54 AM EDT documented as of this encounter Care Teams Rodding Anode Worker Relationship Specialty Start Date End Date Pradip Wilson MD [address] [place] [phone] PCP - General Internal Medicine 05/12/25 documented as of this encounter
--- OUTSIDE RECORDS SUMMARY | 2025-09-02 12:45 | XMS_ITS | Encounter Summary ---
Author Organization [facility] Address [address] [place] [address] Care Team Providers Care Poultry Farm Supervisor Name Role Phone Unavailable Primary Care Provider Unavailabl e Encounter Details Date Type Department Care Team (Late st Contact Info) Description 05/28/[address] [facility] Lab [address] [place] [address] Roel Valero [address] [place] [address] [phone] Other assisted (current) drug therapy Social History Tobacco Use [...] LDL Routine 05/28/2025 7:00 AM EDT Other assisted (current) drug therapy HEMOGLOBIN A1C Routine 05/28/2025 7:00 AM EDT Other assisted (current) drug therapy GLUCOSE, RANDOM Routine 05/28/2025 7:00 AM EDT Other assisted (current) drug therapy documented in this encounter Results * (ABNORMAL) Lipid panel with reflex to direct LDL (05/28/2025 7:00 AM EDT) Cholesterol 322(H) 0 - 200 mg/dL LAB CHEMISTRY METHOD 05/28/2025 11:33 AM EDT [facility] Triglycerides 342(H) 0 - 150 mg/dL LAB CHEMISTRY METHOD 05/28/2025 11:33 AM EDT [facility] HDL 46 >=40 mg/dL LAB CHEMISTRY METHOD 05/28/2025 11:33 AM EDT [facility] LDL Calculated 208(H) 0 - 100 mg/dL LAB CHEMISTRY METHOD 05/28/2025 11:33 AM EDT [facility] VLDL Cholesterol Win 68.4 mg/dL LAB CHEMISTRY METHOD 05/28/2025 11:33 AM EDT [facility] Non HDL Chol. (LDL+VLDL) 276(H) <145 mg/dL LAB CHEMISTRY METHOD 05/28/2025 11:33 AM EDT [facility] Chol/HDL Ratio 7.0(H) 0.0 - 4.4 LAB CHEMISTRY METHOD 05/28/2025 11:33 AM EDT [facility] Blood Venous blood specimen / Unknown Venipuncture / Unknown 05/28/2025 7:00 AM EDT 05/28/2025 10:36 AM EDT Roel Valero LAB BLOOD ORDERABLES Final Resu lt [facility] [address] [place] [address], [place] [phone] * Glucose, random (05/28/2025 7:00 AM EDT) Glucose 95 70 - 100 mg/dL LAB CHEMISTRY METHOD 05/28/2025 11:33 AM EDT [facility] Blood Venous blood specimen / Unknown Venipuncture / Unknown 05/28/2025 7:00 AM EDT 05/28/2025 10:36 AM EDT Roel Valero LAB BLOOD ORDERABLES Final Resu lt [facility] [address] [place] [address], [place] [phone] * Hemoglobin A1c (05/28/2025 7:00 AM EDT) Hemoglobin A1C 5.8 <6.5 % LAB CHEMISTRY METHOD 05/29/2025 12:33 PM EDT [facility] Mean Bld Glu Estim. 120 mg/dL LAB CHEMISTRY METHOD 05/29/2025 12:33 PM EDT [facility] Blood Venous blood specimen / Unknown Venipuncture / Unknown 05/28/2025 7:00 AM EDT 05/28/2025 10:36 AM EDT us Roel Valero LAB BLOOD ORDERABLES Final Resu lt [facility] [address] [place] [address], documented in this encounter Visit Diagnoses Diagnosis Other assisted (current) drug therapy documented in this encounter
--- OUTSIDE RECORDS SUMMARY | 2025-09-02 12:45 | XMS_ITS | Clinical Summary ---
Author Organization [address] Address [address] [place] [phone] Phone Care Team Providers Care Can Doffer Name Role Phone Unavailable Primary Care Provider Unavailabl e Social History Tobacco Use Types Packs/Day Years Used Date Smoking Tobacco: Never Assessed Sex and Gender Information Value Date Recorded Sex Assigned at Not on file Legal Sex Male 4:19 AM EST Gender Identity Not on file Sexual Orientation Not on file Plan of Treatment Health Maintenance Due Date Last Done Comments Colorectal Cancer Screening: Colonoscopy 1970 DTaP,Tdap,and Td Vaccines (1 - Tdap) 1989 Hepatitis B Vaccines (1 of 3 - 19+ 3-dose series) 1989 Pneumococcal Vaccine: 50+ Ye ars (1 of 1 - PCV) 2020 Zoster Vaccines (1 of 2) 2020 Depression Screening 11/03/2024 HIV Screening 05/28/2025 Hepatitis C Screening 05/28/2025 [...] LDL Routine 05/28/2025 7:00 AM EDT Other care home (current) drug therapy from Last 3 Months or Most Recently Relevant to Health Maintenance Results * (ABNORMAL) Lipid panel with reflex [...] 4.4 LAB CHEMISTRY METHOD 05/28/2025 11:33 AM [facility] Blood Venous blood specimen / Unknown Venipuncture / Unknown 05/28/2025 7:00 AM EDT 05/28/2025 10:36 AM EDT us Roel Valero LAB BLOOD ORDERABLES Final Resu lt [facility] [address] [place] [address], from Last 3 Months or Most Recently Relevant to Health Maintenance
--- OUTSIDE RECORDS SUMMARY | 2025-09-02 12:45 | XMS_ITS | Encounter Summary ---
Author Organization [employer] Address [address] [place] [address] Care Team Providers Care Pocket Builder Name Role Phone Pradip Wilson MD Primary Care Provide r Encounter Details Date Type Department Care Team (Latest Contact Info) Description 08/30/2025 Travel Social History Tobacco Use Types Packs/Day [...] Description 09/23/2025 10:00 AM EST Clinical Support [facility] [address] [place] [phone] Noemi Osborn RN 10/21/2025 9:15 AM EST Office Visit [facility] [address] [place] [phone] Rashawn Weiss MD [address] [place] [phone] documented as of this encounter Goals Goal Patient Goal Type Associated Problems Recent Progress Patient-Stated? Author Reduce use of crystal meth General On track( 11:22 AM EDT) Yes Noemi Osborn, RN Note: Has not tested positive for a while. Go to [facility] for tinnitus. General On track( 025 [...] documented as of this encounter Care Teams Pocket Builder Relationship Specialty Start Date End Date Pradip Wilson MD [address] [place] [phone] PCP - General Internal Medicine 05/12/25 documented as of this encounter
--- OUTSIDE RECORDS SUMMARY | 2025-09-02 12:45 | XMS_ITS | Encounter Summary ---
Author Organization [employer] Address [address] [place] [address] Care Team Providers Care Manager Of Community Relations Name Role Phone Pradip Wilson MD Primary Care Provide r Encounter Details Date Type Department Care Team (Late st Contact Info) Description 06/08/2025 Orders Only [facility] [address] [place] [address] Sandoval Dobson, KavitaD Social History Tobacco Use [...] Description 09/23/2025 10:00 AM EST Clinical Support [facility] [address] [place] [phone] Noemi Osborn RN 10/21/2025 9:15 AM EST Office Visit [address] [address] Rashawn Weiss MD [address] [place] [phone] documented as of this encounter Goals Goal Patient Goal Type Associated Problems Recent Progress Patient-Stated? Author Reduce use of crystal meth General On track( 025 11:22 AM EDT) Yes Noemi Osborn, RN Note: Has not tested positive for a while. Go to [facility] for tinnitus. General On track( 025 11:27 [...] track( 025 11:22 AM EDT) Noemi Calvin, NAJMA Note: He missed his last appt with [facility], and said he is making a new appt today. documented as of this encounter Visit Diagnoses Not on filedocumented in this encounter Additional Health Concerns Assessment Noted Time PHQ-9 Depression Total Score: 025 11:54 AM EDT documented as of this encounter Care Teams Manager Of Community Relations Relationship Specialty Start Date End Date Pradip Wilson MD [address] [place] [phone] PCP - General Internal Medicine 05/12/25 documented as of this encounter
--- OUTSIDE RECORDS SUMMARY | 2025-09-02 12:45 | XMS_ITS | Encounter Summary ---
Author Organization [employer] Address [address] [facility] [address] [place] [address] Care Team Providers Care Driller Portable Name Role Phone Pradip Wilson MD Primary Care Provide r Reason for Visit * Reason Onset Date Comments Med Refill 08/31/2025 Encounter Details Date Type Department Care Team (Late st Contact Info) Description 08/31/2025 Refill [facility] [address] [place] [address] Noemi Osborn RN Uncomplicated opioid dependence (CMS/HCC) ([facility]) Social History Tobacco Use Types Packs/Day Years [...] Description 09/23/2025 10:00 AM EST Clinical Support [facility] [address] [place] [phone] Noemi Osborn, NAJMA 10/21/2025 9:15 AM EST Office Visit [facility] [address] [place] [phone] Rashawn Weiss MD [address] [place] [phone] documented as of this encounter Goals Goal Patient Goal Type Associated Problems Recent Progress Patient-Stated? Author Reduce use of crystal meth General On track( 11:22 AM EDT) Yes Noemi Osborn, RN Note: Has not tested positive for a while. Go to [facility] for tinnitus. General On track( [...] Visit Diagnoses Diagnosis Uncomplicated opioid dependence (CMS/HCC) (HCC) documented in this encounter Additional Health Concerns Assessment Noted Time PHQ-9 Depression Total Score: 17 025 11:54 AM EDT documented as of this encounter Care Teams Driller Portable Relationship Specialty Start Date End Date Pradip Wilson MD [address] [place] [address] PCP - General Internal Medicine 05/12/25 documented as of this encounter
--- OUTSIDE RECORDS SUMMARY | 2025-09-02 12:46 | XMS_ITS | Clinical Summary ---
Author Organization [employer] Address [address] [place] [address] Care Team Providers Care Scalemaker Name Role Phone Pradip Wilson MD Primary [...] day at the same time. 30 patch 01/15/20 25 Active nicotine (Nicoderm CQ) 21 MG/24HR patchIndications: Tobacco use Place 1 patch on the skin 1 (one) time each day at the same time. 42 patch 01/15/20 25 Active cloNIDine (Catapres) 0.1 MG tabletIndications :Severe anxiety Take 1 tablet (0.1 mg) by mouth if needed in the morning and at bedtime (Anxiety). 60 tablet 1 04/29/20 25 Active atenolol (Tenormin) 50 MG tablet Take 2 tablets by mouth Once per day. 04/25/20 25 Active hydroCHLOROthiazi de (HYDRODiuril) 25 MG tablet Take 25 mg by mouth in the morning. 04/25/20 25 Active meclizine (Antivert) 25 MG tablet Take 1 tablet by mouth every 8 (eight) hours if needed for dizziness. 04/25/20 25 Active topiramate (Topamax) 25 MG tablet All PO. 1 tablet qHS x 1 week, then 2 tablets qHS for 1 week, the 1 tablet q a.m. and 2 q HS x 1 week, then 2 tablets PO BID x 1 week. 70 tablet 05/20/20 25 Active hydrOXYzine pamoate (Vistaril) 50 MG capsule TAKE 1 CAPSULE BY MOUTH EVERY 4 HOURS NEEDED FOR MODERATE TO SEVERE ANXIETY 06/01/20 25 Active OLANZapine (ZyPREXA) 10 MG tablet TAKE 1 TABLET BY MOUTH AT BEDTIME AVH/PARANOIA 06/01/20 25 Active escitalopram (Lexapro) 5 MG tabletIndications :Major depressive disorder with psychotic features (CMS/HCC) ([facility]) TAKE 1 TABLET BY MOUTH EVERY MORNING 30 tablet 1 06/20/20 25 Active fluticasone (Flonase) 50 MCG/ACT nasal sprayIndications: Seasonal allergic rhinitis, unspecified trigger INSTILL 1 TO 2 SPRAYS INTO EACH NOSTRIL EVERY DAY NEEDED FOR ALLERGIES. SHAKE GENTY, PRIME BEFORE FIRST USE, CLEAN TIP AND RECAP AFTER USE. 16 g 07/07/20 25 Active atorvastatin (Lipitor) 20 MG tabletIndications :Hyperlipidemia, unspecified hyperlipidemia type Take 1 tablet (20 mg) by mouth Once per day. 30 tablet 3 07/12/20 25 Active levothyroxine (Synthroid) 88 MCG tabletIndications :Hypothyroidism, unspecified type Take 1 tablet (88 mcg) by mouth before breakfast. 30 tablet 3 07/12/20 25 2025 Active cyanocobalamin (Vitamin B-12) 1000 MCG tabletIndications :Anemia, unspecified type Take 1 tablet (1,000 mcg) by mouth Once per day. 30 tablet 3 07/12/20 25 Active triamcinolone (Kenalog) 0.1 % creamIndications: Venous stasis dermatitis,Xerosi s of skin Apply topically 2 times daily. Mix with Cerave 80 g 2 07/22/20 25 Active Buprenorphine HCl-Naloxone HCl (Suboxone) 8-2 MG SL filmIndications:U ncomplicated opioid dependence (CMS/HCC) ([facility]) Place 1 Film under the tongue 3 times daily for 14 days. 42 Film 09/02/20 25 2024 Active Buprenorphine HCl-Naloxone HCl (Suboxone) 8-2 MG SL filmIndications:O pioid dependence on agonist therapy (CMS/HCC) ([facility]) Place 1 Film under the tongue 3 times daily for 21 days. 63 Film 09/02/20 25 2024 Active Buprenorphine HCl-Naloxone HCl (Suboxone) 8-2 MG SL filmIndications:U ncomplicated opioid dependence (CMS/HCC) (HCC) Place 1 Film under the tongue 3 times daily for 7 days. Do not start before July 08, 2025. 21 Film 07/08/20 25 2024 Discontinued(D uplicate order (will not trigger notification to Pharmacy)) Buprenorphine HCl-Naloxone HCl (Suboxone) 8-2 MG SL filmIndications:U ncomplicated opioid dependence (CMS/HCC) (HCC) Place 1 Film under the tongue 3 times daily for 14 days. Do not start before August 05, 2025. 42 Film 08/05/20 25 2024 Discontinued(R eorder (will not trigger notification to Pharmacy)) Buprenorphine HCl-Naloxone HCl (Suboxone) 8-2 MG SL filmIndications:U ncomplicated opioid dependence (CMS/HCC) (HCC) Place 1 Film under the tongue 3 times daily for 14 days. Do not start before August 19, 2025. 42 Film 08/19/20 25 2024 Discontinued(R eorder (will not trigger notification to Pharmacy)) Active Problems Problem Noted Date Diagnosed Date Hypothyroidism 07/12/2025 Assessment & Plan (08/30/2025 3:16 PM EDT): As part of his work [...] to be done Pt awaiting Endocrinology consult Assessment & Plan (07/12/2025 4:07 PM EDT): [...] Appointment pending. Hyperlipidemia 07/12/2025 Assessment & Plan (08/30/2025 3:12 PM EDT): Lab Results Component Value Date TRIG 224 (H) 06/07/2025 CHOL 279 (H) 06/07/2025 LDLCHOLCAL 191 (H) 06/07/2025 HDL 44 06/07/2025 Pt with hyperlipidemia Currently on: Atorvastatin 20 mg po at bedtime Will have repeat Lipid profile prior to next visit Assessment & Plan (07/12/2025 3:38 PM EDT): Lab Results Component Value Date TRIG 224 (H) 06/07/2025 CHOL 279 (H) 06/07/2025 LDLCHOLCAL 191 (H) 06/07/2025 HDL 44 06/07/2025 Pt with hyperlipidemia Currently not on any statin Plan: Start Atorvastatin 20 mg po qhs Chronic midline low back pain without sciatica 0 07/12/2025 Assessment & Plan (08/30/2025 3:26 PM EDT): Long standing hx of low [...] like to wait for a referral to [facility] spine center Assessment & Plan (07/12/2025 3:45 PM EDT): [...] Pending appointment on 09/06/25 @ 11:10 AM [facility] Assessment & Plan (05/12/2025 10:06 AM EDT): PSA ordered Colonoscopy: referred Cigarette nicotine dependence without complicati on 05/07/2025 Overview (05/07/2025): Update after visit: Pt had LDCT via [employer] program done on 09/22/24 printed from [employer]. Results sent to scan by [facility]. Essential hypertension 05/07/2025 Overview (05/07/2025): Atenolol 50mg and hctz 25mg daily, did not take one of these today. encouraged pt to take both together, as directed, write down BP for new PCP visit to review. Assessment & Plan (08/30/2025 3:12 PM EDT): Patient here for a follow [...] Plan: Continue current regimen Assessment & Plan (07/12/2025 3:48 PM EDT): [...] 9:41 AM EDT): Patient here for a [employer] visit Hx of HTN Currently on: Atenolol 50 mg po daily and hydrochlorothiazide 25 mg po daily Lab Results Component Value Date NA 138 01/28/2025 K 4.0 01/28/2025 CL 103 01/28/2025 BUN 24 (H) 01/28/2025 CREATININE 1.05 01/28/2025 BP today: Controlled Plan: Continue current regimen Tinnitus of both ears 05/07/2025 Assessment & Plan (08/30/2025 3:25 PM EDT): Patient here for a follow [...] visit patient was referred for ENT evaluation [facility] requested patient be seen by ENT [...] me he has an appointment coming up. Assessment & Plan (07/12/2025 3:40 PM EDT): [...] visit patient was referred for ENT evaluation [facility] requested patient be seen by ENT [...] Major depressive disorder with psychotic feature s (CMS/HCC) 01/28/2025 Assessment & Plan (07/12/2025 3:43 PM EDT): Patient with a recent inpatient psychiatric hospitalization at [facility] from 05/27/25 to 06/02/25. Patient stated that [...] self-harming behaviors. He reported being connected with [facility] and had a scheduled intake appointment on [...] organization. Date Type Department Care Team Description 09/02/2025 10:00 AM EDT Office Visit [facility] [address] [place] [phone] Rashawn Weiss MD Opioid dependence on agonist therapy (CMS/HCC) (HCC) (Primary Dx); Alcohol use disorder; Tobacco use; Cocaine use; Uncomplicated opioid dependence (CMS/HCC) (HCC) 09/02/2025 Travel 08/31/2025 Refill [facility] [address] [place] [phone] Noemi Osborn RN Uncomplicated opioid dependence (CMS/HCC) (HCC) 08/30/2025 3:00 PM EDT Office Visit [address] [address] Pradip Wilson MD Chronic midline low back pain without sciatica (Primary Dx); Hyperlipidemia, unspecified hyperlipidemia type; Essential hypertension; Tinnitus of both ears; Hypothyroidism, unspecified type 08/30/2025 Travel 08/19/2025 10:30 AM EDT Clinical Support [address] [address] Katrina Oh RN Opioid type dependence, continuous (CMS/HCC) (HCC) (Primary Dx) 08/19/2025 Travel 08/16/2025 Refill [facility] [address] [place] [address] Noemi Osborn RN Uncomplicated opioid dependence (CMS/[facility]) (HCC) 08/05/2025 Refill [facility] [address] [place] [phone] Pradip Wilson MD Hyperlipidemia, unspecified hyperlipidemia type 07/29/2025 Refill [facility] [address] [place] [address] Noemi Osborn RN Uncomplicated opioid dependence ([facility]) 07/29/2025 Orders Only GENERIC EXTERNAL DATA DEPARTMENT Provider, Generic External Data 07/26/2025 Telephone [facility] Information Management [address] [place] [address] Pradip Wilson MD MRI LUMBAR SPINE DENIED 07/25/[address] [address] Sofia Christensen RN 07/22/2025 10:15 AM EDT Clinical Support [address] [address] Noemi Osborn RN Uncomplicated opioid dependence ([facility]) 07/22/2025 10:00 AM EDT Office Visit [address] [address] Heather Cleveland MD Venous stasis dermatitis (Primary Dx); Xerosis of skin 07/22/2025 Travel 07/21/2025 Telephone [facility] Information [facility] [address] [place] [address] Pradip Wilson MD MRI BRAIN DENIED 07/15/2025 Refill [facility] [address] [place] [address] Noemi Osborn RN Uncomplicated opioid dependence ([facility]) 07/14/2025 Telephone [facility] [address] [place] [address] Pradip Wilson MD 07/12/2025 10:30 AM EDT Office Visit [address] [address] Pradip Wilson MD Hypothyroidism, unspecified type (Primary Dx); Anemia, unspecified type; Tinnitus of both ears; Dermatitis of lower extremity; Positive NILDA (antinuclear antibody); Major depressive disorder with psychotic features (CMS/HCC); History of lumbar fusion; Preventative health care; Hyperlipidemia, unspecified hyperlipidemia type; Chronic midline low back pain without sciatica; Essential hypertension 07/12/[address] [address] Pradip Wilson MD Appointment Request 07/12/2025 Orders Only [address] [address] Nelia Patel ANP 07/12/2025 Travel 07/11/[address] [address] Pradip Wilson MD chart prep 07/08/2025 10:30 AM EDT Office Visit [address] [address] Rashawn Weiss MD Uncomplicated opioid dependence ([facility]/HCC) (Primary Dx); Alcohol use disorder; Cocaine use; Tobacco use 07/08/2025 Travel 07/07/2025 Orders Only [address] [address] Pradip Wilson MD Positive NILDA (antinuclear antibody) (Primary Dx) 07/05/2025 Refill [facility] [address] [place] [address] Nelia Patel ANP Seasonal allergic rhinitis, unspecified trigger 07/05/2025 Patient Outreach [address] [address] Pradip Wilson MD Pre-visit Planning (SDOH screening was completed on 05/12/2025) 07/05/[address] [address] Noemi Osborn, NAJMA Uncomplicated opioid dependence ([facility]/HCC) 07/01/2025 10:00 AM EDT Office Visit [address] [address] Rashawn Weiss MD Uncomplicated opioid dependence ([facility]/HCC) (Primary Dx); Alcohol use disorder; Cocaine use; Tobacco use 07/01/2025 Travel 06/29/2025 Telephone [facility] [place] [address] Pradip Wilson MD Referral 06/24/2025 9:45 AM EDT Clinical Support [facility] [place] [address] Noemi Osborn RN Uncomplicated opioid dependence (CMS/HCC) (Primary Dx) 06/24/2025 Refill [facility] [address] [facility] [place] [address] Noemi Osborn RN Uncomplicated opioid dependence (CMS/HCC) 06/24/2025 Travel 06/23/2025 Orders Only GENERIC EXTERNAL DATA DEPARTMENT Provider, Generic External Data 06/20/2025 Results Follow-Up [address] [place] [address] Patel, Nelia, ANP Vitamin B12, RPR (Monitor) with Reflex to Titer, Basic Metabolic Panel, Additional followed-up results: 4 06/19/2025 Refill [facility] [address] [place], [place] [address] [address] Rashawn Weiss MD Major depressive disorder with psychotic features (CMS/HCC) 06/17/2025 10:45 AM EDT Clinical Support [facility] [place] [address] Noemi Osborn RN Uncomplicated opioid dependence (CMS/HCC) 06/17/2025 Refill [facility] [address] [place] [address] Noemi Osborn RN Uncomplicated opioid dependence ([facility]/HCC) 06/17/2025 Refill [facility] [address] [place] [address] Noemi Osborn RN Uncomplicated opioid dependence (CMS/HCC) 06/17/2025 Travel 06/13/2025 Orders Only [facility] [address] [place], [place] [address] [address] Pradip Wilson MD 06/13/[address] [address] Steinbauer, Katrina, RN OBAT Communication 06/10/2025 9:15 AM EDT Office Visit [address] [address] Rashawn Weiss MD Uncomplicated opioid dependence ([facility]/HCC) (Primary Dx); Alcohol use disorder; Cocaine use; Tobacco use 06/10/[address] [address] Gwen Aj RN Uncomplicated opioid dependence ([facility]/HCC) 06/10/2025 Travel 06/08/2025 Orders Only [address] [address] Sandoval Dobson PharmD 06/08/2025 Results Follow-Up [address] [address] Pradip Wilson MD Lipid Panel, Standard, TSH with Reflex to Free T4, Vitamin B12/Folate, Serum Panel, Additional followed-up results: 14 06/08/2025 Orders Only [address] [address] Pradip Wilson MD Primary hypothyroidism (Primary Dx) 06/08/2025 Patient Outreach [address] [address] Pradip Wilson MD Transition Of Care (Tcm) (HDF unscheduled LVM ) 06/07/[address] [address] Gwen Aj RN 06/03/2025 10:00 AM EDT Clinical Support [address] [address] Noemi Osborn RN Uncomplicated opioid dependence ([facility]/HCC) (Primary Dx) 06/03/2025 Travel from Last 3 Months Immunizations Immunization Administration Dates Next Due HepB-CpG 02/04/2025 Influenza injectable quadrivalent preservative f ree 08/12/2017 Influenza, seasonal, injectable, preservative fr ee 09/01/2014 Moderna Covid-19 Vaccine 12+ 04/03/2021 Novel [id number], nasal 09/13/2009 Pneumococcal, Unspecified 01/19/2015 TD (adult), [...] 20 08/30/2025 3:09 PM EDT Oxygen Saturation 96% 07/22/2025 10:21 AM EDT Inhaled Oxygen Concentration - - Weight 92 kg (202 lb 12.8 oz) 08/30/2025 3:09 PM EDT Height 175.3 cm (5' 9 ) 08/30/2025 3:09 PM EDT Body Mass Index 29.95 08/30/2025 3:09 PM EDT Plan of Treatment Upcoming Encounters Date Type Department Care Team (Late st Contact Info) Description 09/23/2025 10:00 AM EST Clinical Support [facility] [address] [place] [phone] Noemi Osborn RN 10/21/2025 9:15 AM EST Office Visit [address] [address] Rashawn Weiss MD [address] [place] [address] Health Maintenance Due Date Last Done Comments [...] 05/12/2025 Disability Screening 07/22/2026 07/22/2025 Tobacco Screening 08/30/2026 08/30/2025 Lipid Panel 06/07/2030 06/07/2025 DTaP/Tdap/Td Vaccines (3 [...] tested positive for a while. Go to [facility] for tinnitus. General On track( 025 11:27 [...] Comments POCT DIVYA-14 URINE DRUG SCREEN Routine 08/19/2025 10:48 AM EDT Opioid type dependence, continuous (CMS/HCC) (HCC) COMPREHENSIVE METABOLIC PANEL Routine 07/29/2025 3:58 AM EDT CBC WITH AUTO DIFFERENTIAL Routine 07/29/2025 3:58 AM EDT METHYLMALONIC ACID Routine 07/13/2025 Anemia, unspecified type [...] 10:34 AM EDT Uncomplicated opioid dependence (CMS/HCC) from Last 3 Months Results * (ABNORMAL) POCT DIVYA-14 Urine Drug Screen (08/19/2025 10:48 AM EDT) Only the most recent of5 resultswithin the time period is included. THC Negative(A) Negative Cocaine Screen, Urine Positive(A) Negative Opiate [...] obtained by clean catch procedure / Unknown 08/19/2025 10:48 AM EDT Juan Winslow MD POINT OF CARE TEST ENTER/EDIT OR DERABLES Edited Result - Final * (ABNORMAL) CBC auto differential (07/29/2025 3:58 AM EDT) Only the most recent of4 resultswithin the time period is included. White Blood Count 7.5 4.8 - 10.8 X10*3/uL [facility] Red Blood Count 3.95(L) 4.60 - 5.80 X10*6/uL [facility] Hemoglobin 12.7(L) 14.0 - 18.0 g/dl [facility] Hematocrit 36.2(L) 42.0 - 52.0 % [facility] Mean Corpuscular Volume 91.6 80.0 - 98.0 fL [facility] Mean Corpuscular Hemoglobin 32.2 27.0 - 33.0 pg [facility] Mean Corpuscular HGB Conc 35.1 31.0 - 36.0 g/dl [facility] Red Cell Distribution Width 12.4 11.0 - 16.0 % [facility] Platelet Count 269 160 - 400 X10*3/uL [facility] Mean Platelet Volume 9.0(L) 9.4 - 12.4 fL [facility] Neutrophils Percent Auto 55.6 45 - 73 % [facility] Imm Gran Pct Auto 0.7(H) 0.0 - 0.4 % [facility] Lymphocytes Percent Auto 32.7 20 - 40 % [facility] Monocytes Percent Auto 8.3 2 - 11 % [facility] Eosinophils Percent Auto 2.4 0 - 4 % [facility] Basophils Percent Auto 0.3 0 - 2 % [facility] NRBC Pct Auto 0.0 0.0 - 0.2 /100WBC [facility] Neutrophils Absolute Auto 4.2 2.0 - 8.3 x10*3/uL [facility] Imm Gran Abs Auto 0.05(H) 0.00 - 0.03 X10*3/uL [facility] Lymphocytes Absolute Auto 2.5 1.2 - 4.9 X10*3/uL [facility] Monocytes Absolute Auto 0.6 0.1 - 1.2 X10*3/uL [facility] Eosinophils Absolute Auto 0.2 0.0 - 0.4 X10*3/uL [facility] Basophils Absolute Auto 0.0 0.0 - 0.2 X10*3/uL [facility] NRBC Abs Auto 0.000 0.0 - 0.012 X10*3/uL [facility] 07/29/2025 3:58 AM EDT 07/29/2025 4:01 AM EDT us Generic External Data Provider LAB BLOOD ORDERAB LES Final Result [facility] [address] [place] [phone] [phone] * Comprehensive Metabolic Panel (07/29/2025 3:58 AM EDT) Sodium 143 135 - 145 mmol/L [facility] Potassium 3.7 3.3 - 5.1 mmol/L [facility] Chloride 101 96 - 108 mmol/L [facility] Carbon Dioxide 29 22 - 29 mmol/L [facility] Anion Gap 17 12 - 20 [facility] Urea Nitrogen (BUN) 15 9 - 16 mg/dL [facility] Creatinine, Serum 1.34 0.5 - 1.4 mg/dL [facility] Creatinine Clr Calc Pharmacy 70.9 [facility] Comment:eGFR (calculated fro m the MDRD study equation) and eCrCl(calculated from the Cockcroft-Gault equation) are based ondifferent parameters and may not yield comparable results.If eCrCl result is absurd, please check patient'sheight/weight. Estimated Glomerular Filt Rate 56 [facility] Comment:Chronic Kidney Disea se: Estimated GFR < 60 mL/min/[id number] Kidney Disease: Estimated GFR < 15 mL/min/1.73m2 Glucose 101 60 - 115 mg/dL [facility] Calcium 9.3 8.4 - 10.2 mg/dL [facility] Bilirubin, Total 0.2 0.0 - 1.0 mg/dL [facility] Aspartate Amino Transferase 27 5 - 37 U/L [facility] Alanine Aminotransferase 17 0 - 40 U/L [facility] Total Protein 7.8 6.5 - 8.0 g/dL [facility] Albumin Level 4.7 3.5 - 5.0 g/dL [facility] Alkaline Phosphatase 88 39 - 117 U/L [facility] 07/29/2025 3:58 AM EDT 07/29/2025 4:01 AM EDT Generic External Data Provider LAB BLOOD ORDERAB LES Final Result Performing Organization Address [facility]/ZIP Co de Phone Number [facility] [address] [place] [phone] * Methylmalonic Acid (07/13/2025) Blood Venous blood specimen / Unknown Pradip Riggs MD LAB BLOOD ORDERABLES Final Result Performing Organization Address [facility] Co de Phone Number [facility] [address] [place] [phone] * (ABNORMAL) TSH W/Reflex to FT4 (07/12/2025 11:19 AM EDT) Only the most recent of3 resultswithin the time period is included. TSH reflex Free T4 94.94(H) 0.32 - 4.0 uIU/mL [facility] Blood Venous blood specimen / Unknown 07/12/2025 11:19 AM EDT 07/12/2025 1:04 PM EDT us Nelia KIM LAB BLOOD ORDERABLES Final Resul t Performing Organization Address [facility] Co de Phone Number [facility] [address] [place] [phone] * Iron And Total Iron Binding Capacity (07/12/2025 11:19 AM EDT) Iron 78 45 - 160 mcg/dL [facility] Total Iron Binding Capacity 331 228 - 428 mcg/dL [facility] Percent Iron Saturation 24 15 - 50 % [facility] Unsaturated Iron Binding 253 ug/dL [facility] 07/12/2025 11:1 9 AM EDT 07/12/2025 1:04 PM EDT Nelia Patel [facility] LAB BLOOD ORDERABLES Final Resul t Performing Organization Address [facility] de Phone Number [facility] [address] [place] [phone] * (ABNORMAL) T4, Free (07/12/2025 11:19 AM EDT) Only the most recent of3 resultswithin the time period is included. Free T4 (Free Thyroxine) <0.42(L) 0.71 - 1.85 ng/dL [facility] 07/12/2025 11:1 9 AM EDT 07/12/2025 1:04 PM EDT Nelia Patel [facility] LAB BLOOD ORDERABLES Final Resul t Performing Organization Address [facility] de Phone Number [facility] [address] [place] [phone] * (ABNORMAL) Ferritin (07/12/2025 11:19 AM EDT) Ferritin 293(H) 20 - 250 ng/mL [facility] 07/12/2025 11:1 9 AM EDT 07/12/2025 1:04 PM EDT Nelia Patel [facility] LAB BLOOD ORDERABLES Final Resul t Performing Organization Address [facility] de Phone Number [facility] [address] [place] [phone] * XR Ankle 2 Views Left (06/23/2025 8:05 AM EDT) Anatomical Region Laterality Modality Lower Extremities, Ankle Left Radiogr aphic Imaging 06/23/2025 8:05 AM EDT Narrative 06/23/2025 8:38 AM EDT [address] [address] XRay Report Signed Patient: Esteban Chiu MR#: [id number] : 1970 Acct:[id number] Age/Sex: 54 / M ADM Date: 06/23/25 Loc: HO.ED Attending Dr: Ordering Physician: James Singleton MD Date of Service: 06/23/25 Procedure(s): XR ankle LT 2V Accession Number(s): [id number] cc: James Singleton MD; Pradip Maurice MD [...] 06/23/25 0836 DD/ 0805 TD/TT: 06/23/25 0815 [facility] Dispenser: Procedure Note Donotuseinterpreter, Image - 06/23/[address] [address] XRay Report Signed Patient: Esteban Chiu MMR#: [id number] : 1970Acct:[id number] Age/Sex: 54 / MADM Date: 06/23/25 Loc: HO.ED Attending Dr: Ordering Physician: James Singleton MD Date of Service: 06/23/25 Procedure(s): XR ankle LT 2V Accession Number(s): [id number] cc: James Singleton MD; Pradip Maurice MD [...] 06/23/25 0836 DD/ 0805 TD/TT: 06/23/25 0815 [facility]ountain Dispenser: us [facility] External Provider IMG XR PROCEDURES Final Result * (ABNORMAL) Sed Rate by Modified Clay (06/23/2025 8:01 AM EDT) Only the most recent of2 resultswithin the time period is included. Erythrocyte Sedimentation Rate 32(H) 0 - 15 MM/HR [facility] [facility] Comment:Patients with polycy themia and many hemoglobin abnormalitiesmay have depressed sed rates whereas patients with anemiamay have elevated sed rates. 06/23/2025 8:01 AM EDT 06/23/2025 8:03 AM EDT Generic External Data Provider LAB BLOOD ORDERAB LES Final Result [facility] [address] [place] [phone] * (ABNORMAL) C-reactive Protein (06/23/2025 8:01 AM EDT) Only the most recent of3 resultswithin the time period is included. C Reactive Protein 1.88(H) < or = 0.50 mg/dL [facility] 06/23/2025 8:01 AM EDT 06/23/2025 8:03 AM EDT us Generic External Data Provider LAB BLOOD ORDERAB LES Final Result Performing Organization Address City/State/[facility] Co de Phone Number [facility] [address] [place] [phone] * XR Foot 1-2 Views Left (06/23/2025 7:08 AM EDT) Anatomical Region Laterality Modality Lower Extremities, Foot Left Radiogra phic Imaging 06/23/2025 7:08 AM EDT Narrative 06/23/2025 8:38 AM EDT [address] [address] XRay Report Signed Patient: Esteban Chiu MR#: [id number] : 1970 Acct:[id number] Age/Sex: 54 / M ADM Date: 06/23/25 Loc: HO.ED Attending Dr: Ordering Physician: James Singleton MD Date of Service: 06/23/25 Procedure(s): XR foot LT 2V Accession Number(s): [id number] cc: James Singleton MD; Pradip Maurice MD [...] MD Signed By: <Electronically signed by Lopez Pedrzaa MD in OV> 06/23/25835 DD/ 7 TD/TT: 06/23/25814 F[facility] Disp[facility]er: Procedure Note Donotiváninterpreter, Image - 06/23/[address] [address] XRay Report Signed Patient: Esteban Chiu MMR#: [id number] : 1970Acct:[id number] Age/Sex: 54 / MADM Date: 06/23/25 Loc: HO.ED Attending Dr: Ordering Physician: James Singleton MD Date of Service: 06/23/25 Procedure(s): XR foot LT 2V Accession Number(s): [id number] cc: James Singleton MD; Pradip Maurice MD [...] Lopez Pedraza MD in OV> 06/23/25835 DD/ 7 TD/TT: 06/23/25814 Fountain Dispenser: [facility] External Provider IMG XR PROCEDURES Final Result * (ABNORMAL) Thyroid Peroxidase Antibodies (06/13/2025 12:08 PM EDT) Thyroid Peroxidase Antibodies 664(A) <9 IU/mL [facility] Comment:THIS TEST WAS PERFOR MED AT:[facility] [address] [phone] NELSON MD Blood Venous blood specimen / Unknown 06/13/2025 12:08 PM EDT 06/13/2025 12:08 PM EDT Pradip Riggs MD LAB BLOOD ORDERABLES Final Result Performing Organization Address [facility] Co de Phone Number [facility] [address] [place] [phone] * Cryoglobulin (% Cryocrit), Serum (06/13/2025 12:08 PM EDT) Cryoglobulin, Ql, Serum, Rflx Negative Negative [facility] Comment:The Cryocrit is prim arily intended for following apatient with previously defined and quantitatedcryoglobulins. The cryocrit may consist ofcryoglobulins, fibrins, complement, or mixtures ofthese.THIS TEST WAS PERFORMED AT:[facility] [place] [address]CNBBNYAMARIANNE DELUCA MD,PHD % Cryocrit TNP [facility] Blood Venous blood specimen / Unknown 06/13/2025 12:08 PM EDT 06/13/2025 12:08 PM EDT Pradip Riggs MD LAB BLOOD ORDERABLES Final Result Performing Organization Address [facility] Co de Phone Number [facility] [address] [place] [phone] * ANCA Vasculitides (06/07/2025 11:07 AM EDT) Myeloperoxidase Antibody <1.0 AI [facility] Comment:Value Interpretation ----- <1.0 No Antibody Detected > or = 1.0 Antibody DetectedAutoantibodies to myeloperoxidase (MPO) are commonlyassociated with the following small-vesselvasculitides: microscopic polyangiitis,polyarteritis nodosa, Churg-Irena syndrome,necrotizing and crescentic glomerulonephritis andoccasionally granulomatosis with polyangiitis(GPA, Sanjuana's). The perinuclear IFA pattern,(p-ANCA) is based largely on autoantibody tomyeloperoxidase which serves as the primary antigen.These autoantibodies are present in active disease. Proteinase-3 Antibody <1.0 AI [facility] Comment:Value Interpretation ----- <1.0 No Antibody Detected > or = 1.0 Antibody DetectedAutoantibodies to proteinase-3 (OK-3) are accepted ascharacteristic for granulomatosis with polyangiitis(GPA, Sanjuana's), and are detectable in 95% of thehistologically proven cases. The cytoplasmic IFApattern, (c-ANCA), is based largely on autoantibody toPR-3 which serves as the primary antigen.These autoantibodies are present in active disease.THIS TEST WAS PERFORMED AT:[facility] [place] [phone] NELSON MD Blood 06/07/2025 11:0 7 AM EDT 06/07/2025 1:29 PM EDT [facility] LAB BLOOD ORDERABLES Final Resul t [facility] [address] [place] [phone] * PSA, Screen (06/07/2025 11:07 AM EDT) PSA, Total 0.19 <0.05 - 4.0 ng/mL [facility] Comment:PSA methodology: Anastasiia Monroe i ChemiluminescentMicroparticle Immunoassay (CMIA) Blood Venous blood specimen / Unknown 06/07/2025 11:07 AM EDT 06/07/2025 1:29 PM EDT Pradip Riggs MD LAB BLOOD ORDERABLES Final Result Performing Organization Address [facility]/ZIP Co de Phone Number [facility] [address] [place] [phone] * Vitamin B12/Folate, Serum Panel (06/07/2025 11:07 AM EDT) Vitamin B12 229 200 - 900 pg/mL [facility] Comment:NORMAL 200-900 PG/M L INDETERMINATE 160-199 PG/ML DEFICIENT < 160 PG/ML Folate 10.2 > or = 4.0 ng/mL [facility] Comment:Reference Values:> o r = 4.0 [...] BLOOD ORDERABLES Final Result Performing Organization Address [facility] de Phone Number [facility] [address] [place] [phone] * Urinalysis, Complete, with Reflex to Culture (06/07/2025 11:07 AM EDT) Color Urine Yellow [facility] Appearance Urine Turbid [facility] PH 5.0 5.0 - 9.0 [facility] Glucose Urine UA Negative Negative mg/dL [facility] Urine Blood Negative Negative [facility] Specific [place] - Urine 1.025 1.005 - 1.025 [facility] Urine Protein Trace Neg-Trace mg/dL [facility] Urine Ketones Trace Negative mg/dL [facility] Nitrite Urine Negative Negative [facility] Leukocyte Esterase Urine Negative Negative [facility] RBC Urine 0-2 0 - 2 /HPF [facility] Urine WBC 0-5 0 - 5 /HPF [facility] Urine Squamous Epithelial Cell 0-2 0 - 2 /HPF [facility] CALCIUM OXALATE CRYSTAL, UR Present [facility] Urine Bacteria None Seen None Seen [facility] Hyaline Casts, Urine 0-2 0 - 2 /LPF [facility] Urine 06/07/2025 11:0 7 AM EDT 06/07/2025 1:04 PM EDT Narrative [facility] - 06/07/2025 1:52 PM EDT Urine, Clean Catch Pradip Riggs MD LAB URINE ORDERABLES Final Result Performing Organization Address City/[facility]/ZIP Co de Phone Number [facility] [address] [place] [phone] * Hepatitis C Antibody with Reflex to HCV, RNA, Quantitative, Real-Time PCR (06/07/2025 11:07 AM EDT) Hepatitis C Antibody Nonreactive Nonreactive [facility] Comment:Antibodies to HCV no t detected; does not exclude early acuteHCV infection. Blood Venous blood specimen / Unknown 06/07/2025 11:07 AM EDT 06/07/2025 1:29 PM EDT Pradip Riggs MD LAB BLOOD ORDERABLES Final Result Performing Organization Address City/[facility]/ZIP Co de Phone Number [facility] [address] [place] [phone] * Hepatitis B surface antigen, EIA (06/07/2025 11:07 AM EDT) Hepatitis B Surface Ag Negative Negative [facility] Blood Venous blood specimen / Unknown 06/07/2025 11:07 AM EDT 06/07/2025 1:29 PM EDT Pradip Riggs MD LAB BLOOD ORDERABLES Final Result Performing Organization Address [facility]/ZIP Co de Phone Number [facility] [address] [place] [phone] * Hepatitis B Core Antibody, Total (06/07/2025 11:07 AM EDT) Hepatitis B Core Antibody Nonreactive Nonreactive [facility] Blood Venous blood specimen / Unknown 06/07/2025 11:07 AM EDT 06/07/2025 1:29 PM EDT Pradip Riggs MD LAB BLOOD ORDERABLES Final Result Performing Organization Address [facility] Phone Number [facility] [address] [place] [phone] * RPR (Monitor) with Reflex to??Titer (06/07/2025 11:07 AM EDT) Only the most recent of2 resultswithin the time period is included. RPR (Monitor) w/Refl Titer NON-REACTI VE NON-REACT KAMINI [facility] Comment:THIS TEST WAS PERFOR MED AT:[facility] [place] [phone] NELSON MD Rapid Plasma Reagin Ab Titer TNP [facility] Blood Venous blood specimen / Unknown 06/07/2025 11:07 AM EDT 06/07/2025 1:29 PM EDT us Pradip Riggs MD LAB BLOOD ORDERABLES Final Result Performing Organization Address [facility] Co de Phone Number [facility] [address] [place] [phone] * HIV-1/2 Antigen and Antibodies, Fourth Generation, with Reflexes (06/07/2025 11:07 AM EDT) [facility] HIV AB/AG Nonreactive Nonreactive [facility] Comment:HIV-1 p24 Ag and/or HIV-1/HIV-2 Ab not detected.A test result that is nonreactive does not exclude thepossibility of exposure to or infection with HIV-1 and/orHIV-2. Nonreactive results in this assay for individualswith prior exposure to HIV-1 and/or HIV-2 may be due toantigen and antibody levels that are below the limit ofdetection of this assay.The [employer] HIV Ag/Ab Combo assay result andsupplemental assay results should be interpreted inconjunction with the patient's clinical presentation,history and other laboratory results. If the results areinconsistent with clinical evidence, additional testing issuggested to confirm the result. Blood Venous blood specimen / Unknown 06/07/2025 11:07 AM EDT 06/07/2025 1:29 PM EDT Pradip Riggs MD LAB BLOOD ORDERABLES Final Result Performing Organization Address [facility]/ZIP Co de Phone Number [facility] [address] [place] [phone] * Hepatitis B Surface Antibody, Qualitative (06/07/2025 11:07 AM EDT) [facility] ~Hepatitis B Surface Antibody REACTIVE Nonreactive [facility] Comment:REACTIVE: > 11.99 mI U/mL Blood Venous blood specimen / Unknown 06/07/2025 11:07 AM EDT 06/07/2025 1:29 PM EDT Pradip Riggs MD LAB BLOOD ORDERABLES Final Result Performing Organization Address City/[facility] Co de Phone Number [facility] [address] [place] [phone] * Rheumatoid Factor (06/07/2025 11:07 AM EDT) [facility] Rheumatoid Factor <13.0 <15.0 IU/mL [facility] Blood Venous blood specimen / Unknown 06/07/2025 11:07 AM EDT 06/07/2025 1:29 PM EDT Pradip Riggs MD LAB BLOOD ORDERABLES Final Result Performing Organization Address [facility]/ZIP Co de Phone Number [facility] [address] [place] [phone] * Complement Component C3c (06/07/2025 11:07 AM EDT) Complement C3 148 82 - 185 mg/dL [facility] Comment:THIS TEST WAS PERFOR MED AT:[facility] [address] [phone] NELSON MD Blood Venous blood specimen / Unknown 06/07/2025 11:07 AM EDT 06/07/2025 1:13 PM EDT Pradip Riggs MD LAB BLOOD ORDERABLES Final Result Performing Organization Address [facility] Phone Number [facility] [address] [place] [phone] * Complement Component C4c (06/07/2025 11:07 AM EDT) Complement C4 25 15 - 53 mg/dL [facility] Comment:THIS TEST WAS PERFOR MED AT:[facility] [address] [phone] NELSON MD Blood Venous blood specimen / Unknown 06/07/2025 11:07 AM EDT 06/07/2025 1:13 PM EDT Pradip Riggs MD LAB BLOOD ORDERABLES Final Result Performing Organization Address [facility] Co de Phone Number [facility] [address] [place] [phone] * (ABNORMAL) NILDA Screen,IFA, with Reflex to Titer and Pattern (06/07/2025 11:07 AM EDT) Anti Nuclear Antibody Screen POSITIVE (A) NEGATIVE [facility] Comment:NILDA IFA is a first l ine screen for detecting thepresence of up to approximately 150 autoantibodies invarious autoimmune diseases. A positive NILDA IFA resultis suggestive of autoimmune disease and reflexes totiter and pattern. Further laboratory testing may beconsidered if clinically indicated.For additional information, please refer tohttp://education.[employer]smith/faq/CCZ357(This link is being provided for informational/educational purposes only.) NILDA Titer 1:320(A) titer [facility] Comment:Reference Range <1:4 0 Negative 1:40-1:80 Low Antibody Level >1:80 Elevated Antibody Level NILDA Pattern Nuclear, Nucleola r(A) [facility] Comment:Nucleolar pattern is associated with systemic sclerosis(scleroderma), systemic sclerosis/polymyositis overlapand Sjogren's syndrome.AC-8,9,10: NucleolarInternational Consensus on NILDA Patterns(https://doi.org/10.1515/teqq-3365-0460) NILDA Titer 2 1:80(A) titer [facility] Comment:A low level NILDA tite r may be present in pre-clinicalautoimmune diseases and normal individuals. Reference Range <1:40 Negative 1:40-1:80 Low Antibody Level >1:80 Elevated Antibody Level NILDA Pattern 2 Nuclear, Speckled (A) [facility] Comment:Speckled pattern is associated with mixed connectivetissue disease (MCTD), systemic lupus erythematosus(SLE), Sjogren's syndrome, dermatomyositis, andsystemic sclerosis/polymyositis overlap.AC-2,4,5,29: SpeckledInternational Consensus on NILDA Patterns(https://doi.org/10.1515/suez-2308-5997)THIS TEST WAS PERFORMED AT:[facility] [place] [phone] NELSON MD NILDA TITER 3 TNP [facility] NILDA PATTERN 3 [facility] Blood Venous blood specimen / Unknown 06/07/2025 11:07 AM EDT 06/07/2025 1:29 PM EDT us Pradip Riggs MD LAB BLOOD ORDERABLES Final Result Performing Organization Address [facility]/ZIP Co de Phone Number [facility] [address] [place] [phone] * Vitamin B12 (06/07/2025 11:07 AM EDT) Vitamin B12 283 200 - 900 pg/mL [facility] Comment:NORMAL 200-900 PG/ML INDETERMINATE 160-199 PG/ML DEFICIENT < 160 PG/ML Blood Venous blood specimen / Unknown 06/07/2025 11:07 AM EDT 06/07/2025 1:29 PM EDT us Nelia KIM LAB BLOOD ORDERABLES Final Resul t Performing Organization Address [facility] Co de Phone Number [facility] [address] [place] [phone] * (ABNORMAL) Lipid Panel, Standard (06/07/2025 11:07 AM EDT) Triglycerides 224(H) <150 mg/dL [facility] Comment:Desirable Triglyceri de: less than 150 mg/dLBorderline High Triglyceride 150-199 mg/dLHigh Triglyceride: 200-499 mg/dLVery High Triglyceride: greater than or equal to 5OO mg/dL Cholesterol 279(H) <200 mg/dL [facility] Comment:Desirable Cholestero l: less than 200 mg/dLBorderline High Cholesterol: 200-239 mg/dLHigh Cholesterol: greater than 239 mg/dL LDL Cholesterol Calculated 191(H) <100 mg/dL [facility] Comment:Desirable LDL: less than 100 mg/dLNear Optimal/Above Optimal LDL: 110- 129 mg/dLBorderline High LDL: 130-159 mg/dLHigh LDL: 160-189 mg/dLVery High LDL: greater than or equal to 190 mg/dL HDL Cholesterol 44 >40 mg/dL [facility] Comment:Desirable HDL: great er than 40 mg/dL Note: This HDL assay may give artificially low results in patients with liver disease. Blood Venous blood specimen / Unknown 06/07/2025 11:07 AM EDT 06/07/2025 1:26 PM EDT us Pradip Riggs MD LAB BLOOD ORDERABLES Final Result Performing Organization Address City/[facility]/ZIP Co de Phone Number [facility] [address] [place] [phone] * (ABNORMAL) Basic Metabolic Panel (06/07/2025 11:07 AM EDT) Sodium 139 135 - 145 mmol/L [facility] Potassium 4.0 3.3 - 5.1 mmol/L [facility] Chloride 104 96 - 108 mmol/L [facility] Carbon Dioxide 24 22 - 29 mmol/L [facility] Anion Gap 15 12 - 20 [facility] Urea Nitrogen (BUN) 17(H) 9 - 16 mg/dL [facility] Creatinine, Serum 1.43(H) 0.5 - 1.4 mg/dL [facility] Estimated Glomerular Filt Rate 52 [facility] Comment:Chronic Kidney Disea se: Estimated GFR < 60 mL/min/1.00g1Hawfly Kidney Disease: Estimated GFR < 15 mL/min/1.73m2 Glucose 102 60 - 115 mg/dL [facility] Calcium 9.2 8.4 - 10.2 mg/dL [facility] Blood Venous blood specimen / Unknown 06/07/2025 11:07 AM EDT 06/07/2025 1:26 PM EDT us Nelia KIM LAB BLOOD ORDERABLES Final Resul t Performing Organization Address City/[facility]/ZIP Co de Phone Number [facility] [address] [place] [phone] from Last 3 Months Insurance [facility] HMO Care Teams Scalemaker Relationship Specialty Start Date End Date Pradip Wilson MD [address] [place] [phone] PCP - General Internal Medicine 05/12/25
[2025-09-02 13:15] LABS: Cholesterol 179 mg/dL (<200); HDL Cholesterol 41 mg/dL (>40); Iron 81 mcg/dL (45-160); Percent Iron Saturation 32 % (15-50); Total Iron Binding Capacity 254 mcg/dL (228-428); Triglycerides 260 mg/dL (<150); Unsaturated Iron Binding 173 ug/dL
[2025-09-02 13:32] LABS: Ferritin 189 ng/mL (20-250)
[2025-09-02 14:04] LABS: Free T4 (Free Thyroxine) 0.89 ng/dL (0.71-1.85)
[2025-09-05 18:04] LABS: Thyroglobulin Antibodies <1 IU/mL (< or = 1)
== END 2025-09-02 11:13 | disposition home or self-care (01) ==
LOC: HO.HHCL 11:12
PROVIDERS: PCP Internal Medicine; Visit Provider Internal Medicine
DX: E03.9 Hypothyroidism, unspecified (principal); E78.5 Hyperlipidemia, unspecified; D64.9 Anemia, unspecified
CPT/HCPCS: 36415; 80061; 82728; 83090; 83540; 83921; 84439; 84443; 84480; 84481; 86800

== ENCOUNTER 2025-10-03 13:20 | Outpatient (REF) | payer BC, SELFPAY ==
--- NOTE | ~2025-10-03 | US_ITS ---
EXAMINATION: US THYROID CLINICAL INFORMATION: Hypothyroidism. COMPARISON: None available. TECHNIQUE: Linear transducer grayscale and color Doppler examination with attention to the region of the thyroid. FINDINGS: SIZE: Measurements of the thyroid lobes and nodules are given in sagittal, anteroposterior and transverse dimensions respectively. Right Thyroid Lobe: 4.2 x 1.4 x 1.4 cm, volume 4.1 mL. Parenchyma: The gland echotexture is heterogeneous. Thyroid vascularity is normal. Left Thyroid Lobe: 4.2 x 1.2 x 0.9 cm, volume 2.2 mL. Parenchyma: The gland echotexture is heterogeneous. Thyroid vascularity is normal. Isthmus: 0.1 cm in maximum AP dimension. There are no discrete thyroid nodule present. NODES: No lymphadenopathy is seen in the tissue surrounding the thyroid gland. US/US thyroid IMPRESSION: 1. 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 2. There is no discrete nodule present. Electronically signed by: Parker Richter MD 10/03/2025 02:40 PM [facility]
--- OUTSIDE RECORDS SUMMARY | 2025-10-03 16:56 | XMS_ITS | Clinical Summary ---
Author Organization [address] Address [address] [place] [phone] Phone Care Team Providers Care Systems Design Engineer Name Role Phone Unavailable Primary [...] Health Screening 05/28/2025 COVID-19 Vaccine (1 - 2024-2 6 season) 2025 Influenza Vaccine (#1) 2025 Cholesterol [...] LDL Routine 05/28/2025 7:00 AM EDT [facility] [place] [facility] ([facility] drug therapy from Last 3 Months [...] 4.4 LAB CHEMISTRY METHOD 05/28/2025 11:33 AM [facility] Blood Venous blood specimen / Unknown Venipuncture / Unknown 05/28/2025 7:00 AM EDT 05/28/2025 10:36 AM EDT us Roel Valero LAB BLOOD ORDERABLES Final [facility] [address] [place] [address], from Last 3 Months or Most Recently Relevant to Health Maintenance
--- OUTSIDE RECORDS SUMMARY | 2025-10-03 16:56 | XMS_ITS | Clinical Summary ---
Author Organization [employer] Address [address] [facility] 7t [place] [address] Care Team Providers Care Guest Service Host Name Role Phone Pradip Wilson MD Primary [...] MOUTH AT BEDTIME AVH/PARANOIA 06/01/20 25 Active fluticasone (Flonase) 50 MCG/ACT nasal [...] day. 30 tablet 3 07/12/20 25 Active cyanocobalamin (Vitamin B-12) 1000 MCG tabletIndications :Anemia, unspecified type Take 1 tablet (1,000 mcg) by mouth Once per day. 30 tablet 3 07/12/20 25 Active triamcinolone (Kenalog) 0.1 % creamIndications: Venous stasis dermatitis,Xerosi s of skin Apply topically 2 times daily. Mix with Cerave 80 g 2 07/22/20 25 Active Buprenorphine HCl-Naloxone HCl (Suboxone) 8-2 MG SL filmIndications:U ncomplicated opioid dependence (CMS/HCC) ([facility]) Place 1 Film under the tongue 3 times daily for 14 days. 42 Film 09/02/20 25 Active levothyroxine (Synthroid) 100 MCG tabletIndications :Acquired hypothyroidism Take 1 tablet (100 mcg) by mouth before breakfast. 30 tablet 6 09/02/20 25 Active escitalopram (Lexapro) 5 MG tabletIndications :Major depressive disorder with psychotic features (CMS/HCC) (HCC) TAKE 1 TABLET BY MOUTH EVERY MORNING 30 tablet 1 09/08/20 25 Active Buprenorphine HCl-Naloxone HCl (Suboxone) 8-2 MG SL filmIndications:O pioid dependence on agonist therapy (CMS/HCC) (HCC) Place 1 Film under the tongue 3 times daily. Do not start before September 23, 2025. 84 Film 09/23/20 25 2024 Active escitalopram (Lexapro) 5 MG tabletIndications :Major depressive disorder with psychotic features (CMS/HCC) ([facility]) TAKE 1 TABLET BY MOUTH EVERY MORNING 30 tablet 1 06/20/20 25 2024 Discontinued Buprenorphine HCl-Naloxone HCl (Suboxone) 8-2 MG SL filmIndications:O pioid dependence on agonist therapy (CMS/HCC) ([facility]) Place 1 Film under the tongue 3 times daily for 21 days. 63 Film 09/02/20 25 2024 Discontinued(R eorder (will not trigger [...] like to wait for a referral to [facility] Assessment & Plan (07/12/2025 3:45 [...] at that site. Denies injecting into legs. [facility] health care 05/12/2025 Assessment & Plan (07/12/2025 10:51 AM EDT): PSA 06/07/2025: Normal Colonoscopy: referred Gastroenterology Pending appointment on 09/06/25 @ 11:10 AM [facility] Assessment & Plan (05/12/2025 10:06 AM EDT): PSA ordered Colonoscopy: referred Cigarette nicotine dependence without complicati on 05/07/2025 Overview (05/07/2025): Update after visit: Pt had LDCT via NPS program done on 09/22/24 printed from [employer]. Results sent to scan by [place]. Essential hypertension 05/07/2025 Overview (05/07/2025): Atenolol 50mg [...] 9:41 AM EDT): Patient here for a [employer] visit Hx of HTN Currently on: Atenolol [...] with a recent inpatient psychiatric hospitalization at [facility] from 05/27/25 to 06/02/25. Patient stated [...] self-harming behaviors. He reported being connected with [facility] and had a scheduled intake appointment on [...] for infection/I&D a few years ago Encounters Date Type Department Care Team Description 09/20/2025 Telephone [facility] [place] [phone] Pradip Wilson MD November recall 09/19/2025 Refill [facility] [place] [address] Noemi Osobrn RN Opioid dependence on agonist therapy (CMS/HCC) ([facility]) 09/15/2025 Orders Only [facility] [address] [place] [address] Pradip Wilson MD Chronic pain of left ankle (Primary Dx) 09/13/2025 Telephone [facility] [address] Pradip Wilson MD Referral 09/08/2025 Refill [facility] [place] [phone] Nathaly Rosado MD Major depressive disorder with psychotic features (CMS/HCC) ([facility]) 09/02/2025 10:00 AM EDT Office Visit [facility] [place] [address] Rashawn Weiss MD Opioid dependence on agonist therapy ([facility]/HCC) ([facility]) (Primary Dx); Alcohol use disorder; Tobacco use; Cocaine use; Uncomplicated opioid dependence (CMS/HCC) ([facility]) 09/02/2025 Results Follow-Up [facility] [place] [address] Pradip Wilson MD TSH with Reflex to Free T4, Lipid Panel, Standard 09/02/2025 Orders Only [facility] [place] [address] Pradip Wilson MD 09/02/2025 Travel 08/31/2025 Refill [facility] [place] [address] Noemi Osborn RN Uncomplicated opioid dependence ([facility]/HCC) ([facility]) 08/30/2025 3:00 PM EDT Office Visit [facility] [place] [address] Pradip Wilson MD Chronic midline low back pain without sciatica (Primary Dx); Hyperlipidemia, unspecified hyperlipidemia type; Essential hypertension; Tinnitus of both ears; Hypothyroidism, unspecified type 08/30/2025 Travel 08/19/2025 10:30 AM EDT Clinical Support [facility] [address] [place] [phone] Katrina Oh RN Opioid type dependence, continuous (CMS/HCC) (HCC) (Primary Dx) 08/19/2025 Travel 08/16/2025 Refill [facility] [address] [place] [address] Noemi Osborn RN Uncomplicated opioid dependence (CMS/[facility]) (HCC) 08/05/2025 Refill [facility] [address] [place] [address] Pradip Wilson MD Hyperlipidemia, unspecified hyperlipidemia type 07/29/2025 Refill [facility] [address] [place] [address] Noemi Osborn RN Uncomplicated opioid dependence (CMS/[facility]) 07/29/2025 Orders Only GENERIC EXTERNAL DATA DEPARTMENT Provider, Generic External Data 07/26/2025 Telephone [facility] [address] [place] [phone] Pradip Wilson MD MRI LUMBAR SPINE DENIED 07/25/[address] [address] Sofia Christensen RN 07/22/2025 10:15 AM EDT Clinical Support [facility] [address] [place] [phone] Noemi Osborn RN Uncomplicated opioid dependence (CMS/HCC) 07/22/2025 10:00 AM EDT Office Visit [facility] [address] [place] [phone] Heather Cleveland MD Venous stasis dermatitis (Primary Dx); Xerosis of skin 07/22/2025 Travel 07/21/2025 Telephone [facility] [address] [place] [address] Pradip Wilson MD MRI BRAIN DENIED 07/15/2025 Refill [facility] [place] [address] Noemi Osborn, NAJMA Uncomplicated opioid dependence (CMS/HCC) 07/14/2025 Telephone [facility] [place] [address] Pradip Wilson MD 07/12/2025 10:30 AM EDT Office Visit [facility] [address] [place], [place] [address] [address] Pradip Wilson MD Hypothyroidism, unspecified type (Primary Dx); Anemia, unspecified type; Tinnitus of both ears; Dermatitis of lower extremity; Positive NILDA (antinuclear antibody); Major depressive disorder with psychotic features (CMS/HCC); History of lumbar fusion; Preventative health care; Hyperlipidemia, unspecified hyperlipidemia type; Chronic midline low back pain without sciatica; Essential hypertension 07/12/2025 Telephone [facility] [address] [place], [place] [address] [address] Pradip Wilson MD Appointment Request 07/12/2025 Orders Only [facility] [address] [place], [place] [address] [address] Nelia Patel ANP 07/12/2025 Travel 07/11/2025 [address] [place] [address] Pradip Wilson MD chart prep 07/08/2025 10:30 AM EDT Office Visit [facility] [place] [address] Rashawn Weiss MD Uncomplicated opioid dependence ([facility]/HCC) (Primary Dx); Alcohol use disorder; Cocaine use; Tobacco use 07/08/2025 Travel 07/07/2025 Orders Only [facility] [place] [address] Pradip Wilson MD Positive NILDA (antinuclear antibody) (Primary Dx) 07/05/2025 Refill [facility] [place] [address] Nelia Patel ANP Seasonal allergic rhinitis, unspecified trigger 07/05/2025 Patient Outreach [facility] [address] [place] [address] Pradip Wilson MD Pre-visit Planning (SDOH screening was completed on 05/12/2025) 07/05/2025 Refill [facility] [address] [place] [address] Noemi Osborn, NAJMA Uncomplicated opioid dependence (CMS/[facility]) from Last 3 Months Immunizations Immunization Administration Dates Next Due HepB-CpG 02/04/2025 Influenza injectable quadrivalent preservative f ree 08/12/2017 Influenza, seasonal, injectable, preservative fr ee 09/01/2014 Moderna Covid-19 Vaccine 12+ 04/03/2021 Novel [id number], nasal 09/13/2009 Pneumococcal, Unspecified 01/19/2015 TD (adult), [...] Care Team (Late st Contact Info) Description 10/21/2025 9:15 AM EST Office Visit [facility] [address] [place] [phone] Rashawn Weiss MD [address] [place] [phone] 12/20/2025 3:00 PM EST Office Visit [facility] [address] [place] [address] Pradip Wilson MD [address] [place] [address] Health Maintenance Due Date Last Done Comments CT Colonography 1970 Colonoscopy 1970 Colorectal Cancer Screening 1970 FIT DNA/Cologuard 1970 FIT 1970 FOBT 1970 Sigmoidoscopy 1970 Pneumococcal Vaccine: 50+ Years (1 of 2 - PCV) 1989 01/19/2015 RSV Patients and Patients Aged 60 years or older (1 - Risk 50-74 years 1-dose series) 2020 Zoster Vaccines (1 of 2) 2020 COVID-19 Vaccine ( - 2024-2 6 season) 2025 04/03/2021, 03/07/2021, 02/14/2021 Influenza Vaccine (#1) 2025 7, 09/01/2014, 09/13/2009 Depression Monitoring 12/08/2025 06/07/2025 , 06/07/2025 Alcohol/Substance Use Screening 01/28/2026 01/28/2025 SDOH Screening 05/12/2026 05/12/2025 Disability Screening 07/22/2026 07/22/2025 Tobacco Screening 08/30/2026 08/30/2025 Lipid Panel 09/02/2030 09/02/2025, 06/07/2025 DTaP/Tdap/Td Vaccines (3 - T d or Tdap) 09/09/2034 09/09/2024, 05/25/2013, 08/15/2003 Hepatitis B Vaccines Discontinued 02/04/2025 HIV Screening [...] for a while. Go to [facility] for tinnitus. General On track( [...] Procedure Name Priority Date/Time Associated Diagnosis Comments US THYROID Routine 10/03/2025 1:41 PM EST Hypothyroidism, unspecified type T4, FREE Routine 09/02/2025 11:56 AM EDT LIPID PANEL, STANDARD Routine 09/02/2025 11:56 AM EDT Hyperlipidemia, unspecified hyperlipidemia type TSH W/REFLEX TO FT4 Routine 09/02/2025 1 1:56 AM EDT Hypothyroidism, unspecified type HOMOCYSTEINE Routine 09/02/2025 11:56 AM EDT Anemia, unspecified type METHYLMALONIC ACID Routine 09/02/2025 11 :56 AM EDT Anemia, unspecified type FERRITIN Routine 09/02/2025 11:56 AM EDT Anemia, unspecified type IRON AND TOTAL IRON BINDING CAPACITY Routine 09/02/2025 11:56 AM EDT Anemia, unspecified type T3, TOTAL Routine 09/02/2025 11:56 AM EDT Hypothyroidism, unspecified type T3, FREE Routine 09/02/2025 11:56 AM EDT Hypothyroidism, unspecified type THYROGLOBULIN ANTIBODIES Routine 09/02/2025 11:56 AM EDT Hypothyroidism, unspecified type POCT DIVYA-14 URINE DRUG SCREEN Routine 08/19/2025 10:48 AM EDT Opioid type dependence, continuous (CMS/HCC) (HCC) COMPREHENSIVE METABOLIC PANEL Routine 07/29/2025 3:58 AM EDT CBC WITH AUTO DIFFERENTIAL Routine 07/29/2025 3:58 AM EDT FERRITIN Routine 07/12/2025 11:19 AM EDT IRON AND TOTAL IRON BINDING CAPACITY Routine 07/12/2025 11:19 AM EDT T4, FREE Routine 07/12/2025 11:19 AM EDT TSH W/REFLEX TO FT4 Routine 07/12/2025 1 1:19 AM EDT Numbness and tingling of both feet POCT DIVYA-14 URINE DRUG SCREEN Routine 07/08/2025 10:39 AM EDT Uncomplicated opioid dependence (CMS/HCC) HEPATITIS C AB W/REFL TO HCV RNA, QN, PCR Routine 06/07/2025 11:07 AM EDT Dermatitis of lower extremity HIV 1/2 ANTIGEN/ANTIBODY, FOURTH GENERATION W/RFL Routine 06/07/2025 11:07 AM EDT Dermatitis of lower extremity from Last 3 Months or Most Recently Relevant to Health Maintenance Results * US Thyroid (10/03/2025 1:41 PM EST) Anatomical Region Laterality Modality Head, Neck Ultrasound 10/03/2025 1:41 PM EST Narrative 10/03/2025 2:43 PM EST [place] [address] Ultrasound Report Signed Patient: Esteban Chiu MR#: [id number] 428 : 1970 Acct:[id number] Age/Sex: 54 / M ADM Date: 10/03/25 Loc: HO.US Attending Dr: Pradip Maurice MD Ordering Physician: Pradip Maurice MD Date of Service: 10/03/25 Procedure(s): US thyroid Accession Number(s): [id number] cc: Pradip Maurice MD Reason for Exam: hypothyroidism EXAMINATION: US THYROID CLINICAL INFORMATION: Hypothyroidism. COMPARISON: None available. TECHNIQUE: Linear transducer grayscale and color Doppler examination with attention to the region of the thyroid. FINDINGS: SIZE: Measurements of the thyroid lobes and nodules are given in sagittal, anteroposterior and transverse dimensions respectively. Right Thyroid Lobe: 4.2 x 1.4 x 1.4 cm, volume 4.1 mL. Parenchyma: The gland echotexture is heterogeneous. Thyroid vascularity is normal. Left Thyroid Lobe: 4.2 x 1.2 x 0.9 cm, volume 2.2 mL. Parenchyma: The gland echotexture is heterogeneous. Thyroid vascularity is normal. Isthmus: 0.1 cm in maximum AP dimension. There are no discrete thyroid nodule present. NODES: No lymphadenopathy is seen in the tissue surrounding the thyroid gland. US/US thyroid IMPRESSION: 1. 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 2. There is no discrete nodule present. Electronically signed by: Parker Richter MD 10/03/2025 02:40 PM EST RP Dictated By: Parker Richter MD Signed By: <Electronically signed by Parker Richter MD in OV> 10/03/25 1440 DD/ 1341 TD/TT: 10/03/25 1346 [employer] Edge Beveler: Procedure Note Donotuseinterpreter, Image - 10/03/[address] [address] Ultrasound Report Signed Patient: Esteban Chiu MMR#: [id number] : 1970Acct:[id number] Age/Sex: 54 / MADM Date: 10/03/25 Loc: HO.US Attending Dr: Pradip Maurice MD Ordering Physician: Pradip Maurice MD Date of Service: 10/03/25 Procedure(s): US thyroid Accession Number(s): [id number] cc: Pradip Maurice MD Reason for Exam: hypothyroidism EXAMINATION: US THYROID CLINICAL INFORMATION: Hypothyroidism. COMPARISON: None available. TECHNIQUE: Linear transducer grayscale and color Doppler examination with attention to the region of the thyroid. FINDINGS: SIZE: Measurements of the thyroid lobes and nodules are given in sagittal, anteroposterior and transverse dimensions respectively. Right Thyroid Lobe: 4.2 x 1.4 x 1.4 cm, volume 4.1 mL. Parenchyma: The gland echotexture is heterogeneous. Thyroid vascularity is normal. Left Thyroid Lobe: 4.2 x 1.2 x 0.9 cm, volume 2.2 mL. Parenchyma: The gland echotexture is heterogeneous. Thyroid vascularity is normal. Isthmus: 0.1 cm in maximum AP dimension. There are no discrete thyroid nodule present. NODES: No lymphadenopathy is seen in the tissue surrounding the thyroid gland. US/US thyroid IMPRESSION: 1. 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 2. There is no discrete nodule present. Electronically signed by: Parker Richter MD 10/03/2025 02:40 PM EST RP Dictated By: Parker Richter MD Signed By: <Electronically signed by Parker Richter MD in OV> 10/03/25 1440 DD/ 1341 TD/TT: 10/03/25 1346 [employer] Edge Beveler: Pradip Riggs MD IMG US PROCEDURES Fin al Result * (ABNORMAL) TSH with Reflex to Free T4 (09/02/2025 11:56 AM EDT) Only the most recent of2 resultswithin the time period is included. TSH reflex Free T4 15.81(H) 0.32 - 4.0 uIU/mL [facility] Blood Venous blood specimen / Unknown 09/02/2025 11:56 AM EDT 09/02/2025 11:56 AM EDT Pradip Riggs MD LAB BLOOD ORDERABLES Final Result [facility] [address] [place] [phone] * Methylmalonic Acid (09/02/2025 11:56 AM EDT) Methylmalonic Acid 150 55 - 335 nmol/L [facility] Comment: Serum methylmalonic acid (MMA) levels are used todiagnose and monitor several rare inborn errors ofmetabolism, including methylmalonic aciduria. Theenzymatic conversion of MMA to succinic acid requiresvitamin B12 (adenosyl-cobalamin) as a cofactor. SerumMMA levels are also used for assessing functionalvitamin B12 deficiency. Vitamin B12 is essential forfetal neurodevelopment, particularly early inpregnancy. Undiagnosed maternal vitamin B12 deficiencymay be associated with adverse / outcomes,such as neural tube defects and intrauterine growthrestriction.[employer] utilized Multi-Modal Decomposition(MMD) analysis to establish first and second trimester-specific MMA reference intervals in , as givenbelow:MMA, First trimester (<13 wks gestation): 58-167 nmol/LMMA, Second trimester (13-23 wks gestation):63-241 nmol/LThis test was developed and its analytical performancecharacteristics have been determined by [employer]. It has not been cleared or approved by theA. This assay has been validated pursuant to the CLIAregulations and is used for clinical purposes.THIS TEST WAS PERFORMED AT:[id number] [place] [address]PCDFCBFMARIANNE DELUCA MD,PHD Blood Venous blood specimen / Unknown 09/02/2025 11:56 AM EDT 09/02/2025 11:56 AM EDT Pradip Riggs MD LAB BLOOD ORDERABLES Final Result Performing Organization Address [facility] Co de Phone Number [facility] [address] [place] [address] [phone] * Iron And Total Iron Binding Capacity (09/02/2025 11:56 AM EDT) Only the most recent of2 resultswithin the time period is included. Iron 81 45 - 160 mcg/dL [facility] Total Iron Binding Capacity 254 228 - 428 mcg/dL [facility] Percent Iron Saturation 32 15 - 50 % [facility] Unsaturated Iron Binding 173 ug/dL [facility] Blood Venous blood specimen / Unknown 09/02/2025 11:56 AM EDT 09/02/2025 11:56 AM EDT Pradip Riggs MD LAB BLOOD ORDERABLES Final Result Performing Organization Address [facility] Co de Phone Number [facility] [address] [place] [address] [phone] * Thyroglobulin Antibodies (09/02/2025 11:56 AM EDT) Thyroglobulin Antibodies <1 < or = 1 IU/mL [facility] Comment:THIS TEST WAS PERFOR MED AT:[facility] [id number] [place] [id number] NELSON MD Blood Venous blood specimen / Unknown 09/02/2025 11:56 AM EDT 09/02/2025 11:56 AM EDT us Pradip Riggs MD LAB BLOOD ORDERABLES Final Result Performing Organization Address [facility] de Phone Number [facility] [address] [place] [phone] * T3, Free (09/02/2025 11:56 AM EDT) T3, Free 3.1 2.3 - 4.2 pg/mL [facility] Comment:THIS TEST WAS PERFOR MED AT:[facility] [address] [id number] NELSON MD Blood Venous blood specimen / Unknown 09/02/2025 11:56 AM EDT 09/02/2025 11:56 AM EDT us Pradip Riggs MD LAB BLOOD ORDERABLES Final Result Performing Organization Address [facility] Number [facility] [address] [place] [phone] * T3, Total (09/02/2025 11:56 AM EDT) T3, Total 99 76 - 181 ng/dL [facility] Comment:THIS TEST WAS PERFOR MED AT:[facility] [address] [id number] NELSON MD Blood Venous blood specimen / Unknown 09/02/2025 11:56 AM EDT 09/02/2025 11:56 AM EDT us Pradip Riggs MD LAB BLOOD ORDERABLES Final Result Performing Organization Address [facility] Co de Phone Number [facility] [address] [place] [phone] * T4, Free (09/02/2025 11:56 AM EDT) Only the most recent of2 resultswithin the time period is included. Free T4 (Free Thyroxine) 0.89 0.71 - 1.85 ng/dL [facility] 09/02/2025 11:5 6 AM EDT 09/02/2025 11:56 AM EDT Pradip Riggs MD LAB BLOOD ORDERABLES Final Result Performing Organization Address [facility]/ZIP Co de Phone Number [facility] [address] [place] [phone] * Homocysteine (09/02/2025 11:56 AM EDT) Pathologist [facility] Homocysteine 8.4 < or = 15.2 umol/L [facility] Comment:Homocysteine is incr eased by functional deficiency offolate or vitamin B12. Testing for methylmalonic aciddifferentiates between these deficiencies. Other causesof increased homocysteine include renal failure, folateantagonists such as methotrexate and phenytoin, andexposure to nitrous oxide.Nicki Rome, et al., [employer] Engineer Med. 1999;131(5):331-9.THIS TEST WAS PERFORMED AT:[facility] [address] [id number] NELSON MD Blood Venous blood specimen / Unknown 09/02/2025 11:56 AM EDT 09/02/2025 11:56 AM EDT Pradip Riggs MD LAB BLOOD ORDERABLES Final Result Performing Organization Address City/[facility]/ZIP Co de Phone Number [facility] [address] [place] [phone] * Ferritin (09/02/2025 11:56 AM EDT) Only the most recent of2 resultswithin the time period is included. Ferritin 189 20 - 250 ng/mL [facility] Blood Venous blood specimen / Unknown 09/02/2025 11:56 AM EDT 09/02/2025 11:56 AM EDT Pradip Riggs MD LAB BLOOD ORDERABLES Final Result Performing Organization Address City/[facility]/ZIP Co de Phone Number [facility] [address] [place] [phone] * (ABNORMAL) Lipid Panel, Standard (09/02/2025 11:56 AM EDT) Triglycerides 260(H) <150 mg/dL [facility] Comment:Desirable Triglyceri de: less than 150 mg/dLBorderline High Triglyceride 150-199 mg/dLHigh Triglyceride: 200-499 mg/dLVery High Triglyceride: greater than or equal to 5OO mg/dL Cholesterol 179 <200 mg/dL [facility] Comment:Desirable Cholestero l: less than 200 mg/dLBorderline High Cholesterol: 200-239 mg/dLHigh Cholesterol: greater than 239 mg/dL LDL Cholesterol Calculated 86 <100 mg/dL [facility] Comment:Desirable LDL: less than 100 mg/dLNear Optimal/Above Optimal LDL: 110- 129 mg/dLBorderline High LDL: 130-159 mg/dLHigh LDL: 160-189 mg/dLVery High LDL: greater than or equal to 190 mg/dL HDL Cholesterol 41 >40 mg/dL [facility] Comment:Desirable HDL: great er than 40 mg/dL Note: This HDL assay may give artificially low results in patients with liver disease. Blood Venous blood specimen / Unknown 09/02/2025 11:56 AM EDT 09/02/2025 11:56 AM EDT Pradip Riggs MD LAB BLOOD ORDERABLES Final Result Performing Organization Address City/[facility]/ZIP Co de Phone Number [facility] [address] [place] [phone] * (ABNORMAL) POCT DIVYA-14 Urine Drug Screen (08/19/2025 10:48 AM EDT) Only the most recent of2 resultswithin the time period is included. [facility] THC Negative(A) Negative Cocaine Screen, Urine Positive(A) [...] CBC auto differential (07/29/2025 3:58 AM EDT) [facility] White Blood Count 7.5 4.8 - 10.8 X10*3/uL [facility] Red Blood Count 3.95(L) 4.60 - 5.80 X10*6/uL [facility] Hemoglobin 12.7(L) 14.0 - 18.0 g/dl [facility] Hematocrit 36.2(L) 42.0 - 52.0 % [facility] [facility] Mean Corpuscular Volume 91.6 80.0 - 98.0 fL [facility] Mean Corpuscular Hemoglobin 32.2 27.0 - 33.0 pg [facility] Mean Corpuscular HGB Conc 35.1 31.0 - 36.0 g/dl [facility] Red Cell Distribution Width 12.4 11.0 - 16.0 % [facility] Platelet Count 269 160 - 400 X10*3/uL [facility] Mean Platelet Volume 9.0(L) 9.4 - 12.4 fL [facility] Neutrophils Percent Auto 55.6 45 - 73 % [facility] Imm Gran Pct Auto 0.7(H) 0.0 - 0.4 % [facility] Lymphocytes Percent Auto 32.7 20 - 40 % [facility] Monocytes Percent Auto 8.3 2 - 11 % [facility] Eosinophils Percent Auto 2.4 0 - 4 % [facility] Basophils Percent Auto 0.3 0 - 2 % [facility] NRBC Pct Auto 0.0 0.0 - 0.2 /100WBC [facility] Neutrophils Absolute Auto 4.2 2.0 - 8.3 x10*3/uL [facility] Imm Gran Abs Auto 0.05(H) 0.00 - 0.03 X10*3/uL [facility] Lymphocytes Absolute Auto 2.5 1.2 - 4.9 X10*3/uL [facility] Monocytes Absolute Auto 0.6 0.1 - 1.2 X10*3/uL [facility] Eosinophils Absolute Auto 0.2 0.0 - 0.4 X10*3/uL [facility] Basophils Absolute Auto 0.0 0.0 - 0.2 X10*3/uL [facility] NRBC Abs Auto 0.000 0.0 - 0.012 X10*3/uL [facility] 07/29/2025 3:58 AM EDT 07/29/2025 4:01 AM EDT us Generic External Data Provider LAB BLOOD ORDERAB LES Final Result [facility] [address] [place] [phone] [phone] * Comprehensive Metabolic Panel (07/29/2025 3:58 AM EDT) Sodium 143 135 - 145 mmol/L [facility] Potassium 3.7 3.3 - 5.1 mmol/L [facility] Chloride 101 96 - 108 mmol/L [facility] Carbon Dioxide 29 22 - 29 mmol/L [facility] Anion Gap 17 12 - 20 [facility] Urea Nitrogen (BUN) 15 9 - 16 mg/dL [facility] Creatinine, Serum 1.34 0.5 - 1.4 mg/dL [facility] Creatinine Clr Calc Pharmacy 70.9 [facility] Comment:eGFR (calculated fro m the MDRD study equation) and eCrCl(calculated from the Cockcroft-Gault equation) are based ondifferent parameters and may not yield comparable results.If eCrCl result is absurd, please check patient'sheight/weight. Estimated Glomerular Filt Rate 56 [facility] Comment:Chronic Kidney Disea se: Estimated GFR < 60 mL/min/1.77g2Kmisal Kidney Disease: Estimated GFR < 15 mL/min/1.73m2 Glucose 101 60 - 115 mg/dL [facility] Calcium 9.3 8.4 - 10.2 mg/dL [facility] Bilirubin, Total 0.2 0.0 - 1.0 mg/dL [facility] Aspartate Amino Transferase 27 5 - 37 U/L [facility] Alanine Aminotransferase 17 0 - 40 U/L [facility] Total Protein 7.8 6.5 - 8.0 g/dL [facility] Albumin Level 4.7 3.5 - 5.0 g/dL [facility] Alkaline Phosphatase 88 39 - 117 U/L [facility] 07/29/2025 3:58 AM EDT 07/29/2025 4:01 AM EDT us Generic External Data Provider LAB BLOOD ORDERAB LES Final Result [facility] [address] [place] [phone] * Hepatitis C Antibody with Reflex to HCV, RNA, Quantitative, Real-Time PCR (06/07/2025 11:07 AM EDT) Hepatitis C Antibody Nonreactive Nonreactive [facility] Comment:Antibodies to HCV no t detected; does not exclude early acuteHCV infection. Blood Venous blood specimen / Unknown 06/07/2025 11:07 AM EDT 06/07/2025 1:29 PM EDT Pradip Riggs MD LAB BLOOD ORDERABLES Final Result Performing Organization Address [facility] Co de Phone Number [facility] [address] [place] [address] [phone] * HIV-1/2 Antigen and Antibodies, Fourth Generation, with Reflexes (06/07/2025 11:07 AM EDT) [facility] HIV AB/AG Nonreactive Nonreactive [facility] Comment:HIV-1 p24 Ag and/or HIV-1/HIV-2 Ab not detected.A test result that is nonreactive does not exclude thepossibility of exposure to or infection with HIV-1 and/orHIV-2. Nonreactive results in this assay for individualswith prior exposure to HIV-1 and/or HIV-2 may be due toantigen and antibody levels that are below the limit ofdetection of this assay.The [employer] HIV Ag/Ab Combo assay result andsupplemental assay results should be interpreted inconjunction with the patient's clinical presentation,history and other laboratory results. If the results areinconsistent with clinical evidence, additional testing issuggested to confirm the result. Blood Venous blood specimen / Unknown 06/07/2025 11:07 AM EDT 06/07/2025 1:29 PM EDT Pradip Riggs MD LAB BLOOD ORDERABLES Final Result Performing Organization Address City/[facility]/ZIP Co de Phone Number [facility] [address] [place] [address] [phone] from Last 3 Months or Most Recently Relevant to Health Maintenance Insurance BS HMO Care Teams Guest Service Host Relationship Specialty Start Date End Date Pradip Wilson MD [address] [place] [phone] PCP - General Internal Medicine 05/12/25
--- OUTSIDE RECORDS SUMMARY | 2025-10-03 16:56 | XMS_ITS | Encounter Summary ---
Author Organization [facility] Address [address] [place] [address] Care Team Providers Care Bridge Carpenter Name Role Phone Unavailable Primary Care Provider Unavailabl e Encounter Details Date Type Department Care Team (Late st Contact Info) Description 05/28/2025 Lab Requisition [facility] [address] [place] [address] Roel Valero [address] [place] [address] [phone] Other [facility] (current) drug therapy Social History Tobacco Use [...] LDL Routine 05/28/2025 7:00 AM EDT Other [facility] (current) drug therapy HEMOGLOBIN A1C Routine 05/28/2025 7:00 AM EDT Other [facility] (current) drug therapy GLUCOSE, RANDOM Routine 05/28/2025 7:00 AM EDT Other ch[facility] (current) drug therapy documented in this encounter Results * (ABNORMAL) Lipid panel with reflex to direct LDL (05/28/2025 7:00 AM EDT) Cholesterol 322(H) 0 - 200 mg/dL LAB CHEMISTRY METHOD 05/28/2025 11:33 AM EDT [facility] Triglycerides 342(H) 0 - 150 mg/dL LAB CHEMISTRY METHOD 05/28/2025 11:33 AM EDT [facility] HDL 46 >=40 mg/dL LAB CHEMISTRY METHOD 05/28/2025 11:33 AM EDT [facility] LDL Calculated 208(H) 0 - 100 mg/dL LAB CHEMISTRY METHOD 05/28/2025 11:33 AM EDT [facility] VLDL Cholesterol Win 68.4 mg/dL LAB CHEMISTRY METHOD 05/28/2025 11:33 AM EDT [facility] Non HDL Chol. (LDL+VLDL) 276(H) <145 mg/dL LAB CHEMISTRY METHOD 05/28/2025 11:33 AM EDT [facility] Chol/HDL Ratio 7.0(H) 0.0 - 4.4 LAB CHEMISTRY METHOD 05/28/2025 11:33 AM EDT [facility] Blood Venous blood specimen / Unknown Venipuncture / Unknown 05/28/2025 7:00 AM EDT 05/28/2025 10:36 AM EDT Roel Valero LAB BLOOD ORDERABLES Final Resu lt [facility] [address] [place] [address], [place] [phone] * Glucose, random (05/28/2025 7:00 AM EDT) Glucose 95 70 - 100 mg/dL LAB CHEMISTRY METHOD 05/28/2025 11:33 AM EDT [facility] Blood Venous blood specimen / Unknown Venipuncture / Unknown 05/28/2025 7:00 AM EDT 05/28/2025 10:36 AM EDT Roel Valero LAB BLOOD ORDERABLES Final Resu lt [facility] [address] [place] [address], [place] [phone] * Hemoglobin A1c (05/28/2025 7:00 AM EDT) Hemoglobin A1C 5.8 <6.5 % LAB CHEMISTRY METHOD 05/29/2025 12:33 PM EDT [facility] Mean Bld Glu Estim. 120 mg/dL LAB CHEMISTRY METHOD 05/29/2025 12:33 PM EDT [facility] Blood Venous blood specimen / Unknown Venipuncture / Unknown 05/28/2025 7:00 AM EDT 05/28/2025 10:36 AM EDT us Roel Valero LAB BLOOD ORDERABLES Final Resu lt [facility] [address] [place] [address], documented in this encounter Visit Diagnoses Diagnosis Other chcf (current) drug therapy documented in this encounter
--- OUTSIDE RECORDS SUMMARY | 2025-10-03 16:56 | XMS_ITS | Encounter Summary ---
Author Organization [employer] Address [address] [place] [address] Care Team Providers Care Crm Consultant Name Role Phone Pradip Wilson MD Primary Care Provide r Encounter Details Date Type Department Care Team (Late st Contact Info) Description 06/08/2025 Orders Only [facility] [address] [place] [address] Sandoval Dobson, KavitaD Social History Tobacco Use [...] Description 10/21/2025 9:15 AM EST Office Visit [facility] [address] [place] [phone] Rashawn Weiss MD [address] [place] [phone] 12/20/2025 3:00 PM EST Office Visit [facility] [address] [place] [phone] Pradip Wilson MD [address] [place] [phone] documented as of this encounter Goals Goal Patient Goal Type Associated Problems Recent Progress Patient-Stated? Author Reduce use of crystal meth General On track( 11:22 AM EDT) Yes Noemi Osborn, NAJMA Note: Has not tested positive for a while. Go to [facility] for tinnitus. General On track( 11:27 AM [...] documented as of this encounter Care Teams Crm Consultant Relationship Specialty Start Date End Date Pradip Wilson MD [address] [place] [phone] PCP - General Internal Medicine 05/12/25 documented as of this encounter
--- OUTSIDE RECORDS SUMMARY | 2025-10-03 16:56 | XMS_ITS | Encounter Summary ---
Author Organization [employer] Address [address] [place] [address] 7 [place] [address] Care Team Providers Care Dental Appliance Mechanic Name Role Phone Pradip Wilson MD Primary Care Provide r Reason for Visit * Reason Onset Date Comments Med Refill 08/05/2025 Encounter Details Date Type Department Care Team (Late st Contact Info) Description 08/05/2025 Refill [facility] [address] [place], [place] [phone] Pradip Wilson MD [address] [place] [phone] Hyperlipidemia, unspecified hyperlipidemia type Social History Tobacco [...] Description 10/21/2025 9:15 AM EST Office Visit [facility] [address] [place] [phone] Rashawn Weiss MD [address] [place] [phone] 12/20/2025 3:00 PM EST Office Visit [facility] [address] [place] [phone] Pradip Wilson MD [address] [place] [phone] documented as of this encounter Goals Goal [...] documented as of this encounter Care Teams Dental Appliance Mechanic Relationship Specialty Start Date End Date Pradip Wilson MD [address] [place] [address] PCP - General Internal Medicine 05/12/25 documented as of this encounter
--- OUTSIDE RECORDS SUMMARY | 2025-10-03 16:56 | XMS_ITS | Encounter Summary ---
Author Organization [employer] Address [address] [place] [address] 7 [place] [address] Care Team Providers Care Entry Level Project Coordinator Name Role Phone Pradip Wilson MD Primary Care Provide r Reason for Visit * Reason Onset Date Comments Hospital Follow-up 05/31/2025 Encounter Details Date Type Department Care Team ([facility] st Contact Info) Description 05/31/2025 Telephone [facility] [address] [place], [place] [phone] Pradip Wilson MD [address] [place] [phone] Hospital Follow-up Social History Tobacco Use Types [...] from pt requesting a HDF appt. Hospital: [facility] Date of admission: 05/27 Discharge date: 06/01 Diagnosed: Severe mood disorders with psychotic features *Send message to [facility] Clinical Care Coordinators Contact pt at [phone] documented in this encounter Plan of Treatment Upcoming Encounters Date Type Department Care Team (Late st Contact Info) Description 10/21/2025 9:15 AM EST Office Visit [facility] [address] [place] [phone] Rashawn Weiss MD [address] [place] [phone] 12/20/2025 3:00 PM EST Office Visit [facility] [address] [place] [phone] Pradip Wilson MD [address] [place] [address] documented as of this encounter Goals Goal [...] documented as of this encounter Care Teams Entry Level Project Coordinator Relationship Specialty Start Date End Date Pradip Wilson MD [address] [place] [address] PCP - General Internal Medicine 05/12/25 documented as of this encounter
== END 2025-10-03 13:21 | disposition home or self-care (01) ==
LOC: HO.US 13:20
PROVIDERS: PCP Internal Medicine; Visit Provider Internal Medicine
DX: E03.9 Hypothyroidism, unspecified (principal)
CPT/HCPCS: 76536

== ENCOUNTER → 2025-10-03 13:22 | Outpatient (BNV) | payer BC, SELFPAY | PROVIDERS: PCP Internal Medicine; Visit Provider Radiology Diagnostic Radiology | DX: E03.9 Hypothyroidism, unspecified (principal) | CPT/HCPCS: 76536 ==